=== PATIENT | female | born 1935 | race Caucasian/White ===

== ENCOUNTER → 2018-03-30 | Outpatient (CLI) | payer OTHER ==
[~2018-03-30] MED LIST: ATV5 PO; BENZ100C7 PO; DLCSR120 PO; DVN/160 PO; FLUT0.15 NAE; GFNSR600 PO; HYCUDL5 PO; IPRA-64 INH; ISR20 PO; LSX20 PO; MOUT1LIQ45; MOUTLIQ79; MOUTLIQ83; NICO21DI4 TD; POTA1CAP2 PO; PROAIR HFA INH; SENN8.6T7 PO; SYMIN8045 INH
[2018-03-30 08:07] LABS: HEMATOCRIT 32.2 % (37-47); MEAN CELL VOLUME 91.5 fL (80-100); MEAN CORPUSCULAR HEMOGLOBIN 31.3 pg (25-34); MEAN CORPUSCULAR HGB CONC 34.2 g/dl (32-36); MEAN PLATELET VOLUME 10.1 fL (7.4-10.4); PLATELET COUNT 175 K/uL (130-400); RED CELL DISTRIBUTION WIDTH CV 15.6 % (11.5-14.5)
[2018-03-30 08:19] LABS: ALBUMIN 1.9 gm/dl (3.4-5.0); ALT/SGPT 30 U/L (12-78); AST/SGOT 16 U/L (15-37); BLOOD UREA NITROGEN 21 mg/dl (7-18); CALCIUM 7.7 mg/dl (8.5-10.1); CARBON DIOXIDE 35 mmol/L (21-32); CREATININE 0.59 mg/dl (0.60-1.20); GLUCOSE 93 mg/dl (70-99); POTASSIUM 3.9 mmol/L (3.5-5.1); SODIUM 126 mmol/L (136-145)
[2018-03-30 08:28] LABS: ALKALINE PHOSPHATASE 50 U/L (45-117); TOTAL PROTEIN 4.8 gm/dl (6.4-8.2)
== END | disposition home or self-care (01) ==
LOC: C.LABUPNIT 07:51
PROVIDERS: ATTEND Nurse Practitioner Family
DX: R94.6 Abnormal results of thyroid function studies (principal); I10 Essential (primary) hypertension; J15.211 Pneumonia due to Methicillin susceptible Staphylococcus aureus

== ENCOUNTER → 2018-04-02 | Outpatient (CLI) | payer OTHER ==
[2018-04-02 09:14] LABS: BLOOD UREA NITROGEN 30 mg/dl (7-18); CALCIUM 8.3 mg/dl (8.5-10.1); CARBON DIOXIDE 38 mmol/L (21-32); CREATININE 0.68 mg/dl (0.60-1.20); GLUCOSE 99 mg/dl (70-99); POTASSIUM 3.9 mmol/L (3.5-5.1); SODIUM 130 mmol/L (136-145)
== END | disposition home or self-care (01) ==
LOC: C.LABUPNIT 08:47
PROVIDERS: ATTEND Nurse Practitioner Family
DX: I10 Essential (primary) hypertension (principal)

== ENCOUNTER → 2018-04-05 | Outpatient (CLI) | payer OTHER ==
[2018-04-05 10:22] LABS: HEMATOCRIT 38.5 % (37-47); HEMOGLOBIN 12.7 g/dL (12.0-16.0); MEAN CELL VOLUME 94.4 fL (80-100); MEAN CORPUSCULAR HEMOGLOBIN 31.1 pg (25-34); MEAN PLATELET VOLUME 9.5 fL (7.4-10.4); PLATELET COUNT 223 K/uL (130-400); RED CELL DISTRIBUTION WIDTH CV 15.8 % (11.5-14.5); RED CELL DISTRIBUTION WIDTH SD 54.5 fL (36.4-46.3); WHITE BLOOD COUNT 10.08 K/uL (4.8-10.8)
[2018-04-05 10:28] LABS: BLOOD UREA NITROGEN 11 mg/dl (7-18); CALCIUM 8.3 mg/dl (8.5-10.1); CARBON DIOXIDE 39 mmol/L (21-32); CREATININE 0.42 mg/dl (0.60-1.20); GLUCOSE 116 mg/dl (70-99); SODIUM 132 mmol/L (136-145)
== END ==
LOC: C.LABUPNIT 09:46
PROVIDERS: ATTEND Nurse Practitioner Family
DX: J44.1 Chronic obstructive pulmonary disease with (acute) exacerbation (principal); J15.211 Pneumonia due to Methicillin susceptible Staphylococcus aureus

== ENCOUNTER → 2018-04-07 | Outpatient (CLI) | payer OTHER ==
[~2018-04-07] MED LIST changes: +ANSHCS PR; +ELQ25 PO; +OXGN; +PRED10TA PO; +ZNT150 PO
[2018-04-07 08:22] LABS: HEMATOCRIT 36.1 % (37-47); HEMOGLOBIN 12.4 g/dL (12.0-16.0); IG# 0.02 K/uL (0.00-0.02); LYMPH % 5.7 %; LYMPH ABS # 0.49 K/uL (1.2-3.4); MEAN CELL VOLUME 90.9 fL (80-100); MEAN CORPUSCULAR HEMOGLOBIN 31.2 pg (25-34); MEAN CORPUSCULAR HGB CONC 34.3 g/dl (32-36); MEAN PLATELET VOLUME 8.8 fL (7.4-10.4); MONO % 8.1 %; NEUT ABS # 7.43 K/uL (1.4-6.5); PLATELET COUNT 191 K/uL (130-400); RED CELL DISTRIBUTION WIDTH CV 15.4 % (11.5-14.5); RED CELL DISTRIBUTION WIDTH SD 51.7 fL (36.4-46.3); WHITE BLOOD COUNT 8.64 K/uL (4.8-10.8)
== END ==
LOC: C.LABUPNIT 10:51
PROVIDERS: ATTEND Nurse Practitioner Family
DX: J15.211 Pneumonia due to Methicillin susceptible Staphylococcus aureus (principal)

== ENCOUNTER → 2018-04-09 | Outpatient (CLI) | payer OTHER ==
[2018-04-09 10:15] LABS: BLOOD UREA NITROGEN 24 mg/dl (7-18); CALCIUM 8.4 mg/dl (8.5-10.1); CARBON DIOXIDE 39 mmol/L (21-32); CREATININE 0.56 mg/dl (0.60-1.20); GLUCOSE 119 mg/dl (70-99); SODIUM 133 mmol/L (136-145)
== END ==
LOC: C.LABUPNIT 07:53
PROVIDERS: ATTEND Nurse Practitioner Family
DX: J44.1 Chronic obstructive pulmonary disease with (acute) exacerbation (principal); I10 Essential (primary) hypertension

== ENCOUNTER 2018-04-12 11:35 | Inpatient (IN) | payer OTHER ==
[~2018-04-12] VITALS: Ht 167.6 cm; Wt 48.3 kg
[~2018-04-12 11:35] MED LIST changes: -ANSHCS PR; -ELQ25 PO; -MOUT1LIQ45; -MOUTLIQ79; -MOUTLIQ83; -OXGN; -POTA1CAP2 PO; -PRED10TA PO; -ZNT150 PO
[2018-04-12] MEDS ORDERED: ALBUT/IPRATROP 3MG/0.5MG NEB 3 ML VIAL INH STA ×2 (12:18→23:33)
--- NOTE | 2018-04-12 12:43 | DIAGNOSTIC IMAGING REPORT ---
CHEST ONE VIEW PORTABLE HISTORY: Short of breath. COMPARISON: Chest 03/26/2018. FINDINGS: Significant increase in size in a moderate right pleural effusion. Small left pleural effusion persists. Right basilar density is noted. Mild interstitial thickening persists. The heart is stable in size. Emphysema. IMPRESSION: 1. Significant increase in size in a moderate right pleural effusion. Right basilar densities favor atelectasis from the pleural effusion. However, follow up is recommended to ensure resolution. 2. Mild interstitial thickening which is likely chronic. This remains unchanged. Mild congestive change could also have a similar appearance. 3. Small left pleural effusion, unchanged. Electronically signed by: Justin Jackson M.D. 04/12/2018 12:42 PM Dictated Date/Time: 04/12/2018 12:40 PM
[2018-04-12] MEDS ORDERED: ACETAMINOPHEN 325 MG TAB PO STA (13:01)
--- NOTE | 2018-04-12 13:10 | EMERGENCY ROOM VISIT NOTE ---
History Report prepared by Luc: Lance Salgado Under the Supervision of: Dr. Oswald Rodrigues M.D. First contact with patient: 12:24 Chief Complaint: RESPIRATORY PROBLEMS Stated Complaint: PLEURAL EFFUSION Nursing Triage Summary: Pt to ED via ALS from [facility] with xrays showing large pleural effusion. Pt c/o worsening sob this AM and left rib pain. Discharged from [facility] 3 weeks ago dx pneumonia. 18G IV left hand prehospital. Chronic nasal o2 3lpm. Hx pleural effusion, pneumonia, copd and per patient afib History of Present Illness The patient is a 82 year old female who presents to the Emergency Room via ALS with complaints of worsening SOB that began this morning. Patient was sent to the ER from [facility] after having an X-ray which showed a pleural effusion. Patient adds she has left-sided rib pain. Patient states she was diagnosed with pneumonia in the ER 3 weeks ago. She states she has been using oxygen since being discharged. She adds she stopped her antibiotics recently. Patient states she has been coughing less than usual and denies any fevers. Patient states she uses breathing treatments regularly. Source of History: patient Onset: This morning Position: chest Timing: worsening Modifying Factors (Relieving): other (Breathing treatments) Associated Symptoms: + cough, + chest pain (Left-sided rib pain), No fevers Review of Systems See HPI for pertinent positives & negatives. A total of 10 systems reviewed and were otherwise negative. Past Medical & Surgical Medical Problems: (1) Atrial fibrillation (2) COPD (chronic obstructive pulmonary disease) (3) ABHISHEK (generalized anxiety disorder) (4) Hypertension (5) Hypoalbuminemia (6) Tobacco abuse Surgical Problems: (1) History of carpal tunnel release (2) History of carpal tunnel release Family History Patient reports no known family medical history. Omitted secondary to age. Social History Smoking Status: Current Some Day Smoker Housing Status: senior care Occupation Status: retired Current/Historical Medications Scheduled Budesonide/Formoterol Fumarate (Symbicort 80-4.5 Mcg/Act), 2 PUFFS INH BID Diltiazem HCl (Diltiazem HCl ER), 240 MG PO QAM Fluticasone Propionate (Nasal) (Flonase Allergy Relief), 2 SPRAYS MARINA DAILY Furosemide (Furosemide), 20 MG PO MWF Isosorbide Dinitrate (Isordil), 20 MG PO BID Nicotine (Nicoderm Cq), 21 MG TD QAM Potassium Chloride (Potassium Chloride Er), 1 CAP PO DAILY Valsartan (Diovan), 160 MG PO DAILY Scheduled PRN Benzonatate (Benzonatate), 100 MG PO TID PRN for Cough Hydrocodone/Homatropine (Hydromet 5-1.5 mg/5Ml), 5 ML PO HS PRN for Pain Ipratropium-Albuterol (Duoneb), 1 TREATMENT INH Q4H PRN for SOB/Wheezing Lorazepam (Lorazepam), 0.5 MG PO Q4 PRN for Anxiety Sennosides-Docusate Sodium (Senokot S), 1 TAB PO DAILY PRN for CONSTIPATION [Proair Hfa], 2 PUFF INH Q4 PRN for SOB/Wheezing Miscellaneous Medications Mouthwashes (Biotene Dry Mouth Gentle) Allergies Coded Allergies: Iodine (Unverified Adverse Reaction, Unknown, ., 04/12/18) Physical Exam Vital Signs Date Time Temp Pulse Resp B/P (MAP) Pulse Ox O2 Delivery O2 Flow Rate FiO2 04/12/18 17:46 82 24 126/74 99 04/12/18 16:57 78 26 137/74 99 04/12/18 16:20 86 04/12/18 14:36 98 Nasal Cannula 3.0 04/12/18 14:07 94 20 135/62 98 Nasal Cannula 3.0 04/12/18 13:06 101 24 150/94 100 Room Air 3.0 04/12/18 12:21 100 04/12/18 11:40 100 Nasal Cannula 3.0 04/12/18 11:40 100 Nasal Cannula 3.0 04/12/18 11:40 100 Nasal Cannula 3.0 04/12/18 11:40 36.7 101 32 136/91 100 Room Air 3.0 Physical Exam GENERAL: Patient is in no acute distress. HEENT: No acute trauma, normocephalic atraumatic, mucous membranes moist, no nasal congestion, no scleral icterus. NECK: No stridor, no adenopathy, no meningismus, trachea is midline. LUNGS: Diminished breath sounds bilaterally, significantly diminished on the right, increased respiratory rate, no wheezing. HEART: Tachycardic rate with an irregular rhythm, no murmurs. ABDOMEN: Soft, nontender, bowel sounds positive, no hernias, no peritonitis. EXTREMITIES: No cyanosis or edema, full range of motion of all the joints without pain or difficulty, no signs for acute trauma. NEUROLOGIC: Oriented x 3, no acute motor or sensory deficits, no focal weakness. SKIN: No rash, no jaundice, no diaphoresis. Medical Decision & Procedures ER Provider Diagnostic Interpretation: Radiology results as stated below per my review and radiologist interpretation: CHEST ONE VIEW PORTABLE HISTORY: Short of breath. COMPARISON: Chest 03/26/2018. FINDINGS: Significant increase in size in a moderate right pleural effusion. Small left pleural effusion persists. Right basilar density is noted. Mild interstitial thickening persists. The heart is stable in size. Emphysema. IMPRESSION: 1. Significant increase in size in a moderate right pleural effusion. Right basilar densities favor atelectasis from the pleural effusion. However, follow up is recommended to ensure resolution. 2. Mild interstitial thickening which is likely chronic. This remains unchanged. Mild congestive change could also have a similar appearance. 3. Small left pleural effusion, unchanged. Electronically signed by: Justin Jackson M.D. 04/12/2018 12:42 PM Laboratory Results 04/12/18 12:55 Red Blood Count 4.55, Mean Corpuscular Volume 91.6, Mean Corpuscular Hemoglobin 31.6, Mean Corpuscular Hemoglobin Concent 34.5, Mean Platelet Volume 8.7, Neutrophils (%) (Auto) 80.6, Lymphocytes (%) (Auto) 7.2, Monocytes (%) (Auto) 11.6, Eosinophils (%) (Auto) 0.2, Basophils (%) (Auto) 0.1, Neutrophils # (Auto ) 6.91, Lymphocytes # (Auto) 0.62, Monocytes # (Auto) 1.00, Eosinophils # (Auto ) 0.02, Basophils # (Auto) 0.01 04/12/18 12:55 Test 04/12/18 12:55 04/12/18 12:59 White Blood Count 8.59 K/uL (4.8-10.8) Red Blood Count 4.55 M/uL (4.2-5.4) Hemoglobin 14.4 g/dL (12.0-16.0) Hematocrit 41.7 % (37-47) Mean Corpuscular Volume 91.6 fL (80-100) Mean Corpuscular Hemoglobin 31.6 pg (25-34) Mean Corpuscular Hemoglobin Concent 34.5 g/dl (32-36) Platelet Count 261 K/uL (130-400) Mean Platelet Volume 8.7 fL (7.4-10.4) Neutrophils (%) (Auto) 80.6 % Lymphocytes (%) (Auto) 7.2 % Monocytes (%) (Auto) 11.6 % Eosinophils (%) (Auto) 0.2 % Basophils (%) (Auto) 0.1 % Neutrophils # (Auto) 6.91 K/uL (1.4-6.5) Lymphocytes # (Auto) 0.62 K/uL (1.2-3.4) Monocytes # (Auto) 1.00 K/uL (0.11-0.59) Eosinophils # (Auto) 0.02 K/uL (0-0.5) Basophils # (Auto) 0.01 K/uL (0-0.2) RDW Standard Deviation 52.5 fL (36.4-46.3) RDW Coefficient of Variation 15.7 % (11.5-14.5) Immature Granulocyte % (Auto) 0.3 % Immature Granulocyte # (Auto) 0.03 K/uL (0.00-0.02) Prothrombin Time 10.5 SECONDS (9.0-12.0) Prothromb Time International Ratio 1.0 (0.9-1.1) Activated Partial Thromboplast Time 25.4 SECONDS (21.0-31.0) Partial Thromboplastin Ratio 1.0 D-Dimer 1570 ug/L FEU (0-500) Anion Gap 3.0 mmol/L (3-11) Est Creatinine Clear Calc Drug Dose 88.6 ml/min Estimated GFR () 110.6 Estimated GFR (Non- 95.4 BUN/Creatinine Ratio 40.3 (10-20) Calcium Level 8.2 mg/dl (8.5-10.1) Total Bilirubin 0.8 mg/dl (0.2-1) Aspartate Amino Transf (AST/SGOT) 19 U/L (15-37) Alanine Aminotransferase (ALT/SGPT) 39 U/L (12-78) Alkaline Phosphatase 68 U/L (45-117) Troponin I < 0.015 ng/ml (0-0.045) Total Protein 5.3 gm/dl (6.4-8.2) Albumin 2.6 gm/dl (3.4-5.0) Globulin 2.7 gm/dl (2.5-4.0) Albumin/Globulin Ratio 1.0 (0.9-2) Procalcitonin < 0.05 ng/ml (0-0.5) Laboratory results reviewed by me. Medications Administered Medications (Trade) Dose Ordered Sig/Nell Route Start Time Stop Time Status Last Admin Dose Admin Albuterol/ Ipratropium (Duoneb) 3 ml NOW STAT INH 04/12/18 12:18 04/12/18 16:09 DC 04/12/18 12:36 3 ML Acetaminophen (Tylenol Tab) 650 mg NOW STAT PO 04/12/18 13:01 04/12/18 13:02 DC 04/12/18 13:05 650 MG Vancomycin HCl 1250 mg/Sodium Chloride 275 ml @ 125 mls/hr NOW ONCE IV 04/12/18 16:30 04/12/18 18:41 04/12/18 16:39 125 MLS/HR Piperacillin Sod/ Tazobactam Sod 3.375 gm/Dextrose 115 ml @ 230 mls/hr NOW ONCE IV 04/12/18 16:30 04/12/18 16:59 DC 04/12/18 16:39 230 MLS/HR ECG Per My Interpretation Indication: SOB/dyspnea Rate (beats per minute): 104 Rhythm: atrial fibrillation Findings: PVC, other (Old inferior infarct, no ST elevation) Comparison ECG Date: 03/15/2018 Change: no significant change ED Course 1211: The patient was evaluated in room A12B. A complete history and physical exam was performed. 1218: Duoneb 3ml INH 1301: Tylenol Tab 650mg PO 1352: I reevaluated the patient and updated her on her findings. 1501: Upon reexamination the patient will be further evaluated. I discussed results and treatment plan with the patient. She verbalizes agreement and understanding. I [facility] We discussed the patient's results and findings. The patient will be evaluated by Franny Donnelly PA-C for further management. Medical Decision Differential Diagnosis: Exacerbation of COPD, cardiac ischemia, pneumonia, bronchitis, electrolyte imbalance, pneumothorax, and pleural effusion. There is no leukocytosis or worrisome anemia. Renal panel testing shows a slightly low sodium, no kidney failure. No hepatitis. There is no coagulopathy. EKG shows A. fib, no acute ischemic change. Cardiac enzyme testing 1 is not consistent with acute cardiac injury. Chest x-ray shows a fairly large right-sided pleural effusion, no pneumothorax, no CHF. The patient presents with some increasing dyspnea. Today, on x-ray, she has a large right pleural effusion which is new, this is likely responsible for her increasing dyspnea. The patient was given a DuoNeb. She received oral Tylenol for her chest pain. I do think a hospital stay is warranted. The effusion likely needs drained. I did speak with the system sales consultant on for cardiothoracic surgery. I spoke with case management. The on-call hospitalist was consulted. Medication Reconcilliation Current Medication List: was personally reviewed by me Blood Pressure Screening Patient's blood pressure: Elevated blood pressure Referred to hospitalist. Consults Time Called: [phone] Consulting Physician: Franny Leyva Hospitalist Returned Call: [phone] Discussed the patient's case. The patient will be evaluated for further management. Impression Primary Impression: SOB (shortness of breath) Additional Impressions: Pleural effusion on right COPD (chronic obstructive pulmonary disease) Scribe Attestation The scribe's documentation has been prepared under my direction and personally reviewed by me in its entirety. I confirm that the note above accurately reflects all work, treatment, procedures, and medical decision making performed by me. Departure Information Dispostion Being Evaluated By Hospitalist Referrals Melanie Jeffers (PCP) Forms HOME CARE DOCUMENTATION FORM, IMPORTANT VISIT INFORMATION, WORK / SCHOOL INSTRUCTIONS Patient Instructions My [facility] Problem Qualifiers
[2018-04-12 13:11] LABS: BASO % 0.1 %; BASO ABS # 0.01 K/uL (0-0.2); EOS % 0.2 %; EOS ABS # 0.02 K/uL (0-0.5); HEMATOCRIT 41.7 % (37-47); HEMOGLOBIN 14.4 g/dL (12.0-16.0); IG# 0.03 K/uL (0.00-0.02); LYMPH % 7.2 %; LYMPH ABS # 0.62 K/uL (1.2-3.4); MEAN CELL VOLUME 91.6 fL (80-100); MEAN CORPUSCULAR HEMOGLOBIN 31.6 pg (25-34); MEAN CORPUSCULAR HGB CONC 34.5 g/dl (32-36); MEAN PLATELET VOLUME 8.7 fL (7.4-10.4); MONO % 11.6 %; NEUT % 80.6 %; NEUT ABS # 6.91 K/uL (1.4-6.5); PLATELET COUNT 261 K/uL (130-400); RED CELL DISTRIBUTION WIDTH CV 15.7 % (11.5-14.5); RED CELL DISTRIBUTION WIDTH SD 52.5 fL (36.4-46.3); WHITE BLOOD COUNT 8.59 K/uL (4.8-10.8)
[2018-04-12 13:24] LABS: PTT PATIENT 25.4 SECONDS (21.0-31.0)
[2018-04-12 13:32] LABS: ALBUMIN 2.6 gm/dl (3.4-5.0); CALCIUM 8.2 mg/dl (8.5-10.1); CREATININE 0.43 mg/dl (0.60-1.20); POTASSIUM 4.7 mmol/L (3.5-5.1); TOTAL PROTEIN 5.3 gm/dl (6.4-8.2)
[2018-04-12 14:36] VITALS: O2SAT 98; BMI 19.5
[2018-04-12] MEDS ORDERED: ACETAMINOPHEN 325 MG TAB PO PRN (15:45)
[2018-04-12] MEDS ORDERED: PIPERACILL/TAZOBAC CONSULT ACTIVE PRN (16:00)
[2018-04-12] MEDS ORDERED: DOCUSATE SODIUM/SENNA 50/8.6MG TAB PO PRN (16:15)
[2018-04-12] MEDS ORDERED: BENZONATATE 100MG CAP PO PRN (16:15)
[2018-04-12] MEDS ORDERED: VANCOMYCIN CONSULT ACTIVE PRN (16:27)
[2018-04-12] MEDS ORDERED: PIPERACILL/TAZOBAC IV 3.375 GM in D5W 100 ML IV ONE (16:30)
[2018-04-12] MEDS ORDERED: VANCOMYCIN IV 1,250 MG in SODIUM CHLORIDE 0.9% 250ML 250 ML IV ONE (16:30)
[2018-04-12] MEDS ORDERED: MOUTLIQ79 (16:40)
[2018-04-12] MEDS ORDERED: MOUTLIQ83 (16:48)
--- NOTE | 2018-04-12 17:04 | History and Physical ---
History & Physical Date & Time of Service: Apr 12, 2018 at 16:15 Chief Complaint: Pleural Effusion Primary Care Physician: Melanie Jeffers History of Present Illness Source: patient, family This is an 82-year-old female who has a significant past medical history of severe COPD O2 dependent, PAF not on OAC, HTN, tobacco abuse history, ABHISHEK, moderate-severe aortic stenosis who presented to [facility] from [facility] secondary to shortness of breath, large pleural effusion on chest x-ray. Daughter is at bedside. Patient was recently hospitalized [facility] 03/15 to 03/28/2018 secondary to severe COPD exacerbation, new onset A. fib with RVR in which cardiology, pulmonology were involved. At that time she was given IV Lasix, transition to p.o. Lasix 20mg MWF, was treated with Levaquin, IV steroids therapy. Patient is relatively new to the area which moved to [facility] in the day 2017 from [place] and therefore her pulmonary baseline is quite unknown. Posthospitalization she was sent to [facility]. Upon admission there he was noted to the wheezing therefore staff obtained chest x-ray, which noted pneumonia. Patient was initiated on IV Rocephin, Levaquin, p.o. prednisone 20 mg 5 days with minimal improvement. Is also participating in therapy at bedside. She now presents back to [facility] with increased shortness of breath at rest, orthopnea, chest tightness, wheezing, cough which is improving with clear productive sputum, GERD, dry mouth, bloating. She denies fever, chills sweats, lightheadedness, dizziness, chest pain, PND, nausea , vomiting, diarrhea. Last BM was yesterday, small, not moving regularly. Urinating frequently secondary to Lasix, but denies dysuria, increased urgency. Poor appetite over the past week. Per daughter while at [facility] she did have one fall when transferring to bedside commode. In ED according to Dr. Rodrigues patient was tachypneic which improved with DuoNeb. Chest x-ray obtained showed moderate right pleural effusion, right basilar density, atelectasis. Lab work revealed sodium 130, potassium 5.7, BUN 17, creatinine 0.43, glucose 102, H&H 14.4/41.7, WBC 8.9, platelet 260, troponin less than 0.015. She is being admitted for further evaluation and management of R. pleural effusion. Past Medical/Surgical History Medical Problems: (1) Atrial fibrillation Status: Chronic (2) COPD (chronic obstructive pulmonary disease) Status: Chronic (3) ABHISHEK (generalized anxiety disorder) Status: Chronic (4) Hypertension Status: Chronic (5) Tobacco abuse Status: Chronic Surgical History: (1) Carpal Tunnel Release Family History Diabetes mellitus MOTHER Hypertension FATHER Social History Smoking Status: Current Every Day Smoker (Spoke 1ppd since she was 18 years old ) Smokeless Tobacco Use: No Alcohol Use: none Drug Use: none Housing status: lives alone Occupational Status: retired Immunizations History of Influenza Vaccine: Unknown History of Tetanus Vaccine?: Unknown History of Pneumococcal: Unknown History of Hepatitis B Vaccine: Unknown Allergies Coded Allergies: Iodine (Unverified Adverse Reaction, Unknown, ., 04/12/18) Home Medications Scheduled Budesonide/Formoterol Fumarate (Symbicort 80-4.5 Mcg/Act), 2 PUFFS INH BID Diltiazem HCl (Diltiazem HCl ER), 240 MG PO QAM Fluticasone Propionate (Nasal) (Flonase Allergy Relief), 2 SPRAYS MARINA DAILY Furosemide (Furosemide), 20 MG PO MWF Isosorbide Dinitrate (Isordil), 20 MG PO BID Nicotine (Nicoderm Cq), 21 MG TD QAM Potassium Chloride (Potassium Chloride Er), 1 CAP PO DAILY Valsartan (Diovan), 160 MG PO DAILY Scheduled PRN Benzonatate (Benzonatate), 100 MG PO TID PRN for Cough Hydrocodone/Homatropine (Hydromet 5-1.5 mg/5Ml), 5 ML PO HS PRN for Pain Ipratropium-Albuterol (Duoneb), 1 TREATMENT INH Q4H PRN for SOB/Wheezing Lorazepam (Lorazepam), 0.5 MG PO Q4 PRN for Anxiety Sennosides-Docusate Sodium (Senokot S), 1 TAB PO DAILY PRN for CONSTIPATION [Proair Hfa], 2 PUFF INH Q4 PRN for SOB/Wheezing Miscellaneous Medications Mouthwashes (Biotene Dry Mouth Gentle) Review of Systems As noted per HPI, 10 systems reviewed and negative unless noted above. Physical Exam Vital Signs Date Time Temp Pulse Resp B/P (MAP) Pulse Ox O2 Delivery O2 Flow Rate FiO2 04/12/18 14:36 98 Nasal Cannula 3.0 04/12/18 14:07 94 20 135/62 98 Nasal Cannula 3.0 04/12/18 13:06 101 24 150/94 100 Room Air 3.0 04/12/18 12:21 100 04/12/18 11:40 100 Nasal Cannula 3.0 04/12/18 11:40 100 Nasal Cannula 3.0 04/12/18 11:40 100 Nasal Cannula 3.0 04/12/18 11:40 36.7 101 32 136/91 100 Room Air 3.0 General Appearance: + mild distress, + cachetic (Elderly, F), + thin Head: normocephalic, atraumatic Eyes: normal inspection, PERRL, sclerae normal ENT: normal ENT inspection, + pertinent finding (Mucous membranes dry) Neck: supple, no adenopathy, thyroid normal, no JVD Respiratory/Chest: chest non-tender, + respiratory distress (Tachypnea), + decreased breath sounds, + wheezing, + pertinent finding (absent breath sounds right lower lobe) Cardiovascular: no edema, + systolic murmur, + irregularly irregular Abdomen/GI: normal bowel sounds, non tender, soft, no organomegaly Back: normal inspection, + pertinent finding (+Left low back, large soft, mobile mass consistent with possible lipoma) Neurologic/Psych: alert, normal mood/affect, oriented x 3 Skin: normal color, warm/dry, + pertinent finding (+ecchymosis to b/l knees L>R ) Diagnostics Laboratory Results Results Past 24 Hours Test 04/12/18 12:55 04/12/18 15:57 Range/Units White Blood Count 8.59 4.8-10.8 K/uL Red Blood Count 4.55 4.2-5.4 M/uL Hemoglobin 14.4 12.0-16.0 g/dL Hematocrit 41.7 37-47 % Mean Corpuscular Volume 91.6 80-100 fL Mean Corpuscular Hemoglobin 31.6 25-34 pg Mean Corpuscular Hemoglobin Concent 34.5 32-36 g/dl Platelet Count 261 130-400 K/uL Mean Platelet Volume 8.7 7.4-10.4 fL Neutrophils (%) (Auto) 80.6 % Lymphocytes (%) (Auto) 7.2 % Monocytes (%) (Auto) 11.6 % Eosinophils (%) (Auto) 0.2 % Basophils (%) (Auto) 0.1 % Neutrophils # (Auto) 6.91 1.4-6.5 K/uL Lymphocytes # (Auto) 0.62 1.2-3.4 K/uL Monocytes # (Auto) 1.00 0.11-0.59 K/uL Eosinophils # (Auto) 0.02 0-0.5 K/uL Basophils # (Auto) 0.01 0-0.2 K/uL RDW Standard Deviation 52.5 36.4-46.3 fL RDW Coefficient of Variation 15.7 11.5-14.5 % Immature Granulocyte % (Auto) 0.3 % Immature Granulocyte # (Auto) 0.03 0.00-0.02 K/uL Prothrombin Time 10.5 9.0-12.0 SECONDS Prothromb Time International Ratio 1.0 0.9-1.1 Activated Partial Thromboplast Time 25.4 21.0-31.0 SECONDS Partial Thromboplastin Ratio 1.0 Sodium Level 130 136-145 mmol/L Potassium Level 4.7 3.5-5.1 mmol/L Chloride Level 87 98-107 mmol/L Carbon Dioxide Level 39 21-32 mmol/L Anion Gap 3.0 3-11 mmol/L Blood Urea Nitrogen 17 7-18 mg/dl Creatinine 0.43 0.60-1.20 mg/dl Est Creatinine Clear Calc Drug Dose 88.6 ml/min Estimated GFR () 110.6 Estimated GFR (Non- 95.4 BUN/Creatinine Ratio 40.3 10-20 Random Glucose 101 70-99 mg/dl Calcium Level 8.2 8.5-10.1 mg/dl Total Bilirubin 0.8 0.2-1 mg/dl Aspartate Amino Transf (AST/SGOT) 19 15-37 U/L Alanine Aminotransferase (ALT/SGPT) 39 12-78 U/L Alkaline Phosphatase 68 45-117 U/L Troponin I < 0.015 0-0.045 ng/ml Total Protein 5.3 6.4-8.2 gm/dl Albumin 2.6 3.4-5.0 gm/dl Globulin 2.7 2.5-4.0 gm/dl Albumin/Globulin Ratio 1.0 0.9-2 Diagnostic Radiology CXR: 1. Significant increase in size in a moderate right pleural effusion. Right basilar densities favor atelectasis from the pleural effusion. However, follow up is recommended to ensure resolution. 2. Mild interstitial thickening which is likely chronic. This remains unchanged. Mild congestive change could also have a similar appearance. 3. Small left pleural effusion, unchanged. EKG ECG: Afib RVR HR 104 Impression Assessment and Plan (1) Pleural effusion on right Assessment & Plan: This is an 82-year-old female who has a significant past medical history of severe COPD O2 dependent, PAF not on OAC, HTN, tobacco abuse history, ABHISHEK, moderate-severe aortic stenosis who presented to [facility] from [facility] secondary to shortness of breath , large pleural effusion on chest x-ray. In ED according to Dr. Rodrigues patient was tachypneic which improved with DuoNeb. Chest x-ray obtained showed moderate right pleural effusion, right basilar density, atelectasis. Lab work revealed sodium 130, potassium 5.7, BUN 17, creatinine 0.43, glucose 102, H&H 14.4/41.7, WBC 8.9, platelet 260, troponin less than 0.015. She is being admitted for further evaluation and management of R. pleural effusion. Ddx: CHF, Hospital acquired Pneumonia, COPD exacerbation. WBC within range, afebrile, recent treatment with levaquin/rocephin and recent hospitalization from -03/28/18 for COPD Exac/new onset afib. -Admit to med/surg telemetry -Start IV Lasix 40 daily -Empiric Antibiotics Vanco/Zosyn per pharmacy consult secondary to recent treatment with levaquin and rocephin until infectious source ruled out. -check d-dime to r/o PE, if + check CTA. -Prednisone 40mg po daily -Levalbuterol/ipatropium nebs q6 routine -MRSA Swab, if negative, MRSA PNA less likely -Pulmonary consult for evaluation/possible thoracentesis -repeat CXR, CBC, CMP and check pro-calcitonin in a.m. (2) SOB (shortness of breath) Assessment & Plan: Continue O2. Pulmonary treatment as above (3) COPD (chronic obstructive pulmonary disease) Assessment & Plan: Continue Symbicort Routine levalbuterol/ipratropium nebulizer treatments Continue O2 (4) Atrial fibrillation Assessment & Plan: Currently on diltiazem for rate and rhythm control., New- onset Orlando adams was diagnosed at most recent hospitalization from 03/15-03/28. Cardiology followed patient during that visit, unfortunately she refused oral anticoagulation. (5) Hyponatremia Assessment & Plan: Repeat BMP in a.m. Possible secondary to diuretic use, volume overload, SIADH Monitor while on IV diuretic (6) Hypertension Assessment & Plan: Blood pressure acceptable at this time Continue diltiazem, imdur, diovan, lasix. Goal < 140/90 (7) ABHISHEK (generalized anxiety disorder) Assessment & Plan: Continue lorazepam as needed (8) GERD (gastroesophageal reflux disease) Assessment & Plan: Start ranitidine 150mg po bid. Monitor for symptoms (9) Tobacco abuse Assessment & Plan: Continue NicoDerm patch 21 mg TD (10) Hypoalbuminemia Assessment & Plan: consult mold shaker due to hypoalbuminemia. This is a 82 year old female with a past medical history of O2 dependent COPD, tobacco use disorder, paroxysmal atrial fibrillation not on anticoagulation, HTN , moderate-severe aortic stenosis - presents from [facility] due to worsening shortness of breath/pleural effusion. R Pleural Effusion - likely due to valvular heart disease - patient does not want to take 40mg of Lasix at this time - will do 20mg via IV for now - pulmonology consulted for possible thoracentesis Recent Pneumonia - possibly related to parapneumonic effusion - will treat with Vanc + Zosyn; check MRSA swab - will monitor radiographs after effusion improves Elevated D-Dimer - will check V/Q scan Severe COPD Chronic Respiratory Failure - on oxygen at baseline, around 2L - add prednisone 40mg x5 days - nebs as needed - continue Symbicort DVT ppx - subq heparin DNR Advanced Directives Existing Living Will: Yes Existing Power of Licensed Plumber: No Resuscitation Status DNR VTE Prophylaxis Will order VTE Prophylaxis: Yes (heparin sq)
[2018-04-12] MEDS ORDERED: MOUT1LIQ45 (17:05)
[2018-04-12] MEDS ORDERED: POTA1CAP2 PO (17:05)
[2018-04-12] MEDS ORDERED: LEVALBUTEROL/IPRATROPIUM NEB INH PRN (18:30)
[2018-04-12 18:45] VITALS: BP 173/79; PULSE 89; TEMP 36.6; O2SAT 94
[2018-04-12] MEDS ORDERED: LEVALBUTEROL 0.63MG/3 ML NEB INH PRN (18:45)
[2018-04-12] MEDS ORDERED: IV FLUIDS COMPLETED PRN (18:45)
[2018-04-12] MEDS ORDERED: IPRATROPIUM BROMIDE NEB SOLN 0.02% 2.5 ML VIAL INH PRN (18:45)
[2018-04-12] MEDS: LEVALBUTEROL 0.63MG/3 ML NEB INH SCH (19:34)
[2018-04-12 19:37] VITALS: PULSE 86; O2SAT 95
[2018-04-12] MEDS: BUDESONIDE/FORMOTEROL FUMARATE 80/4.5 60 PUFFS/INHALER INH SCH (21:40)
[2018-04-12] MEDS: RANITIDINE HCL 150 MG TAB PO SCH (21:40)
[2018-04-12] MEDS: PIPERACILL/TAZOBAC IV 3.375 GM in DEXTROSE 5% 100ML 100 ML IV SCH (21:41)
[2018-04-12] MEDS: HEPARIN SOD 5000 UNIT/0.5 ML CARP SQ SCH (21:50)
--- NOTE | 2018-04-12 22:10 | Pharmacy Progress Note ---
Pharmacy Abx Initial Consult Date of Service Apr 12, 2018. Pharmacy Dosing Scope Date of Consult: 04/12/18 Consultation requested by: Franny Donnelly Pharmacy is consulted to initiate vancomycin/Zosyn IV dosing therapy, order appropriate labs and adjust drug dose/frequency. Subjective The patient is a 82 year old female admitted on Apr 12, 2018 at 16:13. Objective Height (Feet): 5 Height (Inches): 6.00 Weight (Kilograms): 54.700 Vital Signs (Past 12Hrs) Vital Signs Past 12 Hours Date Time Temp Pulse Resp B/P (MAP) Pulse Ox O2 Delivery O2 Flow Rate FiO2 04/12/18 19:37 86 16 95 Nasal Cannula 2.0 04/12/18 18:45 36.6 89 18 173/79 (110) 94 Nasal Cannula 2.5 04/12/18 18:00 Nasal Cannula 2.0 04/12/18 17:46 82 24 126/74 99 04/12/18 16:57 78 26 137/74 99 04/12/18 16:20 86 04/12/18 14:36 98 Nasal Cannula 3.0 04/12/18 14:07 94 20 135/62 98 Nasal Cannula 3.0 04/12/18 13:06 101 24 150/94 100 Room Air 3.0 04/12/18 12:21 100 04/12/18 11:40 100 Nasal Cannula 3.0 04/12/18 11:40 100 Nasal Cannula 3.0 04/12/18 11:40 100 Nasal Cannula 3.0 04/12/18 11:40 36.7 101 32 136/91 100 Room Air 3.0 Lab Results (24Hrs) Laboratory Tests (24 Hours) Test 04/12/18 12:55 04/12/18 12:59 White Blood Count 8.59 K/uL (4.8-10.8) Red Blood Count 4.55 M/uL (4.2-5.4) Hemoglobin 14.4 g/dL (12.0-16.0) Hematocrit 41.7 % (37-47) Mean Corpuscular Volume 91.6 fL (80-100) Mean Corpuscular Hemoglobin 31.6 pg (25-34) Mean Corpuscular Hemoglobin Concent 34.5 g/dl (32-36) Platelet Count 261 K/uL (130-400) Mean Platelet Volume 8.7 fL (7.4-10.4) Neutrophils (%) (Auto) 80.6 % Lymphocytes (%) (Auto) 7.2 % Monocytes (%) (Auto) 11.6 % Eosinophils (%) (Auto) 0.2 % Basophils (%) (Auto) 0.1 % Neutrophils # (Auto) 6.91 K/uL (1.4-6.5) H Lymphocytes # (Auto) 0.62 K/uL (1.2-3.4) L Monocytes # (Auto) 1.00 K/uL (0.11-0.59) H Eosinophils # (Auto) 0.02 K/uL (0-0.5) Basophils # (Auto) 0.01 K/uL (0-0.2) Procalcitonin < 0.05 ng/ml (0-0.5) Micro Results Date/Time Source Procedure Growth Status 04/12/18 18:40 Nasal MRSA DNA Surveillance Screen - Final Specimen Negative for MRSA by DNA Probe Complete Risk Factors for Resistance * Resident in a shelter or extended-care facility * Hospitalization for 48 hours or more within the past 90 days * Antimicrobial use within the last 90 days Levaquin and Azithromycin Assessment & Plan Assessment 82 year old female with a PMH of COPD on home oxygen presents with a pleural effusion on x-ray. Plan vancomycin/Zosyn for treatment of pleural effusion Vancomycin IV * Loading dose: 1250 mg (25 mg/kg) * Maintenance dose: 1000 mg IV (18.5 mg/kg) every 14 hours (population pharmacokinetics suggest half-life of 9 hr with elimination constant of 0.077 hr -1 HOWEVER baseline data with creatinine of 0.6-0.7 mg/dL suggests half-life of 16.5 hr with elimination constant of0.042 hr-1) * Goal trough level for pulmonary indication : 15 to 20 mcg/mL * Trough ordered for 04/14/18 prior to 1000 dose Piperacillin/tazobactam * 3.375 g bolus administered over 30 minutes, then 3.375 g IV extended infusion every 8 hours for CrCl greater than 20 mL/min Pharmacy will continue to follow and will adjust dose/frequency as necessary. Thank you.
[2018-04-12 23:13] VITALS: BP 146/81; PULSE 82; TEMP 36.5; O2SAT 95
[2018-04-12 23:34] VITALS: PULSE 83; O2SAT 96
[2018-04-13] VITALS (15 sets, daily range): BP systolic 112–159; BP diastolic 72–96; PULSE 74–105; TEMP 36.3–36.8; O2SAT 91–99; Ht 167.6 cm; Wt 48.3 kg
[2018-04-13] MEDS ORDERED: ALUMINUM/MAGNESIUM SUSP 30 ML UDC PO STA (00:02)
[2018-04-13] MEDS ORDERED: LORAZEPAM INJ 1 MG in SYRINGE 0.5 ML IV PRN (00:15)
[2018-04-13] MEDS ORDERED: ACETAMINOPHEN 325 MG TAB PO PRN (00:15)
[2018-04-13] MEDS ORDERED: PROCHLORPERAZINE INJ 5 MG in SYRINGE 4 ML IV PRN (00:15)
[2018-04-13] MEDS ORDERED: MoRPHine SULFATE 2 MG/ML CARP IV PRN (00:15)
[2018-04-13] MEDS: LEVALBUTEROL 0.63MG/3 ML NEB INH SCH ×4 (02:05→18:53)
[2018-04-13] MEDS: PIPERACILL/TAZOBAC IV 3.375 GM in DEXTROSE 5% 100ML 100 ML IV SCH (05:29)
[2018-04-13] MEDS: ALBUT/IPRATROP 3MG/0.5MG NEB 3 ML VIAL INH PRN (05:42)
[2018-04-13] MEDS ORDERED: DILTIAZEM HCL 120 MG ER CAP PO ONE (05:43)
[2018-04-13] MEDS ORDERED: VANCOMYCIN IV 1,000 MG in SODIUM CHLORIDE 0.9% 250ML 250 ML IV SCH (06:00)
[2018-04-13 06:07] LABS: HEMATOCRIT 41.8 % (37-47); HEMOGLOBIN 14.2 g/dL (12.0-16.0); MEAN CELL VOLUME 90.9 fL (80-100); MEAN CORPUSCULAR HEMOGLOBIN 30.9 pg (25-34); MEAN PLATELET VOLUME 8.6 fL (7.4-10.4); PLATELET COUNT 240 K/uL (130-400); RED CELL DISTRIBUTION WIDTH CV 15.6 % (11.5-14.5); RED CELL DISTRIBUTION WIDTH SD 51.6 fL (36.4-46.3); WHITE BLOOD COUNT 8.11 K/uL (4.8-10.8)
[2018-04-13 06:44] LABS: ALBUMIN 2.4 gm/dl (3.4-5.0); CALCIUM 7.7 mg/dl (8.5-10.1); CREATININE 0.37 mg/dl (0.60-1.20); POTASSIUM 3.8 mmol/L (3.5-5.1); TOTAL PROTEIN 5.2 gm/dl (6.4-8.2)
[2018-04-13] MEDS: FLUTICASONE PROPIONATE NA SPR 16 GM BTL NAE SCH (08:23)
[2018-04-13] MEDS: LORAZEPAM 0.5 MG TAB PO PRN (08:24)
[2018-04-13] MEDS: NICOTINE 21 MG/24 HR TDSY TD SCH (08:24)
--- NOTE | 2018-04-13 08:24 | Pulmonary Consultation ---
History General Date of Service: Apr 13, 2018. Stated Complaint: SOB HPI The patient is a 82 year old female who presents to [facility] with complaints of SOB. The patient's primary care provider is Melanie Jeffers. 82-year-old female admitted for acute on chronic respiratory insufficiency. Patient has a past medical history significant for atrial flutter/fibrillation and has refused anticoagulation, COPD of unknown severity but notably oxygen dependent. She was admitted to the [facility] between 2017 through 03/28/2018 for notable shortness of breath with COPD exacerbation and A. fib/flutter/diastolic dysfunction. Patient was then discharged to assisted facility for rehabilitation. At the rehab center the patient was noted to have progressive shortness of breath with chest x-ray obtained showing new right-sided pleural effusion moderate to large via CXR in left costophrenic blunting consistent with small pleural effusion. At the time of my interview the patient was notably tachypneic and using accessory muscles and could state that she was extremely short of breath and anxious but denied: Fever , chills, productive cough, hemoptysis, B type symptoms, unintentional weight loss or classic cardiac chest pain. In the emergency room the patient was started on antibiotics and steroids as well as continued on supplemental oxygen. EKG also showed atrial flutter with PVCs and weight of 104. Recent antibiotics have been Augmentin as well as Levaquin Significant PmHx: Oxygen-dependent COPD, paroxysmal atrial fibrillation/not on anticoagulants, hypertension, tobacco dependence, general anxiety disorder, moderate to severe aortic stenosis. Current inpatient work-up CXR: Moderate right-sided pleural effusion, right basilar density, small lt costophrenic blunting EKG: Atrial flutter, rate 104, PVC, WBC: 9K PLT: 261K Na: 130 D-dimer: >1570 BUN/Cr: 17/0.43 Albumin: 2.6 Troponin: < 0.015 MRSA nasal screen: Negative Procalcitonin: <0.05 Previous workup Pro-BNP: 4781 CXR (03/16/18): Emphysematous changes with no acute processes noted Cardiac Echo 03/16/2018 (final interpretation pending) o LV: EF= 65-70%, moderate LVH o RV: WNL o LA: mildly dilated o AV: moderate to severe aortic stenosis o RA: mild to moderately dilated o TV: moderate to sever regurgitation o RSVP: 40-50mmHg o IVC: WNL with normal respiratory variation CT without contrast 03/13/2018 o Panlobular emphysema o Biapical scarring Nocturnal oximetry study 03/17/2018 o Max Single Event <88%: 54sec CXR 04/12/2018 o significant opacification the right lower hemithorax o small left pleural effusion PmHx: 1. COPD 2. Hypertension 3. Generalized anxiety disorder 4. Atrial flutter (EK01/25/2018) 5. Atrial fibrillation 6. Oxygen-dependent 2 liters PsHx: 1. Carpal tunnel release Social history: Relationship: Recently her son and moved into a new apartment which did not allow oxygen Tobacco: Current smoker, 1 pack per day since age 18 Marital status: Alcohol: No use Illicit drugs: No use Second hand exposure: positive with family/ Family history: Mother--hypertension Outpatient medications: 1. Budesonide/Formoterol Fumarate (Symbicort 80-4.5 Mcg/Act), 2 PUFFS INH BID 2. Diltiazem HCl (Diltiazem HCl ER), 240 MG PO QAM 3. Fluticasone Propionate (Nasal) (Flonase Allergy Relief), 2 SPRAYS MARINA DAILY 4. Furosemide (Furosemide), 20 MG PO MWF 5. Isosorbide Dinitrate (Isordil), 20 MG PO BID 6. Nicotine (Nicoderm Cq), 21 MG TD QAM 7. Potassium Chloride (Potassium Chloride Er), 1 CAP PO DAILY 8. Valsartan (Diovan), 160 MG PO DAILY 9. Benzonatate (Benzonatate), 100 MG PO TID PRN for Cough 10. Hydrocodone/Homatropine (Hydromet 5-1.5 mg/5Ml), 5 ML PO HS PRN for Pain 11. Ipratropium-Albuterol (Duoneb), 1 TREATMENT INH Q4H PRN for SOB/Wheezing 12. Lorazepam (Lorazepam), 0.5 MG PO Q4 PRN for Anxiety 13. Sennosides-Docusate Sodium (Senokot S), 1 TAB PO DAILY PRN for CONSTIPATION 14. Proair Hfa 2 PUFF INH Q4 PRN for SOB/Wheezing Allergies: Iodine Historian: patient, EMS Review of Systems Constitutional: reports: weakness Eyes: reports: no symptoms ENT: reports: no symptoms Cardiovascular: reports: as stated in HPI Respiratory: reports: as stated in HPI Gastrointestinal: reports: no symptoms Genitourinary - Female: reports: no symptoms Musculoskeletal: reports: no symptoms Integumentary: reports: no symptoms Neurologic: reports: no symptoms Psychiatric: reports: no symptoms Endocrine: no symptoms Hematologic / Lymphatic: no symptoms Allergic / Immunologic: no symptoms Past Medical History Past Medical History: Please refer to HPI Past Surgical History: Please refer to HPI Family History Diabetes mellitus MOTHER Hypertension FATHER Please refer to HPI Social History Please refer to HPI Hx Tobacco Use In Past Year?: Yes Smoking Status: Current Every Day Smoker (Spoke 1ppd since she was 18 years old ) Housing status: lives alone Occupational Status: retired Immunizations History of Influenza Vaccine: Unknown History of Tetanus Vaccine?: Unknown History of Pneumococcal: Unknown History of Hepatitis B Vaccine: Unknown Allergies Coded Allergies: Iodine (Unverified Adverse Reaction, Unknown, ., 04/12/18) Current Medications Reported Home Medications Medications Dose Route/Sig Max Daily Dose Days Date Category Biotene Dry Mouth Gentle (Mouthwashes) 1 Liq Liq 04/12/18 Reported Potassium Chloride Er (Potassium Chloride) 10 Meq Cap 1 Cap PO DAILY 90 04/12/18 Reported Senokot S (Sennosides-Docusate Sodium) 1 Tab Tab 1 Tab PO DAILY PRN 30 03/28/18 Rx Symbicort 80-4.5 Mcg/Act (Budesonide/Formoterol Fumarate) 60 Puffs/Inhaler Aero 2 Puffs INH BID 30 03/28/18 Rx Furosemide 20 Mg Tab 20 Mg PO MWF 30 03/28/18 Rx Benzonatate 100 Mg Cap 100 Mg PO TID PRN 5 03/28/18 Rx Hydromet 5-1.5 mg/5Ml (Hydrocodone Bit/Homatropine Methylb) 5 Ml/Cup Syrp 5 Ml PO HS PRN 5 03/28/18 Rx Lorazepam 0.5 Mg Tab 0.5 Mg PO Q4 PRN 5 03/28/18 Rx Isordil (Isosorbide Dinitrate) 20 Mg Tab 20 Mg PO BID 30 03/28/18 Rx Diltiazem HCl ER (Diltiazem HCl) 120 Mg Caper 240 Mg PO QAM 30 03/28/18 Rx Nicoderm Cq (Nicotine) 21 Mg/24 Hr Dis 21 Mg TD QAM 30 03/28/18 Rx Flonase Allergy Relief (Fluticasone Propionate (Nasal)) 50 Mcg/Act Spr 2 Sprays MARINA DAILY 03/15/18 Reported [Proair Hfa] 2 Puff INH Q4 PRN 03/15/18 Reported Duoneb (Ipratropium-Albuterol) 3 Ml Nebu 1 Treatment INH Q4H PRN 03/13/18 Reported Diovan (Valsartan) 160 Mg Tab 160 Mg PO DAILY 03/13/18 Reported Physical Physical Exam Vital Signs: Date Time Temp Pulse Resp B/P (MAP) Pulse Ox O2 Delivery O2 Flow Rate FiO2 04/13/18 07:39 36.4 84 20 159/96 (117) 91 Nasal Cannula 2.0 04/13/18 06:58 105 18 96 Nasal Cannula 2.0 04/13/18 05:42 80 18 93 Nasal Cannula 2.0 04/13/18 04:01 36.3 74 19 142/86 (104) 97 Nasal Cannula 2.0 04/13/18 02:05 86 18 96 Nasal Cannula 2.0 04/13/18 00:00 94 Nasal Cannula 2.0 04/12/18 23:34 83 16 96 Nasal Cannula 2.0 04/12/18 23:13 36.5 82 20 146/81 (102) 95 Nasal Cannula 2.0 04/12/18 19:37 86 16 95 Nasal Cannula 2.0 04/12/18 18:45 36.6 89 18 173/79 (110) 94 Nasal Cannula 2.5 04/12/18 18:00 Nasal Cannula 2.0 04/12/18 17:46 82 24 126/74 99 04/12/18 16:57 78 26 137/74 99 04/12/18 16:20 86 04/12/18 14:36 98 Nasal Cannula 3.0 04/12/18 14:07 94 20 135/62 98 Nasal Cannula 3.0 04/12/18 13:06 101 24 150/94 100 Room Air 3.0 04/12/18 12:21 100 04/12/18 11:40 100 Nasal Cannula 3.0 8/2/18 11:40 100 Nasal Cannula 3.0 04/12/18 11:40 100 Nasal Cannula 3.0 04/12/18 11:40 36.7 101 32 136/91 100 Room Air 3.0 General Appearance: severe distress, cachetic Head: NORMOCEPHALIC, ATRAUMATIC Eyes: PERRLA, NO DISCHARGE, EOMI, SCLERAE NORMAL ENT: NORMAL EAR EXAM, NORMAL NASAL EXAM, NORMAL MOUTH EXAM, NORMAL THROAT EXAM , other (2+ JVD) Neck: NORMAL RANGE OF MOTION, NO TENDERNESS, TRACHEA MIDLINE, other Respiratory: other (Bilateral inspiratory expiratory wheezing with notable decreased breath sounds right lower lobe and dullness percussion/ultrasound evaluation shows right lower lobe moderate sized pleural effusion and small left ) Cardiovasular: other (Distant heart sounds but irregular rhythm unable to auscultate for murmurs rubs or gallops) Abdomen: NON TENDER, NORMAL BOWEL SOUNDS, NO REBOUND, NO MASSES, NO GUARDING Genitourinary - Female: EXTERNAL GENITALIA NORMAL Back: NORMAL INSPECTION, NO MIDLINE TENDERNESS, NO CVA TENDERNESS, NO PARAVERTEBRAL TTP Upper Extremities: NO EDEMA, NO DEFORMITY, NORMAL ROM Lower Extremities: NO EDEMA, NO DEFORMITY, NORMAL ROM Pulses: carotid (R) (2+), carotid (L) (2+), dorsalis pedis (R) (2+), dorsalis pedis (L) (2+) Neuro: ALERT, ORIENTED x 3, NORMAL MOTOR EXAM, NORMAL SENSATION, NORMAL CEREBELLAR EXAM Reflexes: biceps (R) (2+), bicpes (L) (2+), patellar (R) (2+), patellar (L) (2+ ) Babinski Testing: right (downgoing), left (downgoing) Psychiatric: depressed, anxious Diagnostics Labs Results Past 24 Hours Test 04/12/18 12:55 04/12/18 12:59 04/13/18 05:45 Range/Units White Blood Count 8.59 8.11 4.8-10.8 K/uL Red Blood Count 4.55 4.60 4.2-5.4 M/uL Hemoglobin 14.4 14.2 12.0-16.0 g/dL Hematocrit 41.7 41.8 37-47 % Mean Corpuscular Volume 91.6 90.9 80-100 fL Mean Corpuscular Hemoglobin 31.6 30.9 25-34 pg Mean Corpuscular Hemoglobin Concent 34.5 34.0 32-36 g/dl Platelet Count 261 240 130-400 K/uL Mean Platelet Volume 8.7 8.6 7.4-10.4 fL Neutrophils (%) (Auto) 80.6 % Lymphocytes (%) (Auto) 7.2 % Monocytes (%) (Auto) 11.6 % Eosinophils (%) (Auto) 0.2 % Basophils (%) (Auto) 0.1 % Neutrophils # (Auto) 6.91 1.4-6.5 K/uL Lymphocytes # (Auto) 0.62 1.2-3.4 K/uL Monocytes # (Auto) 1.00 0.11-0.59 K/uL Eosinophils # (Auto) 0.02 0-0.5 K/uL Basophils # (Auto) 0.01 0-0.2 K/uL RDW Standard Deviation 52.5 51.6 36.4-46.3 fL RDW Coefficient of Variation 15.7 15.6 11.5-14.5 % Immature Granulocyte % (Auto) 0.3 % Immature Granulocyte # (Auto) 0.03 0.00-0.02 K/uL Prothrombin Time 10.5 9.0-12.0 SECONDS Prothromb Time International Ratio 1.0 0.9-1.1 Activated Partial Thromboplast Time 25.4 21.0-31.0 SECONDS Partial Thromboplastin Ratio 1.0 D-Dimer 1570 0-500 ug/L FEU Sodium Level 130 131 136-145 mmol/L Potassium Level 4.7 3.8 3.5-5.1 mmol/L Chloride Level 87 91 98-107 mmol/L Carbon Dioxide Level 39 35 21-32 mmol/L Anion Gap 3.0 5.0 3-11 mmol/L Blood Urea Nitrogen 17 14 7-18 mg/dl Creatinine 0.43 0.37 0.60-1.20 mg/dl Est Creatinine Clear Calc Drug Dose 88.6 103.0 ml/min Estimated GFR () 110.6 116.2 Estimated GFR (Non- 95.4 100.2 BUN/Creatinine Ratio 40.3 37.4 10-20 Random Glucose 101 90 70-99 mg/dl Calcium Level 8.2 7.7 8.5-10.1 mg/dl Total Bilirubin 0.8 0.9 0.2-1 mg/dl Aspartate Amino Transf (AST/SGOT) 19 14 15-37 U/L Alanine Aminotransferase (ALT/SGPT) 39 34 12-78 U/L Alkaline Phosphatase 68 66 45-117 U/L Troponin I < 0.015 0-0.045 ng/ml Total Protein 5.3 5.2 6.4-8.2 gm/dl Albumin 2.6 2.4 3.4-5.0 gm/dl Globulin 2.7 2.8 2.5-4.0 gm/dl Albumin/Globulin Ratio 1.0 0.9 0.9-2 Procalcitonin < 0.05 0-0.5 ng/ml Magnesium Level 2.3 1.8-2.4 mg/dl Microbiology Results 04/12/18 MRSA DNA Surveillance Screen - Final, Complete Specimen Negative for MRSA by DNA Probe Diagnostic Radiology Please refer to HPI EKG Please refer to HPI Impression Assessment and Plan 82-year-old female with acute on chronic respiratory insufficiency: 1. COPD: Patient does have history of COPD but we are unable to quantify the degree as we have no pulmonary function studies. She did give me the name to her previous physician in [place] and we will try to obtain previous pulmonary function studies. This time I do agree with continuing prednisone at 40 mg, nebulizers and will increase her Symbicort to 160-4.5. 2. Shortness of Breath: Shortness of breath most likely combination of COPD as well as atrial fibrillation/diastolic dysfunctioning as patient show signs of volume overload status with bilateral pleural effusions right greater than left. Patient has agreed to move forward with right-sided thoracentesis. Approximately 19% of COPD exacerbations are notably exacerbated secondary to pulmonary emboli but this patient cannot perform a proper V/Q scan as she is notably tachypneic and there is a great deal of underlying emphysematous changes via CT. I have ordered Doppler studies of the lower extremities. I do believe we should start this patient on Xarelto but she has refused anticoagulation in the past even after speaking to her about her atrial fibrillation. 3. ID: I did discontinue patient's vancomycin as her MRSA nasal swab was negative. She is currently on Zosyn but will continue to monitor and she is afebrile, no leukocytosis and a pro-calcitonin is negative. If the patient responds well to the thoracentesis suggest we discontinue antibiotics at that time. I have sent off for urinalysis. 4. Hyponatremia: We will send off for serum osmolality, urine osmolality and urine sodium.
[2018-04-13] MEDS: VALSARTAN 80 MG TAB PO SCH (08:25)
[2018-04-13] MEDS: ISOSORBIDE DINITRATE 20 MG TAB PO SCH ×2 (08:26→14:16)
[2018-04-13] MEDS: BUDESONIDE/FORMOTEROL FUMARATE 80/4.5 60 PUFFS/INHALER INH SCH ×2 (08:26→21:18)
[2018-04-13] MEDS: RANITIDINE HCL 150 MG TAB PO SCH ×2 (08:26→21:19)
[2018-04-13] MEDS: HEPARIN SOD 5000 UNIT/0.5 ML CARP SQ SCH ×2 (08:31→21:23)
[2018-04-13] MEDS ORDERED: FUROSEMIDE INJ 20 MG in SYRINGE 0 ML IV SCH (09:00)
[2018-04-13] MEDS ORDERED: FUROSEMIDE INJ 40 MG in SYRINGE 0 ML IV SCH (09:00)
[2018-04-13] MEDS ORDERED: POTASSIUM CHLORIDE 10 MEQ TABCR PO SCH (09:00)
[2018-04-13] MEDS ORDERED: DILTIAZEM HCL 120 MG ER CAP PO SCH (09:00)
--- NOTE | 2018-04-13 10:05 | DIAGNOSTIC IMAGING REPORT ---
CHEST 2 VIEWS ROUTINE CLINICAL HISTORY: Pleural effusion COMPARISON STUDY: 04/12/2018 FINDINGS: The heart is normal in size. There are persistent bilateral pleural effusions right greater than left. The right pleural effusion appears slightly smaller than on the preceding study. The patient is hyperinflated. There is persistent interstitial thickening/edema. IMPRESSION: 1. Bilateral pleural effusions right greater than left. The right pleural effusion appears slightly smaller than on the preceding study. Electronically signed by: Carson Vu M.D. 04/13/2018 10:03 AM Dictated Date/Time: 04/13/2018 10:01 AM
--- NOTE | 2018-04-13 13:08 | Procedure Note ---
Procedure Note Date of Service Apr 13, 2018. Procedure Note Procedures: Right sided Thoracentesis Consent: obtained via the patient and placed into the chart Pre-Procedural Dx: Pleural effusion Post-Procedural Dx: pleural effusion Analgesia: 6cc of 1% Liquid Lidocaine Procedure: The patient was placed in an upright position and thoracic US was used to select a spot for the procedure. A spot along the posterior axillary line was marked in the 8th intercostal space. The patient was then draped and prepped in a sterile fashion. A modified Seldinger technique was then used for catheter placement. Flowing this approximately 1000cc of clear yellow pleural fluid was removed. The patient was then cleaned and placed at a 60 degree angle in the bed were the US was used to evaluate for possible pneumothorax. The US showed good lung sliding and [place]. EBL: none Complications: none
--- NOTE | 2018-04-13 13:49 | Progress Note ---
Subjective Date of Service: Apr 13, 2018. Subjective Pt evaluation today including: conversation w/ patient, physical exam, lab review, review of studies, conversation w/ educational consultant, review of inpatient medication list Saw/examined the patient in room 282 Had thoracentesis performed prior to my arrival; about one liter removed She is doing okay and eager to get out of the hospital Denies chest pain, breathing is at baseline Problem List Medical Problems: (1) COPD (chronic obstructive pulmonary disease) Status: Chronic (2) COPD exacerbation Status: Acute (3) COPD exacerbation Status: Acute (4) Hypoxia Status: Acute (5) Pleural effusion on right Status: Acute (6) SOB (shortness of breath) Status: Acute Review of Systems Constitutional: No fever, No chills Respiratory: + cough, + sputum, + wheezing, + shortness of breath, + dyspnea on exertion, No dyspnea at rest, No hemoptysis Cardiac: No chest pain, No edema, No palpitations Medications Current Inpatient Medications Medications (Trade) Dose Ordered Sig/Nell Route Start Time Stop Time Status Last Admin Dose Admin Heparin Sodium (Porcine) (Heparin Sq 5000 Unit/0.5ml) 5,000 unit Q12 SQ 04/12/18 21:00 05/12/18 20:59 04/13/18 08:31 5,000 UNIT Acetaminophen (Tylenol Tab) 650 mg Q4H PRN PO 04/12/18 15:45 05/12/18 15:44 Levalbuterol (Xopenex 0.63 Mg/ 3 Ml Neb) 0.63 mg Q6R INH 04/12/18 21:00 05/12/18 20:59 04/13/18 06:58 0.63 MG Benzonatate (Tessalon Perles Cap) 100 mg TID PRN PO 04/12/18 16:15 05/12/18 16:14 Budesonide/ Formoterol Fumarate (Symbicort 80/ 4.5 Inh) 2 puffs BID INH 04/12/18 21:00 05/12/18 20:59 04/13/18 08:26 2 PUFFS Fluticasone Propionate (Flonase Nasal [place]) 2 sprays DAILY MARINA 04/13/18 09:00 05/13/18 08:59 04/13/18 08:23 2 SPRAYS Isosorbide Dinitrate (Isordil Tab) 20 mg BID@0700,1200 PO 04/13/18 07:00 05/13/18 06:59 04/13/18 08:26 20 MG Lorazepam (Ativan Tab) 0.5 mg Q4 PRN PO 04/12/18 16:15 05/12/18 16:14 04/13/18 08:24 0.5 MG Nicotine (Nicoderm Cq 21MG Patch) 1 patch QAM TD 04/13/18 09:00 05/13/18 08:59 04/13/18 08:24 1 PATCH Senna/Docusate Sodium (Senokot S Tab) 1 tab DAILY PRN PO 04/12/18 16:15 05/12/18 16:14 Valsartan (Diovan Tab) 160 mg DAILY PO 04/13/18 09:00 05/13/18 08:59 04/13/18 08:25 160 MG Prednisone (PredniSONE TAB) 40 mg DAILY PO 04/13/18 09:00 05/13/18 08:59 04/13/18 08:25 40 MG Miscellaneous (Remove Nicoderm Patch) 1 ea HS N/A 04/12/18 21:00 05/12/18 20:59 Ranitidine HCl (zANTac TAB) 150 mg BID PO 04/12/18 21:00 05/12/18 20:59 04/13/18 08:26 150 MG Ipratropium [place] (Atrovent 0.02% 0.5MG/2.5ML Neb) 0.5 mg Q6R PRN INH 04/12/18 18:45 05/12/18 18:44 04/13/18 11:09 0.5 MG Levalbuterol (Xopenex 0.63 Mg/ 3 Ml Neb) 0.63 mg Q6R PRN INH 04/12/18 18:45 05/12/18 18:44 04/13/18 11:09 0.63 MG Miscellaneous (Iv Fluids Completed) 1 ea PRN PRN N/A 04/12/18 18:45 04/12/19 18:44 Albuterol/ Ipratropium (Duoneb) 3 ml Q2H PRN INH 04/12/18 23:30 05/12/18 23:29 04/13/18 05:42 3 ML Diltiazem HCl (Dilacor Xr Cap) 240 mg QAM PO 04/14/18 09:00 05/13/18 08:59 Potassium Chloride (Klor-Con M10) 20 meq DAILY PO 04/13/18 09:00 05/13/18 08:59 Furosemide (Lasix Tab) 40 mg QAM PO 04/14/18 09:00 05/14/18 08:59 Pantoprazole Sodium (Protonix Tab) 40 mg QAM PO 04/14/18 09:00 04/17/18 09:01 Enteral Nutritional Formula (Boost Glucose Control) 1 can BID PO 04/13/18 21:00 05/13/18 20:59 UNV Objective Vital Signs Date Time Temp Pulse Resp B/P (MAP) Pulse Ox O2 Delivery O2 Flow Rate FiO2 04/13/18 11:25 36.5 91 20 141/95 (110) 94 04/13/18 11:09 102 20 95 Nasal Cannula 2.0 04/13/18 08:00 91 Nasal Cannula 2.0 04/13/18 07:39 36.4 84 20 159/96 (117) 91 Nasal Cannula 2.0 04/13/18 06:58 105 18 96 Nasal Cannula 2.0 04/13/18 05:42 80 18 93 Nasal Cannula 2.0 04/13/18 04:01 36.3 74 19 142/86 (104) 97 Nasal Cannula 2.0 04/13/18 02:05 86 18 96 Nasal Cannula 2.0 04/13/18 00:00 94 Nasal Cannula 2.0 04/12/18 23:34 83 16 96 Nasal Cannula 2.0 04/12/18 23:13 36.5 82 20 146/81 (102) 95 Nasal Cannula 2.0 04/12/18 19:37 86 16 95 Nasal Cannula 2.0 04/12/18 18:45 36.6 89 18 173/79 (110) 94 Nasal Cannula 2.5 04/12/18 18:00 Nasal Cannula 2.0 04/12/18 17:46 82 24 126/74 99 04/12/18 16:57 78 26 137/74 99 04/12/18 16:20 86 04/12/18 14:36 98 Nasal Cannula 3.0 04/12/18 14:07 94 20 135/62 98 Nasal Cannula 3.0 Physical Exam General Appearance: no apparent distress, + thin Respiratory/Chest: no respiratory distress, no accessory muscle use, + decreased breath sounds Cardiovascular: regular rate, rhythm, + systolic murmur Extremities: normal range of motion, non-tender, normal inspection, no pedal edema, no calf tenderness Neurologic/Psychiatric: no motor/sensory deficits, alert, normal mood/affect Laboratory Results Last 24 Hours Test 04/13/18 00:00 04/13/18 05:45 04/13/18 08:50 Pleural Fluid pH 7.42 White Blood Count 8.11 K/uL Red Blood Count 4.60 M/uL Hemoglobin 14.2 g/dL Hematocrit 41.8 % Mean Corpuscular Volume 90.9 fL Mean Corpuscular Hemoglobin 30.9 pg Mean Corpuscular Hemoglobin Concent 34.0 g/dl RDW Standard Deviation 51.6 fL RDW Coefficient of Variation 15.6 % Platelet Count 240 K/uL Mean Platelet Volume 8.6 fL Sodium Level 131 mmol/L Potassium Level 3.8 mmol/L Chloride Level 91 mmol/L Carbon Dioxide Level 35 mmol/L Anion Gap 5.0 mmol/L Blood Urea Nitrogen 14 mg/dl Creatinine 0.37 mg/dl Est Creatinine Clear Calc Drug Dose 103.0 ml/min Estimated GFR () 116.2 Estimated GFR (Non- 100.2 BUN/Creatinine Ratio 37.4 Random Glucose 90 mg/dl Calcium Level 7.7 mg/dl Magnesium Level 2.3 mg/dl Total Bilirubin 0.9 mg/dl Aspartate Amino Transf (AST/SGOT) 14 U/L Alanine Aminotransferase (ALT/SGPT) 34 U/L Alkaline Phosphatase 66 U/L Total Protein 5.2 gm/dl Albumin 2.4 gm/dl Globulin 2.8 gm/dl Albumin/Globulin Ratio 0.9 Urine Color YELLOW Urine Appearance CLEAR Urine pH >= 9.0 Urine Specific [place] 1.013 Urine Protein NEG Urine Glucose (UA) NEG Urine Ketones NEG Urine Occult Blood NEG Urine Nitrite NEG Urine Bilirubin NEG Urine Urobilinogen NEG Urine Leukocyte Esterase NEG Assessment and Plan This is a 82 year old female with a past medical history of O2 dependent COPD, tobacco use disorder, paroxysmal atrial fibrillation not on anticoagulation, HTN , moderate-severe aortic stenosis - presents from [facility] due to worsening shortness of breath/pleural effusion. R Pleural Effusion 04/13 - s/p thoracentesis and 1L removed - likely due to valvular heart disease - changing Lasix to 40mg daily 04/12 - likely due to valvular heart disease - patient does not want to take 40mg of Lasix at this time - will do 20mg via IV for now - pulmonology consulted for possible thoracentesis Recent Pneumonia - possibly related to parapneumonic effusion - will d/c abx. - procalcitonin low, not likely infectious Elevated D-Dimer - lower extremity dopplers pending - V/Q scan when she is more stable Paroxysmal Atrial Fibrillation - not on anticoagulation due to patient refusal - should be on Xarelto due to elevated D-dimer Severe COPD Chronic Respiratory Failure - on oxygen at baseline, around 2L - add prednisone 40mg x5 days - nebs as needed - continue Symbicort DVT ppx - subq heparin DNR
[2018-04-13 14:00] LABS: PLEURAL FLUID TOTAL PROTEIN 1.4 g/dl
[2018-04-13] MEDS: POTASSIUM CHLORIDE 10 MEQ TABCR PO SCH (14:17)
--- NOTE | 2018-04-13 15:01 | DIAGNOSTIC IMAGING REPORT ---
BILATERAL LOWER EXTREMITY VENOUS DOPPLER HISTORY: Leg swelling. Rule out DVT COMPARISON STUDY: None. FINDINGS: There is normal compressibility, flow, and augmentation within the bilateral lower extremity deep venous systems. IMPRESSION: No DVT within the right or left lower extremity. Electronically signed by: Justin Jackson M.D. 04/13/2018 2:59 PM Dictated Date/Time: 04/13/2018 2:59 PM
[2018-04-13] MEDS: BOOST GLUCOSE CONTROL VANILLA PO SCH (21:18)
[2018-04-14] VITALS (11 sets, daily range): BP systolic 112–130; BP diastolic 57–73; PULSE 77–95; TEMP 36.6–37; O2SAT 90–99
[2018-04-14] MEDS: LEVALBUTEROL 0.63MG/3 ML NEB INH SCH ×4 (01:52→19:26)
[2018-04-14 06:13] LABS: HEMATOCRIT 37.1 % (37-47); HEMOGLOBIN 12.9 g/dL (12.0-16.0); MEAN CELL VOLUME 90.3 fL (80-100); MEAN CORPUSCULAR HEMOGLOBIN 31.4 pg (25-34); MEAN CORPUSCULAR HGB CONC 34.8 g/dl (32-36); PLATELET COUNT 244 K/uL (130-400); RED CELL DISTRIBUTION WIDTH CV 15.4 % (11.5-14.5); RED CELL DISTRIBUTION WIDTH SD 50.6 fL (36.4-46.3); WHITE BLOOD COUNT 9.84 K/uL (4.8-10.8)
[2018-04-14] MEDS: ISOSORBIDE DINITRATE 20 MG TAB PO SCH ×2 (06:20→12:00)
[2018-04-14 06:50] LABS: CALCIUM 8.1 mg/dl (8.5-10.1); CREATININE 0.38 mg/dl (0.60-1.20)
[2018-04-14] MEDS: DILTIAZEM HCL 120 MG ER CAP PO SCH (08:36)
[2018-04-14] MEDS: POTASSIUM CHLORIDE 10 MEQ TABCR PO SCH (08:36)
[2018-04-14] MEDS: VALSARTAN 80 MG TAB PO SCH (08:37)
[2018-04-14] MEDS: RANITIDINE HCL 150 MG TAB PO SCH ×2 (08:37→20:51)
[2018-04-14] MEDS: BUDESONIDE/FORMOTEROL FUMARATE 80/4.5 60 PUFFS/INHALER INH SCH ×2 (08:38→20:47)
[2018-04-14] MEDS: FLUTICASONE PROPIONATE NA SPR 16 GM BTL NAE SCH (08:38)
[2018-04-14] MEDS: PANTOprazole SOD 40 MG TAB PO SCH (08:38)
[2018-04-14] MEDS: FUROSEMIDE 40 MG TAB PO SCH (08:38)
[2018-04-14] MEDS: NICOTINE 21 MG/24 HR TDSY TD SCH (08:39)
[2018-04-14] MEDS: HEPARIN SOD 5000 UNIT/0.5 ML CARP SQ SCH (08:40)
[2018-04-14] MEDS: BOOST GLUCOSE CONTROL VANILLA PO SCH ×2 (08:45→20:49)
[2018-04-14] MEDS ORDERED: VANCOMYCIN TROUGH ONE (09:30)
--- NOTE | 2018-04-14 11:48 | DIAGNOSTIC IMAGING REPORT ---
TWO VIEW CHEST CLINICAL HISTORY: Follow-up pleural effusion status post thoracentesis. FINDINGS: AP and lateral chest radiographs are compared to chest x-ray dated 04/14/2018 and correlated with chest CT dated 03/13/2018. The examination is degraded by portable technique and patient rotation. The heart is top normal for projection and there is atherosclerotic calcification of the thoracic aorta. Advanced emphysema and chronic interstitial thickening are similar to previous. Biapical scarring is observed. Small pleural effusions are identified with bibasilar atelectasis. Linear atelectasis versus scarring is seen in the right midlung. No pneumothorax is seen. The skeletal structures are osteopenic. The bony thorax is grossly intact. IMPRESSION: 1. Advanced emphysema. 2. There are small pleural effusions. The right pleural effusion has decreased in size from yesterday. 3. No pneumothorax is seen post procedure. Electronically signed by: Oswald Horne M.D. 04/14/2018 11:47 AM Dictated Date/Time: 04/14/2018 11:44 AM
--- NOTE | 2018-04-14 12:40 | Pulmonology Progress Note ---
Pulmonary Progress Note Date of Service Apr 14, 2018. Attending Dr. Maher Subjective Patient notes dramatic improvement since her admission on her respiratory insufficiency/shortness of breath: She still notes dyspnea at rest at times but this is dramatically improved and dyspnea with exertion which similar to her baseline. Objective I walked in the room the patient was lying in the supine position and showing no signs of respiratory insufficiency. During our conversation she did use accessory muscles at times and had some mild tachypnea while answering questions but she is notably improved from our initial evaluation where she was try putting and severely tachypneic. PmHx: Atrial flutter/fibrillation, COPD of unknown severity, oxygen-dependent, hypertension, generalized anxiety disorder Vital signs: Stable on 2 liters nasal cannula Respiratory: Mild expiratory rhonchi appreciated bilaterally Cardiac: S1-S2 irregular rhythm Abdomen: Positive bowel sounds soft non-tender Assessment & Plan 82-year-old female admitted with acute on chronic respiratory insufficiency: 1. Respiratory insufficiency: I believe this patient's respiratory insufficiency was a combination of pulmonary and cardiac dysfunctioning. She does note dramatic improvement after her thoracentesis as well as current medical intervention. 2. COPD: This patient has unquantified degree of COPD but is currently responding well to prednisone as well as inhalers and nebulizer treatments. I believe a 10 day course of prednisone is warranted in this patient along with continuing Symbicort but at a 160-4.5 dosing and nebulizer treatments. I have attempted on multiple occasions to contact previous physicians caring for this patient to acquire previous pulmonary function studies but I have been unsuccessful. At this time patient will require outpatient pulmonary function study/spirometry to help quantify her underlying COPD. 3. Anticoagulation: Patient notes a history of a arrhythmias. She has previously refused the use of anticoagulations secondary to the expense as well as multiple lab draws. We did speak about newer agents/NOAQs which do not require lab draws and she did note if she can afford these medications she would agree to using them. We also spoke at length about the risk of spontaneous and/or traumatic bleeds and she confirmed understanding about the risk of bleeding on anticoagulants. Sign off: At this time the Pulmonary service will sign off thank you very much for this consultation. Data Medications: Current Inpatient Medications Medications (Trade) Dose Ordered Sig/Nell Route Start Time Stop Time Status Last Admin Dose Admin Heparin Sodium (Porcine) (Heparin Sq 5000 Unit/0.5ml) 5,000 unit Q12 SQ 8/2/18 21:00 05/12/18 20:59 04/14/18 08:40 5,000 UNIT Acetaminophen (Tylenol Tab) 650 mg Q4H PRN PO 04/12/18 15:45 05/12/18 15:44 Levalbuterol (Xopenex 0.63 Mg/ 3 Ml Neb) 0.63 mg Q6R INH 04/12/18 21:00 05/12/18 20:59 04/14/18 07:05 0.63 MG Benzonatate (Tessalon Perles Cap) 100 mg TID PRN PO 04/12/18 16:15 05/12/18 16:14 Budesonide/ Formoterol Fumarate (Symbicort 80/ 4.5 Inh) 2 puffs BID INH 04/12/18 21:00 05/12/18 20:59 04/14/18 08:38 2 PUFFS Fluticasone Propionate (Flonase Nasal [place]) 2 sprays DAILY MARINA 04/13/18 09:00 05/13/18 08:59 04/13/18 08:23 2 SPRAYS Isosorbide Dinitrate (Isordil Tab) 20 mg BID@0700,1200 PO 04/13/18 07:00 05/13/18 06:59 04/14/18 06:20 20 MG Lorazepam (Ativan Tab) 0.5 mg Q4 PRN PO 04/12/18 16:15 05/12/18 16:14 04/13/18 08:24 0.5 MG Nicotine (Nicoderm Cq 21MG Patch) 1 patch QAM TD 04/13/18 09:00 05/13/18 08:59 04/14/18 08:39 1 PATCH Senna/Docusate Sodium (Senokot S Tab) 1 tab DAILY PRN PO 04/12/18 16:15 05/12/18 16:14 04/13/18 14:15 1 TAB Valsartan (Diovan Tab) 160 mg DAILY PO 04/13/18 09:00 05/13/18 08:59 04/14/18 08:37 160 MG Prednisone (PredniSONE TAB) 40 mg DAILY PO 04/13/18 09:00 05/13/18 08:59 04/14/18 08:37 40 MG Miscellaneous (Remove Nicoderm Patch) 1 ea HS N/A 04/12/18 21:00 05/12/18 20:59 04/13/18 21:18 1 EA Ranitidine HCl (zANTac TAB) 150 mg BID PO 04/12/18 21:00 05/12/18 20:59 04/14/18 08:37 150 MG Ipratropium [place] (Atrovent 0.02% 0.5MG/2.5ML Neb) 0.5 mg Q6R PRN INH 04/12/18 18:45 05/12/18 18:44 04/13/18 11:09 0.5 MG Levalbuterol (Xopenex 0.63 Mg/ 3 Ml Neb) 0.63 mg Q6R PRN INH 04/12/18 18:45 05/12/18 18:44 04/13/18 11:09 0.63 MG Miscellaneous (Iv Fluids Completed) 1 ea PRN PRN N/A 04/12/18 18:45 04/12/19 18:44 Albuterol/ Ipratropium (Duoneb) 3 ml Q2H PRN INH 04/12/18 23:30 05/12/18 23:29 04/13/18 05:42 3 ML Diltiazem HCl (Dilacor Xr Cap) 240 mg QAM PO 04/14/18 09:00 05/13/18 08:59 04/14/18 08:36 240 MG Potassium Chloride (Klor-Con M10) 20 meq DAILY PO 04/13/18 09:00 05/13/18 08:59 04/14/18 08:36 20 MEQ Furosemide (Lasix Tab) 40 mg QAM PO 04/14/18 09:00 05/14/18 08:59 04/14/18 08:38 40 MG Pantoprazole Sodium (Protonix Tab) 40 mg QAM PO 04/14/18 09:00 04/17/18 09:01 04/14/18 08:38 40 MG Enteral Nutritional Formula (Boost Glucose Control) 1 can BID PO 04/13/18 21:00 05/13/18 20:59 04/14/18 08:45 1 CAN Vital Signs: Date Time Temp Pulse Resp B/P (MAP) Pulse Ox O2 Delivery O2 Flow Rate FiO2 04/14/18 08:00 93 Nasal Cannula 2.0 04/14/18 07:25 36.8 84 20 112/57 (75) 93 04/14/18 07:05 88 14 96 Nasal Cannula 2.0 04/14/18 04:08 36.8 83 18 116/68 (84) 99 Nasal Cannula 2.0 04/14/18 01:53 83 14 92 Nasal Cannula 2.0 04/13/18 23:58 Nasal Cannula 3.0 04/13/18 23:37 36.8 98 18 125/80 (95) 99 Room Air 04/13/18 20:30 Nasal Cannula 3.0 04/13/18 20:00 36.6 96 154/93 (113) 94 Nasal Cannula 04/13/18 18:54 97 18 97 Nasal Cannula 2.0 04/13/18 16:00 92 Nasal Cannula 3.0 04/13/18 15:35 36.5 94 20 112/72 (85) 94 04/13/18 14:09 99 20 95 Nasal Cannula 2.0 Laboratory Results: Last 24 Hours Test 04/14/18 05:54 White Blood Count 9.84 K/uL Red Blood Count 4.11 M/uL Hemoglobin 12.9 g/dL Hematocrit 37.1 % Mean Corpuscular Volume 90.3 fL Mean Corpuscular Hemoglobin 31.4 pg Mean Corpuscular Hemoglobin Concent 34.8 g/dl RDW Standard Deviation 50.6 fL RDW Coefficient of Variation 15.4 % Platelet Count 244 K/uL Mean Platelet Volume 9.0 fL Sodium Level 133 mmol/L Potassium Level 4.0 mmol/L Chloride Level 93 mmol/L Carbon Dioxide Level 36 mmol/L Anion Gap 4.0 mmol/L Blood Urea Nitrogen 17 mg/dl Creatinine 0.38 mg/dl Est Creatinine Clear Calc Drug Dose 89.8 ml/min Estimated GFR () 115.1 Estimated GFR (Non- 99.3 BUN/Creatinine Ratio 46.0 Random Glucose 98 mg/dl Calcium Level 8.1 mg/dl
--- NOTE | 2018-04-14 13:41 | Progress Note ---
Subjective Date of Service: Apr 14, 2018. Subjective Pt evaluation today including: conversation w/ patient, physical exam, lab review, review of studies, conversation w/ home sales consultant, review of inpatient medication list Saw/examined the patient in room 282 Doing well, no issues to note today; breathing status much improved She is eager to get out of the hospital Problem List Medical Problems: (1) COPD (chronic obstructive pulmonary disease) Status: Chronic (2) COPD exacerbation Status: Acute (3) COPD exacerbation Status: Acute (4) Hypoxia Status: Acute (5) Pleural effusion on right Status: Acute (6) SOB (shortness of breath) Status: Acute Review of Systems Constitutional: No fever, No chills Respiratory: No cough, No sputum, No shortness of breath Cardiac: No chest pain, No edema, No palpitations Psychiatric: + anxiety, No depression symptoms, No insomnia Medications Current Inpatient Medications Medications (Trade) Dose Ordered Sig/Nell Route Start Time Stop Time Status Last Admin Dose Admin Heparin Sodium (Porcine) (Heparin Sq 5000 Unit/0.5ml) 5,000 unit Q12 SQ 04/12/18 21:00 05/12/18 20:59 04/14/18 08:40 5,000 UNIT Acetaminophen (Tylenol Tab) 650 mg Q4H PRN PO 04/12/18 15:45 05/12/18 15:44 Levalbuterol (Xopenex 0.63 Mg/ 3 Ml Neb) 0.63 mg Q6R INH 04/12/18 21:00 05/12/18 20:59 04/14/18 07:05 0.63 MG Benzonatate (Tessalon Perles Cap) 100 mg TID PRN PO 04/12/18 16:15 05/12/18 16:14 Budesonide/ Formoterol Fumarate (Symbicort 80/ 4.5 Inh) 2 puffs BID INH 04/12/18 21:00 05/12/18 20:59 04/14/18 08:38 2 PUFFS Fluticasone Propionate (Flonase Nasal [place]) 2 sprays DAILY MARINA 04/13/18 09:00 05/13/18 08:59 04/13/18 08:23 2 SPRAYS Isosorbide Dinitrate (Isordil Tab) 20 mg BID@0700,1200 PO 04/13/18 07:00 05/13/18 06:59 04/14/18 06:20 20 MG Lorazepam (Ativan Tab) 0.5 mg Q4 PRN PO 04/12/18 16:15 05/12/18 16:14 04/13/18 08:24 0.5 MG Nicotine (Nicoderm Cq 21MG Patch) 1 patch QAM TD 04/13/18 09:00 05/13/18 08:59 04/14/18 08:39 1 PATCH Senna/Docusate Sodium (Senokot S Tab) 1 tab DAILY PRN PO 04/12/18 16:15 05/12/18 16:14 04/13/18 14:15 1 TAB Valsartan (Diovan Tab) 160 mg DAILY PO 04/13/18 09:00 05/13/18 08:59 04/14/18 08:37 160 MG Prednisone (PredniSONE TAB) 40 mg DAILY PO 04/13/18 09:00 05/13/18 08:59 04/14/18 08:37 40 MG Miscellaneous (Remove Nicoderm Patch) 1 ea HS N/A 04/12/18 21:00 05/12/18 20:59 04/13/18 21:18 1 EA Ranitidine HCl (zANTac TAB) 150 mg BID PO 04/12/18 21:00 05/12/18 20:59 04/14/18 08:37 150 MG Ipratropium [place] (Atrovent 0.02% 0.5MG/2.5ML Neb) 0.5 mg Q6R PRN INH 04/12/18 18:45 05/12/18 18:44 04/13/18 11:09 0.5 MG Levalbuterol (Xopenex 0.63 Mg/ 3 Ml Neb) 0.63 mg Q6R PRN INH 04/12/18 18:45 05/12/18 18:44 04/13/18 11:09 0.63 MG Miscellaneous (Iv Fluids Completed) 1 ea PRN PRN N/A 04/12/18 18:45 04/12/19 18:44 Albuterol/ Ipratropium (Duoneb) 3 ml Q2H PRN INH 04/12/18 23:30 05/12/18 23:29 04/13/18 05:42 3 ML Diltiazem HCl (Dilacor Xr Cap) 240 mg QAM PO 04/14/18 09:00 05/13/18 08:59 04/14/18 08:36 240 MG Potassium Chloride (Klor-Con M10) 20 meq DAILY PO 04/13/18 09:00 05/13/18 08:59 04/14/18 08:36 20 MEQ Furosemide (Lasix Tab) 40 mg QAM PO 04/14/18 09:00 05/14/18 08:59 04/14/18 08:38 40 MG Pantoprazole Sodium (Protonix Tab) 40 mg QAM PO 04/14/18 09:00 04/17/18 09:01 04/14/18 08:38 40 MG Enteral Nutritional Formula (Boost Glucose Control) 1 can BID PO 04/13/18 21:00 05/13/18 20:59 04/14/18 08:45 1 CAN Objective Vital Signs Date Time Temp Pulse Resp B/P (MAP) Pulse Ox O2 Delivery O2 Flow Rate FiO2 04/14/18 08:00 93 Nasal Cannula 2.0 04/14/18 07:25 36.8 84 20 112/57 (75) 93 04/14/18 07:05 88 14 96 Nasal Cannula 2.0 04/14/18 04:08 36.8 83 18 116/68 (84) 99 Nasal Cannula 2.0 04/14/18 01:53 83 14 92 Nasal Cannula 2.0 04/13/18 23:58 Nasal Cannula 3.0 04/13/18 23:37 36.8 98 18 125/80 (95) 99 Room Air 04/13/18 20:30 Nasal Cannula 3.0 04/13/18 20:00 36.6 96 154/93 (113) 94 Nasal Cannula 04/13/18 18:54 97 18 97 Nasal Cannula 2.0 04/13/18 16:00 92 Nasal Cannula 3.0 04/13/18 15:35 36.5 94 20 112/72 (85) 94 04/13/18 14:09 99 20 95 Nasal Cannula 2.0 Physical Exam General Appearance: no apparent distress, + thin Respiratory/Chest: no respiratory distress, no accessory muscle use, + decreased breath sounds Cardiovascular: no edema, no murmur, + irregularly irregular Extremities: normal inspection, no pedal edema Neurologic/Psychiatric: no motor/sensory deficits, alert, normal mood/affect Laboratory Results Last 24 Hours Test 04/14/18 05:54 White Blood Count 9.84 K/uL Red Blood Count 4.11 M/uL Hemoglobin 12.9 g/dL Hematocrit 37.1 % Mean Corpuscular Volume 90.3 fL Mean Corpuscular Hemoglobin 31.4 pg Mean Corpuscular Hemoglobin Concent 34.8 g/dl RDW Standard Deviation 50.6 fL RDW Coefficient of Variation 15.4 % Platelet Count 244 K/uL Mean Platelet Volume 9.0 fL Sodium Level 133 mmol/L Potassium Level 4.0 mmol/L Chloride Level 93 mmol/L Carbon Dioxide Level 36 mmol/L Anion Gap 4.0 mmol/L Blood Urea Nitrogen 17 mg/dl Creatinine 0.38 mg/dl Est Creatinine Clear Calc Drug Dose 89.8 ml/min Estimated GFR () 115.1 Estimated GFR (Non- 99.3 BUN/Creatinine Ratio 46.0 Random Glucose 98 mg/dl Calcium Level 8.1 mg/dl Assessment and Plan This is a 82 year old female with a past medical history of O2 dependent COPD, tobacco use disorder, paroxysmal atrial fibrillation not on anticoagulation, HTN , moderate-severe aortic stenosis - presents from [facility] due to worsening shortness of breath/pleural effusion. R Pleural Effusion 04/14 - doing better after her thoracentesis - will continue Lasix 40mg daily 04/13 - s/p thoracentesis and 1L removed - likely due to valvular heart disease - changing Lasix to 40mg daily 04/12 - likely due to valvular heart disease - patient does not want to take 40mg of Lasix at this time - will do 20mg via IV for now - pulmonology consulted for possible thoracentesis Recent Pneumonia - will d/c abx. - procalcitonin low, not likely infectious Elevated D-Dimer - lower extremity dopplers negative - starting on Eliquis for A. Fib - no need for further testing for PE Paroxysmal Atrial Fibrillation - agreeable to start NOAC - will start Eliquis 2.5mg BID Severe COPD Chronic Respiratory Failure - on oxygen at baseline, around 2L - add prednisone 40mg x5 days - nebs as needed - Symbicort dose increased DVT ppx - Eliquis DNR stable for discharge back to [facility]; will need re-authorization as per CM PT/OT ordered; insurance auth pending
[2018-04-14] MEDS ORDERED: NURSING VERBAL MED ORDER ONE (18:30)
[2018-04-14] MEDS ORDERED: ALUMINUM/MAGNESIUM SUSP 30 ML UDC PO PRN (18:45)
[2018-04-14] MEDS ORDERED: POLYETHYLENE (MIRALAX) 17 GM PACK PO PRN (18:45)
[2018-04-14] MEDS: APIXABAN 2.5 MG TAB PO SCH (20:50)
[2018-04-15] VITALS (11 sets, daily range): BP systolic 100–164; BP diastolic 58–91; PULSE 68–83; TEMP 36.4–36.9; O2SAT 92–99
[2018-04-15] MEDS: LEVALBUTEROL 0.63MG/3 ML NEB INH SCH ×4 (01:49→19:36)
[2018-04-15 05:47] LABS: HEMATOCRIT 38.7 % (37-47); HEMOGLOBIN 13.1 g/dL (12.0-16.0); MEAN CELL VOLUME 91.5 fL (80-100); MEAN CORPUSCULAR HGB CONC 33.9 g/dl (32-36); MEAN PLATELET VOLUME 9.1 fL (7.4-10.4); PLATELET COUNT 253 K/uL (130-400); RED CELL DISTRIBUTION WIDTH CV 15.8 % (11.5-14.5); RED CELL DISTRIBUTION WIDTH SD 52.7 fL (36.4-46.3)
[2018-04-15] MEDS: ISOSORBIDE DINITRATE 20 MG TAB PO SCH ×2 (06:20→12:59)
[2018-04-15 06:23] LABS: CALCIUM 7.8 mg/dl (8.5-10.1); CREATININE 0.44 mg/dl (0.60-1.20); POTASSIUM 4.3 mmol/L (3.5-5.1)
[2018-04-15] MEDS: BUDESONIDE/FORMOTEROL FUMARATE 80/4.5 60 PUFFS/INHALER INH SCH ×2 (08:16→20:55)
[2018-04-15] MEDS: RANITIDINE HCL 150 MG TAB PO SCH ×2 (08:16→20:56)
[2018-04-15] MEDS: BOOST GLUCOSE CONTROL VANILLA PO SCH ×2 (08:16→18:28)
[2018-04-15] MEDS: VALSARTAN 80 MG TAB PO SCH (08:17)
[2018-04-15] MEDS: PANTOprazole SOD 40 MG TAB PO SCH (08:18)
[2018-04-15] MEDS: POTASSIUM CHLORIDE 10 MEQ TABCR PO SCH (08:19)
[2018-04-15] MEDS: FUROSEMIDE 40 MG TAB PO SCH (08:19)
[2018-04-15] MEDS: DILTIAZEM HCL 120 MG ER CAP PO SCH (08:20)
[2018-04-15] MEDS: APIXABAN 2.5 MG TAB PO SCH ×2 (08:21→20:56)
[2018-04-15] MEDS: FLUTICASONE PROPIONATE NA SPR 16 GM BTL NAE SCH (08:21)
[2018-04-15] MEDS: NICOTINE 21 MG/24 HR TDSY TD SCH (08:22)
[2018-04-15] MEDS: LORAZEPAM 0.5 MG TAB PO PRN (12:59)
--- NOTE | 2018-04-15 17:04 | Progress Note ---
Internal Med Progress Note Date of Service: Apr 15, 2018. Provider Documentation: SUBJECTIVE: The patient was seen and examined in medical floor She has a history of COPD and was admitted with an exacerbation with pleural effusion Status post aspiration Remains generally weak and lethargic otherwise asymptomatic OBJECTIVE: Vital Signs-as noted below Exam: General-no apparent distress at rest Eyes-normal ENT-normal Neck-supple Lungs-decreased breath sounds both sites with occasional wheezing Heart-regular Abdomen-benign, soft, nontender Extremities-no edema Neuro-alert, awake and oriented Generally weak and lethargic but no focal neuro deficit Lab data as noted below. ASSESSMENT & PLAN: This is a 82 year old female with a past medical history of O2 dependent COPD, tobacco use disorder, paroxysmal atrial fibrillation not on anticoagulation, HTN , moderate-severe aortic stenosis - presents from [facility] due to worsening shortness of breath/pleural effusion. R Pleural Effusion - likely due to valvular heart disease - received 40 mg iv in ER - pulmonology consulted for possible thoracentesis - s/p thoracentesis and 1L fluid removed - changing Lasix to 40mg daily -clinically better but remains weak Elevated D-Dimer - lower extremity dopplers negative - starting on Eliquis for A. Fib - no need for further testing for PE Paroxysmal Atrial Fibrillation - agreeable to start NOAC - will start Eliquis 2.5mg BID -rate is controlled Severe COPD With Chronic Respiratory Failure Recent Pneumonia - will d/c abx. - procalcitonin low, not likely infectious - on oxygen at baseline, around 2L - add prednisone 40mg x5 days - nebs as needed - Symbicort dose increased DVT ppx - Eliquis DNR Stable for discharge back to [facility]; will need re-authorization as per CM PT/OT ordered; insurance auth pending DISPOSITION Likely be discharged to [facility] tomorrow Vital Signs: Date Time Temp Pulse Resp B/P (MAP) Pulse Ox O2 Delivery O2 Flow Rate FiO2 04/15/18 14:57 36.6 75 20 100/58 (72) 98 04/15/18 13:33 71 20 97 Nasal Cannula 2.0 04/15/18 11:16 36.7 73 22 114/63 (80) 96 Nasal Cannula 2.0 04/15/18 08:00 99 Nasal Cannula 2.0 04/15/18 07:23 81 14 99 Nasal Cannula 2.0 04/15/18 06:17 36.9 82 18 164/91 (115) 95 Nasal Cannula 2.0 04/15/18 04:00 36.4 68 18 110/62 (78) 92 Room Air 04/15/18 01:50 81 14 99 Nasal Cannula 2.0 04/15/18 00:00 Nasal Cannula 3.0 04/14/18 23:25 37.0 81 18 130/69 (89) 97 2.0 04/14/18 20:09 36.6 79 18 128/71 (90) 98 2.0 04/14/18 19:27 77 16 98 Nasal Cannula 2.0 Lab Results: Results Past 24 Hours Test 04/15/18 05:22 Range/Units White Blood Count 9.10 4.8-10.8 K/uL Red Blood Count 4.23 4.2-5.4 M/uL Hemoglobin 13.1 12.0-16.0 g/dL Hematocrit 38.7 37-47 % Mean Corpuscular Volume 91.5 80-100 fL Mean Corpuscular Hemoglobin 31.0 25-34 pg Mean Corpuscular Hemoglobin Concent 33.9 32-36 g/dl RDW Standard Deviation 52.7 36.4-46.3 fL RDW Coefficient of Variation 15.8 11.5-14.5 % Platelet Count 253 130-400 K/uL Mean Platelet Volume 9.1 7.4-10.4 fL Sodium Level 132 136-145 mmol/L Potassium Level 4.3 3.5-5.1 mmol/L Chloride Level 93 98-107 mmol/L Carbon Dioxide Level 37 21-32 mmol/L Anion Gap 2.0 3-11 mmol/L Blood Urea Nitrogen 21 7-18 mg/dl Creatinine 0.44 0.60-1.20 mg/dl Est Creatinine Clear Calc Drug Dose 75.8 ml/min Estimated GFR () 109.7 Estimated GFR (Non- 94.7 BUN/Creatinine Ratio 47.7 10-20 Random Glucose 97 70-99 mg/dl Calcium Level 7.8 8.5-10.1 mg/dl
[2018-04-16] VITALS (10 sets, daily range): BP systolic 137–150; BP diastolic 69–84; PULSE 84–93; TEMP 36.3–36.8; O2SAT 93–100
[2018-04-16] MEDS: LEVALBUTEROL 0.63MG/3 ML NEB INH SCH ×4 (02:02→19:05)
[2018-04-16] MEDS: ISOSORBIDE DINITRATE 20 MG TAB PO SCH ×2 (06:37→11:34)
[2018-04-16] MEDS: FLUTICASONE PROPIONATE NA SPR 16 GM BTL NAE SCH (07:41)
[2018-04-16] MEDS: BUDESONIDE/FORMOTEROL FUMARATE 80/4.5 60 PUFFS/INHALER INH SCH ×2 (07:44→20:30)
[2018-04-16] MEDS: APIXABAN 2.5 MG TAB PO SCH ×2 (07:44→20:31)
[2018-04-16] MEDS: BOOST GLUCOSE CONTROL VANILLA PO SCH ×2 (07:44→20:30)
[2018-04-16] MEDS: DILTIAZEM HCL 120 MG ER CAP PO SCH (07:44)
[2018-04-16] MEDS: VALSARTAN 80 MG TAB PO SCH (07:45)
[2018-04-16] MEDS: FUROSEMIDE 40 MG TAB PO SCH (07:45)
[2018-04-16] MEDS: NICOTINE 21 MG/24 HR TDSY TD SCH (07:45)
[2018-04-16] MEDS: POTASSIUM CHLORIDE 10 MEQ TABCR PO SCH (07:45)
[2018-04-16] MEDS: PANTOprazole SOD 40 MG TAB PO SCH (07:45)
[2018-04-16] MEDS: RANITIDINE HCL 150 MG TAB PO SCH ×2 (07:45→20:31)
--- NOTE | 2018-04-16 12:19 | Clinical Documentation Query ---
QUERY 1 OF [address] 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 Clinical Indicators: 82 yo female presenting with increasing dyspnea. CXR showed increasing R pleural effusion and mild congestive change. ECHO from 03/2018 showed EF 65-70%. Pulmonary consult notes that pt showed signs of volume overload status with bilateral pleural effusions R>L. Treatment: tele, IV lasix, nebs, O2 support, repeated CXR's, thoracentesis Risk Factors: valvular heart disease, COPD, A fib QUERY 2 OF 2 In your clinical opinion is this patient being managed for: (+ ) Acute on chronic respiratory, failure treated and resolved ( ) Not Agree ( ) Other explanation of clinical findings (No explanation is considered a No Response) ( ) Unable to determine ( ) Need to Discuss (Phone CDS or qliq) (No discussion is considered a No Response) The medical record reflects the following clinical findings, treatment, and risk factors. Clinical Indicators: Pt described as tachypneic. Respiratory rate of 32 upon arrival in ER. Pulmonary consult indicates pt as notably tachypneic and using accessory muscles. Treatment: IV lasix, thoracentesis, steroids, pulmonary consult, nebs, O2 support Risk Factors: increasing pleural effusion, COPD with chronic respiratory failure, tobacco abuse Please clarify and document your clinical opinion in the progress notes and discharge summary. Terms such as "probable", "suspected", "likely", "questionable", "possible", or "still to be ruled out" are acceptable. IF IN AGREEMENT, YOU MUST DOCUMENT ABOVE DIAGNOSTIC STATEMENT IN DAILY PROGRESS NOTES AND DISCHARGE SUMMARY. This document is not part of the patient's record. Thank You, Laura Hodges, RN [phone]
--- NOTE | 2018-04-16 12:56 | Progress Note ---
Internal Med Progress Note Date of Service: Apr 16, 2018. Provider Documentation: SUBJECTIVE: The patient was seen and examined in medical floor She has a history of COPD and was admitted with an exacerbation with pleural effusion Status post aspiration Remains generally weak and lethargic otherwise asymptomatic 04/16: Has had physical therapy this morning and feels tired with moderate shortness of breath Conversing normally with me Denies any chest pain, any abdominal pain, nausea and/or vomiting Generally weak but ready to go to [facility] OBJECTIVE: Vital Signs-as noted below Exam: General-moderate distress at rest Minimal audible wheezing Eyes-normal ENT-normal Neck-supple Lungs-decreased breath sounds both sites with occasional wheezing Heart-regular Abdomen-benign, soft, nontender Extremities-no edema Neuro-alert, awake and oriented Generally weak and lethargic but no focal neuro deficit Lab data as noted below. ASSESSMENT & PLAN: This is a 82 year old female with a past medical history of O2 dependent COPD, tobacco use disorder, paroxysmal atrial fibrillation not on anticoagulation, HTN , moderate-severe aortic stenosis - presents from [facility] due to worsening shortness of breath/pleural effusion. 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 Fib - no need for further testing for PE Paroxysmal Atrial Fibrillation - agreeable to start NOAC - will start Eliquis 2.5mg BID -rate is controlled and denies any palpitation and no chest pain Severe COPD Acute on Chronic Respiratory Failure -treated and stabilized With Chronic Respiratory Failure Recent Pneumonia - will d/c abx. - procalcitonin low, not likely infectious - on oxygen at baseline, around 2L - add prednisone 40mg x5 days-finish the course of prednisone - nebs as needed - Symbicort dose increased -Updated about COPD and went to seek additional medical help -Advised to avoid any factors that increases her shortness of breath -Appreciate pulmonary input and recommendation DVT ppx - Eliquis DNR Stable for discharge back to [facility]; will need re-authorization as per CM PT/OT ordered; insurance auth pending DISPOSITION Likely be discharged to [facility] today Vital Signs: Date Time Temp Pulse Resp B/P (MAP) Pulse Ox O2 Delivery O2 Flow Rate FiO2 04/16/18 15:20 36.7 90 18 137/69 (91) 98 Nasal Cannula 3.0 Humidified Oxygen 04/16/18 13:42 86 16 98 Nasal Cannula 2.0 04/16/18 08:00 Nasal Cannula 2.0 04/16/18 07:25 36.3 91 16 140/75 (96) 96 Nasal Cannula 2.0 04/16/18 07:08 87 16 93 Nasal Cannula 2.0 04/16/18 04:00 36.5 85 18 150/75 (100) 100 Room Air 04/16/18 02:02 84 16 99 Nasal Cannula 2.0 04/16/18 00:10 98 Nasal Cannula 2.0 04/16/18 00:06 36.8 87 16 142/84 (103) 100 Nasal Cannula 2.0 04/15/18 20:26 36.6 78 16 100/62 (75) 98 Nasal Cannula 2.5 04/15/18 19:38 83 16 98 Nasal Cannula 2.0 04/15/18 16:00 98 Nasal Cannula 2.0
[2018-04-17] VITALS (8 sets, daily range): BP systolic 120–150; BP diastolic 69–91; PULSE 71–98; TEMP 36.3–37.2; O2SAT 95–99
[2018-04-17] MEDS: LEVALBUTEROL 0.63MG/3 ML NEB INH SCH ×3 (01:52→13:51)
[2018-04-17] MEDS: ISOSORBIDE DINITRATE 20 MG TAB PO SCH ×2 (06:21→10:53)
[2018-04-17 07:30] LABS: CREATININE 0.45 mg/dl (0.60-1.20)
[2018-04-17] MEDS: FLUTICASONE PROPIONATE NA SPR 16 GM BTL NAE SCH (08:30)
[2018-04-17] MEDS: DILTIAZEM HCL 120 MG ER CAP PO SCH (08:32)
[2018-04-17] MEDS: BOOST GLUCOSE CONTROL VANILLA PO SCH ×2 (08:32→18:59)
[2018-04-17] MEDS: BUDESONIDE/FORMOTEROL FUMARATE 80/4.5 60 PUFFS/INHALER INH SCH ×2 (08:32→18:55)
[2018-04-17] MEDS: NICOTINE 21 MG/24 HR TDSY TD SCH (08:33)
[2018-04-17] MEDS: FUROSEMIDE 40 MG TAB PO SCH (08:33)
[2018-04-17] MEDS: RANITIDINE HCL 150 MG TAB PO SCH ×2 (08:33→18:56)
[2018-04-17] MEDS: PANTOprazole SOD 40 MG TAB PO SCH (08:33)
[2018-04-17] MEDS: VALSARTAN 80 MG TAB PO SCH (08:33)
[2018-04-17] MEDS: APIXABAN 2.5 MG TAB PO SCH ×2 (08:33→18:56)
[2018-04-17] MEDS: POTASSIUM CHLORIDE 10 MEQ TABCR PO SCH (08:33)
[2018-04-17] MEDS: ALBUT/IPRATROP 3MG/0.5MG NEB 3 ML VIAL INH PRN (11:13)
[2018-04-17] MEDS ORDERED: HYDROCORTISONE ACETATE 25 MG SUPP PR PRN (13:45)
[2018-04-17] MEDS ORDERED: HYDROCORTISONE ACETATE 25 MG SUPP PR ONE (13:55)
--- NOTE | 2018-04-17 14:44 | Progress Note ---
Internal Med Progress Note Date of Service: Apr 17, 2018. Provider Documentation: SUBJECTIVE: The patient was seen and examined in medical floor She has a history of COPD and was admitted with an exacerbation with pleural effusion Status post aspiration Remains generally weak and lethargic otherwise asymptomatic 04/16: Has had physical therapy this morning and feels tired with moderate shortness of breath Conversing normally with me Denies any chest pain, any abdominal pain, nausea and/or vomiting Generally weak but ready to go to [facility] 04/17: Remains stable in bed Anxious with moderate shortness of breath No new symptoms Awaiting transfer to [facility] OBJECTIVE: Vital Signs-as noted below Exam: General-moderate distress at rest Minimal audible wheezing Very anxious Eyes-normal ENT-normal Neck-supple Lungs-decreased breath sounds both sites with occasional wheezing Heart-regular Abdomen-benign, soft, nontender Extremities-no edema Neuro-alert, awake and oriented Generally weak and lethargic but no focal neuro deficit Lab data as noted below. ASSESSMENT & PLAN: This is a 82 year old female with a past medical history of O2 dependent COPD, tobacco use disorder, paroxysmal atrial fibrillation not on anticoagulation, HTN , moderate-severe aortic stenosis - presents from [facility] due to worsening shortness of breath/pleural effusion. 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 Fib - no need for further testing for PE Paroxysmal Atrial Fibrillation - agreeable to start NOAC - will start Eliquis 2.5mg BID -rate is controlled and denies any palpitation and no chest pain Severe COPD Acute on Chronic Respiratory Failure -treated and stabilized With Chronic Respiratory Failure Recent Pneumonia - will d/c abx. - procalcitonin low, not likely infectious - on oxygen at baseline, around 2L - add prednisone 40mg x5 days-finish the course of prednisone - nebs as needed - Symbicort dose increased -Updated about COPD and went to seek additional medical help -Advised to avoid any factors that increases her shortness of breath -Appreciate pulmonary input and recommendation -Remains short of breath but manageable as per the patient DVT ppx - Eliquis DNR Stable for discharge back to [facility]; will need re-authorization as per CM PT/OT ordered; insurance auth pending DISPOSITION Discharged today to [facility] if accepted Vital Signs: Date Time Temp Pulse Resp B/P (MAP) Pulse Ox O2 Delivery O2 Flow Rate FiO2 04/17/18 13:52 71 16 97 Nasal Cannula 2.0 04/17/18 11:14 85 16 96 Nasal Cannula 2.0 04/17/18 08:00 36.3 92 18 136/91 (106) 98 2.0 04/17/18 08:00 Nasal Cannula 2.0 04/17/18 07:12 98 16 95 Nasal Cannula 2.0 04/17/18 01:52 93 16 98 Nasal Cannula 2.0 04/17/18 00:14 36.9 73 20 150/78 (102) 99 Nasal Cannula 2.5 04/17/18 00:00 Room Air 04/16/18 19:05 93 16 95 Nasal Cannula 2.0 04/16/18 16:00 97 Nasal Cannula 2.5 04/16/18 16:00 97 Nasal Cannula 2.5 04/16/18 15:20 36.7 90 18 137/69 (91) 98 Nasal Cannula 3.0 Humidified Oxygen Lab Results: Results Past 24 Hours Test 04/17/18 06:45 Range/Units Creatinine 0.45 0.60-1.20 mg/dl Est Creatinine Clear Calc Drug Dose 74.8 ml/min Estimated GFR () 108.9 Estimated GFR (Non- 94.0
[2018-04-17] MEDS ORDERED: PRED10TA PO (15:52)
[2018-04-17] MEDS ORDERED: ANSHCS PR (15:52)
[2018-04-17] MEDS ORDERED: ZNT150 PO (15:52)
[2018-04-17] MEDS ORDERED: ELQ25 PO (15:52)
[2018-04-17] MEDS ORDERED: OXGN (15:53)
--- NOTE | 2018-04-17 15:56 | Discharge Instructions ---
Discharge Instructions Date of Service Apr 17, 2018. Admission Reason for Admission: SOB Discharge Discharge Diagnosis / Problem: Lt Pleural effusion,s/p 1 lit thoracentresuis, Severe COPD Discharge Goals Goal(s): Prevent Disease Progression Activity Recommendations Activity Level: Assistance Required Therapies: Physical Therapy, Occupational Therapy . Additional Information Patient informed of condition: Yes Advance Directives: No DNR: Yes Level of Care: Skilled Communicable Disease: No Prognosis: Stable Oxygen at (LPM): 2 liters/min via NC Krishnan Catheter: No Instructions / Follow-Up Instructions / Follow-Up Please make an appointment with your PCP within 1 week of discharge from the facility Current Hospital Diet Patient's current hospital diet: Low Sodium Diet (2gm Na) Discharge Diet Recommended Diet: Regular Diet, Low Sodium Diet (2gm Na) Pending Studies Studies pending at discharge: no Physician Orders On Transfer POLST Discussion: Not Applicable Medical Emergencies . Who to Call and When: Medical Emergencies: If at any time you feel your situation is an emergency, please call 911 immediately. . Non-Emergent Contact Non-Emergency issues call your: Primary Care Provider . Past History Medical & Surgical History: (1) COPD (chronic obstructive pulmonary disease) (2) Atrial fibrillation (3) Pleural effusion on right (4) Hyponatremia (5) History of carpal tunnel release (6) Hypertension . "Provider Documentation" section prepared by Roverto Gonzalez. . Core Measure Problem Core Measures: None
--- NOTE | 2018-04-18 08:10 | Discharge Summary ---
Discharge Summary Date of Service Apr 18, 2018. Discharge Summary Admission Date: Apr 13, 2018 at 13:16 Discharge Date: Apr 17, 2018 Discharge Disposition: intermediate facility Principal Diagnosis: Lt Pleural effusion,s/p 1 lit thoracentesis,Severe COPD Secondary Diagnoses/Problems: Please see H&P and Hospital progress note Procedures: Left thoracentesis Consultations: Pulmonary Medication Reconciliation New Medications: Home O2 Therapy (Oxygen) Gas 2 LITERS NA CONTINOUS, #1 Prednisone Tab (Prednisone) 10 Mg Tab 10 MG PO UD for 15 Days, #30 TAB 3 po daily for 5 days,2 podaily for 5 days and then 1 po daily for 5 roman Apixaban (Eliquis) 2.5 Mg Tab 2.5 MG PO BID for 30 Days, #60 TAB Hydrocortisone Acetate (Anucort-Hc) 25 Mg Supp 25 MG DE DAILY PRN for Hemorrhoids for 7 Days, #7 SUPP Ranitidine HCl (Ranitidine HCl) 150 Mg Tab 150 MG PO DAILY for 30 Days, #30 TAB Continued Medications: Benzonatate (Benzonatate) 100 Mg Cap 100 MG PO TID PRN for Cough for 5 Days, #15 CAP Budesonide/Formoterol Fumarate (Symbicort 80-4.5 Mcg/Act) 60 Puffs/Inhaler Aero 2 PUFFS INH BID for 30 Days, #3 INHALER Diltiazem HCl (Diltiazem HCl ER) 120 Mg Caper 240 MG PO QAM for 30 Days, #60 TABS Fluticasone Propionate (Nasal) (Flonase Allergy Relief) 50 Mcg/Act Spr 2 SPRAYS MARINA DAILY Furosemide (Furosemide) 20 Mg Tab 20 MG PO MWF for 30 Days, #10 TAB Hydrocodone/Homatropine (Hydromet 5-1.5 mg/5Ml) 5 Ml/Cup Syrp 5 ML PO HS PRN for Pain for 5 Days, #25 ML Ipratropium-Albuterol (Duoneb) 3 Ml Nebu 1 TREATMENT INH Q4H PRN for SOB/Wheezing, INHA Isosorbide Dinitrate (Isordil) 20 Mg Tab 20 MG PO BID for 30 Days, #60 TAB Lorazepam (Lorazepam) 0.5 Mg Tab 0.5 MG PO Q4 PRN for Anxiety for 5 Days, #30 TAB Mouthwashes (Biotene Dry Mouth Gentle) 1 Liq Liq Nicotine (Nicoderm Cq) 21 Mg/24 Hr Dis 21 MG TD QAM for 30 Days, #1 BOX Potassium Chloride (Potassium Chloride Er) 10 Meq Cap 1 CAP PO DAILY for 90 Days, #90 CAP 1 Refill Sennosides-Docusate Sodium (Senokot S) 1 Tab Tab 1 TAB PO DAILY PRN for CONSTIPATION for 30 Days, #30 TAB Valsartan (Diovan) 160 Mg Tab 160 MG PO DAILY, TAB [Proair Hfa] () 2 PUFF INH Q4 PRN for SOB/Wheezing Admission Information HPI (per Admitting provider): This is an 82-year-old female who has a significant past medical history of severe COPD O2 dependent, PAF not on OAC, HTN, tobacco abuse history, ABHISHEK, moderate-severe aortic stenosis who presented to [facility] from [facility] nursing facility secondary to shortness of breath, large pleural effusion on chest x-ray. Daughter is at bedside. Patient was recently hospitalized [facility] 03/15 to 03/28/2018 secondary to severe COPD exacerbation, new onset A. fib with RVR in which cardiology, pulmonology were involved. At that time she was given IV Lasix, transition to p.o. Lasix 20mg MWF, was treated with Levaquin, IV steroids therapy. Patient is relatively new to the [place] the [place] 2017 from [place] and therefore her pulmonary baseline is quite unknown. Posthospitalization she was sent to [facility]. Upon admission there he was noted to the [facility] therefore staff obtained chest x-ray, which noted pneumonia. Patient was initiated on IV Rocephin, Levaquin, p.o. prednisone 20 mg 5 days with minimal improvement. Is also participating in therapy at bedside. She now presents back to [facility] with increased shortness of breath at rest, orthopnea, chest tightness, wheezing, cough which is improving with clear productive sputum, GERD, dry mouth, bloating. She denies fever, chills sweats, lightheadedness, dizziness, chest pain, PND, nausea , vomiting, diarrhea. Last BM was yesterday, small, not moving regularly. Urinating frequently secondary to Lasix, but denies dysuria, increased urgency. Poor appetite over the past week. Per daughter while at [facility] she did have one fall when transferring to bedside commode. In ED according to Dr. Rodrigues patient was tachypneic which improved with DuoNeb. Chest x-ray obtained showed moderate right pleural effusion, right basilar density, atelectasis. Lab work revealed sodium 130, potassium 5.7, BUN 17, creatinine 0.43, glucose 102, H&H 14.4/41.7, WBC 8.9, platelet 260, troponin less than 0.015. She is being admitted for further evaluation and management of R. pleural effusion. Physical Exam (per Admitting): General Appearance: + mild distress, + cachetic (Elderly, F), + thin Head: normocephalic, atraumatic Eyes: normal inspection, PERRL, sclerae normal ENT: normal ENT inspection, + pertinent finding (Mucous membranes dry) Neck: supple, no adenopathy, thyroid normal, no JVD Respiratory/Chest: chest non-tender, + respiratory distress (Tachypnea), + decreased breath sounds, + wheezing, + pertinent finding (absent breath sounds right lower lobe) Cardiovascular: no edema, + systolic murmur, + irregularly irregular Abdomen/GI: normal bowel sounds, non tender, soft, no organomegaly Back: normal inspection, + pertinent finding (+Left low back, large soft, mobile mass consistent with possible lipoma) Neurologic/Psych: alert, normal mood/affect, oriented x 3 Skin: normal color, warm/dry, + pertinent finding (+ecchymosis to b/l knees L>R) Hospital Course (1) Pleural effusion on right (2) SOB (shortness of breath) (3) COPD (chronic obstructive pulmonary disease) (4) Atrial fibrillation (5) Hyponatremia (6) Hypertension (7) ABHISHEK (generalized anxiety disorder) (8) GERD (gastroesophageal reflux disease) (9) Tobacco abuse (10) Hypoalbuminemia This is a 82 year old female with a past medical history of O2 dependent COPD, tobacco use disorder, paroxysmal atrial fibrillation not on anticoagulation, HTN , moderate-severe aortic stenosis - presents from [facility] due to worsening shortness of breath/pleural effusion. 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 Fib - no need for further testing for PE Paroxysmal Atrial Fibrillation - agreeable to start NOAC - will start Eliquis 2.5mg BID -rate is controlled and denies any palpitation and no chest pain Severe COPD Acute on Chronic Respiratory Failure -treated and stabilized With Chronic Respiratory Failure Recent Pneumonia - will d/c abx. - procalcitonin low, not likely infectious - on oxygen at baseline, around 2L - add prednisone 40mg x5 days-finish the course of prednisone - nebs as needed - Symbicort dose increased -Updated about COPD and went to seek additional medical help -Advised to avoid any factors that increases her shortness of breath -Appreciate pulmonary input and recommendation -Remains short of breath but manageable as per the patient DVT ppx - Eliquis DNR Stable for discharge back to [facility]; will need re-authorization as per CM PT/OT ordered; insurance auth pending DISPOSITION Discharged today to [facility] if accepted Total time spent on discharge =40 minutes This includes examination of the patient, discharge planning, medication reconciliation, and communication with other providers. Discharge Instructions Date of Service Apr 17, 2018. Admission Reason for Admission: SOB Discharge Discharge Diagnosis / Problem: Lt Pleural effusion,s/p 1 lit thoracentresuis, Severe COPD Discharge Goals Goal(s): Prevent Disease Progression Activity Recommendations Activity Level: Assistance Required Therapies: Physical Therapy, Occupational Therapy . Additional Information Patient informed of condition: Yes Advance Directives: No DNR: Yes Level of Care: Skilled Communicable Disease: No Prognosis: Stable Oxygen at (LPM): 2 liters/min via NC Krishnan Catheter: No Instructions / Follow-Up Instructions / Follow-Up Please make an appointment with your PCP within 1 week of discharge from the facility Current Hospital Diet Patient's current hospital diet: Low Sodium Diet (2gm Na) Discharge Diet Recommended Diet: Regular Diet, Low Sodium Diet (2gm Na) Pending Studies Studies pending at discharge: no Physician Orders On Transfer POLST Discussion: Not Applicable Medical Emergencies . Who to Call and When: Medical Emergencies: If at any time you feel your situation is an emergency, please call 911 immediately. . Non-Emergent Contact Non-Emergency issues call your: Primary Care Provider . Past History Medical & Surgical History: (1) COPD (chronic obstructive pulmonary disease) (2) Atrial fibrillation (3) Pleural effusion on right (4) Hyponatremia (5) History of carpal tunnel release (6) Hypertension . "Provider Documentation" section prepared by Roverto Gonzalez. . Core Measure Problem Core Measures: None <Electronically signed by Roverto Gonzalez M.D.> Signed: 04/17/18 0844 Additional Copies To Masoud Gomez D.O.
== END 2018-04-17 19:20 | DRG 291 ==
LOC: EDBD 11:35 → C.EDA 11:37 → C.MED 16:13 → ENRESERV 16:48 → OBSVTOIN 04-13 13:16
PROVIDERS: ADMIT Family Medicine; ATTEND Internal Medicine
PROC: 0W993ZZ Drainage of Right Pleural Cavity, Percutaneous Approach (ICD-10-PCS; principal; 2018-04-13)
DX: I11.0 Hypertensive heart disease with heart failure (principal); J96.20 Acute and chronic respiratory failure, unspecified whether with hypoxia or hypercapnia; R64 Cachexia; I48.92 Unspecified atrial flutter; I50.33 Acute on chronic diastolic (congestive) heart failure; J91.8 Pleural effusion in other conditions classified elsewhere; I48.0 Paroxysmal atrial fibrillation; J44.9 Chronic obstructive pulmonary disease, unspecified; F41.1 Generalized anxiety disorder; R79.1 Abnormal coagulation profile; F17.200 Nicotine dependence, unspecified, uncomplicated; Z66 Do not resuscitate; Z79.899 Other long term (current) drug therapy; Z99.81 Dependence on supplemental oxygen; Z87.01 Personal history of pneumonia (recurrent)

== ENCOUNTER 2019-04-10 08:53 | Inpatient (IN) ==
[2019-04-10] MEDS ORDERED: ALBUT/IPRATROP 3MG/0.5MG NEB 3 ML VIAL NEB STA ×2 (09:01→13:45)
[2019-04-10] MEDS ORDERED: FAMOTIDINE 20MG IV PUSH 20 MG/5 ML SYR IV STA (09:01)
[2019-04-10] MEDS ORDERED: ONDANSETRON INJ 2 MG/ML 2 ML VIAL IV STA (09:01)
[2019-04-10] MEDS ORDERED: SODIUM CHLORIDE 0.9% 250 ML IV ONE (09:01)
[2019-04-10 09:40] LABS: Basophils # (auto) 0.02 K/uL (0-0.2); Basophils % (auto) 0.2 %; Eosinophils # (auto) 0.23 K/uL (0-0.5); Eosinophils % (auto) 2.1 %; Hematocrit (blood only) 37.3 % (37-47); Hemoglobin 12.8 g/dL (12.0-16.0); Immature Granulocytes # (auto) 0.07 K/uL (0.00-0.02); Immature Granulocytes % (auto) 0.6 %; Lymphocytes # (auto) 0.93 K/uL (1.2-3.4); Lymphocytes % (auto) 8.5 %; Mean Corpuscular Hgb Conc 34.3 g/dL (32-36); Mean Corpuscular Volume 91.6 fL (80-100); Mean Platelet Volume 8.7 fL (7.4-10.4); Monocytes # (auto) 1.45 K/uL (0.11-0.59); Monocytes % (auto) 13.3 %; Neutrophils # (auto) 8.23 K/uL (1.4-6.5); Neutrophils % (auto) 75.3 %; Platelet Count 305 K/uL (130-400); RDW Coefficient of Variation 15.6 % (11.5-14.5); RDW Standard Deviation 52.1 fL (36.4-46.3); Red Blood Count 4.07 M/uL (4.2-5.4); White Blood Count 10.93 K/uL (4.8-10.8)
[2019-04-10 09:43] LABS: Base Excess VBG 2.9 mEq/L; Oxygen Saturation VBG 64.8 %; pH VBG 7.39 (7.36-7.41)
[2019-04-10 09:56] LABS: INR 1.1 (0.9-1.1)
[2019-04-10 10:01] LABS: Alanine Aminotransferase 24 U/L (12-78); Albumin Level 2.7 gm/dl (3.4-5.0); Aspartate Aminotransferase 15 U/L (15-37); BUN Creatinine Ratio 10.9 (10-20); Bilirubin Direct 0.2 mg/dl (0-0.2); Blood Urea Nitrogen 9 mg/dl (7-18); Calcium 8.4 mg/dl (8.5-10.1); Carbon Dioxide 28 mmol/L (21-32); Chloride 96 mmol/L (98-107); Creatinine Clr Calc Pharmacy 40.8 ml/min; Est GFR (Non-African American) 64.7; Glucose 125 mg/dl (70-99); Magnesium 2.1 mg/dl (1.8-2.4); Sodium 132 mmol/L (136-145)
[2019-04-10 10:05] LABS: Albumin Globulin Ratio 0.8 (0.9-2); Alkaline Phosphatase 88 U/L (45-117); Bilirubin,Total 0.4 mg/dl (0.2-1); Globulin 3.6 gm/dl (2.5-4.0); NT Pro B Type Natriuretic Pept 1186 pg/ml (0-1800); Phosphorus 3.4 mg/dl (2.5-4.9); Total Protein 6.3 gm/dl (6.4-8.2); Troponin I < 0.015 ng/ml (0-0.045)
--- NOTE | 2019-04-10 10:11 | XRay Report ---
XR chest 1V portable CLINICAL HISTORY: Atypical chest pain COMPARISON STUDY: 04/12/2018 FINDINGS: There is a right basilar opacity, likely representing a right pleural effusion association with right lower lobe atelectasis/consolidation. Since the prior study, the patient has developed air space opacities within the right midlung zone consistent with a pneumonia. Chronic upper lobe opaciti es remain stable.[ IMPRESSION: 1. Interval development of right mid lung zone airspace opacities consistent with pneumonia 2. Persistent right lower lung zone opacity, likely representing a combination of pleural fluid and r ight lower lobe atelectasis/consolidation. Radiographic follow-up is recommended as a central obstruc ting lesion cannot be excluded. Electronically signed by: Carson Vu M.D. 04/10/2019 10:09 AM
--- NOTE | 2019-04-10 11:04 | CT Scan Report ---
ABDOMEN AND PELVIS CT WITHOUT CONTRAST CT DOSE: 398.27 mGycm HISTORY: upper abd pain , nausea TECHNIQUE: Multiaxial CT images of the abdomen and pelvis were performed without contrast. A dose lo wering technique was utilized adhering to the principles of ALARA. COMPARISON STUDY: Chest CT 03/13/2018. FINDINGS: Moderate emphysema. Complete collapse of the right middle lobe and near complete collapse o f the right lower lobe which demonstrates partial consolidation. There are also groundglass airspace opacities within the base of the right upper lobe laterally. Small to moderate right pleural effusion . Right mediastinal shift due to the volume loss. No pneumoperitoneum. No pneumatosis. No suspicious lytic or blastic osseous lesions. Cholecystectomy. The unenhanced liver, spleen, pancreas, left kidne y are unremarkable. The right kidney is atrophic. No hydronephrosis. No renal calculi. Bilateral adre nal gland thickening which may be age-related. A 3.1 cm infrarenal abdominal aortic aneurysm. No retr operitoneal lymphadenopathy. The unenhanced pancreas appears unremarkable. Normal bladder. The uterus is surgically absent. Suboptimal evaluation for bowel pathology due to the lack of intravenous and o ral contrast. There is also mild motion artifact within the abdomen resulting in difficult evaluation . Colonic diverticulosis. No evidence for diverticulitis. The cecum is seen within the mid pelvis. No definite bowel wall thickening or obstruction. The appendix is not identified with certainty. IMPRESSION: 1. Complete collapse the right middle lobe and near complete collapse the right lower lobe which demo nstrates partial consolidation. There is a small to moderate right pleural effusion and groundglass a irspace opacities within the base of the right upper lobe. There is associated right mediastinal shif t. This could be due to mucous plugging, pneumonia, or possibly a central obstructing mass given the volume loss. Dedicated contrast enhanced chest CT is recommended for further evaluation. 2. No definite bowel wall thickening or obstruction. 3. Colonic diverticulosis. 4. A 3.1 cm infrarenal abdominal aortic aneurysm. 5. Moderate emphysema. 6. Cholecystectomy. Electronically signed by: Justin Jackson M.D. 04/10/2019 11:03 AM
[2019-04-10 11:19] LABS: Appearance Urine Clear (Clear); Bilirubin Urine Negative (Negative); Blood Urine Negative (Negative); Color Urine Yellow; Glucose Urine UA Negative (Negative); Ketones Urine Negative (Negative); Leukocyte Esterase Urine Negative (Negative); Nitrite Urine Negative (Negative); Protein Urine Negative (Negative); Specific Gravity Urine 1.012 (1.000-1.030); Urobilinogen Urine Negative (Negative); pH Urine 7.5 (4.5-7.5)
[2019-04-10] MEDS ORDERED: PIPERACILLIN/TAZOBACTAM 4.5 GM/120 ML BAG IV ONE (13:00)
[2019-04-10] MEDS ORDERED: VANCOMYCIN CONSULT ACTIVE PRN ×2 (13:00→18:20)
[2019-04-10] MEDS ORDERED: SODIUM CHLORIDE 0.9% 500 ML IV ONE (13:00)
[2019-04-10] MEDS ORDERED: VANCOMYCIN HCL 1,000 MG in SODIUM CHLORIDE 0.9% 500 ML IV ONE (13:00)
[2019-04-10] MEDS ORDERED: PIPERACILL/TAZOBAC CONSULT ACTIVE PRN ×2 (13:00→18:20)
[2019-04-10] MEDS ORDERED: VANCOMYCIN HCL 1,000 MG/270 ML BAG IV SCH (13:00)
--- NOTE | 2019-04-10 13:49 | CT Scan Report ---
CT chest wo con CLINICAL HISTORY: Right-sided pneumonia versus mass. COMPARISON STUDY: March 13, 2018, abdominal CT scan dated 04/10/2019 CT DOSE: 284.98 mGycm TECHNIQUE: CT of the thorax was performed from the thoracic inlet to the lung bases. Images are revi ewed in the axial, sagittal, and coronal planes. IV contrast was not administered for this examinatio n. A dose lowering technique was utilized adhering to the principles of ALARA. FINDINGS: Thyroid: Imaged portions of the thyroid gland are normal in appearance. Thoracic aorta: The thoracic aorta is normal in course and caliber, noting standard 3 vessel arch goldie sam. Heart: The heart is normal in size and configuration, without pericardial effusion. Lungs and pleural spaces: There is moderate respiratory motion artifact. There is pulmonary emphysema . There is a right lower lobe consolidation suspicious for pneumonia. There is a hdtss-xj-qoasbyif ri ght pleural effusion. There is narrowing of the proximal intermedius. If the patient does not improve with antibiotic therapy, then bronchoscopy should be considered in follow-up. Mediastinum: There is no mediastinal lymphadenopathy. Sabi: There is no evidence of hilar adenopathy given the limitations of a noncontrast study Axilla: There is no evidence of pathologic axillary lymphadenopathy Upper abdomen: Partially visualized upper abdominal viscera is within normal limits. Skeletal structures: There are no lytic or blastic osseous lesions. IMPRESSION: 1. Study compromised by moderate respiratory motion artifact 2. Pulmonary emphysema 3. Right lower lobe consolidation suspicious for pneumonia. [id number] right pleural effusion 4. Narrowing of the bronchus intermedius 5. If the patient does not improve antibiotic therapy, then bronchoscopy should be considered in foll ow-up Electronically signed by: Carson Vu M.D. 04/10/2019 1:48 PM
[2019-04-10] MEDS ORDERED: methylPREDNISolone 125 MG/2 ML VIAL IV STA (14:10)
[2019-04-10] MEDS ORDERED: dilTIAZem HCl 5 MG/ML 5 ML VIAL IV STA (14:11)
--- NOTE | 2019-04-10 15:26 | History & Physical Report ---
Date of Service April 10, 2019 Assessment & Plan (1) Pneumonia: Patient is a 83-year-old female with history of severe COPD on chronic oxygen, atrial fibrillation, hypertension, valvular heart disease, chronic CHF, comes to ED with complaint of upper abdominal pain/shortness of breath as per staff. Found to have right lower lobe pneumonia on CT scan/chest x-ray. Healthcare acquired pneumonia Patient is a resident of [facility]. Presented with upper abdominal pain, cough- productive, sob per CT. SaO2- same as baseline, Afebrile, WBC 10k -S/P IV Vancomycin, Zosyn in ED. Continue with IV Vancomycin, Zosyn - Day 1 -Hold Lasix . Will start gentle IV Fluids at 75 cc/hour -Work up- CXR -interval development of right mid lung zone airspace opacity consistent with pneumonia, persistent right lower lung zone opacity likely combination of pleural fluid and atelectasis/consolidation. CT chestright lower lobe consolidation suspicious for pneumonia, pulmonary emphysema, small to moderate right pleural effusion. If patient does not improve with antibiotic t reatment, recommends bronchoscopy follow-up. Narrowing of bronchus intermedius noted as well. Sputum culture, blood culture x 2, MRSA ordered Atrial fibrillation with rapid ventricular rate Heart rate 120 to 140s noted while in ED. Continue with diltiazem 40 mg daily AnticoagulationEliquis 2.5 mg twice daily IV Lopressor 5 mg every 6 hours as needed for heart rate more than 120s added Mild hyponatremia Likely secondary to volume depletion Hold Lasix. IV fluids as above Monitor trend Prolonged QTC [id number] Avoid QTC prolonging agents -EKG in AM Severe COPD without exacerbation/chronic hypoxic respiratory failure on home oxygen Baseline2 L Currently her oxygen requirements are at baseline Nebs 4 times daily ordered Continue with chronic steroidsprednisone at 5 mg daily. Chronic congestive heart failure, diastolic/valvular heart disease Not in exacerbation Slightly on dry side. Hold Lasix 20 mg 3 times a week. Gentle IV hydration Monitor Hypertension Borderline low. Hold Lasix, Valsartan. IV Cardizem to 40 mg, isosorbide dinitrate 20 mg twice daily, fluidsgentle hydration -Monitor trend DVT PROPHYLAXIS Eliquis BID DNR /DNI per patient Disposition Admit to med surg telemetry Back to [facility] once stable PT/OT ordered Called son to update- left a voice message. History of Present Illness Primary Care Provider: [facility] Patient is arousable and go from [facility] nursing home facility. Patient is a poor historian and does not recall the name of the facility she is from. Medical history obtained from medical records, ED physician, patient. Patient is a 83-year-old female with history of severe COPD on 2 L of oxygen, chronic steroids, chronic congestive heart failure, diastolic, valvular heart disease, atrial fibrillation on anticoagulation, anxiety, prior tobacco abuse, hypertension,comes to ED from [facility] via ALS for upper abdominal pain, sob x few days. Patient was sent here for complains of upper abdominal pain, nausea, productive cough and per nursing staff at heart side she was also noted to be more short of breath than her baseline. Patient admits to some generalized abdominal pain, cough with mild whitish sputum, shortness of breath more than baseline. Denies any chest pain, chills, fever, diarrhea, diaphoresis, sweating, palpitations. In the ED, atrial fibrillation with heart rate 110s to 140, afebrile, saturating 93% on 2 L of oxygen. LabsWBC 10,000, sodium 132, EKGQTC prolonged 563.CT scan abdomen/pelvis shows complete collapse of right middle lobe and near complete collapse of right lower lobe which demonstrate partial consolidation. Small to moderate right pleural effusion with groundglass opacities within lung of right upper lobe. Could be ongoing mucous plugging, pneumonia or possibly a central obstructing mass. CT chest was recommended- -Right lower lobe consolidation suspicious for pneumonia, narrowing of bronchus intermedius, small to moderate right pleural effusion, pulmonary emphysema, if no improvement recommend bronchoscopy follow-up. Received IV Zosyn, Vancomycin in ED. We have asked to admit this patient for pneumonia, HCAP for further management Allergies Allergy/AdvReac Type Severity Reaction Status Date / Time iodine AdvReac Unknown . Unverified 04/12/18 12:26 Home Medications Home Medications Medication Instructions Recorded Confirmed Type acetaminophen 325 mg PO Q6H PRN 04/10/19 04/10/19 History acetaminophen 325 mg PO Q6H PRN 04/10/19 04/10/19 History albuterol sulfate [Ventolin HFA] 2 puff INHALATION QID PRN 04/10/19 04/10/19 History amoxicillin-pot clavulanate 1 tab PO BID 04/10/19 04/10/19 History [Augmentin] apixaban 2.5 mg PO BID 04/10/19 04/10/19 History bisacodyl [Dulcolax (bisacodyl)] 10 mg DC DAILY PRN 04/10/19 04/10/19 History calcium carbonate-mag hydroxid 2 tab PO Q8H PRN 04/10/19 04/10/19 History [Rolaids] dextromethorphan-guaifenesin 1 tab PO Q12H PRN 04/10/19 04/10/19 History [Mucinex DM] diltiazem HCl 240 mg PO DAILY 04/10/19 04/10/19 History fluticasone propionate [Flonase 2 spray INTRANASAL DAILY PRN 04/10/19 04/10/19 History Allergy Relief] furosemide 20 mg PO 3XWK 04/10/19 04/10/19 History ipratropium-albuterol 3 ml INHALATION Q4H 04/10/19 04/10/19 History isosorbide dinitrate [Isordil 20 mg PO BID 04/10/19 04/10/19 History Titradose] lanolin fgsjntk-le-c.pet-ceres 1 applic TOPICAL BID 04/10/19 04/10/19 History [Eucerin] loratadine [Claritin] 10 mg PO DAILY PRN 04/10/19 04/10/19 History lorazepam 0.5 mg PO HS PRN 04/10/19 04/10/19 History magnesium hydroxide [Milk of 30 ml PO QAM PRN 04/10/19 04/10/19 History Magnesia] menthol [Biofreeze (menthol)] 1 applic TOPICAL Q8H PRN 04/10/19 04/10/19 History multivitamin 1 tab PO DAILY 04/10/19 04/10/19 History naphazoline-glycerin [Clear Eyes 1 drp OPHTHALMIC (EYE) Q12 PRN 04/10/19 04/10/19 History Cooling Comfort] ondansetron 4 mg PO Q8H PRN 04/10/19 04/10/19 History potassium chloride 10 meq PO DAILY 04/10/19 04/10/19 History prednisone 5 mg PO DAILY 04/10/19 04/10/19 History sennosides-docusate sodium 1 tab PO DAILY PRN 04/10/19 04/10/19 History [Senokot-S] triamcinolone acetonide 1 applic TOPICAL DAILY PRN 04/10/19 04/10/19 History valsartan 80 mg PO DAILY 04/10/19 04/10/19 History Past Med/Surg History Medical History COPD (chronic obstructive pulmonary disease) (Chronic) Hypertension (Chronic) Atrial fibrillation (Chronic) ABHISHEK (generalized anxiety disorder) (Chronic) GERD (gastroesophageal reflux disease) (Acute) Tobacco abuse (Chronic) Hyponatremia (Acute) Hypoalbuminemia Surgical History History of carpal tunnel release Family History Other Family history non-contributory Social History Preferred Language: German marital status: / Current Living Situation: Personal Care Facility Current Living Situation Comment: [facility] current occupational status: retired Feels Safe at Home: Yes Smoking Status: Former smoker Physical Exam Physical Exam: GENERAL- AAOX2, No acute distress, FRAIL, MALNOURISHED HEAD- Atraumatic, Normocephalic EYES- No pallor, icterus, redness, discharge. Pupils are equal, round, reactive to light and accomodation. EARS- Normal pinna, no discharge, tenderness noted NOSE- No nasal discharge noted NECK- Supple, no JVD LUNGS- Air entry bilaterally decreased, right < left, rhonchi with no wheezing HEART- Irregularly irregular heart rhythm ABDOMEN- Soft, non tender, non distended, Bowel sounds heard. EXTREMITIES- No edema NEUROMUSCULAR- AAOX3, Grossly no focal deficits Results & Data Vital Signs (Past 12 Hours) Vital Signs Temp Pulse Pulse Resp BP BP Pulse Ox 04/10/19 14:11 112 H 26 H 96 04/10/19 14:10 124 H 29 H 100 04/10/19 14:00 136 H 25 H 132/81 94 04/10/19 13:50 137 H 31 H 97 04/10/19 13:47 139 H 19 126/101 H 95 04/10/19 13:46 122 H 36 H 04/10/19 13:20 144 H 37 H 94 04/10/19 13:10 141 H 21 91 04/10/19 13:01 111 H 23 121/69 100 04/10/19 13:00 119 H 17 100 04/10/19 12:50 119 H 22 100 04/10/19 12:40 122 H 22 100 04/10/19 12:30 127 H 26 H 148/93 H 100 04/10/19 12:26 137 H 23 134/93 100 04/10/19 12:20 110 H 23 100 04/10/19 12:10 111 H 21 100 04/10/19 12:00 118 H 21 100 04/10/19 11:50 118 H 23 100 04/10/19 11:40 115 H 22 04/10/19 11:30 118 H 23 117/85 100 04/10/19 11:20 134 H 25 H 91 04/10/19 11:10 114 H 26 H 100 04/10/19 11:09 125 H 24 133/81 99 04/10/19 11:01 137 H 31 H 133/81 94 04/10/19 11:00 122 H 28 H 100 04/10/19 10:50 100 04/10/19 10:45 100 04/10/19 10:10 116 H 23 100 04/10/19 10:01 102 H 23 128/75 04/10/19 10:00 120 H 20 04/10/19 09:50 112 H 22 100 04/10/19 09:40 108 H 25 H 100 04/10/19 09:30 118 H 25 H 99/73 L 97 04/10/19 09:20 121 H 23 98 04/10/19 09:19 120 H 24 95 04/10/19 09:10 122 H 31 H 97 04/10/19 09:03 121 H 27 H 123/72 100 04/10/19 09:01 36.9 C 125 H 29 H 46/33 L 99 04/10/19 08:56 130 H 31 H 131/68 88 L (1) Pneumonia Laterality: right Lung location: lower lobe of lung Pneumonia type: due to unspecified organism Qualified Code(s): J18.1 - Lobar pneumonia, unspecified organism
--- NOTE | 2019-04-10 15:44 | Emergency Department Note ---
Entered by Lena Barclay acting as a scribe for History of Present Illness General Chief complaint: Abdominal Pain Time Seen by Provider: 04/10/19 08:54 Source: patient and old records reviewed History of Present Illness Onset (ago): day(s) 3 Location: abdomen Pain Consistency: + other (persistent) Quality: + other Associated symptoms: + denies other symptoms (unusual shortness of breath) and + other (gas/belching, nausea) The patient is a 83 year old female that is presenting to the Emergency Room with complaints of persistent upper abdominal pain that started 2-3 days ago. The patient is a poor historian and is unable to state where she lives. She arrived via EMS from [facility]. She reports that she has some associated nausea. She notes that she has some gas and has been belching a lot. She states that she is unsure if she takes any blood thinners, but her records show that she takes Elliquis for a history of atrial fibrillation. She states that she is not more short of breath than her baseline. She notes that she is on O2 at home. The HPI and ROS are limited secondary to the patients mental status. Home Medications Home Medications Medication Instructions Recorded Confirmed Type acetaminophen 325 mg PO Q6H PRN 04/10/19 04/10/19 History acetaminophen 325 mg PO Q6H PRN 04/10/19 04/10/19 History albuterol sulfate [Ventolin HFA] 2 puff INHALATION QID PRN 04/10/19 04/10/19 History amoxicillin-pot clavulanate 1 tab PO BID 04/10/19 04/10/19 History [Augmentin] apixaban 2.5 mg PO BID 04/10/19 04/10/19 History bisacodyl [Dulcolax (bisacodyl)] 10 mg [place] DAILY PRN 04/10/19 04/10/19 History calcium carbonate-mag hydroxid 2 tab PO Q8H PRN 04/10/19 04/10/19 History [Rolaids] dextromethorphan-guaifenesin 1 tab PO Q12H PRN 04/10/19 04/10/19 History [Mucinex DM] diltiazem HCl 240 mg PO DAILY 04/10/19 04/10/19 History fluticasone propionate [Flonase 2 spray INTRANASAL DAILY PRN 04/10/19 04/10/19 History Allergy Relief] furosemide 20 mg PO 3XWK 04/10/19 04/10/19 History ipratropium-albuterol 3 ml INHALATION Q4H 04/10/19 04/10/19 History isosorbide dinitrate [Isordil 20 mg PO BID 04/10/19 04/10/19 History Titradose] lanolin ysjkscp-zw-q.pet-ceres 1 applic TOPICAL BID 04/10/19 04/10/19 History [Eucerin] loratadine [Claritin] 10 mg PO DAILY PRN 04/10/19 04/10/19 History lorazepam 0.5 mg PO HS PRN 04/10/19 04/10/19 History magnesium hydroxide [Milk of 30 ml PO QAM PRN 04/10/19 04/10/19 History Magnesia] menthol [Biofreeze (menthol)] 1 applic TOPICAL Q8H PRN 04/10/19 04/10/19 History multivitamin 1 tab PO DAILY 04/10/19 04/10/19 History naphazoline-glycerin [Clear Eyes 1 drp OPHTHALMIC (EYE) Q12 PRN 04/10/19 04/10/19 History Cooling Comfort] ondansetron 4 mg PO Q8H PRN 04/10/19 04/10/19 History potassium chloride 10 meq PO DAILY 04/10/19 04/10/19 History prednisone 5 mg PO DAILY 04/10/19 04/10/19 History sennosides-docusate sodium 1 tab PO DAILY PRN 04/10/19 04/10/19 History [Senokot-S] triamcinolone acetonide 1 applic TOPICAL DAILY PRN 04/10/19 04/10/19 History valsartan 80 mg PO DAILY 04/10/19 04/10/19 History Allergies Allergy/AdvReac Type Severity Reaction Status Date / Time iodine AdvReac Unknown . Unverified 04/12/18 12:26 Past Med/Surg History Medical History COPD (chronic obstructive pulmonary disease) (Chronic) Hypertension (Chronic) Atrial fibrillation (Chronic) ABHISHEK (generalized anxiety disorder) (Chronic) GERD (gastroesophageal reflux disease) (Acute) Tobacco abuse (Chronic) Hyponatremia (Acute) Hypoalbuminemia Surgical History History of carpal tunnel release Family History Other Family history non-contributory Social History Preferred Language: Macedonian Communication Ability: Effective Template Inspector Required: No Beliefs That Will Affect Care: None marital status: / Current Living Situation: Skilled Nursing Current Living Situation Comment: Pt lives at [facility] current occupational status: retired Other Information That Helps Us Care for You: No Feels Safe at Home: Yes Safety Concerns: Feels Safe At This Time Smoking Status: Never smoker Hx Alcohol Use: No Hx Substance Use: No Review of Systems The HPI and ROS are limited secondary to the patient's mental status. Physical Exam Vital Signs Vital Signs - 24 hr 04/10/19 08:56 04/10/19 09:01 04/10/19 09:03 Temperature 36.9 C Temperature Source Oral Sepsis Recent Fever Within 48 Hours No Sepsis New/Unexplained Change in Mental Status No Sepsis Action Taken by Nursing No Action Required Pulse Rate 130 H 125 H 121 H Pulse Rate [Apical] Pulse Rate from SpO2 Sensor 117 H 99 H 120 H Pulse Rhythm Irregular Pulse Rhythm [Apical] Pulse Strength Normal Respiratory Rate 31 H 29 H 27 H Respiratory Effort / Characteristics Spontaneous Respiratory Depth Normal Respiratory Pattern Tachypnea Blood Pressure 131/68 46/33 L 123/72 Blood Pressure [Right Arm] Blood Pressure Mean 89 37 89 Blood Pressure Mean [Right Arm] Blood Pressure Position Sitting Blood Pressure Position [Right Arm] Pulse Oximetry 88 L 99 100 Oxygen Delivery Method Nasal Cannula Oxygen Flow Rate 3 04/10/19 09:10 04/10/19 09:19 04/10/19 09:20 Temperature Temperature Source Sepsis Recent Fever Within 48 Hours Sepsis New/Unexplained Change in Mental Status Sepsis Action Taken by Nursing Pulse Rate 122 H 121 H Pulse Rate [Apical] 120 H Pulse Rate from SpO2 Sensor 121 H 129 H Pulse Rhythm Pulse Rhythm [Apical] Pulse Strength Respiratory Rate 31 H 24 23 Respiratory Effort / Characteristics Spontaneous Respiratory Depth Respiratory Pattern Blood Pressure Blood Pressure [Right Arm] Blood Pressure Mean Blood Pressure Mean [Right Arm] Blood Pressure Position Blood Pressure Position [Right Arm] Pulse Oximetry 97 95 98 Oxygen Delivery Method Nasal Cannula Oxygen Flow Rate 3 04/10/19 09:30 04/10/19 09:40 04/10/19 09:50 Temperature Temperature Source Sepsis Recent Fever Within 48 Hours Sepsis New/Unexplained Change in Mental Status Sepsis Action Taken by Nursing Pulse Rate 118 H 108 H 112 H Pulse Rate [Apical] Pulse Rate from SpO2 Sensor 130 H 104 H 110 H Pulse Rhythm Pulse Rhythm [Apical] Pulse Strength Respiratory Rate 25 H 25 H 22 Respiratory Effort / Characteristics Respiratory Depth Respiratory Pattern Blood Pressure 99/73 L Blood Pressure [Right Arm] Blood Pressure Mean 81 Blood Pressure Mean [Right Arm] Blood Pressure Position Blood Pressure Position [Right Arm] Pulse Oximetry 97 100 100 Oxygen Delivery Method Oxygen Flow Rate 04/10/19 10:00 04/10/19 10:01 04/10/19 10:10 Temperature Temperature Source Sepsis Recent Fever Within 48 Hours Sepsis New/Unexplained Change in Mental Status Sepsis Action Taken by Nursing Pulse Rate 120 H 102 H 116 H Pulse Rate [Apical] Pulse Rate from SpO2 Sensor 122 H Pulse Rhythm Pulse Rhythm [Apical] Pulse Strength Respiratory Rate 20 23 23 Respiratory Effort / Characteristics Respiratory Depth Respiratory Pattern Blood Pressure 128/75 Blood Pressure [Right Arm] Blood Pressure Mean 70 92 Blood Pressure Mean [Right Arm] Blood Pressure Position Blood Pressure Position [Right Arm] Pulse Oximetry 100 Oxygen Delivery Method Oxygen Flow Rate 04/10/19 10:45 04/10/19 10:50 04/10/19 11:00 Temperature Temperature Source Sepsis Recent Fever Within 48 Hours Sepsis New/Unexplained Change in Mental Status Sepsis Action Taken by Nursing Pulse Rate 122 H Pulse Rate [Apical] Pulse Rate from SpO2 Sensor 122 H 130 H 141 H Pulse Rhythm Pulse Rhythm [Apical] Pulse Strength Respiratory Rate 28 H Respiratory Effort / Characteristics Respiratory Depth Respiratory Pattern Blood Pressure Blood Pressure [Right Arm] Blood Pressure Mean Blood Pressure Mean [Right Arm] Blood Pressure Position Blood Pressure Position [Right Arm] Pulse Oximetry 100 100 100 Oxygen Delivery Method Oxygen Flow Rate 04/10/19 11:01 04/10/19 11:09 04/10/19 11:10 Temperature Temperature Source Sepsis Recent Fever Within 48 Hours Sepsis New/Unexplained Change in Mental Status Sepsis Action Taken by Nursing Pulse Rate 137 H 114 H Pulse Rate [Apical] 125 H Pulse Rate from SpO2 Sensor 144 H 127 H Pulse Rhythm Pulse Rhythm [Apical] Irregular Pulse Strength Respiratory Rate 31 H 24 26 H Respiratory Effort / Characteristics Non-Labored Respiratory Depth Normal Respiratory Pattern Regular Blood Pressure 133/81 Blood Pressure [Right Arm] 133/81 Blood Pressure Mean 98 Blood Pressure Mean [Right Arm] 98 Blood Pressure Position Blood Pressure Position [Right Arm] Lying Pulse Oximetry 94 99 100 Oxygen Delivery Method Room Air Oxygen Flow Rate 04/10/19 11:20 04/10/19 11:30 04/10/19 11:40 Temperature Temperature Source Sepsis Recent Fever Within 48 Hours Sepsis New/Unexplained Change in Mental Status Sepsis Action Taken by Nursing Pulse Rate 134 H 118 H 115 H Pulse Rate [Apical] Pulse Rate from SpO2 Sensor 139 H 137 H Pulse Rhythm Pulse Rhythm [Apical] Pulse Strength Respiratory Rate 25 H 23 22 Respiratory Effort / Characteristics Respiratory Depth Respiratory Pattern Blood Pressure 117/85 Blood Pressure [Right Arm] Blood Pressure Mean 95 Blood Pressure Mean [Right Arm] Blood Pressure Position Blood Pressure Position [Right Arm] Pulse Oximetry 91 100 Oxygen Delivery Method Oxygen Flow Rate 04/10/19 11:50 04/10/19 12:00 04/10/19 12:10 Temperature Temperature Source Sepsis Recent Fever Within 48 Hours Sepsis New/Unexplained Change in Mental Status Sepsis Action Taken by Nursing Pulse Rate 118 H 118 H 111 H Pulse Rate [Apical] Pulse Rate from SpO2 Sensor 116 H 126 H 119 H Pulse Rhythm Pulse Rhythm [Apical] Pulse Strength Respiratory Rate 23 21 21 Respiratory Effort / Characteristics Respiratory Depth Respiratory Pattern Blood Pressure Blood Pressure [Right Arm] Blood Pressure Mean Blood Pressure Mean [Right Arm] Blood Pressure Position Blood Pressure Position [Right Arm] Pulse Oximetry 100 100 100 Oxygen Delivery Method Oxygen Flow Rate 04/10/19 12:20 04/10/19 12:26 04/10/19 12:30 Temperature Temperature Source Sepsis Recent Fever Within 48 Hours Sepsis New/Unexplained Change in Mental Status Sepsis Action Taken by Nursing Pulse Rate 110 H 137 H 127 H Pulse Rate [Apical] Pulse Rate from SpO2 Sensor 109 H 142 H 126 H Pulse Rhythm Pulse Rhythm [Apical] Pulse Strength Respiratory Rate 23 23 26 H Respiratory Effort / Characteristics Respiratory Depth Respiratory Pattern Blood Pressure 134/93 148/93 H Blood Pressure [Right Arm] Blood Pressure Mean 106 111 Blood Pressure Mean [Right Arm] Blood Pressure Position Blood Pressure Position [Right Arm] Pulse Oximetry 100 100 100 Oxygen Delivery Method Oxygen Flow Rate 04/10/19 12:40 04/10/19 12:50 04/10/19 13:00 Temperature Temperature Source Sepsis Recent Fever Within 48 Hours Sepsis New/Unexplained Change in Mental Status Sepsis Action Taken by Nursing Pulse Rate 122 H 119 H 119 H Pulse Rate [Apical] Pulse Rate from SpO2 Sensor 120 H 131 H 119 H Pulse Rhythm Pulse Rhythm [Apical] Pulse Strength Respiratory Rate 22 22 17 Respiratory Effort / Characteristics Respiratory Depth Respiratory Pattern Blood Pressure Blood Pressure [Right Arm] Blood Pressure Mean Blood Pressure Mean [Right Arm] Blood Pressure Position Blood Pressure Position [Right Arm] Pulse Oximetry 100 100 100 Oxygen Delivery Method Oxygen Flow Rate 04/10/19 13:01 04/10/19 13:10 04/10/19 13:20 Temperature Temperature Source Sepsis Recent Fever Within 48 Hours Sepsis New/Unexplained Change in Mental Status Sepsis Action Taken by Nursing Pulse Rate 111 H 141 H 144 H Pulse Rate [Apical] Pulse Rate from SpO2 Sensor 128 H 150 H 153 H Pulse Rhythm Pulse Rhythm [Apical] Pulse Strength Respiratory Rate 23 21 37 H Respiratory Effort / Characteristics Respiratory Depth Respiratory Pattern Blood Pressure 121/69 Blood Pressure [Right Arm] Blood Pressure Mean 86 Blood Pressure Mean [Right Arm] Blood Pressure Position Blood Pressure Position [Right Arm] Pulse Oximetry 100 91 94 Oxygen Delivery Method Oxygen Flow Rate 04/10/19 13:46 04/10/19 13:47 04/10/19 13:50 Temperature Temperature Source Sepsis Recent Fever Within 48 Hours Sepsis New/Unexplained Change in Mental Status Sepsis Action Taken by Nursing Pulse Rate 122 H 139 H 137 H Pulse Rate [Apical] Pulse Rate from SpO2 Sensor 133 H 138 H Pulse Rhythm Pulse Rhythm [Apical] Pulse Strength Respiratory Rate 36 H 19 31 H Respiratory Effort / Characteristics Respiratory Depth Respiratory Pattern Blood Pressure 126/101 H Blood Pressure [Right Arm] Blood Pressure Mean 109 Blood Pressure Mean [Right Arm] Blood Pressure Position Blood Pressure Position [Right Arm] Pulse Oximetry 95 97 Oxygen Delivery Method Oxygen Flow Rate 04/10/19 14:00 04/10/19 14:10 04/10/19 14:11 Temperature Temperature Source Sepsis Recent Fever Within 48 Hours Sepsis New/Unexplained Change in Mental Status Sepsis Action Taken by Nursing Pulse Rate 136 H 124 H Pulse Rate [Apical] 112 H Pulse Rate from SpO2 Sensor 145 H 123 H Pulse Rhythm Pulse Rhythm [Apical] Pulse Strength Respiratory Rate 25 H 29 H 26 H Respiratory Effort / Characteristics Spontaneous Respiratory Depth Respiratory Pattern Blood Pressure 132/81 Blood Pressure [Right Arm] Blood Pressure Mean 98 Blood Pressure Mean [Right Arm] Blood Pressure Position Blood Pressure Position [Right Arm] Pulse Oximetry 94 100 96 Oxygen Delivery Method Nasal Cannula Oxygen Flow Rate 2 04/10/19 15:00 04/10/19 15:30 04/10/19 16:00 Temperature Temperature Source Sepsis Recent Fever Within 48 Hours Sepsis New/Unexplained Change in Mental Status Sepsis Action Taken by Nursing Pulse Rate 116 H 114 H 126 H Pulse Rate [Apical] Pulse Rate from SpO2 Sensor 112 H 114 H 127 H Pulse Rhythm Pulse Rhythm [Apical] Pulse Strength Respiratory Rate 34 H 27 H 21 Respiratory Effort / Characteristics Respiratory Depth Respiratory Pattern Blood Pressure 94/64 L 89/52 L 126/88 Blood Pressure [Right Arm] Blood Pressure Mean 74 64 100 Blood Pressure Mean [Right Arm] Blood Pressure Position Blood Pressure Position [Right Arm] Pulse Oximetry 97 100 100 Oxygen Delivery Method Nasal Cannula Nasal Cannula Oxygen Flow Rate 1.5 1.5 GENERAL: Awake, pleasantly confused, chronically ill-appearing, in no distress HENT: Normocephalic, atraumatic. Oropharynx with dry mucous membranes and otherwise unremarkable. EYES: Normal conjunctiva. Sclera non-icteric. NECK: Supple. No nuchal rigidity. FROM. No JVD. RESPIRATORY: Scant intermittent wheezes otherwise clear. CARDIAC: Regular rate, normal rhythm. Extremities warm and well perfused. Pulses equal. ABDOMEN: Soft, non-distended. No rebound or guarding. No masses. Generalized abdominal discomfort without discrete tenderness. RECTAL: Deferred. MUSCULOSKELETAL: Chest examination reveals no tenderness. The back is symmetrical on inspection without obvious abnormality. There is no CVA tenderness to palpation. No joint edema. LOWER EXTREMITIES: Calves are equal size bilaterally and non-tender. No edema. No discoloration. NEURO: Normal sensorium. No sensory or motor deficits noted. SKIN: No rash or jaundice noted. Course 0857:The patient was evaluated in room B12B. A complete history and physical examination was performed. 1332: I reevaluated the patient at this time. She is waiting on her CT results. 1413: I discussed the patients case with Gordon Ritchie, who will evaluate the patient for further management and care. 1416: Upon reevaluation, the patient is resting comfortably. I discussed laboratory and radiographic results with the patient. She verbalized agreement of the treatment plan. The patient will be evaluated for further management and care. 1420: I spoke with the patients daughter at this time. She is amenable with the treatment plan. Consultations Consultation #1: I discussed the patients case with Gordon Ritchie, who will evaluate the patient for further management and care. Time: 14:13 Administered Medications Apixaban (Eliquis) 2.5 mg PO BID CALVIN Stop: 05/10/19 20:59 Last Admin: 04/10/19 20:08 Dose: 2.5 mg Documented by: [id number] Diltiazem HCl (Cardizem Cd) 240 mg PO DAILY CALVIN Stop: 05/10/19 18:59 Last Admin: 04/10/19 19:40 Dose: 240 mg Documented by: [id number] Piperacillin Sod/Tazobactam (Sod 3.375 gm/ Dextrose) 115 mls @ 28.75 mls/hr IV Q8H CALVIN; Protocol Stop: 04/17/19 19:59 Last Admin: 04/10/19 19:39 Dose: 28.8 mls/hr Documented by: [id number] Sodium Chloride (Nss 1000ml) 1,000 mls @ 80 mls/hr IV .[id number] CALVIN Stop: 05/10/19 19:14 Last Admin: 04/10/19 19:39 Dose: 80 mls/hr Documented by: [id number] Ipratropium Barney (Atrovent 0.02% 0.5mg/2.5ml) 0.5 mg INH Q4R CALVIN Stop: 05/10/19 18:59 Last Admin: 04/10/19 19:32 Dose: 0.5 mg Documented by: [id number] Levalbuterol HCl (Xopenex 1.25mg/0.5ml Neb) 1.25 mg INH Q4R CALVIN Stop: 05/10/19 18:59 Last Admin: 04/10/19 19:32 Dose: 1.25 mg Documented by: [id number] Multi-Ingredient Cream (Hydrocerin) 1 appln EXT BID CALVIN Stop: 05/10/19 20:59 Last Admin: 04/10/19 19:40 Dose: 1 appln Documented by: [id number] Discontinued Medications Albuterol (Duoneb) 3 ml NEB NOW STA Stop: 04/10/19 09:02 Last Admin: 04/10/19 09:18 Dose: 3 ml Documented by: [id number] Albuterol (Duoneb) 3 ml NEB NOW STA Stop: 04/10/19 13:46 Last Admin: 04/10/19 14:12 Dose: 3 ml Documented by: [id number] Diltiazem HCl (Cardizem) 10 mg IV NOW STA Stop: 04/10/19 14:12 Last Admin: 04/10/19 14:34 Dose: Not Given Documented by: [id number] Famotidine (Pepcid 20mg Iv Push) 20 mg in 5 mls @ 2.5 mls/min IV NOW STA Stop: 04/10/19 09:02 Last Admin: 04/10/19 09:32 Dose: 2.5 mls/min Documented by: [id number] Sodium Chloride (Nss) 250 mls @ 999 mls/hr IV .Q16M ONE Stop: 04/10/19 09:16 Last Infusion: 04/10/19 10:02 Dose: 0 mls/hr Documented by: [id number] Admin: 04/10/19 09:32 Dose: 999 mls/hr Documented by: [id number] Piperacillin Sod/Tazobactam Sod (Zosyn) 4.5 gm in 120 mls @ 240 mls/hr IV NOW ONE Stop: 04/10/19 13:29 Last Infusion: 04/10/19 14:34 Dose: 0 mls/hr Documented by: [id number] Admin: 04/10/19 13:54 Dose: 240 mls/hr Documented by: [id number] Sodium Chloride (Nss) 500 mls @ 999 mls/hr IV .Q31M ONE Stop: 04/10/19 13:30 Last Infusion: 04/10/19 14:34 Dose: 0 mls/hr Documented by: [id number] Admin: 04/10/19 13:53 Dose: 999 mls/hr Documented by: [id number] Vancomycin HCl (Vancomycin Hcl) 1,000 mg in 270 mls @ 125 mls/hr IV TODAY@1300 CALVIN Stop: 04/10/19 15:00 Last Infusion: 04/10/19 16:25 Dose: 0 mls/hr Documented by: [id number] Admin: 04/10/19 14:15 Dose: 125 mls/hr Documented by: [id number] Methylprednisolone (Solumedrol) 125 mg IV NOW STA Stop: 04/10/19 14:11 Last Admin: 04/10/19 14:17 Dose: 125 mg Documented by: [id number] Ondansetron HCl (Zofran) 4 mg IV NOW STA Stop: 04/10/19 09:02 Last Admin: 04/10/19 09:32 Dose: 4 mg Documented by: [id number] Medical Decision Making Differential Diagnosis Differential diagnosis: Etiologies such as biliary colic, cholecystitis, hepatitis, perihepatitis, pancreatitis, cardiac disease, pancreatitis, gastritis, peptic ulcer disease, appendicitis, ovarian cyst, ovarian torsion, ectopic , pelvic inflammatory disease, cystitis, diverticulitis, mesenteric ischemia, inflammatory bowel disease, ileus, bowel obstruction, aortic pathology, shingles, as well as others were considered. Medical Records Attestation: I reviewed the patient's medical records. Home Medications Current Medication List: was personally reviewed by me Laboratory Data Attestation: I reviewed the patient's lab results. Result diagrams: 04/10/19 09:12 04/10/19 09:12 Lab Results 04/10/19 04/10/19 04/10/19 Range/Units 09:12 09:12 09:12 WBC 10.93 H (4.8-10.8) K/uL RBC 4.07 L (4.2-5.4) M/uL Hgb 12.8 (12.0-16.0) g/dL Hct 37.3 (37-47) % MCV 91.6 (80-100) fL MCH 31.4 (25-34) pg MCHC 34.3 (32-36) g/dL RDW Std Deviation 52.1 H (36.4-46.3) fL RDW Coeff of Patricio 15.6 H (11.5-14.5) % Plt Count 305 (130-400) K/uL MPV 8.7 (7.4-10.4) fL Immature Gran % (Auto) 0.6 % Neut % (Auto) 75.3 % Lymph % (Auto) 8.5 % [place] % (Auto) 13.3 % Eos % (Auto) 2.1 % Baso % (Auto) 0.2 % Immature Gran # (Auto) 0.07 H (0.00-0.02) K/uL Neut # (Auto) 8.23 H (1.4-6.5) K/uL Lymph # (Auto) 0.93 L (1.2-3.4) K/uL [place] # (Auto) 1.45 H (0.11-0.59) K/uL Eos # (Auto) 0.23 (0-0.5) K/uL Baso # (Auto) 0.02 (0-0.2) K/uL PT 11.0 (9.0-12.0) Seconds INR 1.1 (0.9-1.1) VBG pH (7.36-7.41) VBG pCO2 (38-50) mmHg VBG pO2 mmHg VBG HCO3 mmol/L VBG O2 Saturation % VBG Base Excess mEq/L Barometric Pressure mm/Hg Sodium 132 L (136-145) mmol/L Potassium 4.0 (3.5-5.1) mmol/L Chloride 96 L (98-107) mmol/L Carbon Dioxide 28 (21-32) mmol/L Anion Gap 7.0 (3-11) BUN 9 (7-18) mg/dl Creatinine 0.84 (0.6-1.2) mg/dl Est Cr Clr Drug Dosing 40.8 ml/min Est GFR ( Amer) 75.0 Est GFR (Non-Af Amer) 64.7 BUN/Creatinine Ratio 10.9 (10-20) Glucose 125 H (70-99) mg/dl Lactate (0.4-2.0) mmol/L Calcium 8.4 L (8.5-10.1) mg/dl Phosphorus 3.4 (2.5-4.9) mg/dl Magnesium 2.1 (1.8-2.4) mg/dl Total Bilirubin 0.4 (0.2-1) mg/dl Direct Bilirubin 0.2 (0-0.2) mg/dl AST 15 (15-37) U/L ALT 24 (12-78) U/L Alkaline Phosphatase 88 (45-117) U/L Troponin I < 0.015 (0-0.045) ng/ml NT-Pro-B Natriuret Pep 1186 (0-1800) pg/ml Total Protein 6.3 L (6.4-8.2) gm/dl Albumin 2.7 L (3.4-5.0) gm/dl Globulin 3.6 (2.5-4.0) gm/dl Albumin/Globulin Ratio 0.8 L (0.9-2) Lipase 55 L (73-393) U/L Procalcitonin (0-0.5) ng/ml Urine Color Urine Appearance (Clear) Urine pH (4.5-7.5) Ur Specific [place] (1.000-1.030) Urine Protein (Negative) Urine Glucose (UA) (Negative) Urine Ketones (Negative) Urine Blood (Negative) Urine Nitrite (Negative) Urine Bilirubin (Negative) Urine Urobilinogen (Negative) Ur Leukocyte Esterase (Negative) 04/10/19 04/10/19 04/10/19 Range/Units 09:12 09:25 11:00 WBC (4.8-10.8) K/uL RBC (4.2-5.4) M/uL Hgb (12.0-16.0) g/dL Hct (37-47) % MCV (80-100) fL MCH (25-34) pg MCHC (32-36) g/dL RDW Std Deviation (36.4-46.3) fL RDW Coeff of Patricio (11.5-14.5) % Plt Count (130-400) K/uL MPV (7.4-10.4) fL Immature Gran % (Auto) % Neut % (Auto) % Lymph % (Auto) % [place] % (Auto) % Eos % (Auto) % Baso % (Auto) % Immature Gran # (Auto) (0.00-0.02) K/uL Neut # (Auto) (1.4-6.5) K/uL Lymph # (Auto) (1.2-3.4) K/uL [place] # (Auto) (0.11-0.59) K/uL Eos # (Auto) (0-0.5) K/uL Baso # (Auto) (0-0.2) K/uL PT (9.0-12.0) Seconds INR (0.9-1.1) VBG pH 7.39 (7.36-7.41) VBG pCO2 48 (38-50) mmHg VBG pO2 35 mmHg VBG HCO3 29 mmol/L VBG O2 Saturation 64.8 % VBG Base Excess 2.9 mEq/L Barometric Pressure 734.0 mm/Hg Sodium (136-145) mmol/L Potassium (3.5-5.1) mmol/L Chloride (98-107) mmol/L Carbon Dioxide (21-32) mmol/L Anion Gap (3-11) BUN (7-18) mg/dl Creatinine (0.6-1.2) mg/dl Est Cr Clr Drug Dosing ml/min Est GFR ( Amer) Est GFR (Non-Af Amer) BUN/Creatinine Ratio (10-20) Glucose (70-99) mg/dl Lactate (0.4-2.0) mmol/L Calcium (8.5-10.1) mg/dl Phosphorus (2.5-4.9) mg/dl Magnesium (1.8-2.4) mg/dl Total Bilirubin (0.2-1) mg/dl Direct Bilirubin (0-0.2) mg/dl AST (15-37) U/L ALT (12-78) U/L Alkaline Phosphatase (45-117) U/L Troponin I (0-0.045) ng/ml NT-Pro-B Natriuret Pep (0-1800) pg/ml Total Protein (6.4-8.2) gm/dl Albumin (3.4-5.0) gm/dl Globulin (2.5-4.0) gm/dl Albumin/Globulin Ratio (0.9-2) Lipase (73-393) U/L Procalcitonin < 0.05 (0-0.5) ng/ml Urine Color Yellow Urine Appearance Clear (Clear) Urine pH 7.5 (4.5-7.5) Ur Specific [place] 1.012 (1.000-1.030) Urine Protein Negative (Negative) Urine Glucose (UA) Negative (Negative) Urine Ketones Negative (Negative) Urine Blood Negative (Negative) Urine Nitrite Negative (Negative) Urine Bilirubin Negative (Negative) Urine Urobilinogen Negative (Negative) Ur Leukocyte Esterase Negative (Negative) 04/10/19 Range/Units 13:25 WBC (4.8-10.8) K/uL RBC (4.2-5.4) M/uL Hgb (12.0-16.0) g/dL Hct (37-47) % MCV (80-100) fL MCH (25-34) pg MCHC (32-36) g/dL RDW Std Deviation (36.4-46.3) fL RDW Coeff of Patricio (11.5-14.5) % Plt Count (130-400) K/uL MPV (7.4-10.4) fL Immature Gran % (Auto) % Neut % (Auto) % Lymph % (Auto) % [place] % (Auto) % Eos % (Auto) % Baso % (Auto) % Immature Gran # (Auto) (0.00-0.02) K/uL Neut # (Auto) (1.4-6.5) K/uL Lymph # (Auto) (1.2-3.4) K/uL [place] # (Auto) (0.11-0.59) K/uL Eos # (Auto) (0-0.5) K/uL Baso # (Auto) (0-0.2) K/uL PT (9.0-12.0) Seconds INR (0.9-1.1) VBG pH (7.36-7.41) VBG pCO2 (38-50) mmHg VBG pO2 mmHg VBG HCO3 mmol/L VBG O2 Saturation % VBG Base Excess mEq/L Barometric Pressure mm/Hg Sodium (136-145) mmol/L Potassium (3.5-5.1) mmol/L Chloride (98-107) mmol/L Carbon Dioxide (21-32) mmol/L Anion Gap (3-11) BUN (7-18) mg/dl Creatinine (0.6-1.2) mg/dl Est Cr Clr Drug Dosing ml/min Est GFR ( Amer) Est GFR (Non-Af Amer) BUN/Creatinine Ratio (10-20) Glucose (70-99) mg/dl Lactate 1.5 (0.4-2.0) mmol/L Calcium (8.5-10.1) mg/dl Phosphorus (2.5-4.9) mg/dl Magnesium (1.8-2.4) mg/dl Total Bilirubin (0.2-1) mg/dl Direct Bilirubin (0-0.2) mg/dl AST (15-37) U/L ALT (12-78) U/L Alkaline Phosphatase (45-117) U/L Troponin I (0-0.045) ng/ml NT-Pro-B Natriuret Pep (0-1800) pg/ml Total Protein (6.4-8.2) gm/dl Albumin (3.4-5.0) gm/dl Globulin (2.5-4.0) gm/dl Albumin/Globulin Ratio (0.9-2) Lipase (73-393) U/L Procalcitonin (0-0.5) ng/ml Urine Color Urine Appearance (Clear) Urine pH (4.5-7.5) Ur Specific [place] (1.000-1.030) Urine Protein (Negative) Urine Glucose (UA) (Negative) Urine Ketones (Negative) Urine Blood (Negative) Urine Nitrite (Negative) Urine Bilirubin (Negative) Urine Urobilinogen (Negative) Ur Leukocyte Esterase (Negative) Imaging Data Radiologist's Impression: Radiology results as stated below per my review and the radiologist's interpretation: XR chest 1V portable CLINICAL HISTORY: Atypical chest pain COMPARISON STUDY: 04/12/2018 FINDINGS: There is a right basilar opacity, likely representing a right pleural effusion association with right lower lobe atelectasis/consolidation. Since the prior study, the patient has developed airspace opacities within the right midlung zone consistent with a pneumonia. Chronic upper lobe opacities remain stable.[ IMPRESSION: 1. Interval development of right mid lung zone airspace opacities consistent with pneumonia 2. Persistent right lower lung zone opacity, likely representing a combination of pleural fluid and right lower lobe atelectasis/consolidation. Radiographic follow-up is recommended as a central obstructing lesion cannot be excluded. Electronically signed by: Carson Vu M.D. 04/10/2019 10:09 AM ABDOMEN AND PELVIS CT WITHOUT CONTRAST CT DOSE: 398.27 mGycm HISTORY: upper abd pain , nausea TECHNIQUE: Multiaxial CT images of the abdomen and pelvis were performed without contrast. A dose lowering technique was utilized adhering to the principles of ALARA. COMPARISON STUDY: Chest CT 03/13/2018. FINDINGS: Moderate emphysema. Complete collapse of the right middle lobe and near complete collapse of the right lower lobe which demonstrates partial consolidation. There are also groundglass airspace opacities within the base of the right upper lobe laterally. Small to moderate right pleural effusion. Right mediastinal shift due to the volume loss. No pneumoperitoneum. No pneumatosis. No suspicious lytic or blastic osseous lesions. Cholecystectomy. The unenhanced liver, spleen, pancreas, left kidney are unremarkable. The right kidney is atrophic. No hydronephrosis. No renal calculi. Bilateral adrenal gland thickening which may be age-related. A 3.1 cm infrarenal abdominal aortic aneurysm. No retroperitoneal lymphadenopathy. The unenhanced pancreas appears unremarkable. Normal bladder. The uterus is surgically absent. Suboptimal evaluation for bowel pathology due to the lack of intravenous and oral contrast. There is also mild motion artifact within the abdomen resulting in difficult evaluation. Colonic diverticulosis. No evidence for diverticulitis. The cecum is seen within the mid pelvis. No definite bowel wall thickening or obstruction. The appendix is not identified with certainty. IMPRESSION: 1. Complete collapse the right middle lobe and near complete collapse the right lower lobe which demonstrates partial consolidation. There is a small to moderate right pleural effusion and groundglass airspace opacities within the base of the right upper lobe. There is associated right mediastinal shift. This could be due to mucous plugging, pneumonia, or possibly a central obstructing mass given the volume loss. Dedicated contrast enhanced chest CT is recommended for further evaluation. 2. No definite bowel wall thickening or obstruction. 3. Colonic diverticulosis. 4. A 3.1 cm infrarenal abdominal aortic aneurysm. 5. Moderate emphysema. 6. Cholecystectomy. Electronically signed by: Justin Jackson M.D. 04/10/2019 11:[address] chest wo con CLINICAL HISTORY: Right-sided pneumonia versus mass. COMPARISON STUDY: March 13, 2018, abdominal CT scan dated 04/10/2019 CT DOSE: 284.98 mGycm TECHNIQUE: CT of the thorax was performed from the thoracic inlet to the lung bases. Images are reviewed in the axial, sagittal, and coronal planes. IV contrast was not administered for this examination. A dose lowering technique was utilized adhering to the principles of ALARA. FINDINGS: Thyroid: Imaged portions of the thyroid gland are normal in appearance. Thoracic aorta: The thoracic aorta is normal in course and caliber, noting standard 3 vessel arch anatomy. Heart: The heart is normal in size and configuration, without pericardial effusion. Lungs and pleural spaces: There is moderate respiratory motion artifact. There is pulmonary emphysema. There is a right lower lobe consolidation suspicious for pneumonia. There is a ymcbr-qy-qynwysip right pleural effusion. There is narrowing of the proximal intermedius. If the patient does not improve with antibiotic therapy, then bronchoscopy should be considered in follow-up. Mediastinum: There is no mediastinal lymphadenopathy. Sabi: There is no evidence of hilar adenopathy given the limitations of a noncontrast study Axilla: There is no evidence of pathologic axillary lymphadenopathy Upper abdomen: Partially visualized upper abdominal viscera is within normal limits. Skeletal structures: There are no lytic or blastic osseous lesions. IMPRESSION: 1. Study compromised by moderate respiratory motion artifact 2. Pulmonary emphysema 3. Right lower lobe consolidation suspicious for pneumonia. Baegq-md-uxhgpcnr right pleural effusion 4. Narrowing of the bronchus intermedius 5. If the patient does not improve antibiotic therapy, then bronchoscopy should be considered in follow-up Electronically signed by: Carson Vu M.D. 04/10/2019 1:48 PM ECG Data Attestation: I personally reviewed and interpreted this ECG as follows: Indication: abdominal pain Rate (beats per minute): 132 Rhythm: atrial fibrillation (with RVR) Findings: + PVC; no ST depression, no ST elevation and no acute ischemic change Comparison ECG Date: from (04/14/2018) Change: no significant change Blood Pressure Blood Pressure Findings: Normal blood pressure MDM Narrative The patient is a pleasant 83-year-old woman with a past medical history of COPD on 2 L home O2, A. fib on Eliquis, hypertension, hyperlipidemia who presents emergency department from her assisted facility for worsening shortness of breath and complaints of abdominal pain per hpi. On arrival the patient is chronically ill-appearing but no acute distress, afebrile with heart rate in the 130s and vital signs otherwise stable. Patient is pleasant confused saying she is from [place] when asked where she lives. She denies any change in her chronic shortness of breath although unclear if this is related to her dementia or acute process. Patient appears clinically dry. Patient has scattered wheezes and rhonchi. She has generalized abdominal discomfort without discrete tenderness. EKG without overt acute ischemia. Chest x-ray demonstrates right middle lobe opacity/infiltrate suspicious for pneumonia. WBC 10.9. H/H and platelets within normal limits. VBG unremarkable. Chemistry without acidosis. Lactate within normal limits. Troponin negative. BNP within normal limits. CT abdomen pelvis negative for intra-abdominal process however does demonstrate right middle lobe opacity that is suspicious for pneumonia no mass is included in the differential. This was further clarified on the CT of the chest which again is more consistent with pneumonia. Recommendations are for bronchoscopy if not resolved after treatment. Given the extent of the patient's infiltrate in the setting of living in a assisted facility she was ordered for Zosyn and vancomycin. Blood cultures drawn prior. Patient does have a POLST form which states DNR/DNI with limited intervention where she would be willing to be treated with antibiotics and in the hospital if it would be helpful. Patient herself is agreeable for being admitted. Case was reviewed with the patient's wejvfotr-yh-tch over the phone and agrees with plan for admission. Case was discussed with Dr. Briceno, [facility] hospitalist, who evaluate the patient for admission. Impression & Plan Pneumonia, Abdominal pain, Leukocytosis, Nausea, Atrial fibrillation with RVR Critical Care Time Critical Care Time: Yes Total Critical Care Time: 35 I have personally spent greater than 35 minutes of critical care time in the direct management of this patient. This includes bedside care, interpretation of diagnostic studies, and testing, discussion with consultants, patient, and family members, and other required patient management activities. This 35 minutes is in excess of all separately billable procedures. Discharge Plan Visit Data *Final* Discharge Date/Time: 04/10/19 18:02 Chief Complaint: Abdominal Pain ED Provider: Geovany Holden Discharge Problem: Pneumonia, Abdominal pain, Leukocytosis, Nausea, Atrial fibrillation with RVR Patient Disposition: Admitted As Inpatient Discharge Instructions Interventions: ED Discharge Assessment Last Done: 04/10/19 18:02 Discharge Problem: Pneumonia Qualifiers: Pneumonia type: due to unspecified organism Laterality: right Lung location: lower lobe of lung Qualified Code(s): J18.1 - Lobar pneumonia, unspecified organism Abdominal pain Qualifiers: Abdominal location: unspecified location Qualified Code(s): R10.9 - Unspecified abdominal pain Leukocytosis Qualifiers: Leukocytosis type: unspecified Qualified Code(s): D72.829 - Elevated white blood cell count, unspecified The scribe's documentation has been prepared under my direction and personally reviewed by me in its entirety. I confirm that the note above accurately reflects all work, treatment, procedures, and medical decision making performed by me.
[2019-04-10] MEDS ORDERED: NITROGLYCERIN SL 0.4 MG/TAB TAB SL PRN (18:20)
[2019-04-10] MEDS ORDERED: ACETAMINOPHEN 325 MG TAB PO PRN (18:20)
[2019-04-10] MEDS ORDERED: METOPROLOL TARTRATE 1 MG/ML VIAL IV PRN (18:20)
[2019-04-10] MEDS ORDERED: BISACODYL 10 MG SUPP PR PRN (18:20)
[2019-04-10] MEDS ORDERED: FLUTICASONE PROPIONATE NA SPR 16 GM BTL PRN (18:20)
[2019-04-10] MEDS ORDERED: LORazepam 0.5 MG TAB PO PRN (18:20)
[2019-04-10] MEDS ORDERED: LORATADINE 10 MG TAB PO PRN (18:20)
[2019-04-10] MEDS ORDERED: MAGNESIUM HYDROXIDE SUSP 30 ML UDC PO PRN (18:20)
[2019-04-10] MEDS ORDERED: TRIAMCINOLONE ACET 0.1% CR 15 GM TUBE TOP PRN (18:20)
[2019-04-10] MEDS ORDERED: DOCUSATE SODIUM/SENNA 50/8.6MG TAB PO PRN (18:20)
[2019-04-10] MEDS ORDERED: guaiFENesin 600 MG TABCR PO PRN (19:02)
[2019-04-10] MEDS: IPRATROPIUM BROMIDE NEB SOLN 0.02% 2.5 ML VIAL INH SCH ×2 (19:32→23:06)
[2019-04-10] MEDS: LEVALBUTEROL 1.25MG/0.5ML NEB INH SCH ×2 (19:32→23:06)
[2019-04-10] MEDS: SODIUM CHLORIDE 0.9% 1000ML 1,000 ML IV SCH (19:39)
[2019-04-10] MEDS: PIPERACILLIN/TAZOBACTAM 3.375 GM in DEXTROSE 5% 100 ML IV SCH (19:39)
[2019-04-10] MEDS: dilTIAZem HCL 240 MG CAPCR PO SCH (19:40)
[2019-04-10] MEDS: EUCERIN CR 120 GM JAR EXT SCH (19:40)
[2019-04-10] MEDS: APIXABAN 2.5 MG TAB PO SCH (20:08)
[2019-04-11] MEDS: LEVALBUTEROL 1.25MG/0.5ML NEB INH SCH ×6 (03:58→23:22)
[2019-04-11] MEDS: IPRATROPIUM BROMIDE NEB SOLN 0.02% 2.5 ML VIAL INH SCH ×6 (03:58→23:22)
[2019-04-11] MEDS: PIPERACILLIN/TAZOBACTAM 3.375 GM in DEXTROSE 5% 100 ML IV SCH ×3 (04:24→19:55)
[2019-04-11] MEDS ORDERED: VANCOMYCIN HCL 750 MG in SODIUM CHLORIDE 0.9% 250 ML IV SCH ×2 (06:00→22:00)
[2019-04-11] MEDS: ISOSORBIDE DINITRATE 20 MG TAB PO SCH ×2 (06:34→11:48)
[2019-04-11 06:36] LABS: Basophils # (auto) 0.01 K/uL (0-0.2); Basophils % (auto) 0.1 %; Eosinophils # (auto) 0.01 K/uL (0-0.5); Eosinophils % (auto) 0.1 %; Hematocrit (blood only) 35.8 % (37-47); Hemoglobin 12.3 g/dL (12.0-16.0); Immature Granulocytes # (auto) 0.04 K/uL (0.00-0.02); Immature Granulocytes % (auto) 0.5 %; Lymphocytes % (auto) 6.7 %; Mean Corpuscular Hgb Conc 34.4 g/dL (32-36); Mean Corpuscular Volume 92.3 fL (80-100); Mean Platelet Volume 8.5 fL (7.4-10.4); Monocytes # (auto) 0.53 K/uL (0.11-0.59); Monocytes % (auto) 7.1 %; Neutrophils # (auto) 6.37 K/uL (1.4-6.5); Neutrophils % (auto) 85.5 %; Platelet Count 281 K/uL (130-400); RDW Coefficient of Variation 15.5 % (11.5-14.5); RDW Standard Deviation 52.5 fL (36.4-46.3); Red Blood Count 3.88 M/uL (4.2-5.4); White Blood Count 7.46 K/uL (4.8-10.8)
[2019-04-11 07:07] LABS: BUN Creatinine Ratio 18.8 (10-20); Calcium 8.1 mg/dl (8.5-10.1); Creatinine Clr Calc Pharmacy 46.5 ml/min; Est GFR (African American) 94.9; Est GFR (Non-African American) 81.9; Potassium 4.5 mmol/L (3.5-5.1)
[2019-04-11] MEDS: CALCIUM CARBONATE 500 MG CHEWABLE TAB PO PRN (08:22)
[2019-04-11] MEDS: APIXABAN 2.5 MG TAB PO SCH (08:23)
[2019-04-11] MEDS: dilTIAZem HCL 240 MG CAPCR PO SCH (08:23)
[2019-04-11] MEDS: POTASSIUM CHLORIDE 10 MEQ TABCR PO SCH (08:24)
[2019-04-11] MEDS: EUCERIN CR 120 GM JAR EXT SCH ×2 (08:24→19:56)
[2019-04-11] MEDS: MULTIVITAMIN TAB PO SCH (08:24)
[2019-04-11] MEDS: predniSONE 5 MG TAB PO SCH (08:25)
[2019-04-11] MEDS ORDERED: ALUMINUM/MAGNESIUM/SIMETH (MAALOX MAX) 30 ML UDC PO PRN (10:46)
[2019-04-11] MEDS: SODIUM CHLORIDE 0.9% 1000ML 1,000 ML IV SCH (13:15)
--- NOTE | 2019-04-11 13:55 | Progress Note ---
DATE: 04/11/2019 PULMONARY MEDICINE PROGRESS NOTE I did speak with the patient's son, Milton who is the patient's power of state attorney. He states as of late, her short term memory has become very poor and that was exhibited during my conversation with him. I did comment that she had significant pneumonia with fluid around her lungs. She did undergo thoracentesis almost a year ago to the day successfully for what appeared to be a transudative effusion. She was started during that hospitalization for her atrial fibrillation on Eliquis. We have asked that the Eliquis be held and that we would reconsider thoracentesis following ultrasonographic guidance and consider bronchoscopic evaluation because of the nature of the infiltrate, the dense consolidation and potential atelectasis of the remainder of the right lower lobe with narrowing of the bronchus intermedius and the hemoptysis. The patient is at risk for any interventional procedure, but would only resort to additional workup in this patient with severe end-stage COPD, who is O2 dependent if her symptoms or x-ray did not significantly improve.
[2019-04-11] MEDS: PANTOprazole 40 MG TAB PO SCH (13:56)
[2019-04-11] MEDS ORDERED: ARTIFICIAL TEARS OP PRN (14:43)
[2019-04-11] MEDS: DOCUSATE SODIUM/SENNA 50/8.6MG TAB PO PRN (15:19)
--- NOTE | 2019-04-11 18:26 | Hospitalist Progress Note ---
Date of Service April 11, 2019 Assessment & Plan (1) Pneumonia: Patient is an 83 yr female with history of severe COPD on chronic oxygen, atrial fibrillation, hypertension, valvular heart disease, chronic CHF, comes to ED with complaint of upper abdominal pain/shortness of breath as per staff. Found to have right lower lobe pneumonia on CT scan/chest x-ray. Healthcare acquired pneumonia Right pleural effusion --CT Chest:1. Study compromised by moderate respiratory motion artifact. Pu lmonary emphysema. Right lower lobe consolidation suspicious for pneumonia. Adgkh-wr-dxbqxwrp right pleural effusion. Narrowing of the bronchus intermedius. If the patient does not improve antibiotic therapy, then bronchoscopy should be considered in follow-up --IV vancomycin, Zosyn Day#2>> transition to Zosyn MRSA screen: Negative Blood Cx: No growth to date Eliquis held for possible thoracentesis Appreciate pulmonary input Lasix held for now Received gentle IV fluids Atrial fibrillation with rapid ventricular rate Continue diltiazem 40 mg daily AnticoagulationEliquis 2.5 mg twice daily Currently rate controlled Eliquis held for possible thoracentesis IV Lopressor PRN Mild hyponatremia Chronic In setting of chronic diuretics Received gentle IV fluids Monitor sodium levels Prolonged QTC [id number] Avoid QTC prolonging agents Severe COPD without exacerbation/chronic hypoxic respiratory failure on home oxygen On supplemental oxygen at baseline2 L Continue nebs Continue with chronic steroidsprednisone at 5 mg daily. Chronic congestive heart failure, diastolic/valvular heart disease Not in exacerbation Hold Lasix 20 mg 3 times a week. Monitor volume status Resume diuretics as able Hypertension Borderline low. Hold Lasix, Valsartan. Continue Cardizem, Imdur Monitor DVT Px: Was on Eliquis SCDs for now for possible thoracentesis Code Status DNR /DNI Disposition Plan to discharge back to [facility] once stable PT/OT prior to discharge Subjective Patient is seen and examined at bedside History not very reliable given history of short-term memory loss at baseline Complains of dry cough, shortness of breath Denies any chest pain, nausea vomiting, abdominal pain, dizziness Eliquis held for possible thoracentesis No family at bedside Review of Systems Review of Systems: All systems reviewed & are unremarkable except as noted in HPI & below Physical Exam Physical Exam: Physical Exam: Vitals signs as noted above General Appearance:Moderately built, frail Head: normocephalic, Atraumatic Eyes: normal inspection, EOMI Neck: supple Respiratory/Chest: Decreased breath sounds, + wheezes Cardiovascular: Irregularly irregular rhythm, tachycardia, No murmur Abdomen/GI:Soft, Non tender, Bowel sounds present Extremities/Musculoskelatal:normal inspection, no edema Neurologic/Psych:AAOX3, grossly no focal neurological deficits Skin: normal color, warm Results & Data Vital Signs (Past 12 Hours) Vital Signs Temp Pulse Pulse Resp BP BP Pulse Ox 04/11/19 15:23 36.6 C 82 22 113/68 92 04/11/19 15:04 83 16 95 04/11/19 13:05 04/11/19 11:23 36.4 C L 102 H 18 130/82 97 04/11/19 11:04 97 H 18 93 04/11/19 07:25 36.3 C L 97 H 16 121/64 96 04/11/19 07:15 96 H 18 95 04/11/19 06:30 110 H Pulse Ox 04/11/19 15:23 04/11/19 15:04 04/11/19 13:05 92 04/11/19 11:23 04/11/19 11:04 04/11/19 07:25 04/11/19 07:15 04/11/19 06:30 Laboratory Results Short CBC 04/11/19 Range/Units 06:19 WBC 7.46 (4.8-10.8) K/uL Hgb 12.3 (12.0-16.0) g/dL Hct 35.8 L (37-47) % Plt Count 281 (130-400) K/uL BMP 04/11/19 06:19 Sodium 134 L Potassium 4.5 Chloride 101 Carbon Dioxide 27 BUN 13 Creatinine 0.67 Glucose 163 H Calcium 8.1 L (1) Pneumonia Laterality: right Lung location: lower lobe of lung Pneumonia type: due to unspecified organism Qualified Code(s): J18.1 - Lobar pneumonia, unspecified organism
--- NOTE | 2019-04-11 23:24 | Consultation Report ---
DATE OF CONSULTATION: 04/11/2019 PULMONARY MEDICINE CONSULTATION REASON FOR CONSULTATION: Healthcare-acquired pneumonia. HISTORY OF PRESENT ILLNESS: An 83-year-old white female, resident of [facility], who was admitted last evening by Dr. Tracie Kuhn from her residence at the [facility]. The patient has a longstanding smoking history. She states she began at age 18 and quit a year ago. She has severe COPD and is on chronic O2 supplementation. She complained over the past several days of upper abdominal pain radiating to the back associated with a cough without true pleuritic discomfort. She also claimed some degree of hemoptysis but has difficulty quantitating. She has been short of breath with exertion. Her history is somewhat suspect and she herself recognizes that she has been confused and her memory is not "great." She wished for me to discuss her history with her son, Milton, whom I called and could not reach him today. The patient has been on chronic steroid therapy, has a history of chronic diastolic heart failure, valvular heart disease, atrial fibrillation on anticoagulant therapy, and hypertension. The patient was in atrial fibrillation when she presented to the Emergency Room with a rate between 110 and 140 with O2 sat of 93% on 2 liters. White count was 10,000 with mild hyponatremia. CAT scan of the abdomen and pelvis done initially showed complete collapse of the right middle lobe and near complete collapse of the right lower lobe with partial consolidations involving the right lower lobe. A fmagn-og-ypvsakxt right pleural effusion and ground-glass airspace opacities within the right upper lobe were noted. There was associated right mediastinal shift, essentially obstructive lesion cannot be ruled out. A 3.1 cm infrarenal abdominal aortic aneurysm with moderate emphysema was noted. A dedicated CT scan of the chest was done without contrast which in addition to the emphysema showed right lower lobe consolidation suspicious for pneumonia with moderate pleural effusion, narrowing of the bronchus intermedius. No other additional history has been obtained. A review of the chart showed patient in April 2018 required a left-sided thoracentesis of a liter of fluid. She has crmsirbu-gy-pptanm aortic stenosis. She was felt to be in CHF, administered IV Lasix. The fluid reportedly was transudative and during that admission, the patient was started on Eliquis therapy, prednisone taper was utilized, and the patient was seen by Dr. Maher at that time. In reviewing the procedure note on 04/13/2018, a right-sided thoracentesis was performed with removal of 1000 mL of fluid. For details of past medical history, medications, family and social history, I refer you to current and past record. PHYSICAL EXAMINATION: GENERAL: Reveals a well-developed, elderly white female, mildly tachypneic, but in no significant respiratory distress. VITAL SIGNS: Blood pressure 130/82, pulse 102 and irregularly irregular, respiratory rate 18, temperature 36.4, O2 sat 97% on 2 liters. SKIN: Without lesion. HEENT: Atraumatic, normocephalic, PERRLA, EOMI. Conjunctivae pale. Sclerae nonicteric. Fundi poorly visualized. NECK: Neck veins are not distended at 45 degrees. No evidence of adenopathy in the supra or infraclavicular areas. LUNGS: Coarse rhonchi and wheezes diffusely with marked decreased breath sounds at the right base and right mid axillary region. CARDIAC: Irregularly irregular rhythm, grade 3/6, crescendo-decrescendo murmur heard at the lower left sternal border and aortic region. No S3. ABDOMEN: Soft, scaphoid. No evidence of hepatosplenomegaly. EXTREMITIES: No pedal edema, clubbing, or cyanosis. NEUROLOGIC: Intact. No lateralizing signs. She is oriented x2. DIAGNOSTIC DATA: CT scan of the chest once again reviewed and the right lower lobe appears to be consolidated with partial collapse with severe emphysema with opacities seen as well. The right upper lobe and middle lobe showed some degree of atelectasis with narrowing of the bronchus intermedius. H and H 12 and 35, white count 10,900 on admission with leftward shift. Blood cultures pending. PT/INR 1.1. D-dimer 1570. ABGs last year, pH 7.33, pCO2 of 66, pO2 of 81 on 2 liters. OVERALL ASSESSMENT: An 83-year-old with severe chronic obstructive pulmonary disease, O2 dependent, admitted with hemoptysis, hospital-acquired pneumonitis with probable parapneumonic effusion with right lower lobe consolidation and narrowing right bronchus intermedius. The patient has kikavesp-aj-ufiouy aortic stenosis as well as a history of kzomz-yr-swrzoht diastolic heart failure. Her atrial fibrillation with a ventricular response in the low 100s is mildly controlled. I agree with current choice of antibiotics and use of aerosolized bronchodilator. The antibiotics include IV Zosyn and vancomycin pending culture results. I would ultrasound the patient's right chest to see if there is a window for possible repeat thoracentesis (last performed a year ago). Despite patient's being on Eliquis therapy, I would hold the latter and would consider bronchoscopic intervention as I certainly think a neoplastic process or endobronchial obstruction could exist although I cannot make out a discernible mass. In any event, we will discuss further with primary hospitalist service the need to discuss her care and clinical course with her son, Milton, who can help fill in some of the information that I am lacking at time of this dictation.
[2019-04-12] MEDS: IPRATROPIUM BROMIDE NEB SOLN 0.02% 2.5 ML VIAL INH SCH ×6 (04:01→22:55)
[2019-04-12] MEDS: LEVALBUTEROL 1.25MG/0.5ML NEB INH SCH ×6 (04:01→22:55)
[2019-04-12] MEDS: PIPERACILLIN/TAZOBACTAM 3.375 GM in DEXTROSE 5% 100 ML IV SCH ×3 (04:11→20:50)
[2019-04-12 06:43] LABS: Hemoglobin 11.4 g/dL (12.0-16.0); Mean Corpuscular Hgb Conc 33.5 g/dL (32-36); Mean Corpuscular Volume 92.4 fL (80-100); Mean Platelet Volume 8.5 fL (7.4-10.4); Platelet Count 286 K/uL (130-400); RDW Coefficient of Variation 15.8 % (11.5-14.5); RDW Standard Deviation 53.5 fL (36.4-46.3); Red Blood Count 3.68 M/uL (4.2-5.4); White Blood Count 11.95 K/uL (4.8-10.8)
[2019-04-12 07:17] LABS: Est GFR (African American) 84.7; Est GFR (Non-African American) 73.1
[2019-04-12] MEDS: ISOSORBIDE DINITRATE 20 MG TAB PO SCH ×2 (07:54→11:58)
[2019-04-12] MEDS: dilTIAZem HCL 240 MG CAPCR PO SCH (07:55)
[2019-04-12] MEDS: POTASSIUM CHLORIDE 10 MEQ TABCR PO SCH (07:55)
[2019-04-12] MEDS: MULTIVITAMIN TAB PO SCH (07:55)
[2019-04-12] MEDS: predniSONE 5 MG TAB PO SCH (07:55)
[2019-04-12] MEDS: EUCERIN CR 120 GM JAR EXT SCH ×2 (07:56→20:51)
[2019-04-12] MEDS: PANTOprazole 40 MG TAB PO SCH (07:56)
--- NOTE | 2019-04-12 13:24 | Progress Note ---
DATE: 04/12/2019 PULMONARY MEDICINE PROGRESS NOTE Chart reviewed, the patient examined. SUBJECTIVE: The patient appears mildly tachypneic at rest and complains of dyspnea at rest. No further hemoptysis. Seems to have forgotten our discussion yesterday and I did speak with her son, Milton who reiterated to me that her memory especially over the past several months has gotten much worse. She resides at [facility]. She is O2 dependent and has a long previous smoking history. She has been on Eliquis. OBJECTIVE: CURRENT VITAL SIGNS: Blood pressure 114/67, pulse 92 and irregular, respiratory rate 17, temperature 36.5, O2 sat 98% on 2 liters. SKIN: Without lesion. HEENT: Atraumatic, normocephalic. PERRLA. LUNGS: Decreased breath sounds with dullness at the right base and a suggestion of egophony. CARDIAC: Irregularly irregular rhythm. A grade 3/6 crescendo decrescendo aortic murmur noted. No S3. ABDOMEN: Soft, scaphoid. No evidence of hepatosplenomegaly. EXTREMITIES: No pedal edema, clubbing or cyanosis. NEUROLOGICAL: Intact. No lateralizing signs. LABORATORY DATA: EKG shows atrial fibrillation with incomplete right bundle-branch block, a controlled ventricular response at 88. Current white count 11,000, H and H 11.4 and 34. ABGs on admission, pH 7.33, pCO2 of 66, pO2 of 81 on 2 liters. Blood cultures negative. OVERALL ASSESSMENT: An 83-year-old with severe O2 dependent COPD, admitted with a right lower lobe consolidation, possible obstruction with pleural effusion, hemoptysis. The ultrasound suggested atelectatic lung quite adjacent to the effusion without a good window. Difficult to assess how much fluid is there. We will repeat the patient's chest x-ray. I do think the patient should undergo bronchoscopic evaluation, but her pulmonary status remains quite fragile and may need to be done utilizing general anesthesia with intubation, although would like to be able to perform the procedure on Monday with utilizing moderate conscious sedation for repair. We will repeat her chest x-ray tomorrow and see if the effusion has gotten worse.
[2019-04-12] MEDS ORDERED: VANCOMYCIN TROUGH ONE ×2 (13:30→21:30)
--- NOTE | 2019-04-12 14:27 | Hospitalist Progress Note ---
Date of Service April 12, 2019 Assessment & Plan (1) Pneumonia: Patient is an 83 yr female with history of severe COPD on chronic oxygen, atrial fibrillation, hypertension, valvular heart disease, chronic CHF, comes to ED with complaint of upper abdominal pain/shortness of breath as per staff. Found to have right lower lobe pneumonia on CT scan/chest x-ray. Healthcare acquired pneumonia Right pleural effusion --CT Chest:1. Study compromised by moderate respiratory motion artifact. Pu lmonary emphysema. Right lower lobe consolidation suspicious for pneumonia. [id number] right pleural effusion. Narrowing of the bronchus intermedius. If the patient does not improve antibiotic therapy, then bronchoscopy should be considered in follow-up --IV vancomycin, Zosyn Day#2>> transition to Zosyn Day #3 MRSA screen: Negative Mild leukocytosis likely secondary to chronic prednisone use Blood Cx: No growth to date Eliquis held for possible thoracentesis Appreciate pulmonary input Lasix held for now Received gentle IV fluids Ultrasound suggestive of atelectatic lung as per pulmonary Plan to repeat chest x-ray to assess progression of pleural effusion Atrial fibrillation with rapid ventricular rate Continue diltiazem 40 mg daily AnticoagulationEliquis 2.5 mg twice daily Currently rate controlled Eliquis held for possible thoracentesis IV Lopressor PRN Mild hyponatremia Chronic In setting of chronic diuretics Received gentle IV fluids Monitor sodium levels Prolonged QTC [id number] Avoid QTC prolonging agents Severe COPD without exacerbation/chronic hypoxic respiratory failure on home oxygen On supplemental oxygen at baseline2 L Continue nebs Continue with chronic steroidsprednisone at 5 mg daily. Constipation: Continue bowel regimen Chronic congestive heart failure, diastolic/valvular heart disease Not in exacerbation Was on Lasix 20 mg 3 times a week. Monitor volume status Resume diuretics as able Hypertension Borderline low. Hold Lasix, Valsartan. Continue Cardizem, Imdur Monitor DVT Px: Was on Eliquis SCDs for now for possible thoracentesis Code Status DNR /DNI Disposition Plan to discharge back to [facility] side once stable PT/OT prior to discharge Subjective Patient is seen and examined at bedside Has constipation--small BM this morning States SOB, dry cough about the same as yesterday History not very reliable given history of short-term memory loss at baseline Denies any chest pain, nausea vomiting, abdominal pain, dizziness No family at bedside Review of Systems Review of Systems: All systems reviewed & are unremarkable except as noted in HPI & below Physical Exam Physical Exam: Physical Exam: Vitals signs as noted above General Appearance:Moderately built, frail Head: normocephalic, Atraumatic Eyes: normal inspection, EOMI Neck: supple Respiratory/Chest: Decreased breath sounds, Minimal wheezes Cardiovascular: Irregularly irregular rhythm, tachycardia, No murmur Abdomen/GI:Soft, Non tender, Bowel sounds present Extremities/Musculoskelatal:normal inspection, no edema Neurologic/Psych:AAOX3, grossly no focal neurological deficits Skin: normal color, warm Results & Data Vital Signs (Past 12 Hours) Vital Signs Temp Pulse Pulse Resp BP Pulse Ox 04/12/19 11:21 36.5 C 92 H 17 114/67 98 04/12/19 10:52 88 20 94 04/12/19 07:30 91 H 04/12/19 07:16 91 H 20 91 04/12/19 07:08 36.5 C 90 26 H 124/74 95 04/12/19 04:27 36.8 C 83 19 89/58 L 97 04/12/19 04:02 87 18 94 Laboratory Results Short CBC 04/12/19 Range/Units 06:20 WBC 11.95 H (4.8-10.8) K/uL Hgb 11.4 L (12.0-16.0) g/dL Hct 34.0 L (37-47) % Plt Count 286 (130-400) K/uL BMP 04/12/19 06:20 Creatinine 0.76 (1) Pneumonia Laterality: right Lung location: lower lobe of lung Pneumonia type: due to unspecified organism Qualified Code(s): J18.1 - Lobar pneumonia, unspecified organism
[2019-04-12] MEDS ORDERED: MoRPHine SULFATE 2 MG/ML CARP IV STA (16:53)
[2019-04-12] MEDS: FUROSEMIDE 20 MG TAB PO SCH (17:49)
[2019-04-13] MEDS: IPRATROPIUM BROMIDE NEB SOLN 0.02% 2.5 ML VIAL INH SCH ×6 (03:12→23:07)
[2019-04-13] MEDS: LEVALBUTEROL 1.25MG/0.5ML NEB INH SCH ×6 (03:12→23:07)
[2019-04-13] MEDS: PIPERACILLIN/TAZOBACTAM 3.375 GM in DEXTROSE 5% 100 ML IV SCH ×3 (03:59→19:29)
[2019-04-13 06:27] LABS: Basophils # (auto) 0.03 K/uL (0-0.2); Basophils % (auto) 0.3 %; Eosinophils # (auto) 0.39 K/uL (0-0.5); Eosinophils % (auto) 3.3 %; Hematocrit (blood only) 33.2 % (37-47); Hemoglobin 11.1 g/dL (12.0-16.0); Immature Granulocytes # (auto) 0.05 K/uL (0.00-0.02); Immature Granulocytes % (auto) 0.4 %; Lymphocytes # (auto) 1.68 K/uL (1.2-3.4); Lymphocytes % (auto) 14.4 %; Mean Corpuscular Hgb Conc 33.4 g/dL (32-36); Mean Corpuscular Volume 93.8 fL (80-100); Mean Platelet Volume 8.5 fL (7.4-10.4); Monocytes # (auto) 1.84 K/uL (0.11-0.59); Monocytes % (auto) 15.8 %; Neutrophils # (auto) 7.66 K/uL (1.4-6.5); Neutrophils % (auto) 65.8 %; Platelet Count 293 K/uL (130-400); RDW Coefficient of Variation 15.6 % (11.5-14.5); RDW Standard Deviation 53.5 fL (36.4-46.3); Red Blood Count 3.54 M/uL (4.2-5.4); White Blood Count 11.65 K/uL (4.8-10.8)
[2019-04-13 07:06] LABS: BUN Creatinine Ratio 13.3 (10-20); Calcium 7.9 mg/dl (8.5-10.1); Est GFR (African American) 84.7; Est GFR (Non-African American) 73.1; Potassium 3.8 mmol/L (3.5-5.1)
[2019-04-13] MEDS: ISOSORBIDE DINITRATE 20 MG TAB PO SCH ×2 (07:54→12:34)
[2019-04-13] MEDS: PANTOprazole 40 MG TAB PO SCH (08:16)
[2019-04-13] MEDS: MULTIVITAMIN TAB PO SCH (08:16)
[2019-04-13] MEDS: EUCERIN CR 120 GM JAR EXT SCH ×2 (08:17→21:20)
[2019-04-13] MEDS: dilTIAZem HCL 240 MG CAPCR PO SCH (08:17)
[2019-04-13] MEDS: predniSONE 5 MG TAB PO SCH (08:18)
[2019-04-13] MEDS: POTASSIUM CHLORIDE 10 MEQ TABCR PO SCH (09:15)
--- NOTE | 2019-04-13 09:45 | XRay Report ---
XR chest decubs CLINICAL HISTORY: pneumonia/R pleural effusion COMPARISON STUDY: Chest CT 04/10/2019. FINDINGS: Layering small right pleural effusion is again noted. No significant left pleural effusion. The heart is normal in size. Right lung consolidation has improved. IMPRESSION: Interval improvement in the right lung consolidation and small layering right pleural ef fusion. Electronically signed by: Justin Jackson M.D. 04/13/2019 9:43 AM
[2019-04-13] MEDS ORDERED: ALBUT/IPRATROP 3MG/0.5MG NEB 3 ML VIAL NEB STA (09:46)
[2019-04-13] MEDS ORDERED: methylPREDNISolone 80 MG in SYRINGE 0 ML IV STA (09:54)
--- NOTE | 2019-04-13 10:10 | Progress Note ---
DATE: 04/13/2019 Assessment, plan, chart reviewed, patient examined. SUBJECTIVE: The patient returns from a chest x-ray today, markedly dyspneic, tachypneic and bronchospastic. She is in mild to moderate distress simply from the maneuvering for the film. No further hemoptysis. OBJECTIVE: CURRENT VITAL SIGNS: Blood pressure 124/78, pulse 87 and irregular, respiratory rate 20-30 using accessory muscle respiration, temperature 36.7, O2 sat 97% on 2 liters. SKIN: Without lesion. HEENT: Atraumatic, normocephalic. PERRLA. LUNGS: Coarse wheezes diffusely. CARDIAC: Irregularly irregular rhythm with a rapid ventricular response. Systolic murmur unchanged. ABDOMEN: Soft, scaphoid. EXTREMITIES: Trace pedal edema. No clubbing. Peripheral cyanosis. NEUROLOGIC: Intact. No lateralizing signs. DIAGNOSTIC DATA: Chest x-ray pending. There does appear to be some fluid that is layering out, diffuse infiltrates throughout the right lung and may be an element to CHF. I can discern the right cardiac border better. Still suspect a right lower lobe infiltrate and consolidation. LABORATORY DATA: White count 11,000, H and H 11.1 and 33.2. OVERALL ASSESSMENT: An 83-year-old with severe end-stage chronic obstructive pulmonary disease, O2 dependent with persistent symptoms of bronchospasm, dyspnea, tachypnea using accessory muscles of respiration. We will give the patient a stat neb treatment and IV Solu-Medrol, but it is very clear to me now that the patient would not tolerate much of a workup including bronchoscopic intervention at this point in time. I do not think there is a significant amount of fluid that could be drained ____ additional improvement. I will defer any interventional workup, i.e., bronchoscopy at this point in time as I do not believe the patient would tolerate much of a procedure unless she had her airway secured and was receiving mechanical ventilator assistance.
[2019-04-13] MEDS: CALCIUM CARBONATE 500 MG CHEWABLE TAB PO PRN (10:16)
[2019-04-13] MEDS ORDERED: LEVALBUTEROL HCL 0.63 MG/3 ML NEB NEB PRN (15:13)
--- NOTE | 2019-04-13 15:16 | Hospitalist Progress Note ---
Date of Service April 13, 2019 Assessment & Plan (1) Pneumonia: Patient is an 83 yr female with history of severe COPD on chronic oxygen, atrial fibrillation, hypertension, valvular heart disease, chronic CHF, comes to ED with complaint of upper abdominal pain/shortness of breath as per staff. Found to have right lower lobe pneumonia on CT scan/chest x-ray. Healthcare acquired pneumonia Right pleural effusion --CT Chest:1. Study compromised by moderate respiratory motion artifact. Pu lmonary emphysema. Right lower lobe consolidation suspicious for pneumonia. [id number] right pleural effusion. Narrowing of the bronchus intermedius. If the patient does not improve antibiotic therapy, then bronchoscopy should be considered in follow-up --IV vancomycin, Zosyn Day#2>> transition to Zosyn Day #4 MRSA screen: Negative Mild leukocytosis likely secondary to chronic prednisone use Blood Cx: No growth to date Initially Eliquis held for possible thoracentesis Appreciate pulmonary input Received gentle IV fluids Ultrasound suggestive of atelectatic lung as per pulmonary Repeat chest x-ray: Interval improvement in the right lung consolidation and small layering right pleural effusion. IV Solu-Medrol, neb treatment given as per pulmonology today No plan for any interventional work-up, bronchoscopy at this time as per pulmonology. Resume Eliquis today Atrial fibrillation with rapid ventricular rate Continue diltiazem 40 mg daily AnticoagulationEliquis 2.5 mg twice daily Currently rate controlled IV Lopressor PRN Mild hyponatremia Chronic In setting of chronic diuretics Received gentle IV fluids Monitor sodium levels Prolonged QTC [id number] Avoid QTC prolonging agents Severe COPD without exacerbation/chronic hypoxic respiratory failure on home oxygen On supplemental oxygen at baseline2 L Continue nebs Continue with chronic steroidsprednisone at 5 mg daily. Constipation: Continue bowel regimen Chronic congestive heart failure, diastolic/valvular heart disease Not in exacerbation On Lasix 20 mg 3 times a week. Monitor volume status Hypertension Borderline low. Resume Valsartan when BP more stable Continue Cardizem, Imdur Monitor DVT Px: On Eliquis Code Status DNR /DNI Disposition Plan to discharge back to [facility] side once stable PT/OT prior to discharge Subjective Patient is seen and examined at bedside Continues to complain of SOB, pleuritic pain Less cough Saturating well on 2-3 liters of Supplemental Oxygen Denies any nausea vomiting, abdominal pain, dizziness No family at bedside CXR today: Interval improvement Review of Systems Review of Systems: All systems reviewed & are unremarkable except as noted in HPI & below Physical Exam Physical Exam: Physical Exam: Vitals signs as noted above General Appearance:Moderately built, frail Head: normocephalic, Atraumatic Eyes: normal inspection, EOMI Neck: supple Respiratory/Chest: Decreased breath sounds on right side, CTA Cardiovascular: Irregularly irregular rhythm, No murmur Abdomen/GI:Soft, Non tender, Bowel sounds present Extremities/Musculoskelatal:normal inspection, no edema Neurologic/Psych:AAOX3, grossly no focal neurological deficits Skin: normal color, warm Results & Data Vital Signs (Past 12 Hours) Vital Signs Temp Pulse Pulse Resp BP BP Pulse Ox 04/13/19 14:53 82 20 98 04/13/19 11:36 36.6 C 103 H 22 115/65 99 04/13/19 10:04 81 20 98 04/13/19 07:23 36.7 C 87 20 124/78 97 04/13/19 07:10 77 18 98 04/13/19 07:00 91 H 04/13/19 03:53 36.6 C 96 H 18 100/58 L 93 Laboratory Results Short CBC 04/13/19 Range/Units 05:54 WBC 11.65 H (4.8-10.8) K/uL Hgb 11.1 L (12.0-16.0) g/dL Hct 33.2 L (37-47) % Plt Count 293 (130-400) K/uL BMP 04/13/19 05:54 Sodium 133 L Potassium 3.8 D Chloride 96 L Carbon Dioxide 31 BUN 10 Creatinine 0.76 Glucose 93 Calcium 7.9 L (1) Pneumonia Laterality: right Lung location: lower lobe of lung Pneumonia type: due to unspecified organism Qualified Code(s): J18.1 - Lobar pneumonia, unspecified organism
[2019-04-13] MEDS: APIXABAN 2.5 MG TAB PO SCH (21:20)
[2019-04-13] MEDS ORDERED: HEPARIN SOD 5,000 UNIT/0.5 ML VIAL SQ SCH (22:00)
[2019-04-14] MEDS: IPRATROPIUM BROMIDE NEB SOLN 0.02% 2.5 ML VIAL INH SCH ×6 (03:29→23:09)
[2019-04-14] MEDS: LEVALBUTEROL 1.25MG/0.5ML NEB INH SCH ×6 (03:29→23:09)
[2019-04-14] MEDS: PIPERACILLIN/TAZOBACTAM 3.375 GM in DEXTROSE 5% 100 ML IV SCH ×3 (04:49→19:56)
[2019-04-14 06:03] LABS: Hematocrit (blood only) 34.3 % (37-47); Hemoglobin 11.7 g/dL (12.0-16.0); Immature Granulocytes # (auto) 0.03 K/uL (0.00-0.02); Immature Granulocytes % (auto) 0.4 %; Lymphocytes # (auto) 0.49 K/uL (1.2-3.4); Lymphocytes % (auto) 5.9 %; Mean Corpuscular Hgb Conc 34.1 g/dL (32-36); Mean Corpuscular Volume 92.2 fL (80-100); Mean Platelet Volume 8.4 fL (7.4-10.4); Monocytes # (auto) 0.88 K/uL (0.11-0.59); Monocytes % (auto) 10.6 %; Neutrophils # (auto) 6.88 K/uL (1.4-6.5); Neutrophils % (auto) 83.1 %; Platelet Count 297 K/uL (130-400); RDW Coefficient of Variation 15.4 % (11.5-14.5); RDW Standard Deviation 52.1 fL (36.4-46.3); Red Blood Count 3.72 M/uL (4.2-5.4); White Blood Count 8.28 K/uL (4.8-10.8)
[2019-04-14 06:28] LABS: BUN Creatinine Ratio 16.6 (10-20); Calcium 8.5 mg/dl (8.5-10.1); Creatinine Clr Calc Pharmacy 51.1 ml/min; Est GFR (African American) 97.8; Est GFR (Non-African American) 84.4
[2019-04-14] MEDS: ISOSORBIDE DINITRATE 20 MG TAB PO SCH ×2 (07:33→12:20)
[2019-04-14] MEDS: PANTOprazole 40 MG TAB PO SCH (08:51)
[2019-04-14] MEDS: MULTIVITAMIN TAB PO SCH (08:51)
[2019-04-14] MEDS: POTASSIUM CHLORIDE 10 MEQ TABCR PO SCH (08:51)
[2019-04-14] MEDS: predniSONE 5 MG TAB PO SCH (08:51)
[2019-04-14] MEDS: dilTIAZem HCL 240 MG CAPCR PO SCH (08:51)
[2019-04-14] MEDS: APIXABAN 2.5 MG TAB PO SCH ×2 (08:52→20:03)
[2019-04-14] MEDS: EUCERIN CR 120 GM JAR EXT SCH ×2 (08:52→20:03)
--- NOTE | 2019-04-14 11:48 | Progress Note ---
DATE: 04/14/2019 Chart reviewed, patient examined, assessment and plan. SUBJECTIVE: The patient feels somewhat improved today, but has been sneezing continually. She was concerned that her O2 had become disconnected previously. Using a fan that helps her with breathing. When she returned yesterday from her right lateral decubitus chest film, she was markedly dyspneic, bronchospastic and administered aerosolized bronchodilator stat and IV Solu-Medrol which seemed to help. Currently in bed. She is resting comfortably. OBJECTIVE: VITAL SIGNS: Blood pressure 149/74, pulse 100 and irregular, respiratory rate 20, temperature 36.7, O2 sat 97% on 2 liters. SKIN: Without lesion. HEENT: Atraumatic, normocephalic. PERRLA. LUNGS: Decreased breath sounds right base. Scattered wheeze right posterior as well as left lung. CARDIAC: Irregularly irregular rhythm. I cannot appreciate a gallop . Systolic murmur is unchanged. ABDOMEN: Soft, scaphoid. No evidence of hepatosplenomegaly. EXTREMITIES: No pedal edema, clubbing or cyanosis. NEUROLOGIC: Intact. No lateralizing signs. LABORATORY DATA: EKG shows an irregularly irregular rhythm, atrial fibrillation with controlled ventricular response. White count has normalized. H and H 11.7 and 34.3. Chemistry profile pending. BUN 10, creatinine 0.6. Chest x-ray shows improvement in the right lung consolidation, small layering right pleural effusion. ASSESSMENT AND PLAN: An 83-year-old white female with moderately severe aortic stenosis, presented with atrial fibrillation with a rapid ventricular response, a degree of CHF as well as bronchopneumonia with probable parapneumonic effusion. At this point in time, I do not believe the patient is a candidate for bronchoscopic intervention given the improvement in her right lower lobe consolidation despite the presence of narrowing of bronchus intermedius. I do not believe she would tolerate much of the procedure and does not need a diagnostic or a therapeutic thoracentesis at this point. We will restart her Eliquis, go with continued IV Solu-Medrol and pulmonary toilet and try to mobilize the patient. We will cancel any consideration for bronchoscopic intervention tomorrow.
[2019-04-14] MEDS: methylPREDNISolone 40 MG in SYRINGE 0 ML IV SCH ×2 (12:20→19:56)
--- NOTE | 2019-04-14 13:23 | Hospitalist Progress Note ---
Date of Service April 14, 2019 Assessment & Plan (1) Pneumonia: Patient is an 83 yr female with history of severe COPD on chronic oxygen, atrial fibrillation, hypertension, valvular heart disease, chronic CHF, comes to ED with complaint of upper abdominal pain/shortness of breath as per staff. Found to have right lower lobe pneumonia on CT scan/chest x-ray. Healthcare acquired pneumonia Right pleural effusion --CT Chest:1. Study compromised by moderate respiratory motion artifact. Pu lmonary emphysema. Right lower lobe consolidation suspicious for pneumonia. [id number] right pleural effusion. Narrowing of the bronchus intermedius. If the patient does not improve antibiotic therapy, then bronchoscopy should be considered in follow-up --IV vancomycin, Zosyn Day#2>> transition to Zosyn only Day #5 MRSA screen: Negative Mild leukocytosis likely secondary to chronic prednisone use Blood Cx: No growth to date Initially Eliquis held for possible thoracentesis Received gentle IV fluids Ultrasound suggestive of atelectatic lung as per pulmonary Repeat chest x-ray: Interval improvement in the right lung consolidation and small layering right pleural effusion. No plan for any interventional work-up, bronchoscopy at this time as per pulmonology. Resumed Eliquis Iv Solu-Medrol started today Appreciate Pulmonology Input Atrial fibrillation with rapid ventricular rate Continue diltiazem 40 mg daily AnticoagulationEliquis 2.5 mg twice daily Currently rate controlled IV Lopressor PRN Mild hyponatremia Chronic In setting of chronic diuretics Received gentle IV fluids Monitor sodium levels Prolonged QTC [id number] Avoid QTC prolonging agents Severe COPD without exacerbation/chronic hypoxic respiratory failure on home oxygen On supplemental oxygen at baseline2 L Continue nebs Continue with chronic steroidsprednisone at 5 mg daily. Hold PO steroids for now Strarted on IV solu-medrol Constipation: Continue bowel regimen Chronic congestive heart failure, diastolic/valvular heart disease Not in exacerbation On Lasix 20 mg 3 times a week. Monitor volume status Hypertension Borderline low. Resume Valsartan tomorrow as BP better Continue Cardizem, Imdur Monitor DVT Px: On Eliquis Code Status DNR /DNI Disposition Plan to discharge back to [facility] side once stable PT/OT prior to discharge Subjective Patient is seen and examined at bedside Feels slightly better today Still has significant wheezing on exam this morning Reports SOB; Cough resolved Saturating well on 2 liters of Supplemental Oxygen Denies any nausea vomiting, abdominal pain, dizziness Review of Systems Review of Systems: All systems reviewed & are unremarkable except as noted in HPI & below Physical Exam Physical Exam: Physical Exam: Vitals signs as noted above General Appearance:Moderately built, frail Head: normocephalic, Atraumatic Eyes: normal inspection, EOMI Neck: supple Respiratory/Chest: Decreased breath sounds on right side, B/L wheezing Cardiovascular: Irregularly irregular rhythm, No murmur Abdomen/GI:Soft, Non tender, Bowel sounds present Extremities/Musculoskelatal:normal inspection, no edema Neurologic/Psych:AAOX3, grossly no focal neurological deficits Skin: normal color, warm Results & Data Vital Signs (Past 12 Hours) Vital Signs Temp Pulse Resp BP Pulse Ox 04/14/19 11:31 36.7 C 92 H 24 130/70 96 04/14/19 11:16 98 H 20 98 04/14/19 11:15 93 04/14/19 07:33 36.7 C 100 H 20 149/74 H 97 04/14/19 06:58 72 18 98 04/14/19 03:48 36.5 C 94 H 19 126/69 98 04/14/19 03:30 94 H 14 97 Laboratory Results Short CBC 04/14/19 Range/Units 05:39 WBC 8.28 (4.8-10.8) K/uL Hgb 11.7 L (12.0-16.0) g/dL Hct 34.3 L (37-47) % Plt Count 297 (130-400) K/uL BMP 04/14/19 05:39 Sodium 135 L Potassium 4.0 Chloride 99 Carbon Dioxide 32 BUN 10 Creatinine 0.61 Glucose 161 H Calcium 8.5 (1) Pneumonia Laterality: right Lung location: lower lobe of lung Pneumonia type: due to unspecified organism Qualified Code(s): J18.1 - Lobar pneumonia, unspecified organism
[2019-04-15] MEDS: IPRATROPIUM BROMIDE NEB SOLN 0.02% 2.5 ML VIAL INH SCH ×6 (03:47→23:12)
[2019-04-15] MEDS: LEVALBUTEROL 1.25MG/0.5ML NEB INH SCH ×6 (03:47→23:12)
[2019-04-15] MEDS: methylPREDNISolone 40 MG in SYRINGE 0 ML IV SCH ×3 (04:13→19:40)
[2019-04-15] MEDS: PIPERACILLIN/TAZOBACTAM 3.375 GM in DEXTROSE 5% 100 ML IV SCH ×3 (04:14→19:41)
[2019-04-15 05:52] LABS: Hemoglobin 11.6 g/dL (12.0-16.0); Mean Corpuscular Hgb Conc 33.1 g/dL (32-36); Mean Corpuscular Volume 92.1 fL (80-100); Mean Platelet Volume 8.6 fL (7.4-10.4); Platelet Count 328 K/uL (130-400); RDW Coefficient of Variation 15.2 % (11.5-14.5); RDW Standard Deviation 51.3 fL (36.4-46.3); White Blood Count 9.05 K/uL (4.8-10.8)
[2019-04-15 06:22] LABS: BUN Creatinine Ratio 18.6 (10-20); Calcium 8.7 mg/dl (8.5-10.1); Creatinine Clr Calc Pharmacy 45.2 ml/min; Est GFR (Non-African American) 81.1; Potassium 3.8 mmol/L (3.5-5.1)
[2019-04-15] MEDS: ISOSORBIDE DINITRATE 20 MG TAB PO SCH ×2 (07:35→13:14)
[2019-04-15] MEDS: PANTOprazole 40 MG TAB PO SCH (08:08)
[2019-04-15] MEDS: EUCERIN CR 120 GM JAR EXT SCH ×2 (08:08→19:51)
[2019-04-15] MEDS: APIXABAN 2.5 MG TAB PO SCH ×2 (08:09→19:51)
[2019-04-15] MEDS: FUROSEMIDE 20 MG TAB PO SCH (08:09)
[2019-04-15] MEDS: VALSARTAN 80 MG TAB PO SCH (08:09)
[2019-04-15] MEDS: POTASSIUM CHLORIDE 10 MEQ TABCR PO SCH (08:09)
[2019-04-15] MEDS: MULTIVITAMIN TAB PO SCH (08:10)
[2019-04-15] MEDS: dilTIAZem HCL 240 MG CAPCR PO SCH (08:10)
--- NOTE | 2019-04-15 13:26 | Pulmonology Progress Note ---
Date of Service April 15, 2019 Assessment & Plan (1) Pneumonia: Impression: 83-year-old female with advanced obstructive lung disease and chronic hypoxemic respiratory failure Recommendations: Continue antibiotics. Patient transition to Augmentin. Anticipate a total of 10-day course. Would recommend follow-up imaging in 2 to 4 weeks under the direction of primary care provider. No indication for bronchoscopy currently. No significant pleural fluid identified on imaging. (2) COPD (chronic obstructive pulmonary disease): PFTs not currently available. It appears fairly advanced based on radiographic findings. Continue steroids at current dose. Add inhaled corticosteroid and long-acting beta agonist. Nebulized form may be more benefi cial given the patient's shortness of breath. Would consider azithromycin given her advanced obstructive lung disease as chronic anti-inflammatory agent. (3) Hypoxemic respiratory failure, chronic: Stable: Continue to wean oxygen as tolerated. Subjective Patient states she continues to experience wheezing. She is not getting much benefit from inhalers. She feels short of breath with minimal exertion and does experience some conversational dyspnea. No chest pain or palpitations. She has a poor appetite. No nausea vomiting or diarrhea. Medical history and review of systems is otherwise unchanged. Review of Systems Review of Systems: Other (Unchanged from prior) Physical Exam Constitutional: WD/WN, vitals as above + thin Neck: trachea midline Respiratory: Auscultation: + wheezes Cardiovascular: RRR, no murmur, no edema Extremities: no pedal edema Gastrointestinal (Abdomen): normal bowel sounds, soft, nontender, no hepatosplenomegaly Neurologic: Nonfocal exam Results & Data Vital Signs (Past 12 Hours) Vital Signs Temp Pulse Pulse Resp BP BP Pulse Ox 04/15/19 11:21 81 22 96 04/15/19 11:00 36.4 C L 91 H 18 122/72 94 04/15/19 08:00 96 H 04/15/19 07:18 72 16 98 04/15/19 06:57 36.6 C 97 H 18 123/64 97 04/15/19 04:19 36.4 C L 94 H 20 126/75 97 04/15/19 03:48 88 18 97 Laboratory Results 04/15/19 05:32 04/15/19 05:32 04/10/19 13:26 Aerobic Blood Culture - Preliminary Blood No growth in Aerobic bottle after 48 hours. Anaerobic Blood Culture - Final 04/10/19 13:25 Aerobic Blood Culture - Preliminary Blood No growth in Aerobic bottle after 48 hours. Anaerobic Blood Culture - Preliminary No growth in Anaerobic bottle after 48 hours. Diagnostic Findings XR chest decubs CLINICAL HISTORY: pneumonia/R pleural effusion COMPARISON STUDY: Chest CT 04/10/2019. FINDINGS: Layering small right pleural effusion is again noted. No significant left pleural effusion. The heart is normal in size. Right lung consolidation has improved. IMPRESSION: Interval improvement in the right lung consolidation and small layering right pleural effusion. Electronically signed by: Justin Jackson M.D. 04/13/2019 9:43 AM PG Care Time/CCT Total # of Minutes Spent Total Time Spent: 25 Total Time Spent with Patient: Total time spent is greater than 50% in coordination of care (as documented) at patient's floor/unit and/or counseling patient: 25 min. Critical Care Time: No
--- NOTE | 2019-04-15 14:44 | Hospitalist Progress Note ---
Date of Service April 15, 2019 Assessment & Plan (1) Pneumonia: Continue Zosyn, day 6. Denies fevers or chills. Appears to be doing well from a pneumonia standpoint. Continue treatment for COPD exacerbation. Repeat chest x-ray in 2 to 4 weeks as outpatient. (2) COPD exacerbation: Continue IV Solu-Medrol just started yesterday. Uncertain if patient is much improved based on the fact that she is a poor historian and I am seeing her for the first time today. Continue Zosyn to treat pneumonia. Continue scheduled DuoNeb therapy. (3) Hypoxemic respiratory failure, chronic: Secondary to COPD. Continue oxygen supplementation. Humidified oxygen. (4) Atrial fibrillation: On 240 mg p.o. daily of diltiazem. Rate is controlled in the 80s on this dose. Continue treatment of underlying lung issues. Continue Eliquis 2.5 p.o. twice daily. (5) Prolonged QT interval: resolved on repeat EKGs x 2 days. (6) Chronic diastolic heart failure: Euvolemic, continue home Lasix TIW (7) Hypertension: At goal, cont home dose of valsartan. (8) DVT prophylaxis: Eliquis DNR/DNI Dispo-to heartide once medically stable, possible 3-4 more days. Erika Briceno DO [facility] Hospitalist Subjective 83-year-old admitted for pneumonia. She remains on oxygen, however, trials on room air have been successful. She prefers to use the oxygen as a safety night. She appeared to have some respiratory distress and I discussed this with the nurse who states that anytime a provider comes into the room she starts having tachypnea when they leave she is fine. During this whole time she is oxygenating well per pulse ox. Whether it is from the steroids or baseline dementia as she is having some memory loss when I speak to her. She tends to repeat the question that she might have pneumonia and continues to tell me that she has a dry nose from the oxygen. She otherwise denies any chest pain, fevers, chills, other pain. She is tolerating p.o. from what I can get from her. She appears elderly and frail and deconditioned to a certain extent. Review of Systems Review of Systems: All systems reviewed & are unremarkable except as noted in HPI & below Physical Exam Physical Exam: CONSTITUTIONAL: Elderly, frail, deconditioned, vitals as above EYES: normal conjunctivae, no scleral icterus ENT: MMM RESPIRATORY: Appears tachypneic, wheezing throughout all lung retana. CARDIOVASCULAR: regular rate and rhythm, S1 and 2 heard without murmurs, gallops or rubs, no JVD, no peripheral edema GASTROINTESTINAL: soft, nontender, nondistended MUSCULOSKELETAL: strength 5/5 throughout, head is normocephalic and atraumatic SKIN: warm and dry NEUROLOGIC: CN 2-12 grossly intact, appears to have some memory loss or baseline dementia, normal speech PSYCHIATRIC: alert cooperative and oriented to person, place and time (but patient was also reading the white board behind me) Results & Data Vital Signs (Past 12 Hours) Vital Signs Temp Pulse Pulse Resp BP BP Pulse Ox 04/15/19 11:21 81 22 96 04/15/19 11:00 36.4 C L 91 H 18 122/72 94 04/15/19 08:00 96 H 04/15/19 07:18 72 16 98 04/15/19 06:57 36.6 C 97 H 18 123/64 97 04/15/19 04:19 36.4 C L 94 H 20 126/75 97 04/15/19 03:48 88 18 97 Laboratory Results Short CBC 04/15/19 Range/Units 05:32 WBC 9.05 (4.8-10.8) K/uL Hgb 11.6 L (12.0-16.0) g/dL Hct 35.0 L (37-47) % Plt Count 328 (130-400) K/uL BMP 04/15/19 05:32 Sodium 133 L Potassium 3.8 Chloride 97 L Carbon Dioxide 29 BUN 13 Creatinine 0.69 Glucose 175 H Calcium 8.7 Medications Administered Current Inpatient Medications Acetaminophen (Tylenol) 650 mg PO Q4H PRN PRN Reason: Pain or Fever Stop: 05/10/19 18:19 Al Hydrox/Mg Hydrox/Simethicone (Maalox Max) 15 ml PO Q6H PRN PRN Reason: Dyspepsia Stop: 05/11/19 10:45 Last Admin: 04/11/19 11:59 Dose: 15 ml Documented by: Apixaban (Eliquis) 2.5 mg PO BID [facility] Stop: 05/13/19 20:59 Last Admin: 04/15/19 08:09 Dose: 2.5 mg Documented by: Artificial Tears (Artificial Tears) 1 drops OP PRN PRN PRN Reason: DRY EYES Stop: 05/11/19 14:42 Last Admin: 04/14/19 00:48 Dose: 1 drops Documented by: Bisacodyl (Dulcolax) 10 mg [place] DAILY PRN PRN Reason: Constipation Stop: 05/10/19 18:19 Last Admin: 04/12/19 08:02 Dose: 10 mg Documented by: Calcium Carbonate (Tums) 1,000 mg PO Q8H PRN PRN Reason: Indigestion Last Admin: 04/13/19 10:16 Dose: 1,000 mg Documented by: Diltiazem HCl (Cardizem Cd) 240 mg PO DAILY [facility] Stop: 05/10/19 18:59 Last Admin: 04/15/19 08:10 Dose: 240 mg Documented by: Fluticasone Propionate (Flonase) 2 sprays NA DAILY PRN PRN Reason: Congestion Stop: 05/10/19 18:19 Furosemide (Lasix) 20 mg PO MoWeFr@0900 [facility] Stop: 05/12/19 16:59 Last Admin: 04/15/19 08:09 Dose: 20 mg Documented by: Guaifenesin (Mucinex) 600 mg PO Q12H PRN PRN Reason: Cough Stop: 05/10/19 19:01 Piperacillin Sod/Tazobactam (Sod 3.375 gm/ Dextrose) 115 mls @ 28.75 mls/hr IV Q8H [facility]; Protocol Stop: 04/17/19 19:59 Last Admin: 04/15/19 13:13 Dose: 28.8 mls/hr Documented by: Methylprednisolone 40 mg/ (Syringe) 0.64 mls @ 1.5 mls/min IV Q8H [facility] Stop: 05/14/19 11:59 Last Admin: 04/15/19 13:13 Dose: 1.5 mls/min Documented by: Ipratropium [place] (Atrovent 0.02% 0.5mg/2.5ml) 0.5 mg INH Q4R [facility] Stop: 05/10/19 18:59 Last Admin: 04/15/19 11:21 Dose: 0.5 mg Documented by: Isosorbide Dinitrate (Isordil) 20 mg PO BID@0700,1200 [facility] Stop: 05/11/19 06:59 Last Admin: 04/15/19 13:14 Dose: 20 mg Documented by: Levalbuterol HCl (Xopenex 1.25mg/0.5ml Neb) 1.25 mg INH Q4R [facility] Stop: 05/10/19 18:59 Last Admin: 04/15/19 11:21 Dose: 1.25 mg Documented by: Levalbuterol HCl (Xopenex 0.63 Mg/3 Ml Neb) 0.63 mg NEB Q6R PRN PRN Reason: Shortness Of Breath Or Wheezin Stop: 05/13/19 19:59 Loratadine (Claritin) 10 mg PO DAILY PRN PRN Reason: Allergic Symptoms Stop: 05/10/19 18:19 Lorazepam (Ativan) 0.5 mg PO HS PRN PRN Reason: Anxiety Stop: 05/10/19 18:19 Last Admin: 04/12/19 20:55 Dose: 0.5 mg Documented by: Magnesium Hydroxide (Milk Of Magnesia) 30 ml PO QAM PRN PRN Reason: Constipation Stop: 05/10/19 18:19 Last Admin: 04/11/19 08:22 Dose: 30 ml Documented by: Metoprolol Tartrate (Lopressor) 5 mg IV Q6 PRN PRN Reason: FOR HR > 120 Stop: 05/10/19 18:19 Miscellaneous Information (Consult) 1 ea N/A UD PRN PRN Reason: Consult Stop: 05/10/19 18:19 Multi-Ingredient Cream (Hydrocerin) 1 appln EXT BID [facility] Stop: 05/10/19 20:59 Last Admin: 04/15/19 08:08 Dose: 1 appln Documented by: Multivitamins (Multivitamin Tab) 1 tab PO DAILY [facility] Stop: 05/11/19 08:59 Last Admin: 04/15/19 08:10 Dose: 1 tab Documented by: Nitroglycerin (Nitrostat) 0.4 mg SL UD PRN PRN Reason: Chest Pain Stop: 05/10/19 18:19 Pantoprazole Sodium (Protonix) 40 mg PO QAM [facility] Stop: 05/11/19 13:44 Last Admin: 04/15/19 08:08 Dose: 40 mg Documented by: Potassium Chloride (Klor-Con M10) 10 meq PO DAILY [facility] Stop: 05/11/19 08:59 Last Admin: 04/15/19 08:09 Dose: 10 meq Documented by: Prednisone (Prednisone) 5 mg PO DAILY [facility] Stop: 05/11/19 08:59 Last Admin: 04/14/19 08:51 Dose: 5 mg Documented by: Senna/Docusate Sodium (Senokot S) 1 tab PO BID PRN PRN Reason: Constipation Stop: 05/11/19 10:44 Last Admin: 04/11/19 15:19 Dose: 1 tab Documented by: Triamcinolone Acetonide (Kenalog 0.1%) 1 appln TOP DAILY PRN PRN Reason: Rash Stop: 05/10/19 18:19 Valsartan (Diovan) 80 mg PO DAILY [facility] Stop: 05/15/19 08:59 Last Admin: 04/15/19 08:09 Dose: 80 mg Documented by:
[2019-04-15] MEDS ORDERED: ACETAMINOPHEN 500 MG TAB PO STA (14:50)
[2019-04-15] MEDS: TIOTROPIUM BROMIDE 5 PUFF/90 MCG INH INH SCH (17:41)
[2019-04-15] MEDS: FLUTICASONE/SALMETEROL 250/50 (ADVAIR) 14 PUFF/1 INHALER INH SCH (19:52)
[2019-04-16] MEDS: PIPERACILLIN/TAZOBACTAM 3.375 GM in DEXTROSE 5% 100 ML IV SCH ×2 (04:05→11:19)
[2019-04-16] MEDS: methylPREDNISolone 40 MG in SYRINGE 0 ML IV SCH ×2 (04:05→11:19)
[2019-04-16] MEDS: LEVALBUTEROL 1.25MG/0.5ML NEB INH SCH ×4 (04:07→15:16)
[2019-04-16] MEDS: IPRATROPIUM BROMIDE NEB SOLN 0.02% 2.5 ML VIAL INH SCH ×4 (04:07→15:16)
[2019-04-16] MEDS: ISOSORBIDE DINITRATE 20 MG TAB PO SCH ×2 (07:26→11:20)
[2019-04-16 07:30] LABS: Hematocrit (blood only) 35.4 % (37-47); Hemoglobin 11.9 g/dL (12.0-16.0); Mean Corpuscular Hgb Conc 33.6 g/dL (32-36); Mean Corpuscular Volume 92.4 fL (80-100); Mean Platelet Volume 8.5 fL (7.4-10.4); Platelet Count 326 K/uL (130-400); RDW Coefficient of Variation 15.4 % (11.5-14.5); Red Blood Count 3.83 M/uL (4.2-5.4); White Blood Count 9.73 K/uL (4.8-10.8)
[2019-04-16] MEDS: VALSARTAN 80 MG TAB PO SCH (07:55)
[2019-04-16] MEDS: POTASSIUM CHLORIDE 10 MEQ TABCR PO SCH (07:56)
[2019-04-16] MEDS: dilTIAZem HCL 240 MG CAPCR PO SCH (07:56)
[2019-04-16] MEDS: APIXABAN 2.5 MG TAB PO SCH ×2 (07:56→21:32)
[2019-04-16] MEDS: EUCERIN CR 120 GM JAR EXT SCH ×2 (07:57→21:35)
[2019-04-16] MEDS: MULTIVITAMIN TAB PO SCH (07:57)
[2019-04-16] MEDS: FLUTICASONE/SALMETEROL 250/50 (ADVAIR) 14 PUFF/1 INHALER INH SCH ×2 (07:57→21:32)
[2019-04-16] MEDS: PANTOprazole 40 MG TAB PO SCH (07:57)
[2019-04-16] MEDS: TIOTROPIUM BROMIDE 5 PUFF/90 MCG INH INH SCH (07:58)
[2019-04-16 08:01] LABS: BUN Creatinine Ratio 20.3 (10-20); Calcium 8.8 mg/dl (8.5-10.1); Creatinine Clr Calc Pharmacy 42.7 ml/min; Est GFR (African American) 88.9; Est GFR (Non-African American) 76.7; Potassium 3.7 mmol/L (3.5-5.1)
[2019-04-16] MEDS: ALBUT/IPRATROP 3MG/0.5MG NEB 3 ML VIAL NEB SCH ×2 (15:46→19:48)
[2019-04-16] MEDS: ACETAMINOPHEN 325 MG TAB PO SCH ×2 (15:55→21:56)
--- NOTE | 2019-04-16 15:59 | Pulmonology Progress Note ---
Date of Service April 16, 2019 Assessment & Plan (1) Pneumonia: Impression: 83-year-old female with advanced obstructive lung disease and chronic hypoxemic respiratory failure Recommendations: Continue Augmentin to complete 7 days. Will need follow-up chest x-ray in 2 to 4 weeks. Outpatient pulmonary follow-up recommended. (2) COPD (chronic obstructive pulmonary disease): PFTs not currently available. Continue Advair and Spiriva as well as as needed duo nebs. Will add 3 times a week azithromycin for anti-inflammatory properties. Increase prednisone given persistent wheezing. (3) Hypoxemic respiratory failure, chronic: Stable: Continue to wean oxygen as tolerated. Unclear if the patient's un derlying valvular heart disease may be contributing to her wheezing shortness of breath and hypoxemic respiratory failure. Defer to cardiology. She is not a candidate for surgical intervention however TAVR may be appropriate in the future. Subjective Patient slightly improved from a respiratory standpoint. She continues to experience significant wheezing. She is not coughing or expectorating phlegm. She feels short of breath with exertion. No chest pain or palpitations. No syncope or presyncope. No significant lower extremity edema. She is tolerating a diet. Review of Systems Review of Systems: All systems reviewed & are unremarkable except as noted in HPI & below Physical Exam Constitutional: WD/WN, vitals as above + thin Neck: trachea midline Respiratory: normal respiratory effort Auscultation: + wheezes Cardiovascular: RRR, no murmur, no edema Extremities: no pedal edema Gastrointestinal (Abdomen): normal bowel sounds, soft, nontender, no hepatosplenomegaly Results & Data Vital Signs (Past 12 Hours) Vital Signs Temp Pulse Resp BP BP Pulse Ox 04/16/19 15:34 36.6 C 97 H 19 109/64 98 04/16/19 15:18 71 18 98 04/16/19 11:21 86 18 98 04/16/19 11:06 36.5 C 101 H 18 117/65 99 04/16/19 07:27 36.7 C 94 H 19 129/74 97 04/16/19 07:04 95 H 18 98 04/16/19 04:07 110 H 18 98 04/16/19 04:00 36.6 C 106 H 18 127/69 98 Laboratory Results 04/16/19 07:07 04/16/19 07:07 PG Care Time/CCT Total # of Minutes Spent Total Time Spent with Patient: Total time spent is greater than 50% in coordination of care (as documented) at patient's floor/unit and/or counseling patient:
--- NOTE | 2019-04-16 16:05 | Hospitalist Progress Note ---
Date of Service April 16, 2019 Assessment & Plan (1) Pneumonia: Zosyn, day 7. Pulm recommends switching to Augmentin at this point. Continue treatment for COPD exacerbation. Repeat chest x-ray in 2 to 4 weeks as outpatient. (2) COPD exacerbation: Continue IV Solu-Medrol. De-escalate duoneb therapy. (3) Hypoxemic respiratory failure, chronic: Secondary to COPD. Continue oxygen supplementation. Humidified oxygen. (4) Atrial fibrillation: On 240 mg p.o. daily of diltiazem. Rate is controlled in the 80s on this dose. Continue treatment of underlying lung issues. Continue Eliquis 2.5 p.o. twice daily. (5) Prolonged QT interval: resolved on repeat EKGs x 2 days. (6) Chronic diastolic heart failure: Euvolemic, continue home Lasix TIW. Eulogio harrison and James thomas requested as she is having significant SOB with exertion to the bathroom per her report. (7) Hypertension: At goal, cont home dose of valsartan. (8) DVT prophylaxis: Valerie DNR/DNI Dispo-to heartide once medically stable, possible 3-4 more days. Erika Briceno DO [facility] Hospitalist Subjective states she doesn't feel any better today but reports back pain as her issue, bot her breathing nursing staff notes tachypnea when they or other providers are in the room, but this is not present when providers leave She has already passed a trial of room air, but she feels she cannot do without the oxygen and continues to wear it she denies coughing , fevers, chills. She isn't sure if her back pain was better with the one dose of tylenol from yesterday. Review of Systems Review of Systems: All systems reviewed & are unremarkable except as noted in HPI & below Physical Exam Physical Exam: CONSTITUTIONAL: Elderly, frail, deconditioned, vitals as above EYES: normal conjunctivae, no scleral icterus ENT: MMM RESPIRATORY: wheezing throughout all lung retana. No acute respiratory distress. No conversational dyspnea. CARDIOVASCULAR: regular rate and rhythm, S1 and 2 heard without murmurs, gallops or rubs, no JVD, no peripheral edema GASTROINTESTINAL: soft, nontender, nondistended MUSCULOSKELETAL: strength 5/5 throughout, head is normocephalic and atraumatic SKIN: warm and dry NEUROLOGIC: CN 2-12 grossly intact, appears to have some memory loss or baseline dementia, normal speech Results & Data Vital Signs (Past 12 Hours) Vital Signs Temp Pulse Resp BP BP Pulse Ox 04/16/19 15:34 36.6 C 97 H 19 109/64 98 04/16/19 15:18 71 18 98 04/16/19 11:21 86 18 98 04/16/19 11:06 36.5 C 101 H 18 117/65 99 04/16/19 07:27 36.7 C 94 H 19 129/74 97 04/16/19 07:04 95 H 18 98 04/16/19 04:07 110 H 18 98 Laboratory Results Short CBC 04/16/19 Range/Units 07:07 WBC 9.73 (4.8-10.8) K/uL Hgb 11.9 L (12.0-16.0) g/dL Hct 35.4 L (37-47) % Plt Count 326 (130-400) K/uL BMP 04/16/19 07:07 Sodium 135 L Potassium 3.7 Chloride 95 L Carbon Dioxide 34 H BUN 15 Creatinine 0.73 Glucose 168 H Calcium 8.8 Medications Administered Current Inpatient Medications Acetaminophen (Tylenol) 650 mg PO Q8 [facility] Stop: 05/16/19 15:59 Last Admin: 04/16/19 15:55 Dose: 650 mg Documented by: Al Hydrox/Mg Hydrox/Simethicone (Maalox Max) 15 ml PO Q6H PRN PRN Reason: Dyspepsia Stop: 05/11/19 10:45 Last Admin: 04/11/19 11:59 Dose: 15 ml Documented by: Albuterol (Duoneb) 3 ml NEB QIDR [facility] Stop: 05/16/19 15:59 Last Admin: 04/16/19 15:46 Dose: Not Given Documented by: Amoxicillin/Clavulanate Potassium (Augmentin 875mg) 1 tab PO BIDM [facility] Stop: 04/23/19 19:59 Apixaban (Eliquis) 2.5 mg PO BID [facility] Stop: 05/13/19 20:59 Last Admin: 04/16/19 07:56 Dose: 2.5 mg Documented by: Artificial Tears (Artificial Tears) 1 drops OP PRN PRN PRN Reason: DRY EYES Stop: 05/11/19 14:42 Last Admin: 04/14/19 00:48 Dose: 1 drops Documented by: Azithromycin (Zithromax) 250 mg PO UD [facility] Stop: 04/23/19 15:59 Bisacodyl (Dulcolax) 10 mg [place] DAILY PRN PRN Reason: Constipation Stop: 05/10/19 18:19 Last Admin: 04/12/19 08:02 Dose: 10 mg Documented by: Calcium Carbonate (Tums) 1,000 mg PO Q8H PRN PRN Reason: Indigestion Last Admin: 04/13/19 10:16 Dose: 1,000 mg Documented by: Diltiazem HCl (Cardizem Cd) 240 mg PO DAILY [facility] Stop: 05/10/19 18:59 Last Admin: 04/16/19 07:56 Dose: 240 mg Documented by: Fluticasone Propionate (Flonase) 2 sprays NA DAILY PRN PRN Reason: Congestion Stop: 05/10/19 18:19 Furosemide (Lasix) 20 mg PO MoWeFr@0900 [facility] Stop: 05/12/19 16:59 Last Admin: 04/15/19 08:09 Dose: 20 mg Documented by: Guaifenesin (Mucinex) 600 mg PO Q12H PRN PRN Reason: Cough Stop: 05/10/19 19:01 Guaifenesin (Mucinex) 1,200 mg PO Q12 [facility] Stop: 05/16/19 20:59 Methylprednisolone 40 mg/ (Syringe) 0.64 mls @ 1.5 mls/min IV Q8H [facility] Stop: 05/14/19 11:59 Last Admin: 04/16/19 11:19 Dose: 1.5 mls/min Documented by: Isosorbide Dinitrate (Isordil) 20 mg PO BID@0700,1200 [facility] Stop: 05/11/19 06:59 Last Admin: 04/16/19 11:20 Dose: 20 mg Documented by: Loratadine (Claritin) 10 mg PO DAILY PRN PRN Reason: Allergic Symptoms Stop: 05/10/19 18:19 Lorazepam (Ativan) 0.5 mg PO HS PRN PRN Reason: Anxiety Stop: 05/10/19 18:19 Last Admin: 04/12/19 20:55 Dose: 0.5 mg Documented by: Magnesium Hydroxide (Milk Of Magnesia) 30 ml PO QAM PRN PRN Reason: Constipation Stop: 05/10/19 18:19 Last Admin: 04/11/19 08:22 Dose: 30 ml Documented by: Metoprolol Tartrate (Lopressor) 5 mg IV Q6 PRN PRN Reason: FOR HR > 120 Stop: 05/10/19 18:19 Multi-Ingredient Cream (Hydrocerin) 1 appln EXT BID [facility] Stop: 05/10/19 20:59 Last Admin: 04/16/19 07:57 Dose: 1 appln Documented by: Multivitamins (Multivitamin Tab) 1 tab PO DAILY [facility] Stop: 05/11/19 08:59 Last Admin: 04/16/19 07:57 Dose: 1 tab Documented by: Nitroglycerin (Nitrostat) 0.4 mg SL UD PRN PRN Reason: Chest Pain Stop: 05/10/19 18:19 Pantoprazole Sodium (Protonix) 40 mg PO QAM [facility] Stop: 05/11/19 13:44 Last Admin: 04/16/19 07:57 Dose: 40 mg Documented by: Potassium Chloride (Klor-Con M10) 10 meq PO DAILY [facility] Stop: 05/11/19 08:59 Last Admin: 04/16/19 07:56 Dose: 10 meq Documented by: Prednisone (Prednisone) 40 mg PO DAILY [facility] Stop: 05/17/19 08:59 Fluticasone/Salmeterol (Advair Diskus 250/50) 1 puffs INH BID [facility] Stop: 05/15/19 20:59 Last Admin: 04/16/19 07:57 Dose: 1 puffs Documented by: Senna/Docusate Sodium (Senokot S) 1 tab PO BID PRN PRN Reason: Constipation Stop: 05/11/19 10:44 Last Admin: 04/11/19 15:19 Dose: 1 tab Documented by: Tiotropium [place] (Spiriva) 1 puffs INH QAM [facility] Stop: 05/15/19 16:29 Last Admin: 04/16/19 07:58 Dose: 1 puffs Documented by: Triamcinolone Acetonide (Kenalog 0.1%) 1 appln TOP DAILY PRN PRN Reason: Rash Stop: 05/10/19 18:19 Valsartan (Diovan) 80 mg PO DAILY [facility] Stop: 05/15/19 08:59 Last Admin: 04/16/19 07:55 Dose: 80 mg Documented by:
[2019-04-16] MEDS: AZITHROMYCIN 250 MG TAB PO SCH (17:01)
[2019-04-16] MEDS: AMOXICILLIN/CLAVULANATE 875 MG TAB PO SCH (21:32)
[2019-04-16] MEDS: guaiFENesin 600 MG TABCR PO SCH (22:20)
[2019-04-17] MEDS: ISOSORBIDE DINITRATE 20 MG TAB PO SCH ×2 (06:01→13:48)
[2019-04-17] MEDS: ACETAMINOPHEN 325 MG TAB PO SCH ×3 (06:01→22:21)
[2019-04-17] MEDS: ALBUT/IPRATROP 3MG/0.5MG NEB 3 ML VIAL NEB SCH ×4 (07:35→21:15)
[2019-04-17] MEDS: PANTOprazole 40 MG TAB PO SCH (07:57)
[2019-04-17] MEDS: VALSARTAN 80 MG TAB PO SCH (07:57)
[2019-04-17] MEDS: APIXABAN 2.5 MG TAB PO SCH ×2 (07:58→20:41)
[2019-04-17] MEDS: MULTIVITAMIN TAB PO SCH (07:58)
[2019-04-17] MEDS: AMOXICILLIN/CLAVULANATE 875 MG TAB PO SCH ×2 (07:58→17:00)
[2019-04-17] MEDS: dilTIAZem HCL 240 MG CAPCR PO SCH (07:59)
[2019-04-17] MEDS: predniSONE 20 MG TAB PO SCH (07:59)
[2019-04-17] MEDS: POTASSIUM CHLORIDE 10 MEQ TABCR PO SCH (07:59)
[2019-04-17] MEDS: TIOTROPIUM BROMIDE 5 PUFF/90 MCG INH INH SCH (08:00)
[2019-04-17] MEDS: FLUTICASONE/SALMETEROL 250/50 (ADVAIR) 14 PUFF/1 INHALER INH SCH ×2 (08:00→20:39)
[2019-04-17] MEDS: FUROSEMIDE 20 MG TAB PO SCH (08:00)
[2019-04-17] MEDS: guaiFENesin 600 MG TABCR PO SCH ×2 (08:01→20:41)
[2019-04-17] MEDS: EUCERIN CR 120 GM JAR EXT SCH ×2 (08:02→20:39)
[2019-04-17 08:03] LABS: Hematocrit (blood only) 34.8 % (37-47); Hemoglobin 11.7 g/dL (12.0-16.0); Mean Corpuscular Hgb Conc 33.6 g/dL (32-36); Mean Corpuscular Volume 92.1 fL (80-100); Mean Platelet Volume 8.6 fL (7.4-10.4); Platelet Count 299 K/uL (130-400); RDW Coefficient of Variation 15.5 % (11.5-14.5); RDW Standard Deviation 52.7 fL (36.4-46.3); Red Blood Count 3.78 M/uL (4.2-5.4); White Blood Count 11.11 K/uL (4.8-10.8)
[2019-04-17 08:29] LABS: BUN Creatinine Ratio 21.8 (10-20); Calcium 8.7 mg/dl (8.5-10.1); Creatinine Clr Calc Pharmacy 39.9 ml/min; Est GFR (African American) 82.1; Est GFR (Non-African American) 70.8; Potassium 3.6 mmol/L (3.5-5.1)
[2019-04-17] MEDS ORDERED: predniSONE 20 MG TAB PO SCH (09:00)
--- NOTE | 2019-04-17 11:33 | Pulmonology Progress Note ---
Date of Service April 17, 2019 Assessment & Plan (1) Pneumonia: Impression: 83-year-old female with advanced obstructive lung disease and chronic hypoxemic respiratory failure Recommendations: Augmentin for an additional 1 day then can discontinue antibiotics. Will need follow-up chest x-ray in 2 to 4 weeks. Outpatient pulmonary follow-up recommended. (2) COPD (chronic obstructive pulmonary disease): PFTs not currently available. Continue Advair and Spiriva as well as as needed duo nebs. Will add 3 times a week azithromycin for anti-inflammatory properties. Continue prednisone given persistent wheezing. Anticipate taper over the next 5 to 7 days. The patient may be a candidate for outpatient pulmonary rehab. (3) Hypoxemic respiratory failure, chronic: Stable: Continue to wean oxygen as tolerated. Unclear if the patient's underlying valvular heart disease may be contributing to her wheezing shortness of breath and hypoxemic respiratory failure. Defer to cardiology. She is not a candidate for surgical intervention however TAVR may be appropriate in the future. Subjective Feels her breathing may be slightly improved today. She continues to experience intermittent wheezing. She is not coughing or expectorating phlegm. She remains fairly bedbound and debilitated. Review of Systems Review of Systems: Unchanged from prior Physical Exam Constitutional: WD/WN, vitals as above + thin Neck: trachea midline Respiratory: normal respiratory effort Auscultation: + wheezes Cardiovascular: RRR, no murmur, no edema Extremities: no pedal edema Gastrointestinal (Abdomen): normal bowel sounds, soft, nontender, no hepatosplenomegaly Results & Data Vital Signs (Past 12 Hours) Vital Signs Temp Pulse Resp BP Pulse Ox 04/17/19 11:16 90 20 97 04/17/19 07:37 87 18 96 04/17/19 07:11 36.6 C 87 19 121/70 97 PG Care Time/CCT Total # of Minutes Spent Total Time Spent with Patient: Total time spent is greater than 50% in coordination of care (as documented) at patient's floor/unit and/or counseling patient:
[2019-04-17] MEDS ORDERED: TRAMADOL HCL 50 MG TABLET PO PRN (14:51)
--- NOTE | 2019-04-17 16:56 | Hospitalist Progress Note ---
Date of Service April 17, 2019 Assessment & Plan (1) Pneumonia: Zosyn x 7 days, switched to Augmentin. Cont azithro MWF indefinitely per Pulm recs. Continue treatment for COPD exacerbation. Repeat chest x-ray in 2 to 4 weeks as outpatient. (2) COPD exacerbation: Cont Duonebs and prednisone with taper. Noted to be on chronic prednisone at 5mg daily. (3) Hypoxemic respiratory failure, chronic: Secondary to COPD. Continue oxygen supplementation. Humidified oxygen. (4) Atrial fibrillation: On 240 mg p.o. daily of diltiazem. Rate is controlled in the 80s on this dose. Continue treatment of underlying lung issues. Continue Eliquis 2.5 p.o. twice daily. (5) Prolonged QT interval: resolved on repeat EKGs x 2 days. (6) Chronic diastolic heart failure: Euvolemic, continue home Lasix TIW. Repeat CXR in am. (7) Hypertension: At goal, cont home dose of valsartan. (8) DVT prophylaxis: Angelaqumeka DNR/DNI Dispo-to [facility] once medically stable Erika Briceno DO [facility] Hospitalist Subjective doing well reports no improvement since admission reports mid-back pain feels this is assoc with her pneumonia. Asked if APAP helped yesterday and she states she cannot tell me. Lives at [facility] now permanently. Review of Systems Review of Systems: All systems reviewed & are unremarkable except as noted in HPI & below Physical Exam Physical Exam: CONSTITUTIONAL: Elderly, frail, deconditioned, vitals as above EYES: normal conjunctivae, no scleral icterus ENT: MMM RESPIRATORY: wheezing throughout all lung retana. No acute respiratory distress. No conversational dyspnea. CARDIOVASCULAR: regular rate and rhythm, S1 and 2 heard without murmurs, gallops or rubs, no JVD, no peripheral edema GASTROINTESTINAL: soft, nontender, nondistended MUSCULOSKELETAL: strength 5/5 throughout, head is normocephalic and atraumatic SKIN: warm and dry NEUROLOGIC: CN 2-12 grossly intact, appears to have some memory loss or baseline dementia, normal speech Results & Data Vital Signs (Past 12 Hours) Vital Signs Temp Pulse Pulse Resp BP Pulse Ox 04/17/19 15:21 84 16 96 04/17/19 15:18 36.4 C L 99 H 20 114/58 L 96 04/17/19 11:16 90 20 97 04/17/19 07:37 87 18 96 04/17/19 07:11 36.6 C 87 19 121/70 97 Laboratory Results Short CBC 04/17/19 Range/Units 07:43 WBC 11.11 H (4.8-10.8) K/uL Hgb 11.7 L (12.0-16.0) g/dL Hct 34.8 L (37-47) % Plt Count 299 (130-400) K/uL BMP 04/17/19 07:43 Sodium 135 L Potassium 3.6 Chloride 96 L Carbon Dioxide 34 H BUN 17 Creatinine 0.78 Glucose 120 H Calcium 8.7 Medications Administered Current Inpatient Medications Acetaminophen (Tylenol) 650 mg PO Q8 [facility] Stop: 05/16/19 15:59 Last Admin: 04/17/19 13:48 Dose: 650 mg Documented by: Al Hydrox/Mg Hydrox/Simethicone (Maalox Max) 15 ml PO Q6H PRN PRN Reason: Dyspepsia Stop: 05/11/19 10:45 Last Admin: 04/11/19 11:59 Dose: 15 ml Documented by: Albuterol (Duoneb) 3 ml NEB QIDR [facility] Stop: 05/16/19 15:59 Last Admin: 04/17/19 15:19 Dose: 3 ml Documented by: Amoxicillin/Clavulanate Potassium (Augmentin 875mg) 1 tab PO BIDM [facility] Stop: 04/23/19 19:59 Last Admin: 04/17/19 07:58 Dose: 1 tab Documented by: Apixaban (Eliquis) 2.5 mg PO BID [facility] Stop: 05/13/19 20:59 Last Admin: 04/17/19 07:58 Dose: 2.5 mg Documented by: Artificial Tears (Artificial Tears) 1 drops OP PRN PRN PRN Reason: DRY EYES Stop: 05/11/19 14:42 Last Admin: 04/14/19 00:48 Dose: 1 drops Documented by: Azithromycin (Zithromax) 250 mg PO MoWeFr@0900 [facility]; Protocol Stop: 04/23/19 15:59 Last Admin: 04/16/19 17:01 Dose: 250 mg Documented by: Bisacodyl (Dulcolax) 10 mg [place] DAILY PRN PRN Reason: Constipation Stop: 05/10/19 18:19 Last Admin: 04/12/19 08:02 Dose: 10 mg Documented by: Calcium Carbonate (Tums) 1,000 mg PO Q8H PRN PRN Reason: Indigestion Last Admin: 04/13/19 10:16 Dose: 1,000 mg Documented by: Diltiazem HCl (Cardizem Cd) 240 mg PO DAILY [facility] Stop: 05/10/19 18:59 Last Admin: 04/17/19 07:59 Dose: 240 mg Documented by: Fluticasone Propionate (Flonase) 2 sprays NA DAILY PRN PRN Reason: Congestion Stop: 05/10/19 18:19 Furosemide (Lasix) 20 mg PO MoWeFr@0900 [facility] Stop: 05/12/19 16:59 Last Admin: 04/17/19 08:00 Dose: 20 mg Documented by: Guaifenesin (Mucinex) 1,200 mg PO Q12 [facility] Stop: 05/16/19 20:59 Last Admin: 04/17/19 08:01 Dose: 1,200 mg Documented by: Isosorbide Dinitrate (Isordil) 20 mg PO BID@0700,1200 [facility] Stop: 05/11/19 06:59 Last Admin: 04/17/19 13:48 Dose: 20 mg Documented by: Loratadine (Claritin) 10 mg PO DAILY PRN PRN Reason: Allergic Symptoms Stop: 05/10/19 18:19 Lorazepam (Ativan) 0.5 mg PO HS PRN PRN Reason: Anxiety Stop: 05/10/19 18:19 Last Admin: 04/12/19 20:55 Dose: 0.5 mg Documented by: Magnesium Hydroxide (Milk Of Magnesia) 30 ml PO QAM PRN PRN Reason: Constipation Stop: 05/10/19 18:19 Last Admin: 04/11/19 08:22 Dose: 30 ml Documented by: Metoprolol Tartrate (Lopressor) 5 mg IV Q6 PRN PRN Reason: FOR HR > 120 Stop: 05/10/19 18:19 Multi-Ingredient Cream (Hydrocerin) 1 appln EXT BID [facility] Stop: 05/10/19 20:59 Last Admin: 04/17/19 08:02 Dose: Not Given Documented by: Multivitamins (Multivitamin Tab) 1 tab PO DAILY [facility] Stop: 05/11/19 08:59 Last Admin: 04/17/19 07:58 Dose: 1 tab Documented by: Nitroglycerin (Nitrostat) 0.4 mg SL UD PRN PRN Reason: Chest Pain Stop: 05/10/19 18:19 Pantoprazole Sodium (Protonix) 40 mg PO QAM [facility] Stop: 05/11/19 13:44 Last Admin: 04/17/19 07:57 Dose: 40 mg Documented by: Potassium Chloride (Klor-Con M10) 10 meq PO DAILY [facility] Stop: 05/11/19 08:59 Last Admin: 04/17/19 07:59 Dose: 10 meq Documented by: Prednisone (Prednisone) 40 mg PO DAILY [facility] Stop: 05/17/19 08:59 Last Admin: 04/17/19 07:59 Dose: 40 mg Documented by: Fluticasone/Salmeterol (Advair Diskus 250/50) 1 puffs INH BID [facility] Stop: 05/15/19 20:59 Last Admin: 04/17/19 08:00 Dose: 1 puffs Documented by: Senna/Docusate Sodium (Senokot S) 1 tab PO BID PRN PRN Reason: Constipation Stop: 05/11/19 10:44 Last Admin: 04/11/19 15:19 Dose: 1 tab Documented by: Tiotropium [place] (Spiriva) 1 puffs INH QAM [facility] Stop: 05/15/19 16:29 Last Admin: 04/17/19 08:00 Dose: 1 puffs Documented by: Tramadol HCl (Ultram) 50 mg PO Q4H PRN PRN Reason: Pain Stop: 05/17/19 14:50 Triamcinolone Acetonide (Kenalog 0.1%) 1 appln TOP DAILY PRN PRN Reason: Rash Stop: 05/10/19 18:19 Valsartan (Diovan) 80 mg PO DAILY [facility] Stop: 05/15/19 08:59 Last Admin: 04/17/19 07:57 Dose: 80 mg Documented by:
[2019-04-18] MEDS: ACETAMINOPHEN 325 MG TAB PO SCH ×3 (05:36→21:30)
[2019-04-18] MEDS: ALBUT/IPRATROP 3MG/0.5MG NEB 3 ML VIAL NEB SCH ×3 (07:10→15:38)
--- NOTE | 2019-04-18 08:16 | XRay Report ---
XR chest 2V routine CLINICAL HISTORY: hypoxia, concern for heart failure COMPARISON STUDY: Chest CT April 10, 2019. Chest radiograph April 13, 2019. FINDINGS: There is no pneumothorax. Right upper lobe consolidation persists. Small right and trace le ft pleural effusions are noted. There is moderate emphysema. Cardiac mediastinal silhouette is stable . There is subtle interstitial thickening. IMPRESSION: 1. Persistent right upper lobe consolidation suggestive of pneumonia. Radiographic follow-up to ensur e resolution is recommended. 2. Small right and trace left pleural effusions. 3. Subtle interstitial thickening. This may reflect mild interstitial edema. Electronically signed by: Coleman White M.D. 04/18/2019 8:15 AM
[2019-04-18] MEDS: ISOSORBIDE DINITRATE 20 MG TAB PO SCH ×2 (08:34→12:04)
[2019-04-18] MEDS: AMOXICILLIN/CLAVULANATE 875 MG TAB PO SCH ×2 (08:35→17:31)
[2019-04-18] MEDS: FLUTICASONE/SALMETEROL 250/50 (ADVAIR) 14 PUFF/1 INHALER INH SCH ×2 (08:36→21:30)
[2019-04-18] MEDS: APIXABAN 2.5 MG TAB PO SCH ×2 (08:37→21:29)
[2019-04-18] MEDS: VALSARTAN 80 MG TAB PO SCH (08:37)
[2019-04-18] MEDS: dilTIAZem HCL 240 MG CAPCR PO SCH (08:37)
[2019-04-18] MEDS: POTASSIUM CHLORIDE 10 MEQ TABCR PO SCH (08:38)
[2019-04-18] MEDS: guaiFENesin 600 MG TABCR PO SCH ×2 (08:38→21:30)
[2019-04-18] MEDS: MULTIVITAMIN TAB PO SCH (08:38)
[2019-04-18] MEDS: PANTOprazole 40 MG TAB PO SCH (08:39)
[2019-04-18] MEDS: predniSONE 20 MG TAB PO SCH (08:39)
[2019-04-18] MEDS: TIOTROPIUM BROMIDE 5 PUFF/90 MCG INH INH SCH (08:44)
[2019-04-18] MEDS: EUCERIN CR 120 GM JAR EXT SCH ×2 (08:47→21:32)
[2019-04-18] MEDS ORDERED: FUROSEMIDE 20 MG TAB PO ONE (10:45)
--- NOTE | 2019-04-18 13:48 | Pulmonology Progress Note ---
Date of Service April 18, 2019 Assessment & Plan (1) Pneumonia: Impression: 83-year-old female with advanced obstructive lung disease and chronic hypoxemic respiratory failure Recommendations: Okay to discontinue antibiotics. Will need follow-up chest x-ray in 2 to 4 weeks. Outpatient pulmonary follow-up recommended. (2) COPD (chronic obstructive pulmonary disease): PFTs not currently available. Continue Advair and Spiriva as well as as needed duo nebs. Will continue 3 times a week azithromycin for anti- inflammatory properties. Continue prednisone given persistent wheezing. Anticipate taper over the next 5 to 7 days. The patient may be a candidate for outpatient pulmonary rehab. Given her persistent wheezing, I am concerned about the possibility of tracheobronchomalacia. This would require bronchoscopy for confirmation and it is unclear that the patient would be a candidate for any therapy such as stenting given her advanced age. A trial of CPAP at night may be appropriate. (3) Hypoxemic respiratory failure, chronic: Stable: Continue to wean oxygen as tolerated. Unclear if the patient's underlying valvular heart disease may be contributing to her wheezing shortness of breath and hypoxemic respiratory failure. Defer to cardiology. She is not a candidate for surgical intervention however TAVR may be appropriate in the future. Subjective Patient believes she may be exhibiting some mild improvement. She continues to experience some wheezing. She is occasionally coughing. She remains fairly sedentary. Review of Systems Review of Systems: Unchanged from prior Physical Exam 2 Constitutional: WD/WN, vitals as above + thin Neck: trachea midline Respiratory: normal respiratory effort Auscultation: + wheezes Cardiovascular: RRR, no murmur, no edema Extremities: no pedal edema Gastrointestinal (Abdomen): normal bowel sounds, soft, nontender, no hepatosplenomegaly Results & Data Vital Signs (Past 12 Hours) Vital Signs Temp Pulse Pulse Resp BP BP Pulse Ox 04/18/19 12:01 102 H 153/68 H 04/18/19 11:36 103 H 22 97 04/18/19 07:43 36.3 C L 98 H 20 133/76 98 04/18/19 07:10 97 H 16 98 PG Care Time/CCT Total # of Minutes Spent Total Time Spent with Patient: Total time spent is greater than 50% in coordination of care (as documented) at patient's floor/unit and/or counseling patient:
--- NOTE | 2019-04-18 16:38 | Hospitalist Progress Note ---
Date of Service April 18, 2019 Assessment & Plan (1) Pneumonia: Zosyn x 7 days, switched to Augmentin. Cont azithro MWF indefinitely per Pulm recs. Continue treatment for COPD exacerbation including prednisone. Cont Advair, Spiriva, Mucinex. Repeat chest x-ray in 2 to 4 weeks as outpatient. (2) COPD exacerbation: Cont Duonebs and prednisone with taper. Noted to be on chronic prednisone at 5mg daily. (3) Hypoxemic respiratory failure, chronic: Secondary to COPD. Continue oxygen supplementation. Humidified oxygen. (4) Atrial fibrillation: On 240 mg p.o. daily of diltiazem. Rate is controlled. Continue Eliquis 2.5 p.o. twice daily. (5) Chronic diastolic heart failure: Euvolemic, continue home Lasix TIW. Repeat CXR in am. (6) Prolonged QT interval: resolved on repeat EKGs x 2 days. (7) Back pain: Appears to be improved with treatment of the pneumonia, but poor history. Have her on Tylenol scheduled. Will try lidocaine patch. Pt not sure if tramadol worked for her. (8) Hypertension: At goal, cont home dose of valsartan. (9) DVT prophylaxis: Valerie DNR/DNI Dispo-to [facility] once medically stable Erika Briceno DO [facility] Hospitalist Subjective continues to report back pain but when I ask how the scheduled tylenol or tramadol is working, she doesn't know she keeps reporting back pain but when I ask her if she feels that she needs pain medications for it, she said"well I should probably have something" but can't actually identify if the pain is severe. At one point, she did say that it was better She has poor insight into her breathing and cannot tell me if she is improving. I showed her the chest xrays from 5 days ago to now, and despite seeing the visual difference, she still says "well I have pneumonia, isn't anyone going to do anything about that?" despite me informing her that we already completed the treatment course. She is troubled because she cannot expectorate her mucous She reports dyspnea on exertion to the bedside commode and refuses to do anything else physical with the nurses. Review of Systems Review of Systems: All systems reviewed & are unremarkable except as noted in HPI & below Physical Exam Physical Exam: CONSTITUTIONAL: Elderly, frail, deconditioned, vitals as above EYES: normal conjunctivae, no scleral icterus ENT: MMM RESPIRATORY: wheezing throughout all lung retana. No acute respiratory distress. No conversational dyspnea. CARDIOVASCULAR: regular rate and rhythm, S1 and 2 heard without murmurs, gallops or rubs, no JVD, no peripheral edema GASTROINTESTINAL: soft, nontender, nondistended MUSCULOSKELETAL: strength 5/5 throughout, head is normocephalic and atraumatic SKIN: warm and dry NEUROLOGIC: CN 2-12 grossly intact, appears to have some memory loss or baseline dementia, normal speech Results & Data Vital Signs (Past 12 Hours) Vital Signs Temp Pulse Pulse Resp BP BP Pulse Ox 04/18/19 15:38 77 18 94 04/18/19 15:22 36.9 C 82 18 102/60 99 04/18/19 12:01 102 H 153/68 H 04/18/19 11:36 103 H 22 97 04/18/19 07:43 36.3 C L 98 H 20 133/76 98 04/18/19 07:10 97 H 16 98 Medications Administered Current Inpatient Medications Acetaminophen (Tylenol) 650 mg PO Q8 [facility] Stop: 05/16/19 15:59 Last Admin: 04/18/19 14:10 Dose: 650 mg Documented by: Al Hydrox/Mg Hydrox/Simethicone (Maalox Max) 15 ml PO Q6H PRN PRN Reason: Dyspepsia Stop: 05/11/19 10:45 Last Admin: 04/11/19 11:59 Dose: 15 ml Documented by: Albuterol (Duoneb) 3 ml NEB QIDR [facility] Stop: 05/16/19 15:59 Last Admin: 04/18/19 15:38 Dose: 3 ml Documented by: Amoxicillin/Clavulanate Potassium (Augmentin 875mg) 1 tab PO BIDM [facility] Stop: 04/23/19 19:59 Last Admin: 04/18/19 08:35 Dose: 1 tab Documented by: Apixaban (Eliquis) 2.5 mg PO BID [facility] Stop: 05/13/19 20:59 Last Admin: 04/18/19 08:37 Dose: 2.5 mg Documented by: Artificial Tears (Artificial Tears) 1 drops OP PRN PRN PRN Reason: DRY EYES Stop: 05/11/19 14:42 Last Admin: 04/14/19 00:48 Dose: 1 drops Documented by: Azithromycin (Zithromax) 250 mg PO MoWeFr@0900 [facility]; Protocol Stop: 04/23/19 15:59 Last Admin: 04/16/19 17:01 Dose: 250 mg Documented by: Bisacodyl (Dulcolax) 10 mg NE DAILY PRN PRN Reason: Constipation Stop: 05/10/19 18:19 Last Admin: 04/12/19 08:02 Dose: 10 mg Documented by: Calcium Carbonate (Tums) 1,000 mg PO Q8H PRN PRN Reason: Indigestion Last Admin: 04/13/19 10:16 Dose: 1,000 mg Documented by: Diltiazem HCl (Cardizem Cd) 240 mg PO DAILY [facility] Stop: 05/10/19 18:59 Last Admin: 04/18/19 08:37 Dose: 240 mg Documented by: Fluticasone Propionate (Flonase) 2 sprays NA DAILY PRN PRN Reason: Congestion Stop: 05/10/19 18:19 Furosemide (Lasix) 20 mg PO MoWeFr@0900 [facility] Stop: 05/12/19 16:59 Last Admin: 04/17/19 08:00 Dose: 20 mg Documented by: Guaifenesin (Mucinex) 1,200 mg PO Q12 [facility] Stop: 05/16/19 20:59 Last Admin: 04/18/19 08:38 Dose: 1,200 mg Documented by: Isosorbide Dinitrate (Isordil) 20 mg PO BID@0700,1200 [facility] Stop: 05/11/19 06:59 Last Admin: 04/18/19 12:04 Dose: 20 mg Documented by: Loratadine (Claritin) 10 mg PO DAILY PRN PRN Reason: Allergic Symptoms Stop: 05/10/19 18:19 Lorazepam (Ativan) 0.5 mg PO HS PRN PRN Reason: Anxiety Stop: 05/10/19 18:19 Last Admin: 04/12/19 20:55 Dose: 0.5 mg Documented by: Magnesium Hydroxide (Milk Of Magnesia) 30 ml PO QAM PRN PRN Reason: Constipation Stop: 05/10/19 18:19 Last Admin: 04/11/19 08:22 Dose: 30 ml Documented by: Metoprolol Tartrate (Lopressor) 5 mg IV Q6 PRN PRN Reason: FOR HR > 120 Stop: 05/10/19 18:19 Multi-Ingredient Cream (Hydrocerin) 1 appln EXT BID [facility] Stop: 05/10/19 20:59 Last Admin: 04/18/19 08:47 Dose: 1 appln Documented by: Multivitamins (Multivitamin Tab) 1 tab PO DAILY [facility] Stop: 05/11/19 08:59 Last Admin: 04/18/19 08:38 Dose: 1 tab Documented by: Nitroglycerin (Nitrostat) 0.4 mg SL UD PRN PRN Reason: Chest Pain Stop: 05/10/19 18:19 Pantoprazole Sodium (Protonix) 40 mg PO QAM [facility] Stop: 05/11/19 13:44 Last Admin: 04/18/19 08:39 Dose: 40 mg Documented by: Potassium Chloride (Klor-Con M10) 10 meq PO DAILY [facility] Stop: 05/11/19 08:59 Last Admin: 04/18/19 08:38 Dose: 10 meq Documented by: Prednisone (Prednisone) 40 mg PO DAILY [facility] Stop: 05/17/19 08:59 Last Admin: 04/18/19 08:39 Dose: 40 mg Documented by: Fluticasone/Salmeterol (Advair Diskus 250/50) 1 puffs INH BID [facility] Stop: 05/15/19 20:59 Last Admin: 04/18/19 08:36 Dose: 1 puffs Documented by: Senna/Docusate Sodium (Senokot S) 1 tab PO BID PRN PRN Reason: Constipation Stop: 05/11/19 10:44 Last Admin: 04/11/19 15:19 Dose: 1 tab Documented by: Tiotropium [place] (Spiriva) 1 puffs INH QAM [facility] Stop: 05/15/19 16:29 Last Admin: 04/18/19 08:44 Dose: 1 puffs Documented by: Tramadol HCl (Ultram) 50 mg PO Q4H PRN PRN Reason: Pain Stop: 05/17/19 14:50 Triamcinolone Acetonide (Kenalog 0.1%) 1 appln TOP DAILY PRN PRN Reason: Rash Stop: 05/10/19 18:19 Valsartan (Diovan) 80 mg PO DAILY [facility] Stop: 05/15/19 08:59 Last Admin: 04/18/19 08:37 Dose: 80 mg Documented by:
[2019-04-18] MEDS: ALBUT/IPRATROP 3MG/0.5MG NEB 3 ML VIAL NEB PRN (20:20)
[2019-04-19] MEDS: ACETAMINOPHEN 325 MG TAB PO SCH ×3 (05:56→21:46)
[2019-04-19 06:17] LABS: Hematocrit (blood only) 37.1 % (37-47); Hemoglobin 12.5 g/dL (12.0-16.0); Mean Corpuscular Hgb Conc 33.7 g/dL (32-36); Mean Corpuscular Volume 93.7 fL (80-100); Mean Platelet Volume 8.8 fL (7.4-10.4); Platelet Count 306 K/uL (130-400); RDW Coefficient of Variation 15.2 % (11.5-14.5); RDW Standard Deviation 51.3 fL (36.4-46.3); Red Blood Count 3.96 M/uL (4.2-5.4); White Blood Count 12.16 K/uL (4.8-10.8)
[2019-04-19] MEDS: ISOSORBIDE DINITRATE 20 MG TAB PO SCH ×2 (06:33→11:50)
[2019-04-19 06:41] LABS: BUN Creatinine Ratio 24.1 (10-20); Calcium 8.6 mg/dl (8.5-10.1); Creatinine Clr Calc Pharmacy 51.1 ml/min; Est GFR (African American) 97.8; Est GFR (Non-African American) 84.4; Potassium 3.6 mmol/L (3.5-5.1)
[2019-04-19] MEDS: ALBUT/IPRATROP 3MG/0.5MG NEB 3 ML VIAL NEB PRN ×2 (07:30→13:53)
[2019-04-19] MEDS: AMOXICILLIN/CLAVULANATE 875 MG TAB PO SCH (08:58)
[2019-04-19] MEDS: FLUTICASONE/SALMETEROL 250/50 (ADVAIR) 14 PUFF/1 INHALER INH SCH ×2 (08:59→21:41)
[2019-04-19] MEDS: VALSARTAN 80 MG TAB PO SCH (09:00)
[2019-04-19] MEDS: dilTIAZem HCL 240 MG CAPCR PO SCH (09:00)
[2019-04-19] MEDS: APIXABAN 2.5 MG TAB PO SCH ×2 (09:01→21:42)
[2019-04-19] MEDS: POTASSIUM CHLORIDE 10 MEQ TABCR PO SCH (09:01)
[2019-04-19] MEDS: FUROSEMIDE 20 MG TAB PO SCH (09:02)
[2019-04-19] MEDS: guaiFENesin 600 MG TABCR PO SCH ×2 (09:02→21:43)
[2019-04-19] MEDS: MULTIVITAMIN TAB PO SCH (09:03)
[2019-04-19] MEDS: predniSONE 20 MG TAB PO SCH (09:03)
[2019-04-19] MEDS: PANTOprazole 40 MG TAB PO SCH (09:03)
[2019-04-19] MEDS: TIOTROPIUM BROMIDE 5 PUFF/90 MCG INH INH SCH (09:04)
[2019-04-19] MEDS: AZITHROMYCIN 250 MG TAB PO SCH (09:04)
[2019-04-19] MEDS: EUCERIN CR 120 GM JAR EXT SCH ×2 (09:11→21:44)
[2019-04-19] MEDS: CALCIUM CARBONATE 500 MG CHEWABLE TAB PO PRN (09:22)
--- NOTE | 2019-04-19 13:18 | Hospitalist Progress Note ---
Date of Service April 19, 2019 Assessment & Plan (1) Pneumonia: Completed course of abx with Zosyn then Augmentin, Cont azithro MWF indefinitely per Pulm recs. Continue treatment for COPD exacerbation including prednisone with taper-was on chronic prednisone prior to hospitalization. Cont Advair, Spiriva, Mucinex. Repeat chest x-ray in 2 to 4 weeks as outpatient. (2) COPD exacerbation: Cont Duonebs and prednisone with taper. Noted to be on chronic prednisone at 5mg daily. (3) Hypoxemic respiratory failure, chronic: Secondary to COPD. Continue oxygen supplementation. Humidified oxygen. (4) Atrial fibrillation: On 240 mg p.o. daily of diltiazem. Rate is controlled. Continue Eliquis 2.5 p.o. twice daily. (5) Chronic diastolic heart failure: Euvolemic, continue home Lasix TIW. Repeat CXR in am. (6) Prolonged QT interval: resolved on repeat EKGs x 2 days. (7) Back pain: Appears to be improved with treatment of the pneumonia, but poor history. Have her on Tylenol scheduled. Will try lidocaine patch. Pt not sure if tramadol worked for her. (8) Hypertension: At goal, cont home dose of valsartan. (9) DVT prophylaxis: Valerie DNR/DNI Dispo-to [facility] once medically stable Erika Briceno DO [facility] Hospitalist Subjective Feeling well today Asked how her breathing is today and she said it is the same reports back pain is still present but doesn't report that it is severe-cannot tell me if it is worse or better today. Tolerating food Declining ambulation, but may be up for ambulating with her son when he visits later per her report. Review of Systems Review of Systems: All systems reviewed & are unremarkable except as noted in HPI & below Physical Exam Physical Exam: CONSTITUTIONAL: Elderly, frail, deconditioned, vitals as above EYES: normal conjunctivae, no scleral icterus ENT: MMM RESPIRATORY: Improved wheezing which is mild in bases. Improved air movement today. No acute respiratory distress. No conversational dyspnea. CARDIOVASCULAR: regular rate and rhythm, S1 and 2 heard without murmurs, gallops or rubs, no JVD, no peripheral edema GASTROINTESTINAL: soft, nontender, nondistended MUSCULOSKELETAL: strength 5/5 throughout, head is normocephalic and atraumatic SKIN: warm and dry NEUROLOGIC: CN 2-12 grossly intact, appears to have some memory loss or baseline dementia, normal speech Results & Data Vital Signs (Past 12 Hours) Vital Signs Temp Pulse Pulse Resp BP BP Pulse Ox 04/19/19 11:50 98 H 121/78 04/19/19 07:37 36.3 C L 103 H 16 122/70 95 04/19/19 07:31 98 H 20 96 Laboratory Results Short CBC 04/19/19 Range/Units 05:31 WBC 12.16 H (4.8-10.8) K/uL Hgb 12.5 (12.0-16.0) g/dL Hct 37.1 (37-47) % Plt Count 306 (130-400) K/uL BMP 04/19/19 05:31 Sodium 136 Potassium 3.6 Chloride 94 L Carbon Dioxide 36 H BUN 15 Creatinine 0.61 Glucose 79 Calcium 8.6 Medications Administered Current Inpatient Medications Acetaminophen (Tylenol) 650 mg PO Q8 [facility] Stop: 05/16/19 15:59 Last Admin: 04/19/19 05:56 Dose: Not Given Documented by: Al Hydrox/Mg Hydrox/Simethicone (Maalox Max) 15 ml PO Q6H PRN PRN Reason: Dyspepsia Stop: 05/11/19 10:45 Last Admin: 04/11/19 11:59 Dose: 15 ml Documented by: Albuterol (Duoneb) 3 ml NEB QIDR PRN PRN Reason: SOB/wheezing Stop: 05/16/19 15:59 Last Admin: 04/19/19 07:30 Dose: 3 ml Documented by: Amoxicillin/Clavulanate Potassium (Augmentin 875mg) 1 tab PO BIDM [facility] Stop: 04/23/19 19:59 Last Admin: 04/19/19 08:58 Dose: 1 tab Documented by: Apixaban (Eliquis) 2.5 mg PO BID [facility] Stop: 05/13/19 20:59 Last Admin: 04/19/19 09:01 Dose: 2.5 mg Documented by: Artificial Tears (Artificial Tears) 1 drops OP PRN PRN PRN Reason: DRY EYES Stop: 05/11/19 14:42 Last Admin: 04/14/19 00:48 Dose: 1 drops Documented by: Azithromycin (Zithromax) 250 mg PO MoWeFr@0900 [facility]; Protocol Stop: 04/23/19 15:59 Last Admin: 04/19/19 09:04 Dose: 250 mg Documented by: Bisacodyl (Dulcolax) 10 mg [place] DAILY PRN PRN Reason: Constipation Stop: 05/10/19 18:19 Last Admin: 04/12/19 08:02 Dose: 10 mg Documented by: Calcium Carbonate (Tums) 1,000 mg PO Q8H PRN PRN Reason: Indigestion Last Admin: 04/19/19 09:22 Dose: 1,000 mg Documented by: Diltiazem HCl (Cardizem Cd) 240 mg PO DAILY [facility] Stop: 05/10/19 18:59 Last Admin: 04/19/19 09:00 Dose: 240 mg Documented by: Fluticasone Propionate (Flonase) 2 sprays NA DAILY PRN PRN Reason: Congestion Stop: 05/10/19 18:19 Furosemide (Lasix) 20 mg PO MoWeFr@0900 [facility] Stop: 05/12/19 16:59 Last Admin: 04/19/19 09:02 Dose: 20 mg Documented by: Guaifenesin (Mucinex) 1,200 mg PO Q12 [facility] Stop: 05/16/19 20:59 Last Admin: 04/19/19 09:02 Dose: 1,200 mg Documented by: Isosorbide Dinitrate (Isordil) 20 mg PO BID@0700,1200 [facility] Stop: 05/11/19 06:59 Last Admin: 04/19/19 11:50 Dose: 20 mg Documented by: Loratadine (Claritin) 10 mg PO DAILY PRN PRN Reason: Allergic Symptoms Stop: 05/10/19 18:19 Lorazepam (Ativan) 0.5 mg PO HS PRN PRN Reason: Anxiety Stop: 05/10/19 18:19 Last Admin: 04/12/19 20:55 Dose: 0.5 mg Documented by: Magnesium Hydroxide (Milk Of Magnesia) 30 ml PO QAM PRN PRN Reason: Constipation Stop: 05/10/19 18:19 Last Admin: 04/11/19 08:22 Dose: 30 ml Documented by: Metoprolol Tartrate (Lopressor) 5 mg IV Q6 PRN PRN Reason: FOR HR > 120 Stop: 05/10/19 18:19 Multi-Ingredient Cream (Hydrocerin) 1 appln EXT BID [facility] Stop: 05/10/19 20:59 Last Admin: 04/19/19 09:11 Dose: 1 appln Documented by: Multivitamins (Multivitamin Tab) 1 tab PO DAILY [facility] Stop: 05/11/19 08:59 Last Admin: 04/19/19 09:03 Dose: 1 tab Documented by: Nitroglycerin (Nitrostat) 0.4 mg SL UD PRN PRN Reason: Chest Pain Stop: 05/10/19 18:19 Pantoprazole Sodium (Protonix) 40 mg PO QAM [facility] Stop: 05/11/19 13:44 Last Admin: 04/19/19 09:03 Dose: 40 mg Documented by: Potassium Chloride (Klor-Con M10) 10 meq PO DAILY [facility] Stop: 05/11/19 08:59 Last Admin: 04/19/19 09:01 Dose: 10 meq Documented by: Prednisone (Prednisone) 40 mg PO DAILY [facility] Stop: 05/17/19 08:59 Last Admin: 04/19/19 09:03 Dose: 40 mg Documented by: Fluticasone/Salmeterol (Advair Diskus 250/50) 1 puffs INH BID [facility] Stop: 05/15/19 20:59 Last Admin: 04/19/19 08:59 Dose: 1 puffs Documented by: Senna/Docusate Sodium (Senokot S) 1 tab PO BID PRN PRN Reason: Constipation Stop: 05/11/19 10:44 Last Admin: 04/11/19 15:19 Dose: 1 tab Documented by: Tiotropium [place] (Spiriva) 1 puffs INH QAM [facility] Stop: 05/15/19 16:29 Last Admin: 04/19/19 09:04 Dose: 1 puffs Documented by: Tramadol HCl (Ultram) 50 mg PO Q4H PRN PRN Reason: Pain Stop: 05/17/19 14:50 Triamcinolone Acetonide (Kenalog 0.1%) 1 appln TOP DAILY PRN PRN Reason: Rash Stop: 05/10/19 18:19 Valsartan (Diovan) 80 mg PO DAILY [facility] Stop: 05/15/19 08:59 Last Admin: 04/19/19 09:00 Dose: 80 mg Documented by:
--- NOTE | 2019-04-19 13:48 | Pulmonology Progress Note ---
Date of Service April 19, 2019 Assessment & Plan (1) Pneumonia: Impression: 83-year-old female with advanced obstructive lung disease and chronic hypoxemic respiratory failure Recommendations: Following off antibiotics. Will need follow-up chest x-ray in 2 to 4 weeks. Outpatient pulmonary follow-up recommended. (2) COPD (chronic obstructive pulmonary disease): PFTs not currently available. Continue Advair and Spiriva as well as as needed duo nebs. Will continue 3 times a week azithromycin for anti- inflammatory properties. Continue prednisone for an additional 4 days then discontinue. The patient may be a candidate for outpatient pulmonary rehab. Given her persistent wheezing, I am concerned about the possibility of tracheobronchomalacia. This would require bronchoscopy for confirmation and it is unclear that the patient would be a candidate for any therapy such as stenting given her advanced age. We discussed a trial of nocturnal empiric CPAP however the patient states that she is unable to tolerate anything more than her nasal cannula over her nose therefore I do not think positive airway pressure is an option. (3) Hypoxemic respiratory failure, chronic: Stable: Continue to wean oxygen as tolerated. Unclear if the patient's underlying valvular heart disease may be contributing to her wheezing shortness of breath and hypoxemic respiratory failure. Defer to cardiology. She is not a candidate for surgical intervention however TAVR may be appropriate in the future should her valvular heart disease progress. She appears to be at her baseline at this point in time. Okay to discharge from a pulmonary standpoint Subjective States that she feels about the same. Her wheezing is markedly better. She is not coughing or expectorating phlegm. She remains quite sedentary and sits in bed without significant activity or ambulation. Review of Systems Review of Systems: Unchanged from prior Physical Exam Constitutional: WD/WN, vitals as above + thin Neck: trachea midline Respiratory: normal respiratory effort Auscultation: no wheezes Cardiovascular: RRR, no murmur, no edema Extremities: no pedal edema Gastrointestinal (Abdomen): normal bowel sounds, soft, nontender, no hepatosplenomegaly Results & Data Vital Signs (Past 12 Hours) Vital Signs Temp Pulse Pulse Resp BP BP Pulse Ox 04/19/19 11:50 98 H 121/78 04/19/19 07:37 36.3 C L 103 H 16 122/70 95 04/19/19 07:31 98 H 20 96 PG Care Time/CCT Total # of Minutes Spent Total Time Spent with Patient: Total time spent is greater than 50% in coordination of care (as documented) at patient's floor/unit and/or counseling patient:
[2019-04-19] MEDS: DOCUSATE SODIUM/SENNA 50/8.6MG TAB PO PRN (15:10)
[2019-04-19] MEDS: LIDOCAINE 5% 1 PATCH TD SCH (16:50)
[2019-04-20] MEDS: ISOSORBIDE DINITRATE 20 MG TAB PO SCH ×2 (06:06→13:03)
[2019-04-20] MEDS: ACETAMINOPHEN 325 MG TAB PO SCH ×3 (06:07→21:17)
[2019-04-20] MEDS: ALBUT/IPRATROP 3MG/0.5MG NEB 3 ML VIAL NEB PRN ×3 (07:21→18:58)
[2019-04-20] MEDS: VALSARTAN 80 MG TAB PO SCH (08:46)
[2019-04-20] MEDS: PANTOprazole 40 MG TAB PO SCH (08:47)
[2019-04-20] MEDS: guaiFENesin 600 MG TABCR PO SCH ×2 (08:47→21:15)
[2019-04-20] MEDS: APIXABAN 2.5 MG TAB PO SCH ×2 (08:47→21:14)
[2019-04-20] MEDS: MULTIVITAMIN TAB PO SCH (08:47)
[2019-04-20] MEDS: predniSONE 20 MG TAB PO SCH (08:47)
[2019-04-20] MEDS: CALCIUM CARBONATE 500 MG CHEWABLE TAB PO PRN (08:47)
[2019-04-20] MEDS: dilTIAZem HCL 240 MG CAPCR PO SCH (08:49)
[2019-04-20] MEDS: POTASSIUM CHLORIDE 10 MEQ TABCR PO SCH (08:49)
[2019-04-20] MEDS: FLUTICASONE/SALMETEROL 250/50 (ADVAIR) 14 PUFF/1 INHALER INH SCH ×2 (08:50→21:13)
[2019-04-20] MEDS: LIDOCAINE 5% 1 PATCH TD SCH (08:51)
[2019-04-20] MEDS: EUCERIN CR 120 GM JAR EXT SCH ×2 (08:51→21:16)
[2019-04-20] MEDS: TIOTROPIUM BROMIDE 5 PUFF/90 MCG INH INH SCH (09:21)
--- NOTE | 2019-04-20 11:27 | Pulmonology Progress Note ---
Date of Service April 20, 2019 Assessment & Plan (1) Pneumonia: Impression: 83-year-old female with advanced obstructive lung disease and acute on chronic hypoxemic respiratory failure with superimposed community- acquired pneumonia Recommendations: Following off antibiotics. Will need follow-up chest x-ray in 2 to 4 weeks. Outpatient pulmonary follow-up recommended. (2) COPD (chronic obstructive pulmonary disease): PFTs not currently available. Continue Advair and Spiriva as well as as needed duo nebs. Will continue 3 times a week azithromycin for anti- inflammatory properties. Continue prednisone for an additional 4 days then discontinue. The patient may be a candidate for outpatient pulmonary rehab. Given her persistent wheezing, I am concerned about the possibility of tracheobronchomalacia. This would require bronchoscopy for confirmation and it is unclear that the patient would be a candidate for any therapy such as sten ting given her advanced age. We discussed a trial of nocturnal empiric CPAP however the patient states that she is unable to tolerate anything more than her nasal cannula over her nose therefore I do not think positive airway pressure is an option. We will continue to follow clinically and should her respiratory issues remain problematic, consideration for diagnostic bronchoscopy as an outpatient may be appropriate (3) Hypoxemic respiratory failure, chronic: Stable: Continue to wean oxygen as tolerated. Unclear if the patient's underlying valvular heart disease may be contributing to her wheezing shortness of breath and hypoxemic respiratory failure. Defer to cardiology. She is not a candidate for surgical intervention however TAVR may be appropriate in the future should her valvular heart disease progress. She appears to be at her baseline at this point in time. Okay to discharge from a pulmonary standpoint Subjective Patient feels that her breathing is slightly improved today. She continues to cough and wheeze and remains extremely sedentary. She denied any chest pain or palpitations. She does not appear particularly motivated to improve her activity level. Review of Systems Review of Systems: Unchanged from prior Physical Exam Constitutional: WD/WN, vitals as above + thin Neck: trachea midline Respiratory: normal respiratory effort Auscultation: no wheezes Cardiovascular: RRR, no murmur, no edema Extremities: no pedal edema Gastrointestinal (Abdomen): normal bowel sounds, soft, nontender, no hepatosplenomegaly Results & Data Vital Signs (Past 12 Hours) Vital Signs Temp Pulse Pulse Resp BP Pulse Ox 04/20/19 07:22 66 18 97 04/20/19 07:04 36.3 C L 100 H 16 123/62 94 Laboratory Results 04/19/19 05:31 04/19/19 05:31 PG Care Time/CCT Total # of Minutes Spent Total Time Spent with Patient: Total time spent is greater than 50% in coordination of care (as documented) at patient's floor/unit and/or counseling patient:
[2019-04-20] MEDS: DOCUSATE SODIUM/SENNA 50/8.6MG TAB PO PRN (15:54)
--- NOTE | 2019-04-20 18:07 | Hospitalist Progress Note ---
Date of Service April 20, 2019 Assessment & Plan (1) Pneumonia: Completed course of abx with Zosyn then Augmentin, Cont azithro MWF indefinitely per Pulm recs. Continue treatment for COPD exacerbation including prednisone with taper-was on chronic prednisone prior to hospitalization. Cont Advair, Spiriva, Mucinex. Repeat chest x-ray in 2 to 4 weeks as outpatient. (2) COPD exacerbation: Cont Duonebs and prednisone per Pulm. Noted to be on chronic prednisone at 5mg daily. (3) Hypoxemic respiratory failure, chronic: Secondary to COPD. Continue oxygen supplementation. Humidified oxygen. (4) Atrial fibrillation: On 240 mg p.o. daily of diltiazem. Rate is controlled. Continue Eliquis 2.5 p.o. twice daily. (5) Chronic diastolic heart failure: Euvolemic, continue home Lasix TIW. (6) Prolonged QT interval: resolved on repeat EKGs x 2 days. (7) Back pain: Improved with lidocaine patch. (8) Hypertension: At goal, cont home dose of valsartan. (9) DVT prophylaxis: Valerie DNR/DNI Dispo-to [facility] once medically stable I discussed everything with her son by phone, who is aggreable with transfer back to [facility] tomorrow. Erika Briceno DO [facility] Hospitalist Subjective feels the same but denies any back pain after addition of the lidocaine patch tolerating PO dyspnea with ambulation wears O2 consistently I discussed the plan with her son, who reports she has been wearing the oxygen 24/7 at baseline. We discussed that she will be returning to [facility] at discharge which is likely tomorrow. He is fine with that and will plan for dc in am. Review of Systems Review of Systems: All systems reviewed & are unremarkable except as noted in HPI & below Physical Exam Physical Exam: CONSTITUTIONAL: Elderly, frail, deconditioned, vitals as above EYES: normal conjunctivae, no scleral icterus ENT: MMM RESPIRATORY: Improved wheezing which is mild in bases. Good air movement today. No acute respiratory distress. No conversational dyspnea. CARDIOVASCULAR: regular rate and rhythm, S1 and 2 heard without murmurs, gallops or rubs, no JVD, no peripheral edema GASTROINTESTINAL: soft, nontender, nondistended MUSCULOSKELETAL: strength 5/5 throughout, head is normocephalic and atraumatic SKIN: warm and dry NEUROLOGIC: CN 2-12 grossly intact, appears to have some memory loss or baseline dementia, normal speech Results & Data Vital Signs (Past 12 Hours) Vital Signs Temp Pulse Pulse Resp BP Pulse Ox 04/20/19 15:37 36.7 C 88 20 100/60 97 04/20/19 14:55 79 20 99 04/20/19 07:22 66 18 97 04/20/19 07:04 36.3 C L 100 H 16 123/62 94 Medications Administered Current Inpatient Medications Acetaminophen (Tylenol) 650 mg PO Q8 [facility] Stop: 05/16/19 15:59 Last Admin: 04/20/19 13:04 Dose: Not Given Documented by: Al Hydrox/Mg Hydrox/Simethicone (Maalox Max) 15 ml PO Q6H PRN PRN Reason: Dyspepsia Stop: 05/11/19 10:45 Last Admin: 04/11/19 11:59 Dose: 15 ml Documented by: Albuterol (Duoneb) 3 ml NEB QIDR PRN PRN Reason: SOB/wheezing Stop: 05/16/19 15:59 Last Admin: 04/20/19 14:55 Dose: 3 ml Documented by: Apixaban (Eliquis) 2.5 mg PO BID [facility] Stop: 05/13/19 20:59 Last Admin: 04/20/19 08:47 Dose: 2.5 mg Documented by: Artificial Tears (Artificial Tears) 1 drops OP PRN PRN PRN Reason: DRY EYES Stop: 05/11/19 14:42 Last Admin: 04/14/19 00:48 Dose: 1 drops Documented by: Azithromycin (Zithromax) 250 mg PO MoWeFr@0900 [facility]; Protocol Stop: 04/23/19 15:59 Last Admin: 04/19/19 09:04 Dose: 250 mg Documented by: Bisacodyl (Dulcolax) 10 mg [place] DAILY PRN PRN Reason: Constipation Stop: 05/10/19 18:19 Last Admin: 04/12/19 08:02 Dose: 10 mg Documented by: Calcium Carbonate (Tums) 1,000 mg PO Q8H PRN PRN Reason: Indigestion Last Admin: 04/20/19 08:47 Dose: 1,000 mg Documented by: Diltiazem HCl (Cardizem Cd) 240 mg PO DAILY [facility] Stop: 05/10/19 18:59 Last Admin: 04/20/19 08:49 Dose: 240 mg Documented by: Fluticasone Propionate (Flonase) 2 sprays NA DAILY PRN PRN Reason: Congestion Stop: 05/10/19 18:19 Furosemide (Lasix) 20 mg PO MoWeFr@0900 [facility] Stop: 05/12/19 16:59 Last Admin: 04/19/19 09:02 Dose: 20 mg Documented by: Guaifenesin (Mucinex) 1,200 mg PO Q12 [facility] Stop: 05/16/19 20:59 Last Admin: 04/20/19 08:47 Dose: 1,200 mg Documented by: Isosorbide Dinitrate (Isordil) 20 mg PO BID@0700,1200 [facility] Stop: 05/11/19 06:59 Last Admin: 04/20/19 13:03 Dose: 20 mg Documented by: Lidocaine (Lidoderm 5%) 1 patch TD QAM [facility] Stop: 05/19/19 15:44 Last Admin: 04/20/19 08:51 Dose: 1 patch Documented by: Loratadine (Claritin) 10 mg PO DAILY PRN PRN Reason: Allergic Symptoms Stop: 05/10/19 18:19 Lorazepam (Ativan) 0.5 mg PO HS PRN PRN Reason: Anxiety Stop: 05/10/19 18:19 Last Admin: 04/12/19 20:55 Dose: 0.5 mg Documented by: Magnesium Hydroxide (Milk Of Magnesia) 30 ml PO QAM PRN PRN Reason: Constipation Stop: 05/10/19 18:19 Last Admin: 04/11/19 08:22 Dose: 30 ml Documented by: Miscellaneous (Remove Lidoderm Patch) 1 ea N/A DAILY@2100 [facility] Stop: 05/19/19 20:59 Last Admin: 04/19/19 21:42 Dose: 1 ea Documented by: Multi-Ingredient Cream (Hydrocerin) 1 appln EXT BID [facility] Stop: 05/10/19 20:59 Last Admin: 04/20/19 08:51 Dose: 1 appln Documented by: Multivitamins (Multivitamin Tab) 1 tab PO DAILY [facility] Stop: 05/11/19 08:59 Last Admin: 04/20/19 08:47 Dose: 1 tab Documented by: Nitroglycerin (Nitrostat) 0.4 mg SL UD PRN PRN Reason: Chest Pain Stop: 05/10/19 18:19 Pantoprazole Sodium (Protonix) 40 mg PO QAM [facility] Stop: 05/11/19 13:44 Last Admin: 04/20/19 08:47 Dose: 40 mg Documented by: Potassium Chloride (Klor-Con M10) 10 meq PO DAILY [facility] Stop: 05/11/19 08:59 Last Admin: 04/20/19 08:49 Dose: 10 meq Documented by: Prednisone (Prednisone) 40 mg PO DAILY [facility] Stop: 05/17/19 08:59 Last Admin: 04/20/19 08:47 Dose: 40 mg Documented by: Fluticasone/Salmeterol (Advair Diskus 250/50) 1 puffs INH BID [facility] Stop: 05/15/19 20:59 Last Admin: 04/20/19 08:50 Dose: 1 puffs Documented by: Senna/Docusate Sodium (Senokot S) 1 tab PO BID PRN PRN Reason: Constipation Stop: 05/11/19 10:44 Last Admin: 04/20/19 15:54 Dose: 1 tab Documented by: Tiotropium [place] (Spiriva) 1 puffs INH QAM [facility] Stop: 05/15/19 16:29 Last Admin: 04/20/19 09:21 Dose: 1 puffs Documented by: Tramadol HCl (Ultram) 50 mg PO Q4H PRN PRN Reason: Pain Stop: 05/17/19 14:50 Triamcinolone Acetonide (Kenalog 0.1%) 1 appln TOP DAILY PRN PRN Reason: Rash Stop: 05/10/19 18:19 Valsartan (Diovan) 80 mg PO DAILY [facility] Stop: 05/15/19 08:59 Last Admin: 04/20/19 08:46 Dose: 80 mg Documented by:
[2019-04-21] MEDS: ALBUT/IPRATROP 3MG/0.5MG NEB 3 ML VIAL NEB PRN (05:53)
[2019-04-21] MEDS: ISOSORBIDE DINITRATE 20 MG TAB PO SCH (06:15)
[2019-04-21] MEDS: ACETAMINOPHEN 325 MG TAB PO SCH (06:15)
--- NOTE | 2019-04-21 08:16 | Pulmonology Progress Note ---
Date of Service April 21, 2019 Assessment & Plan (1) Pneumonia: Impression: 83-year-old female with advanced obstructive lung disease and acute on chronic hypoxemic respiratory failure with superimposed community- acquired pneumonia Recommendations: Following off antibiotics. Will need follow-up chest x-ray in 2 to 4 weeks. Outpatient pulmonary follow-up recommended. (2) COPD (chronic obstructive pulmonary disease): PFTs not currently available. Continue Advair and Spiriva as well as as needed duo nebs. Will continue 3 times a week azithromycin for anti- inflammatory properties. Continue prednisone for an additional 4 days then discontinue. The patient may be a candidate for outpatient pulmonary rehab. Given her persistent wheezing, I am concerned about the possibility of tracheobronchomalacia. This would require bronchoscopy for confirmation and it is unclear that the patient would be a candidate for any therapy such as stenting given her advanced age. We discussed a trial of nocturnal empiric CPAP however the patient states that she is unable to tolerate anything more than her nasal cannula over her nose therefore I do not think positive airway pressure is an option. We will continue to follow clinically and should her respiratory issues remain problematic, consideration for diagnostic bronchoscopy as an outpatient may be appropriate (3) Hypoxemic respiratory failure, chronic: Stable: Continue to wean oxygen as tolerated. Unclear if the patient's underlying valvular heart disease may be contributing to her wheezing shortness of breath and hypoxemic respiratory failure. Defer to cardiology. She is not a candidate for surgical intervention however TAVR may be appropriate in the future should her valvular heart disease progress. She appears to be at her baseline at this point in time. Okay to discharge from a pulmonary standpoint Subjective Not the same. She has not had any issues overnight. She is breathing relatively comfortably. Minimal cough and no sputum production. No fevers chills or night sweats. She is tolerating a diet. Review of Systems Review of Systems: Unchanged from prior Physical Exam Constitutional: WD/WN, vitals as above + thin Neck: trachea midline Respiratory: normal respiratory effort Auscultation: no wheezes Cardiovascular: RRR, no murmur, no edema Extremities: no pedal edema Gastrointestinal (Abdomen): normal bowel sounds, soft, nontender, no hepatosplenomegaly Results & Data Vital Signs (Past 12 Hours) Vital Signs Temp Pulse Resp BP Pulse Ox 04/21/19 07:25 36.7 C 91 H 16 132/66 98 04/21/19 05:53 96 H 19 97 04/20/19 23:42 36.6 C 79 18 108/62 98 PG Care Time/CCT Total # of Minutes Spent Total Time Spent with Patient: Total time spent is greater than 50% in coordination of care (as documented) at patient's floor/unit and/or counseling patient:
[2019-04-21] MEDS: TIOTROPIUM BROMIDE 5 PUFF/90 MCG INH INH SCH (08:19)
[2019-04-21] MEDS: FLUTICASONE/SALMETEROL 250/50 (ADVAIR) 14 PUFF/1 INHALER INH SCH (08:19)
[2019-04-21] MEDS: MULTIVITAMIN TAB PO SCH (08:20)
[2019-04-21] MEDS: VALSARTAN 80 MG TAB PO SCH (08:21)
[2019-04-21] MEDS: guaiFENesin 600 MG TABCR PO SCH (08:21)
[2019-04-21] MEDS: predniSONE 20 MG TAB PO SCH (08:21)
[2019-04-21] MEDS: PANTOprazole 40 MG TAB PO SCH (08:21)
[2019-04-21] MEDS: dilTIAZem HCL 240 MG CAPCR PO SCH (08:22)
[2019-04-21] MEDS: POTASSIUM CHLORIDE 10 MEQ TABCR PO SCH (08:22)
[2019-04-21] MEDS: APIXABAN 2.5 MG TAB PO SCH (08:23)
[2019-04-21] MEDS: LIDOCAINE 5% 1 PATCH TD SCH (08:25)
[2019-04-21] MEDS: EUCERIN CR 120 GM JAR EXT SCH (08:26)
--- NOTE | 2019-04-21 12:08 | Discharge Summary ---
Date of Service April 21, 2019 Admission HPI Per Admitting Provider Patient is arousable and go from [facility]. Patient is a poor historian and does not recall the name of the facility she is from. Medical history obtained from medical records, ED physician, patient. Patient is a 83-year-old female with history of severe COPD on 2 L of oxygen, chronic steroids, chronic congestive heart failure, diastolic, valvular heart disease, atrial fibrillation on anticoagulation, anxiety, prior tobacco abuse, hypertension,comes to ED from [facility] via [facility] for upper abdominal pain, sob x few days. Patient was sent here for complains of upper abdominal pain, nausea, productive cough and per nursing staff at heart side she was also noted to be more short of breath than her baseline. Patient admits to some generalized abdominal pain, cough with mild whitish sputum, shortness of breath more than baseline. Denies any chest pain, chills, fever, diarrhea, diaphoresis, sweating, palpitations. In the ED, atrial fibrillation with heart rate 110s to 140, afebrile, saturating 93% on 2 L of oxygen. LabsWBC 10,000, sodium 132, EKGQTC prolonged 563.CT scan abdomen/pelvis shows complete collapse of right middle lobe and near complete collapse of right lower lobe which demonstrate partial consolidation. Small to moderate right pleural effusion with groundglass opacities within lung of right upper lobe. Could be ongoing mucous plugging, pneumonia or possibly a central obstructing mass. CT chest was recommended- -Right lower lobe consolidation suspicious for pneumonia, narrowing of bronchus intermedius, small to moderate right pleural effusion, pulmonary emphysema, if no improvement recommend bronchoscopy follow-up. Received IV Zosyn, Vancomycin in ED. We have asked to admit this patient for pneumonia, HCAP for further management Allergies Admission Exam Per Admitting Provider GENERAL- AAOX2, No acute distress, FRAIL, MALNOURISHED HEAD- Atraumatic, Normocephalic EYES- No pallor, icterus, redness, discharge. Pupils are equal, round, reactive to light and accomodation. EARS- Normal pinna, no discharge, tenderness noted NOSE- No nasal discharge noted NECK- Supple, no JVD LUNGS- Air entry bilaterally decreased, right < left, rhonchi with no wheezing HEART- Irregularly irregular heart rhythm ABDOMEN- Soft, non tender, non distended, Bowel sounds heard. EXTREMITIES- No edema NEUROMUSCULAR- AAOX3, Grossly no focal deficits Principal Diagnosis Pneumonia COPD exacerbation Chronic hypoxic respiratory failure Discharge Data Allergies Allergy/AdvReac Type Severity Reaction Status Date / Time iodine AdvReac Unknown . Unverified 04/12/18 12:26 Consultations 04/10/19 14:10 ED Decision to Admit Stat 04/10/19 18:20 Consult Case Management - Discharge Planning Routine 04/11/19 09:16 Consult Pulmonology Routine Ordered Studies 04/10/19 09:01 CT abd pelvis wo con Stat 04/10/19 13:09 CT chest wo con Stat 04/11/19 12:55 US point of care ultrasound Routine Hospital Course (1) Pneumonia: (2) Hypoxemic respiratory failure, chronic: (3) COPD exacerbation: (4) Chronic diastolic heart failure: (5) Atrial fibrillation: (6) Aortic stenosis: The patient was admitted to the hospitalist service and placed on IV vancomycin and Zosyn with ultimate transition to Zosyn and then p.o. antibiotics for healthcare acquired pneumonia. Initially Eliquis was held for possible thoracentesis and pulmonary is consulted. However an ultrasound suggested more atelectatic lung and this was not performed. Lasix was held and gentle IV fluids were given, also in the setting of mild hyponatremia. Duo nebs were given and chronic prednisone 5mg daily were continued. After a few days dyspnea, tachypnea and bronchospastic city was present and she was transitioned to Solu-Medrol. She was transitioned to Augmentin and steroids were de- escalated to prednisone after a couple of days azithromycin was started given her advanced obstructive lung disease as a chronic inflammatory agent. An inhaled corticosteroid and long-acting beta agonist were added. She was noted to have moderate to severe aortic stenosis and was given IV Lasix with some improvement in restarting on her prior oral Lasix regimen. She continued to improve and a [id number] examination at time of discharge revealed hemodynamically stable and afebrile patient who was oxygenating well on her baseline 2 L/min which she had been using consistently prior to arrival. Some wheezing at the bases was noted on exam. Physical exam was otherwise unremarkable. She had been noted to have some memory issues, which was noted by multiple providers this admission. She will forget conversations that happened the day prior. This was discussed with the son who was already aware of this issue. She will return to [facility] with close primary care follow-up rec ommended. A repeat chest x-ray in 2 4 weeks was recommended to ensure resolution of pneumonia. She was continued on prednisone 40 for 4 more days and then told to resume her chronic 5 mg prednisone daily a close pulmonary follow- up was recommended with Dr. Forman with [facility] in the next 1 to 2 weeks. It is noted that she had some back pain which was thought to be secondary to her pneumonia. This was treated with tramadol, Tylenol, lidocaine patch in the hospital. However, she could not remember or stated it did not improve her back pain. She was instructed that if her back pain did not improve this may require further investigation. Overall she was sent back to [facility] in stable condition with close primary care follow-up recommended. Total Time Total Time Spent Total Time Spent (In Minutes): 60 Total Time Includes: Examination of the Patient, Discharge Planning, Medication Reconciliation and Communication With Other Providers Discharge Plan Discharge Items Patient Disposition: Transfer Retirement Fac Reason For Visit: PNEUMONIA Discharge Diagnosis: Pneumonia COPD exacerbation Chronic hypoxic respiratory failure Condition: Good Discharge Goals: Improve disease control and Improve function Activity: Resume your previous activity Non-emergency contact: Primary Care Provider and Industrial Hire Sales Assistant Call non-emergency contact if: you have any medication questions, your symptoms worsen, your pain is not controlled, your pain is worsening, your pain is unusual for you, your pain is concerning for you and you have a fever Follow-up/Referrals: Melanie Jeffers [Primary Care Provider] - Diet: Heart Healthy Addtl Provider Instructions: Please take all medications as instructed on discharge list below. You will need to continue prednisone 40mg once daily x 4 more days and then resume your chronic 5mg prednisone daily. It is recommended that you follow-up with Dr. Forman in [facility] in the next 1-2 weeks for followup from this hospitalization. Other treatments are being considered and will be discussed during this visit, also. It would be recommended to have your son with you for every doctor visit moving forward. It is recommended that you follow-up with your primary care physician within one week of discharge from the hospital. 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 You were also started on inhalers that should be taken consistently as prescribed. The Tylenol that is ordered is to be given around the clock and scheduled to help your back pain. If you back pain doesn't improve, this may require further investigation. Additionally, you will need a repeat chest xray in 2-4 weeks to ensure complete resolution of the pneumonia. This may be ordered at this follow-up appointment. It was a pleasure taking care of you! Please call if you have any questions or problems. You can reach a [facility] hospitalist on duty at [facility] 24 hours a day by calling [phone]. Take care of yourself. Erika Briceno, DO [facility] Prescriptions: New azithromycin [Zithromax] 250 mg Tablet 250 mg PO MoWeFr@0900 Qty: 30 RF: 0 Spiriva with HandiHaler 18 mcg Capsule, W/Inhalation Device 1 cap inhalation QAM Qty: 30 RF: 0 acetaminophen [Mapap (acetaminophen)] 325 mg Tablet 650 mg PO Q8 Qty: 30 RF: 0 prednisone 20 mg Tablet 40 mg PO DAILY Qty: 30 RF: 0 fluticasone propion-salmeterol [Advair Diskus] 250-50 mcg/dose Blister With Device 1 puffs inhalation BID Qty: 60 RF: 0 Continued multivitamin Tablet 1 tab PO DAILY RF: 0 acetaminophen 325 mg Tablet 325 mg PO Q6H PRN (Reason: Fever) RF: 0 acetaminophen 325 mg Tablet 325 mg PO Q6H PRN (Reason: Pain) RF: 0 ipratropium-albuterol 0.5 mg-3 mg(2.5 mg base)/3 mL Solution For Nebulization 3 ml INHALATION Q4H RF: 0 Rolaids 550-110 mg Tablet,Chewable 2 tab PO Q8H PRN (Reason: Indigestion) RF: 0 diltiazem HCl 240 mg Capsule,Extended Release 24hr 240 mg PO DAILY RF: 0 sennosides-docusate sodium [Senokot-S] 8.6-50 mg Tablet 1 tab PO DAILY PRN (Reason: Constipation) RF: 0 valsartan 80 mg Tablet 80 mg PO DAILY RF: 0 potassium chloride 10 mEq Tablet Extended Release 10 meq PO DAILY RF: 0 triamcinolone acetonide 0.1 % Cream 1 applic TOPICAL DAILY PRN (Reason: Rash) RF: 0 lorazepam 0.5 mg Tablet 0.5 mg PO HS PRN (Reason: Anxiety) RF: 0 magnesium hydroxide [Milk of Magnesia] 400 mg/5 mL Suspension 30 ml PO QAM PRN (Reason: Constipation) RF: 0 bisacodyl [Dulcolax (bisacodyl)] 10 mg Suppository 10 mg NM DAILY PRN (Reason: Constipation) RF: 0 dextromethorphan-guaifenesin [Mucinex DM] 60-1,200 mg Tablet Extended Release 12 Hr 1 tab PO Q12H PRN (Reason: Cough) RF: 0 furosemide 20 mg Tablet 20 mg PO 3XWK RF: 0 albuterol sulfate [Ventolin HFA] 90 mcg/actuation Hfa Aerosol Inhaler 2 puff INHALATION QID PRN (Reason: Shortness Of Breath Or Wheezing) RF: 0 ondansetron 4 mg Tablet,Disintegrating 4 mg PO Q8H PRN (Reason: Nausea) RF: 0 fluticasone propionate [Flonase Allergy Relief] 50 mcg/actuation [place],Suspension 2 spray INTRANASAL DAILY PRN (Reason: Congestion) RF: 0 isosorbide dinitrate [Isordil Titradose] 5 mg Tablet 20 mg PO BID RF: 0 loratadine [Claritin] 10 mg Tablet 10 mg PO DAILY PRN (Reason: Allergic Symptoms) RF: 0 Eucerin Cream 1 applic TOPICAL BID RF: 0 Clear Eyes Cooling Comfort 0.03-0.5 % Drops 1 drp OPHTHALMIC (EYE) Q12 PRN (Reason: Dry Eyes) RF: 0 apixaban 2.5 mg Tablet 2.5 mg PO BID RF: 0 Biofreeze (menthol) 4 % Gel 1 applic TOPICAL Q8H PRN (Reason: Pain) RF: 0 Discontinued prednisone 5 mg Tablet 5 mg PO DAILY RF: 0 amoxicillin-pot clavulanate [Augmentin] 875-125 mg Tablet 1 tab PO BID RF: 0 Stand-Alone Forms: [facility] Discharge Orders: Discharge Order (Routine); Ordered 04/21/19 Ordered By: Erika Briceno Skilled Items Patient informed of condition?: Yes DNR: Yes Discharge Level of Care: Skilled Communicable Disease: No Discharge Prognosis: Stable Admission Data Admit Date/Time: 04/10/19 16:04 Attending Provider: Erika Briceno Admit Provider: Tracie Kuhn Primary Care Provider: Melanie Jeffers Other Providers: Tracie Kuhn ; Erika Briceno ; Aneesh Saha Service: Medical Other Interventions: Discharge Summary Assessment (RN) Last Done: 04/21/19 11:54 DC Date/Time DO NOT enter until pt leaves facility: 04/21/19 12:20
== END 2019-04-21 12:20 | DRG 194 ==
LOC: ED 08:53 → 2S 16:04 → SUATTDRO 16:04 → 2S 18:02 → 4W 04-16 15:26

== ENCOUNTER 2020-11-26 20:14 | Inpatient (IN) ==
[2020-11-26] MEDS ORDERED: ALBUT/IPRATROP 3MG/0.5MG NEB 3 ML VIAL NEB STA (20:39)
[2020-11-26] MEDS ORDERED: SODIUM CHLORIDE 0.9% 1000ML 1,000 ML IV SCH (20:45)
--- NOTE | 2020-11-26 20:54 | XRay Report ---
XR chest 1V portable HISTORY: weakness COMPARISON: Chest 04/18/2019. FINDINGS: The lungs are hyperexpanded with apical predominant emphysematous changes. No pneumothorax. There are small bilateral pleural effusions. Mild diffuse interstitial thickening is noted consisten t with mild pulmonary edema. There is a small patchy airspace opacity within the right lung base. The heart remains mildly enlarged. IMPRESSION: 1. Cardiomegaly, small bilateral pleural fusions, and mild pulmonary edema. 2. Small patchy airspace opacity within the right lung base. This may represent a focal pneumonitis. 3. Hazy appearance of the right upper lobe could be due to chronic interstitial change. 4. Emphysema. ACT 112: Negative or not required by law. Electronically signed by: Justin Jackson M.D. 11/26/2020 8:53 PM
[2020-11-26 21:20] LABS: Hematocrit (blood only) 30.6 % (37-47); Mean Corpuscular Hemoglobin 28.6 pg (25-34); Mean Corpuscular Hgb Conc 32.7 g/dL (32-36); Mean Corpuscular Volume 87.4 fL (80-100); Mean Platelet Volume 9.5 fL (7.4-10.4); Nucleated RBC # (auto) 0.07 K/uL (0-0); Nucleated RBC % (auto) 0.3 %; Platelet Count 310 K/uL (130-400); RDW Coefficient of Variation 16.6 % (11.5-14.5); RDW Standard Deviation 53.2 fL (36.4-46.3); White Blood Count 27.46 K/uL (4.8-10.8)
[2020-11-26] MEDS ORDERED: VANCOMYCIN HCL 1,000 MG in SODIUM CHLORIDE 0.9% 500 ML IV ONE (21:36)
[2020-11-26] MEDS ORDERED: PIPERACILL/TAZOBAC CONSULT ACTIVE PRN (21:36)
[2020-11-26] MEDS ORDERED: VANCOMYCIN CONSULT ACTIVE PRN (21:36)
[2020-11-26] MEDS ORDERED: PIPERACILLIN/TAZOBACTAM 4.5 GM/120 ML BAG IV ONE (21:36)
[2020-11-26] MEDS ORDERED: LACTATED RINGER'S 250 ML IV ONE (21:36)
--- NOTE | 2020-11-26 21:38 | Emergency Department Note ---
Impression & Plan Weakness, Atrial fibrillation, Pneumonia, Sepsis, Acute and chronic respiratory failure with hypoxia ED Provider Note Provider: Otis Campo MD DATE OF SERVICE: 11/26/2020 CHIEF COMPLAINT: Weakness, dehydration HISTORY OF PRESENT ILLNESS: Patient is a 85-year-old female presenting via [facility] from [facility] today reportedly the last 2 weeks has been declining but particular last 2 to 3 days per the son not seen like her self and is talked with her on the phone and been more quiet and sometimes confused. Patient is now on increased oxygen from a baseline around 2 L to 3 L. Nursing on the patient covered in stool when she arrived. Patient is somewhat difficult to get a history from and is very quiet and hard to understand. Moving all extremities and following commands. No trauma has been reported. Records indicate they have been treating her some azithromycin for possible infection. Patient has been on some steroids from the records as well as continuing on home Lasix there. Patient states she is had some chest tightness at times a little bit of an upset stomach but is unable to describe further. Patient states he did do blood work a few days ago at the facility. Records indicates she had basic blood work done on the . Per report no fevers have been reported. Son is present at bedside and states his mother just looks much worse than normal and his daughter self. He reports that the patient would not want CPR or intubation be okay with IV fluids and antibiotics. REVIEW OF SYSTEMS: A total of 10 review of systems was obtained and negative except as stated above in the HPI. PAST MEDICAL HISTORY: As noted above MEDICATIONS: Reviewed medication list from the facility SOCIAL HISTORY: Resides at [facility], PHYSICAL EXAM: GENERAL: alert looking around in room in no acute distress. Oriented that she is in the hospital and to general recent events. Head: normocephalic and atraumatic EYES: No injection, discharge or icterus. NECK: Trachea midline. Supple. ENT: Mucous membranes pink however dry appearing LUNGS: Airway patent. No retractions. Breath sounds with some scattered wheeze diminished in the bases HEART: Irregular tachycardic rate and rhythm. No chest wall tenderness ABDOMEN: Soft and non-tender, without guarding or rebound. SKIN: Acyanotic, warm, dry, without rashes EXTREMITIES: Without swelling, tenderness or deformity NEUROLOGICAL: No focal deficits moving all extremities. No facial droop however the patient is significantly dysarthric and is hard to interpret much of her speech. EK bpm atrial fibrillation with rapid ventricular response with PVC. Incomplete right bundle branch block. No acute ST segment elevation with some V5 V6 T wave flattening. In comparison to previous from April [id number] to more lateral T wave inversions and flattening. CONTINUOUS CARDIAC MONITORING: was ordered and showed a heart rate of 90s-110s bpm in atrial fibrillation Patient's laboratory studies and imaging reviewed. Differential includes Infection, dehydration, metabolic abnormality, hypo/hyperglycemia, electrolyte disturbance, anemia, hypoxia, cardiac sources, intracerebral event, toxicologic, neurologic, as well as other pathologies. IMPRESSION/MEDICAL DECISION MAKING: Patient presents with decline over the past 2 weeks now with worsening hypoxia. Work-up here included EKG, chest x-ray, blood work, as well as a CT of the head. Significant leukocytosis of 27.4 is noted. Question of some pneumonia on the x-ray. Patient now with some hypoxia. Anticoagulant Eliquis and lower suspicion for PE given this. Benign abdomen and doubt acute intra-abdominal pathology given this exam. Patient appears significantly dry on exam and given IV fluid hydration. Lactate not significantly elevated today. Covid test was sent as well as flu testing. Given concern for bacterial infection broad- spectrum Zosyn and vancomycin were given given her risk factors and that [facility] the head per stat rad without significant abnormality. The patient's has some weakness and some dysarthria confusion believe there is likely more metabolic and infectious related rather than acute CVA. She is obviously outside of any range for TPA given the slow onset of her symptoms. Again low suspicion for stroke. Patient's initial EKG and exam shows some A. fib RVR with question of some lateral ST flattening and slight depression. Troponin slightly elevated likely related to demand and dehydration. Patient denies pain but does report a little bit of tightness. Rate control improved with fluid hydration here. Patient already anticoagulated on Eliquis. Did order 30 mL/kg of IV fluid hydration. Patient did begin to desaturate and IV fluids were slowed midway through bolus given this which he tolerated. Placed on increased oxygen. No significant s evere anemia right now but some black stools reported by nursing prior to arrival and will Hemoccult further stools. Again received broad-spectrum antibiotics. Will admit to the hospital for further evaluation hopefully her mental status and weakness and hypoxia improved with treatment here. Hosp italist contacted. Updated son via phone. Son states patient would be okay with high flow or BiPAP but not intubation or CPR. DIAGNOSIS: Weakness, pneumonia, sepsis, dehydration DISPOSITION: Hospitalist will evaluate Critical Care I have personally spent 32 minutes of critical care time in the direct management of this patient. This includes bedside care, interpretation of diagnostic studies, and testing, discussion with consultants, patient, and family members, and other required patient management activities. These 32 minutes is in excess of all separately billable procedures. Preliminary Findings Only See Final Report For Complete Findings CT HEAD: Comparison is made to CT face on 03/18/2018. No definite other acute intracranial abnormality identified. Chronic small vessel ischemic disease and cerebral volume loss. 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 Bilateral lens implants. Atherosclerotic calcifications in the intracranial vasculature. Radiologist: Bhupinder Quezada M.D. Study ready at 21:57 and initial results transmitted at 22:13 Past Med/Surg History Medical History (Updated 11/26/20 @ 22:22 by Otis Campo M.D.) Atrial fibrillation COPD (chronic obstructive pulmonary disease) ABHISHEK (generalized anxiety disorder) GERD (gastroesophageal reflux disease) Hypertension Hypoalbuminemia Hyponatremia Tobacco abuse Surgical History History of carpal tunnel release Family History Other Family history non-contributory Social History Smoking Status: Unknown if ever smoked Hx Alcohol Use: No Hx Substance Use: No Preferred Language: Polish Communication Ability: Effective 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 Beliefs That Will Affect Care: None marital status: / Current Living Situation: Intermediate Current Living Situation Comment: Pt lives at [facility] current occupational status: retired Feels Safe at Home: Yes Assistive Devices: Denture - Upper, Denture - Lower, Glasses and Oxygen - Continuous Allergies Allergies Allergy/AdvReac Type Severity Reaction Status Date / Time doxycycline Allergy Unknown Verified 11/26/20 22:45 iodine Allergy Unknown Uncoded 11/26/20 22:44 Home Meds Home Medications Medication Instructions Recorded Confirmed acetaminophen 650 mg PO Q6 PRN 11/26/20 11/26/20 apixaban 2.5 mg PO BID 11/26/20 11/26/20 azithromycin 250 mg PO MOWEFR 11/26/20 11/26/20 buspirone 7.5 mg PO BID 11/26/20 11/26/20 cholecalciferol (vitamin D3) 50 mcg PO DAILY 11/26/20 11/26/20 [Vitamin D3] dextromethorphan-guaifenesin 5 ml PO Q6H PRN 11/26/20 11/26/20 [Robitussin DM Max] diltiazem HCl 240 mg PO DAILY 11/26/20 11/26/20 docusate sodium [Colace] 200 mg PO BID 11/26/20 11/26/20 fluticasone propion-salmeterol 1 inh INHALATION BID 11/26/20 11/26/20 furosemide [Lasix] 20 mg PO DAILY 11/26/20 11/26/20 ipratropium-albuterol 3 ml INHALATION QID 11/26/20 11/26/20 isosorbide dinitrate 20 mg PO BID 11/26/20 11/26/20 levothyroxine [Synthroid] 50 mcg PO DAILY 11/26/20 11/26/20 losartan 50 mg PO DAILY 11/26/20 11/26/20 multivitamin 1 tab PO DAILY 11/26/20 11/26/20 polyethylene glycol 3350 [Miralax] 17 g PO .ODD DAYS 11/26/20 11/26/20 potassium chloride 10 meq PO DAILY 11/26/20 11/26/20 prednisone 5 mg PO DAILY 11/26/20 11/26/20 quetiapine [Seroquel] 25 mg PO HS 11/26/20 11/26/20 sertraline [Zoloft] 125 mg PO DAILY 11/26/20 11/26/20 tiotropium bromide [Spiriva with 1 cap INHALATION DAILY 11/26/20 11/26/20 HandiHaler] Results & Data (ED) Vital Signs Vital Signs - 24 hr 11/26/20 20:31 11/26/20 20:49 11/26/20 20:57 Temperature 37.1 C Temperature Source Oral Pulse Rate 112 H 111 H Pulse Rate [Apical] 112 H Pulse Rate from SpO2 Sensor 117 H 114 H Pulse Rhythm Irregular Pulse Strength Normal Respiratory Rate 36 H 30 H 24 Respiratory Effort / Characteristics Non-Labored Spontaneous Respiratory Depth Normal Respiratory Pattern Regular Blood Pressure 128/70 Blood Pressure Mean 89 Blood Pressure Position Lying Pulse Oximetry 92 91 92 Oxygen Delivery Method Nasal Cannula Nasal Cannula Oxygen Flow Rate 3 3 Sepsis Recent Fever Within 48 Hours No Sepsis New/Unexplained Change in Mental Status N/A Sepsis Action Taken by Nursing No Action Required 11/26/20 21:00 11/26/20 21:38 11/26/20 22:00 Temperature Temperature Source Pulse Rate 116 H 109 H 107 H Pulse Rate [Apical] Pulse Rate from SpO2 Sensor 112 H 107 H 175 H Pulse Rhythm Pulse Strength Respiratory Rate 31 H 23 23 Respiratory Effort / Characteristics Respiratory Depth Respiratory Pattern Blood Pressure Blood Pressure Mean Blood Pressure Position Pulse Oximetry 93 Oxygen Delivery Method Oxygen Flow Rate Sepsis Recent Fever Within 48 Hours Sepsis New/Unexplained Change in Mental Status Sepsis Action Taken by Nursing 11/26/20 22:09 11/26/20 22:12 11/26/20 22:30 Temperature Temperature Source Pulse Rate 109 H 99 H Pulse Rate [Apical] Pulse Rate from SpO2 Sensor 105 H 103 H Pulse Rhythm Pulse Strength Respiratory Rate Respiratory Effort / Characteristics Respiratory Depth Respiratory Pattern Blood Pressure 100/62 134/70 Blood Pressure Mean 74 91 Blood Pressure Position Pulse Oximetry 98 98 Oxygen Delivery Method Oxymask Oxygen Flow Rate 6 Sepsis Recent Fever Within 48 Hours Sepsis New/Unexplained Change in Mental Status Sepsis Action Taken by Nursing 11/26/20 22:31 11/26/20 23:05 Temperature Temperature Source Pulse Rate 102 H 91 H Pulse Rate [Apical] Pulse Rate from SpO2 Sensor 99 H 97 H Pulse Rhythm Pulse Strength Respiratory Rate 35 H Respiratory Effort / Characteristics Respiratory Depth Respiratory Pattern Blood Pressure 117/69 Blood Pressure Mean 85 Blood Pressure Position Pulse Oximetry 100 94 Oxygen Delivery Method Oxymask Oxygen Flow Rate 6 Sepsis Recent Fever Within 48 Hours Sepsis New/Unexplained Change in Mental Status Sepsis Action Taken by Nursing Laboratory Data Result diagrams: 11/26/20 20:59 11/26/20 20:59 Lab Results 11/26/20 11/26/20 11/26/20 Range/Units 20:59 20:59 20:59 WBC 27.46 H (4.8-10.8) K/uL RBC 3.50 L (4.2-5.4) M/uL Hgb 10.0 L (12.0-16.0) g/dL Hct 30.6 L (37-47) % MCV 87.4 (80-100) fL MCH 28.6 (25-34) pg MCHC 32.7 (32-36) g/dL RDW Std Deviation 53.2 H (36.4-46.3) fL RDW Coeff of Particio 16.6 H (11.5-14.5) % Plt Count 310 (130-400) K/uL MPV 9.5 (7.4-10.4) fL Immature Gran % (Auto) 0.4 % Neut % (Auto) 92.6 % Lymph % (Auto) 3.4 % Island % (Auto) 3.6 % Eos % (Auto) 0.0 % Baso % (Auto) 0.0 % Neut # (Auto) 25.43 H (1.4-6.5) K/uL Lymph # (Auto) 0.92 L (1.2-3.4) K/uL Island # (Auto) 0.98 H (0.11-0.59) K/uL Eos # (Auto) 0.00 (0-0.5) K/uL Baso # (Auto) 0.01 (0-0.2) K/uL Immature Gran # (Auto) 0.12 H (0.00-0.02) K/uL Absolute Nucleated RBC 0.07 H (0-0) K/uL Nucleated RBC % (auto) 0.3 % PT 11.7 (9.0-12.0) Seconds INR 1.2 H (0.9-1.1) Sodium (136-145) mmol/L Potassium (3.5-5.1) mmol/L Chloride (98-107) mmol/L Carbon Dioxide (21-32) mmol/L Anion Gap (3-11) BUN (7-18) mg/dl Creatinine (0.6-1.2) mg/dl Est Cr Clr Drug Dosing ml/min Est GFR ( Amer) Est GFR (Non-Af Amer) BUN/Creatinine Ratio (10-20) Glucose (70-99) mg/dl Lactate (0.4-2.0) mmol/L Calcium (8.5-10.1) mg/dl Magnesium (1.8-2.4) mg/dl Total Bilirubin (0.2-1) mg/dl AST (15-37) U/L ALT (12-78) U/L Alkaline Phosphatase (45-117) U/L Total Creatine Kinase (26-192) U/L Troponin I (0-0.045) ng/ml Total Protein (6.4-8.2) gm/dl Albumin (3.4-5.0) gm/dl Globulin (2.5-4.0) gm/dl Albumin/Globulin Ratio (0.9-2) Lipase (73-393) U/L TSH (0.300-4.500) uIu/ml COVID-19 Eval Order SARS-CoV-2 (PCR) (Negative) Influenza Type A (PCR) (Neg) Influenza Type B (PCR) (Neg) RSV (RT-PCR) (Neg) Blood Type A Positive Antibody Screen NEGATIVE 11/26/20 11/26/20 11/26/20 Range/Units 20:59 20:59 21:11 WBC (4.8-10.8) K/uL RBC (4.2-5.4) M/uL Hgb (12.0-16.0) g/dL Hct (37-47) % MCV (80-100) fL MCH (25-34) pg MCHC (32-36) g/dL RDW Std Deviation (36.4-46.3) fL RDW Coeff of Patricio (11.5-14.5) % Plt Count (130-400) K/uL MPV (7.4-10.4) fL Immature Gran % (Auto) % Neut % (Auto) % Lymph % (Auto) % Island % (Auto) % Eos % (Auto) % Baso % (Auto) % Neut # (Auto) (1.4-6.5) K/uL Lymph # (Auto) (1.2-3.4) K/uL Island # (Auto) (0.11-0.59) K/uL Eos # (Auto) (0-0.5) K/uL Baso # (Auto) (0-0.2) K/uL Immature Gran # (Auto) (0.00-0.02) K/uL Absolute Nucleated RBC (0-0) K/uL Nucleated RBC % (auto) % PT (9.0-12.0) Seconds INR (0.9-1.1) Sodium 139 (136-145) mmol/L Potassium 4.1 (3.5-5.1) mmol/L Chloride 95 L (98-107) mmol/L Carbon Dioxide 40 H (21-32) mmol/L Anion Gap 4.0 (3-11) BUN 62 H (7-18) mg/dl Creatinine 1.24 H (0.6-1.2) mg/dl Est Cr Clr Drug Dosing 27.1 ml/min Est GFR ( Amer) 46.2 Est GFR (Non-Af Amer) 39.9 BUN/Creatinine Ratio 49.9 H (10-20) Glucose 105 H (70-99) mg/dl Lactate 1.3 (0.4-2.0) mmol/L Calcium 10.9 H (8.5-10.1) mg/dl Magnesium 2.3 (1.8-2.4) mg/dl Total Bilirubin 0.8 (0.2-1) mg/dl AST 20 (15-37) U/L ALT 32 (12-78) U/L Alkaline Phosphatase 77 (45-117) U/L Total Creatine Kinase 49 (26-192) U/L Troponin I 0.049 H* (0-0.045) ng/ml Total Protein 6.5 (6.4-8.2) gm/dl Albumin 2.8 L (3.4-5.0) gm/dl Globulin 3.7 (2.5-4.0) gm/dl Albumin/Globulin Ratio 0.8 L (0.9-2) Lipase 33 L (73-393) U/L TSH 4.060 (0.300-4.500) uIu/ml COVID-19 Eval Order CovFluRsv at [facility] SARS-CoV-2 (PCR) (Negative) Influenza Type A (PCR) (Neg) Influenza Type B (PCR) (Neg) RSV (RT-PCR) (Neg) Blood Type Antibody Screen 11/26/20 Range/Units 21:11 WBC (4.8-10.8) K/uL RBC (4.2-5.4) M/uL Hgb (12.0-16.0) g/dL Hct (37-47) % MCV (80-100) fL MCH (25-34) pg MCHC (32-36) g/dL RDW Std Deviation (36.4-46.3) fL RDW Coeff of Patricio (11.5-14.5) % Plt Count (130-400) K/uL MPV (7.4-10.4) fL Immature Gran % (Auto) % Neut % (Auto) % Lymph % (Auto) % Island % (Auto) % Eos % (Auto) % Baso % (Auto) % Neut # (Auto) (1.4-6.5) K/uL Lymph # (Auto) (1.2-3.4) K/uL Island # (Auto) (0.11-0.59) K/uL Eos # (Auto) (0-0.5) K/uL Baso # (Auto) (0-0.2) K/uL Immature Gran # (Auto) (0.00-0.02) K/uL Absolute Nucleated RBC (0-0) K/uL Nucleated RBC % (auto) % PT (9.0-12.0) Seconds INR (0.9-1.1) Sodium (136-145) mmol/L Potassium (3.5-5.1) mmol/L Chloride (98-107) mmol/L Carbon Dioxide (21-32) mmol/L Anion Gap (3-11) BUN (7-18) mg/dl Creatinine (0.6-1.2) mg/dl Est Cr Clr Drug Dosing ml/min Est GFR ( Amer) Est GFR (Non-Af Amer) BUN/Creatinine Ratio (10-20) Glucose (70-99) mg/dl Lactate (0.4-2.0) mmol/L Calcium (8.5-10.1) mg/dl Magnesium (1.8-2.4) mg/dl Total Bilirubin (0.2-1) mg/dl AST (15-37) U/L ALT (12-78) U/L Alkaline Phosphatase (45-117) U/L Total Creatine Kinase (26-192) U/L Troponin I (0-0.045) ng/ml Total Protein (6.4-8.2) gm/dl Albumin (3.4-5.0) gm/dl Globulin (2.5-4.0) gm/dl Albumin/Globulin Ratio (0.9-2) Lipase (73-393) U/L TSH (0.300-4.500) uIu/ml COVID-19 Eval Order SARS-CoV-2 (PCR) NEGATIVE (Negative) Influenza Type A (PCR) Negative (Neg) Influenza Type B (PCR) Negative (Neg) RSV (RT-PCR) Negative (Neg) Blood Type Antibody Screen Administered Medications Vancomycin HCl 1,000 mg/ (Sodium Chloride) 520 mls @ 200 mls/hr IV NOW ONE Stop: 11/27/20 00:11 Last Admin: 11/26/20 22:48 Dose: 200 mls/hr Documented by: [id number] Discontinued Medications Albuterol (Albut/Ipratrop 3mg/0.5mg Neb 3 Ml Vial) 3 ml NEB NOW STA Stop: 11/26/20 20:40 Last Admin: 11/26/20 20:57 Dose: 3 ml Documented by: [id number] Sodium Chloride (Nss 1000ml) 1,000 mls @ 999 mls/hr IV .Q1H1M CALVIN Stop: 11/26/20 21:45 Last Infusion: 11/26/20 22:17 Dose: 0 mls/hr Documented by: [id number] Admin: 11/26/20 21:09 Dose: 999 mls/hr Documented by: [id number] Piperacillin Sod/Tazobactam Sod (Zosyn) 4.5 gm in 120 mls @ 240 mls/hr IV NOW ONE Stop: 11/26/20 22:05 Last Infusion: 11/26/20 22:46 Dose: 0 mls/hr Documented by: [id number] Admin: 11/26/20 22:00 Dose: 240 mls/hr Documented by: [id number] Discharge Plan Visit Data Chief Complaint: Altered Mental Status Stated Complaint: lethary; hypoxia ED Provider: Otis Campo Discharge Problem: Weakness, Atrial fibrillation, Pneumonia, Sepsis, Acute and chronic respiratory failure with hypoxia Patient Disposition: Being Evaluated by Hospitalist Forms Stand Alone Forms: [facility] Prescriptions Prescriptions: No Action azithromycin 250 mg Tablet 250 mg PO MOWEFR RF: 0 diltiazem HCl 240 mg Capsule,Extended Release 24 Hr 240 mg PO DAILY RF: 0 furosemide [Lasix] 20 mg Tablet 20 mg PO DAILY RF: 0 multivitamin Tablet 1 tab PO DAILY RF: 0 losartan 50 mg Tablet 50 mg PO DAILY RF: 0 quetiapine [Seroquel] 25 mg Tablet 25 mg PO HS RF: 0 potassium chloride 10 mEq Capsule, Extended Release 10 meq PO DAILY RF: 0 acetaminophen 325 mg Tablet 650 mg PO Q6 PRN (Reason: Fever Or Pain) RF: 0 ipratropium-albuterol 0.5 mg-3 mg(2.5 mg base)/3 mL Solution For Nebulization 3 ml INHALATION QID RF: 0 polyethylene glycol 3350 [Miralax] 17 gram Powder In Packet 17 g PO .ODD DAYS RF: 0 prednisone 5 mg Tablet 5 mg PO DAILY RF: 0 Robitussin DM Max 10-200 mg/5 mL Liquid 5 ml PO Q6H PRN (Reason: Cough) RF: 0 levothyroxine [Synthroid] 50 mcg Tablet 50 mcg PO DAILY RF: 0 isosorbide dinitrate 20 mg Tablet 20 mg PO BID RF: 0 docusate sodium [Colace] 100 mg Capsule 200 mg PO BID RF: 0 Spiriva with HandiHaler 18 mcg Capsule, W/Inhalation Device 1 cap INHALATION DAILY RF: 0 cholecalciferol (vitamin D3) [Vitamin D3] 50 mcg (2,000 unit) Tablet 50 mcg PO DAILY RF: 0 fluticasone propion-salmeterol 232-14 mcg/actuation Aero Powdr Breath Act W/Sensor 1 inh INHALATION BID RF: 0 sertraline [Zoloft] 100 mg Tablet 125 mg PO DAILY RF: 0 buspirone 15 mg Tablet 7.5 mg PO BID RF: 0 apixaban 2.5 mg Tablet 2.5 mg PO BID RF: 0 Referrals Referrals: [facility] [Primary Care Provider] - Discharge Problem: Atrial fibrillation Qualifiers: Atrial fibrillation type: unspecified Qualified Code(s): I48.91 - Unspecified atrial fibrillation Pneumonia Qualifiers: Pneumonia type: due to unspecified organism Laterality: unspecified laterality Lung location: unspecified part of lung Qualified Code(s): J18.9 - Pneumonia, unspecified organism Sepsis Qualifiers: Sepsis type: sepsis due to unspecified organism Sepsis acute organ dysfunction status: with acute organ dysfunction Severe sepsis acute organ dysfunction type: encephalopathy Severe sepsis shock status: without septic shock Qualified Code(s): A41.9 - Sepsis, unspecified organism
[2020-11-26 21:39] LABS: Albumin Level 2.8 gm/dl (3.4-5.0); BUN Creatinine Ratio 49.9 (10-20); Calcium 10.9 mg/dl (8.5-10.1); Creatinine Clr Calc Pharmacy 27.1 ml/min; Est GFR (African American) 46.2; Est GFR (Non-African American) 39.9; Magnesium 2.3 mg/dl (1.8-2.4); Potassium 4.1 mmol/L (3.5-5.1)
[2020-11-26 21:50] LABS: INR 1.2 (0.9-1.1); Prothrombin Time 11.7 Seconds (9.0-12.0)
[2020-11-26 21:53] LABS: Albumin Globulin Ratio 0.8 (0.9-2); Bilirubin,Total 0.8 mg/dl (0.2-1); Globulin 3.7 gm/dl (2.5-4.0); Thyroid Stimulating Hormone 4.06 uIu/ml (0.300-4.500); Total Protein 6.5 gm/dl (6.4-8.2); Troponin I 0.049 ng/ml (0-0.045)
[2020-11-26 21:57] LABS: Influenza A virus by PCR Negative (Neg); Influenza B virus by PCR Negative (Neg); RSV by PCR Negative (Neg); SARS CoV2 RNA(COVID-19) InHosp NEGATIVE (Negative)
[2020-11-26] MEDS: LACTATED RINGER'S 500 ML IV ONE (22:17)
[2020-11-26 22:20] LABS: Basophils # (auto) 0.01 K/uL (0-0.2); Immature Granulocytes # (auto) 0.12 K/uL (0.00-0.02); Immature Granulocytes % (auto) 0.4 %; Lymphocytes # (auto) 0.92 K/uL (1.2-3.4); Lymphocytes % (auto) 3.4 %; Monocytes # (auto) 0.98 K/uL (0.11-0.59); Monocytes % (auto) 3.6 %; Neutrophils # (auto) 25.43 K/uL (1.4-6.5); Neutrophils % (auto) 92.6 %
[2020-11-27] MEDS: LACTATED RINGER'S 500 ML IV ONE (01:26)
[2020-11-27] MEDS ORDERED: NITROGLYCERIN SL 0.4 MG/TAB TAB SL PRN (03:55)
[2020-11-27] MEDS ORDERED: POLYETHYLENE (MIRALAX) 17 GM PACK PO PRN (03:55)
[2020-11-27] MEDS ORDERED: ACETAMINOPHEN 325 MG TAB PO PRN (03:55)
[2020-11-27] MEDS ORDERED: ONDANSETRON INJ 2 MG/ML 2 ML VIAL IV PRN ×2 (03:55→16:44)
[2020-11-27] MEDS ORDERED: guaiFENesin/DEXTROM SYRUP 100MG/10MG 5ML UDC PO PRN (04:24)
[2020-11-27] MEDS ORDERED: INFLUENZA VACCINE HIGH DOSE 65+ 0.7 ML SYR IM ONE (04:45)
[2020-11-27] MEDS: D5W AND NSS 1,000 ML IV SCH ×3 (04:54→23:40)
[2020-11-27] MEDS ORDERED: PIPERACILLIN/TAZOBACTAM 3.375 GM in DEXTROSE 5% 100 ML IV ONE (05:00)
[2020-11-27] MEDS ORDERED: LEVOTHYROXINE SODIUM 50 MCG TABLET PO SCH (06:30)
--- NOTE | 2020-11-27 06:50 | History and Physical Report ---
DATE OF ADMISSION: 11/27/2020 CHIEF COMPLAINT: Shortness of breath. HISTORY OF PRESENT ILLNESS: This is an 85-year-old female with past medical history significant for severe COPD, on 2 liters oxygen and steroids; chronic CHF; diastolic valvular heart disease; atrial fibrillation, on anticoagulation; anxiety; prior tobacco abuse; hypertension; currently a [facility] senior living facility patient. Presents with shortness of breath and weakness. As per fdc, the patient has been declining since the last two weeks, has been feeling weak. Appetite has come down. Generally, she is on regular food. Ambulates without any support, but lately requiring some support for ambulation because has been getting weaker and she got short of breath today and oxygen saturation was only 88% on 3lts when it was decided to send her to the hospital. She is DNR/DNI. When she came in, she was slightly in rapid AFib, that got resolved. Her white count was 27,000, hemoglobin 10, creatinine 1.24. Troponin was 0.04. Stool occult blood was positive. SARS-CoV-2, influenza A and B, and RSV were negative. CT of the head, no acute findings. Chest x-ray, small patchy airspace opacity of the right lung base. EKG is showing rapid AFib at the rate of 106. The patient is speaking in very low voice, just could tell her name, could tell that she is in the hospital. She says breathing is better than what it was before. Denies any chest pain, denies any abdominal pain, denies any nausea. As per fdc, there is no cough, no fever, no chills, no diarrhea. As per son she seems very weak because she is not eating anything for the last couple of days. Could not get any history from the patient as patient is somewhat confused, weak, and mumbling in a low voice. ALLERGIES: DOXYCYCLINE, IODINE. PAST MEDICAL HISTORY: As mentioned above. PAST SURGICAL HISTORY: Significant for carpal tunnel release. FAMILY HISTORY: No family history on file. SOCIAL HISTORY: Smoked 1 pack a day of cigarettes. No alcohol use, no drug use. , currently living at [facility]. REVIEW OF SYSTEMS: Unobtainable at this time. PHYSICAL EXAMINATION: GENERAL: The patient is old and frail, not in acute distress, somewhat confused. VITAL SIGNS: Temperature 36.9, pulse 93, respiratory rate 24, blood pressure 117/79, oxygen 98% on OxyMask 6 liters. HEENT: Pupils equal, round, and reactive to light. Oral mucosa somewhat dry. NECK: No JVD, no neck masses seen. CARDIOVASCULAR: S1, S2 heard. Regular rate and rhythm, no murmur, no gallop. RESPIRATORY SYSTEM: Normal AP diameter. No accessory muscle use. Bilateral mild rhonchi heard. No wheezing. ABDOMEN: Soft, bowel sounds present, nontender, nondistended. CENTRAL NERVOUS SYSTEM: Alert and awake, oriented to name and place. Obeys simple commands. Moves extremities. EXTREMITIES: No edema or erythema. LABORATORY DATA: WBC is 27.4, hemoglobin 10, hematocrit 30.6, platelets 310, PT 11.7, INR 1.2. Sodium 139, potassium 4.1, chloride 95, bicarbonate 40, BUN 62, creatinine 1.2, serum glucose 105, lactate 1.3, calcium 10.9, magnesium 2.3, total bilirubin 0.8, AST 20, ALT 32, alkaline phosphatase 77, total creatinine kinase 49, troponin I of 0.04. Lipase 33. TSH 4.06. Stool occult blood screen positive. SARS-CoV-2 PCR negative. Influenza A and B PCR negative. RSV PCR negative. IMAGING DATA: CT of the head, preliminary report, no acute findings. Chest x-ray, small patchy airspace opacity within the right lung base. This may represent focal pneumonitis. Mild pulmonary edema, small bilateral pleural effusions. EKG: Atrial fibrillation with rapid ventricular response with PVCs at a rate of 106, no acute ST changes seen. ASSESSMENT AND PLAN: This is an 85-year-old female who presents with confusion, weakness, shortness of breath, and found to have pneumonia. 1. Confusion, shortness of breath, hypoxia, most likely secondary to pneumonia. Has Significant leukocytosis. COVID , RSV and influenza are negative. We will treat with IV antibiotics of vancomycin and Zosyn. The patient is on azithromycin 3 times a week, which will be continued. Follow the cultures .IV fluids. Continue her home inhalers and nebs and closely monitor in the tele floor. If not improving, will consult pulmonary.Will follow Ct chest. 2. Chronic diastolic congestive heart failure, valvular heart disease: The patient is getting fluids. Monitor for any volume overload. The patient has moderate to severe valvular aortic stenosis, severe tricuspid regurgitation. Continue her home Lasix and losartan and nitrate. On potassium supplement. 3. History of atrial fibrillation: Continue her diltiazem and Eliquis. We will monitor the heart rates. 4. Questionable pleural effusions on the chest x-ray. We will get a CT of the chest. 5. Clay cr 1.2. on fluids. follow repeat labs. If worsens will hold lasix. 6. Anemia. hb 10.Baseline hb around 12. hemeoccult positive. Will follow iron studies. vitamin b12 and folate levels. Consulted GI 7. History of prolonged QTc: today EKG. QTc is 435. We will monitor. 8. History of severe chronic obstructive pulmonary disease with chronic hypoxic respiratory failure, on home oxygen 2 liters, currently [id number] respiratory failure secondary to pneumonia, mild chronic obstructive pulmonary disease exacerbation. We will continue her home nebs and inhalers. We will hold her p.o. prednisone 5 mg daily and placed on IV Solu-Medrol 40 daily and taper to her to home prednisone 5 mg and monitor. 9. Mild elevation of troponin. Mostly demand ischemia from ongoing illness. will follow serial CE. 10. Hypertension: Continue her Cardizem, Imdur, and losartan. We will monitor the blood pressure. 11. Hypothyroidism: Continue Synthroid. 12. Depression: Continue Zoloft. 13. Deep venous thrombosis prophylaxis: On Eliquis. DISPOSITION: Closely monitor in the tele floor. Code status DNR/DNI as per my discussion with Zeyad and also the son. PT and OT prior to discharge. Social service to help with discharge planning. KASEY
[2020-11-27 07:12] LABS: Hematocrit (blood only) 27.5 % (37-47); Hemoglobin 8.7 g/dL (12.0-16.0); Mean Corpuscular Hemoglobin 28.2 pg (25-34); Mean Corpuscular Hgb Conc 31.6 g/dL (32-36); Mean Platelet Volume 9.3 fL (7.4-10.4); Nucleated RBC # (auto) 0.07 K/uL (0-0); Nucleated RBC % (auto) 0.3 %; Platelet Count 264 K/uL (130-400); RDW Coefficient of Variation 16.9 % (11.5-14.5); RDW Standard Deviation 55.1 fL (36.4-46.3); Red Blood Count 3.09 M/uL (4.2-5.4); White Blood Count 25.56 K/uL (4.8-10.8)
[2020-11-27] MEDS: ALBUT/IPRATROP 3MG/0.5MG NEB 3 ML VIAL INH SCH ×4 (07:14→19:37)
--- NOTE | 2020-11-27 07:17 | CT Scan Report ---
CT SCAN OF THE BRAIN WITHOUT IV CONTRAST CLINICAL HISTORY: Generalized weakness. COMPARISON STUDY: CT of the paranasal sinuses dated 03/18/2018. TECHNIQUE: Unenhanced axial CT scan of the brain is performed from the vertex to the skull base. A do se lowering technique was utilized adhering to the principles of ALARA. The patient was scanned twice due to motion artifact. CT DOSE: 1074.96 mGy.cm FINDINGS: Brain parenchyma: There are age-related involutional changes noting mild subcortical and periventric ular microangiopathic change. There is no hemorrhage, mass effect, or evidence of acute territorial i schemia by CT criteria. A chronic lacunar infarct is noted in the left thalamus. Scruggs-white matter di fferentiation is preserved. No extra-axial fluid collection is seen. Ventricles, sulci, cisterns: Prominent secondary to involutional change. Intracranial vasculature: There is atherosclerotic calcification of the cavernous carotid and vertebr al arteries. Calvarium: Unremarkable. Sinuses and mastoids: The visualized paranasal sinuses are clear. The mastoid air cells are well pneu matized. Orbits: The bony orbits are grossly intact. There are bilateral ocular lens implants. IMPRESSION: There is no hemorrhage, mass effect, or evidence of acute territorial ischemia by CT crit ershiv. ACT 112: Negative or not required by law. Electronically signed by: Oswald Horne M.D. 11/27/2020 7:16 AM
[2020-11-27 07:32] LABS: Basophils # (auto) 0.01 K/uL (0-0.2); Immature Granulocytes # (auto) 0.12 K/uL (0.00-0.02); Immature Granulocytes % (auto) 0.5 %; Lymphocytes # (auto) 0.42 K/uL (1.2-3.4); Lymphocytes % (auto) 1.6 %; Monocytes # (auto) 0.29 K/uL (0.11-0.59); Monocytes % (auto) 1.1 %; Neutrophils # (auto) 24.72 K/uL (1.4-6.5); Neutrophils % (auto) 96.8 %; Polychromasia 1+
[2020-11-27 07:49] LABS: Ferritin 47.1 ng/ml (8-388)
--- NOTE | 2020-11-27 08:07 | Gastrointestinal Consultation ---
Date of Consultation November 27, 2020 Assessment & Plan (1) Melena: ??Melena/ Anemia in the setting of exacerbation of severe COPD, elevated Troponins. At this time due to respiratory issues and murmur that sounds like significant , on anticoagulation - if not bleeding briskly, she is high risk for complications from anesthesia and would defer until optimized from a cardiorespiratory standpoint. Will continue to review chart, following peripherally. Please recall GI if cardiopulmonary status improves and pt with significant drop in Hb/Hct. Present on Admission?: Yes Supervising Physician Co-Signing Physician Notes I performed a history and physical examination of the patient today, including specifically on physical exam - soft abdomen. I have discussed the patient's management with the advanced practitioner. Please refer to the nurse practitioner's note for the documented findings and plan of care. patient is unresponsive on BiPAP. No overt ongoing GI bleeding. Patient was made DNR/DNI and family is pursuing palliative care. Recall Gi if needed. History of Present Illness Reason for Consultation: Heme positive stool, anemia Requesting Physician: Del Attending Physician: Deshawn Mathis MD History of Present Illness Ms. Britney Barlow is an 85 yr old female pt of Dr. Medina with a hx of severe COPD, chronically on 2 liters O2 and steroids; diastolic heart failure, ; A-fib on Apixaban, anxiety; prior tobacco abuse; HTN, who was transferred to [facility] from the [facility] for SOB weakness. On arrival, Hb 10 (down from 11 in September), and Hb further decreased to 8.7 this morning (no blood products received). BUN was also elevated at 62 (63 today).This morning, at 6AM, she passed a black loose pasty BM. She has leukoc ytosis: 27 on arrival, 25 this morning. She is COVID (-). Troponin is elevated x 2. She is requiring 12L O2 by BIPAP this morning - respirations 36/minute. On exam, She is very sedate, minimally responsive with tactile stimulation. Sbd is soft, and she does not seem tender. No record of any prior EGD/colonoscopies. Allergies Allergy/AdvReac Type Severity Reaction Status Date / Time doxycycline Allergy Unknown Verified 11/26/20 22:45 iodine Allergy Unknown Uncoded 11/26/20 22:44 Home Medications Medication Instructions Recorded Confirmed Type acetaminophen 650 mg PO Q6 PRN 11/26/20 11/26/20 History apixaban 2.5 mg PO BID 11/26/20 11/26/20 History azithromycin 250 mg PO MOWEFR 11/26/20 11/26/20 History buspirone 7.5 mg PO BID 11/26/20 11/26/20 History cholecalciferol (vitamin D3) 50 mcg PO DAILY 11/26/20 11/26/20 History [Vitamin D3] dextromethorphan-guaifenesin 5 ml PO Q6H PRN 11/26/20 11/26/20 History [Robitussin DM Max] diltiazem HCl 240 mg PO DAILY 11/26/20 11/26/20 History docusate sodium [Colace] 200 mg PO BID 11/26/20 11/26/20 History fluticasone propion-salmeterol 1 inh INHALATION BID 11/26/20 11/26/20 History furosemide [Lasix] 20 mg PO DAILY 11/26/20 11/26/20 History ipratropium-albuterol 3 ml INHALATION QID 11/26/20 11/26/20 History isosorbide dinitrate 20 mg PO BID 11/26/20 11/26/20 History levothyroxine [Synthroid] 50 mcg PO DAILY 11/26/20 11/26/20 History losartan 50 mg PO DAILY 11/26/20 11/26/20 History multivitamin 1 tab PO DAILY 11/26/20 11/26/20 History polyethylene glycol 3350 [Miralax] 17 g PO .ODD DAYS 11/26/20 11/26/20 History potassium chloride 10 meq PO DAILY 11/26/20 11/26/20 History prednisone 5 mg PO DAILY 11/26/20 11/26/20 History quetiapine [Seroquel] 25 mg PO HS 11/26/20 11/26/20 History sertraline [Zoloft] 125 mg PO DAILY 11/26/20 11/26/20 History tiotropium bromide [Spiriva with 1 cap INHALATION DAILY 11/26/20 11/26/20 History HandiHaler] Patient History Medical History (Updated 11/27/20 @ 10:25 by ESTELITA Cruz) Acute on chronic respiratory failure with hypoxia and hypercapnia Altered mental status Atrial fibrillation COPD (chronic obstructive pulmonary disease) ABHISHEK (generalized anxiety disorder) GERD (gastroesophageal reflux disease) Hypertension Hypoalbuminemia Hyponatremia Tobacco abuse Surgical History History of carpal tunnel release Family History Other Family history non-contributory Social History Smoking Status: Unknown if ever smoked Hx Alcohol Use: No Hx Substance Use: No Preferred Language: Japanese Communication Ability: Impaired Communication Ability Comment: confusion Lightning Rod Erector Required: No Beliefs That Will Affect Care: None marital status: / Current Living Situation: Skilled Nursing Current Living Situation Comment: Pt lives at [facility] current occupational status: retired Feels Safe at Home: Yes Assistive Devices: Denture - Upper, Denture - Lower, Glasses and Oxygen - Continuous Review of Systems Review of Systems: Not able to obtain ROS from the patient. Physical Exam Constitutional: + ill appearing (chronically), + thin and + frail appearing; no acute distress Eyes: PERRL, conjunctivae normal, anicteric sclerae ENMT: external ear and nose normal, oropharynx normal Neck: trachea midline, no thyromegaly Respiratory: no retractions Rapid resp at 36- 40/min;BIPAP with O2 at 12L/min, Lung sounds diminished throughout, mild scattered wheezing, no audible crackles. Cardiovascular: Rate/Rhythm: regular rate Heart Sounds: + murmur (3/6 systolic murmur consistent with ) Vessels: no JVD Gastrointestinal (Abdomen): normal bowel sounds, soft, nontender, no hepatosplenomegaly Skin: + dry skin; no rashes pale Neurologic: PERRL, EOMI, accommodation nl, no face palsy, no dysarthria Psychiatric: Motor Behavior: n tremor pt is very sedate - unable to assess mood Lymphatic: no cervical or axillary lymphadenopathy Results & Data ([facility]) Vital Signs (Past 12 Hours) Vital Signs Temp Pulse Pulse Resp BP BP Pulse Ox 11/27/20 07:12 92 H 11/27/20 03:39 36.9 C 93 H 24 117/79 98 11/27/20 02:34 90 31 H 115/67 92 11/27/20 01:31 98 H 36 H 118/69 94 11/27/20 01:24 93 H 23 115/61 94 11/27/20 00:30 101 H 23 114/87 95 11/27/20 00:21 105 H 30 H 107/82 96 11/26/20 23:44 97 H 32 H 121/59 L 95 11/26/20 23:05 91 H 35 H 117/69 94 11/26/20 22:31 102 H 100 11/26/20 22:30 99 H 134/70 98 11/26/20 22:12 109 H 100/62 11/26/20 22:09 98 11/26/20 22:00 107 H 23 11/26/20 21:38 109 H 23 11/26/20 21:00 116 H 31 H 93 11/26/20 20:57 112 H 24 92 11/26/20 20:49 111 H 30 H 91 11/26/20 20:31 37.1 C 112 H 36 H 128/70 92 Laboratory Results WBC 25, Hb 8.7, Hct 27, Plts 264, Na 139, K 4.1, BUN 62, cR 1.24 Diagnostic Findings CXR 11/26/20: 1. Cardiomegaly, small bilateral pleural fusions, and mild pulmonary edema. 2. Small patchy airspace opacity within the right lung base. This may represent a focal pneumonitis. 3. Hazy appearance of the right upper lobe could be due to chronic interstitial change. 4. Emphysema. CT head 11/26/20: here is no hemorrhage, mass effect, or evidence of acute territorial ischemia by CT criteria.
[2020-11-27] MEDS: ISOSORBIDE DINITRATE 20 MG TAB PO SCH ×2 (08:10→11:00)
[2020-11-27] MEDS: busPIRone 7.5 MG TAB PO SCH ×2 (08:10→20:52)
[2020-11-27] MEDS: DOCUSATE SODIUM 100 MG CAP PO SCH ×2 (08:11→20:52)
[2020-11-27] MEDS: guaiFENesin 600 MG TABCR PO SCH ×2 (08:11→20:52)
[2020-11-27 08:13] LABS: BUN Creatinine Ratio 40.1 (10-20); Creatinine Clr Calc Pharmacy 20.8 ml/min; Est GFR (African American) 34.5; Est GFR (Non-African American) 29.7; Magnesium 2.3 mg/dl (1.8-2.4); Potassium 4.3 mmol/L (3.5-5.1); Troponin I 0.054 ng/ml (0-0.045)
[2020-11-27] MEDS ORDERED: MoRPHine SULFATE 2 MG/ML CARP IV STA (08:18)
[2020-11-27 08:31] LABS: iSTAT Allen Test Pass; iSTAT Arterial Blood Gas HCO3 38 meg/L (19-24); iSTAT Arterial Blood Gas pCO2 79 mmHg (35-46); iSTAT Arterial Blood Gas pH 7.29 (7.35-7.45); iSTAT Arterial Blood Gas pO2 107 mmHg (80-95); iSTAT Carbon Dioxide > 40 mmol/L (24-31); iSTAT Site L Radial
--- NOTE | 2020-11-27 08:51 | XRay Report ---
SINGLE VIEW CHEST CLINICAL HISTORY: Respiratory failure. FINDINGS: 2 AP, portable, upright chest radiographs are compared to study dated 11/26/2020 and correla raphael with chest CT dated 08/03/2020. The examination is degraded by portable technique and patient rot ation. The heart is enlarged noting atherosclerotic calcification of the thoracic aorta. The pulmonar y vasculature appears congested. Advanced and edematous change and chronic interstitial thickening is similar to previous. There are small pleural effusions with bibasilar consolidation. Dense airspace consolidation is seen throughout the right upper lobe. This has increased from yesterday and is typic al appearance for pneumonia. No pneumothorax is seen. The skeletal structures are osteopenic. The bon y thorax is grossly intact. IMPRESSION: 1. Cardiomegaly and advanced emphysema with evidence of congestive failure. 2. There is increasing airspace consolidation throughout the right upper lobe that is typical in appe arance for pneumonia. Clinical correlation will be required and radiographic follow-up to resolution is recommended. 3. Small pleural effusions ACT 112: Negative or not required by law. Electronically signed by: Oswald Horne M.D. 11/27/2020 8:50 AM
[2020-11-27] MEDS ORDERED: FLUTICASONE/VILANTEROL 100/25MCG 14 PUFFS/INHALER INH SCH (09:00)
[2020-11-27] MEDS ORDERED: APIXABAN 2.5 MG TAB PO SCH (09:00)
[2020-11-27] MEDS ORDERED: LOSARTAN POTASSIUM 50 MG TAB PO SCH (09:00)
[2020-11-27] MEDS ORDERED: POLYETHYLENE (MIRALAX) 17 GM PACK PO SCH (09:00)
[2020-11-27] MEDS ORDERED: SERTRALINE HCL 50 MG TABLET PO SCH (09:00)
[2020-11-27] MEDS ORDERED: MULTIVITAMIN TAB PO SCH (09:00)
[2020-11-27] MEDS ORDERED: POTASSIUM CHLORIDE 10 MEQ TABCR PO SCH (09:00)
[2020-11-27] MEDS ORDERED: CHOLECALCIFEROL 1,000 UNITS 25 MCG TAB PO SCH (09:00)
[2020-11-27] MEDS ORDERED: AZITHROMYCIN 250 MG TAB PO SCH (09:00)
[2020-11-27] MEDS ORDERED: dilTIAZem HCL 240 MG CAPCR PO SCH (09:00)
[2020-11-27] MEDS ORDERED: predniSONE 5 MG TAB PO SCH (09:00)
[2020-11-27] MEDS ORDERED: FUROSEMIDE 20 MG TAB PO SCH (09:00)
[2020-11-27] MEDS ORDERED: UMECLIDINIUM BROMIDE 62.5MCG/BLISTER 7 PUFFS/INHALER INH SCH (09:00)
[2020-11-27] MEDS ORDERED: methylPREDNISolone 40 MG in SYRINGE 0 ML IV SCH (09:00)
[2020-11-27 09:10] LABS: Folate (Folic Acid) 9.8 ng/ml (>5.38)
[2020-11-27] MEDS ORDERED: MoRPHine SULFATE 2 MG/ML CARP IV PRN (09:15)
[2020-11-27] MEDS ORDERED: Nursing to Pharmacy Communication SCH (09:30)
[2020-11-27] MEDS ORDERED: ALBUT/IPRATROP 3MG/0.5MG NEB 3 ML VIAL NEB PRN (09:41)
[2020-11-27] MEDS ORDERED: PIPERACILLIN/TAZOBACTAM 3.375 GM in DEXTROSE 5% 100 ML IV SCH ×2 (10:00→20:00)
--- NOTE | 2020-11-27 10:00 | Pulmonary Consultation ---
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 She is encephalopathic related to her hypercapnia. Continue BiPAP given hypercapnic respiratory failure. Maintain saturations of 88 to 92%. Would avoid hyperoxia. Continue Solu-Medrol at this time. Zosyn is reasonable given the appearance of the right upper lobe infiltrate. Aspiration remains a possibility. Continue with aspiration precautions. MRSA screen was negative. Duo nebs as needed. Palliative care consultation is recommended given her advanced disease. I think it is completely appropriate for her to be a DO NOT RESUSCITATE and DO NOT INTUBATE at this time. Her overall prognosis is very poor. (2) Pneumonia: Laterality: unspecified laterality Lung location: unspecified part of lung Pneumonia type: due to unspecified organism Qualified Code(s): J18.9 - Pneumonia, unspecified organism (3) COPD exacerbation: (4) Altered mental status: History of Present Illness Reason for Consultation: Acute on chronic hypoxemic and hypercapnic respiratory failure Attending Physician: Deshawn Mathis MD History of Present Illness 85-year-old female with a past medical history of advanced COPD, chronic hypoxemic respiratory failure on supplemental oxygen, aortic stenosis, atrial fibrillation, CHF who resides in a nursing facility and presented yesterday due to shortness of breath and weakness. I am unable to obtain any history from the patient today and she is lethargic and unarousable. She is currently on BiPAP. Her ABG is noted and she is clearly in acute on chronic hypercapnic And hypoxemic respiratory failure with a PCO2 of 79. She has been seen previously by my colleagues Dr. Forman and Dr. Saha both in the hospital and here in the clinic setting. She was last seen by Dr. Forman on 05/03/2019 who at that time recommended palliative care involvement if her condition were to worsen given her advanced lung disease. He wanted to see her in 4 weeks after that clinic visit, but this does not appear to have occurred. Her white count is currently 25,000. Chest x-ray demonstrates right upper lobe infiltrate and advanced emphysema. Congestive heart failure seen as well. CT chest noted from 08/03/2020 which demonstrates complete atelectasis of the right middle lobe. I discussed the case with the patient's nurse who indicated the patient has been relatively unresponsive and hypoxemic. BiPAP was recently placed on the patient. Gastroenterology MARKING STITCHER was also at bedside who indicated the patient has had drop in hemoglobin and bloody appearing bowel movements. They are deferring endoscopic evaluation at this time given her respiratory failure. Additionally, her creatinine is elevated compared to baseline and is currently 1.58. Her baseline appears to be around 0.8. Allergies Allergy/AdvReac Type Severity Reaction Status Date / Time doxycycline Allergy Unknown Verified 11/26/20 22:45 iodine Allergy Unknown Uncoded 11/26/20 22:44 Home Medications Medication Instructions Recorded Confirmed Type acetaminophen 650 mg PO Q6 PRN 11/26/20 11/26/20 History apixaban 2.5 mg PO BID 11/26/20 11/26/20 History azithromycin 250 mg PO MOWEFR 11/26/20 11/26/20 History buspirone 7.5 mg PO BID 11/26/20 11/26/20 History cholecalciferol (vitamin D3) 50 mcg PO DAILY 11/26/20 11/26/20 History [Vitamin D3] dextromethorphan-guaifenesin 5 ml PO Q6H PRN 11/26/20 11/26/20 History [Robitussin DM Max] diltiazem HCl 240 mg PO DAILY 11/26/20 11/26/20 History docusate sodium [Colace] 200 mg PO BID 11/26/20 11/26/20 History fluticasone propion-salmeterol 1 inh INHALATION BID 11/26/20 11/26/20 History furosemide [Lasix] 20 mg PO DAILY 11/26/20 11/26/20 History ipratropium-albuterol 3 ml INHALATION QID 11/26/20 11/26/20 History isosorbide dinitrate 20 mg PO BID 11/26/20 11/26/20 History levothyroxine [Synthroid] 50 mcg PO DAILY 11/26/20 11/26/20 History losartan 50 mg PO DAILY 11/26/20 11/26/20 History multivitamin 1 tab PO DAILY 11/26/20 11/26/20 History polyethylene glycol 3350 [Miralax] 17 g PO .ODD DAYS 11/26/20 11/26/20 History potassium chloride 10 meq PO DAILY 11/26/20 11/26/20 History prednisone 5 mg PO DAILY 11/26/20 11/26/20 History quetiapine [Seroquel] 25 mg PO HS 11/26/20 11/26/20 History sertraline [Zoloft] 125 mg PO DAILY 11/26/20 11/26/20 History tiotropium bromide [Spiriva with 1 cap INHALATION DAILY 11/26/20 11/26/20 History HandiHaler] Patient History Medical History Atrial fibrillation COPD (chronic obstructive pulmonary disease) ABHISHEK (generalized anxiety disorder) GERD (gastroesophageal reflux disease) Hypertension Hypoalbuminemia Hyponatremia Tobacco abuse Surgical History History of carpal tunnel release Family History Other Family history non-contributory Social History Smoking Status: Unknown if ever smoked Hx Alcohol Use: No Hx Substance Use: No Preferred Language: Albanian Communication Ability: Impaired Communication Ability Comment: confusion Head Of Housekeeping Required: No Beliefs That Will Affect Care: None marital status: / Current Living Situation: [facility] Current Living Situation Comment: Pt lives at [facility] current occupational status: retired Feels Safe at Home: Yes Assistive Devices: Denture - Upper, Denture - Lower, Glasses and Oxygen - Continuous Review of Systems Review of Systems: All systems reviewed & are unremarkable except as noted in HPI & below Physical Exam Constitutional: Exam is very limited as the patient is unresponsive. She appears very frail and cachectic. She currently has a BiPAP mask in place. Eyes: reactive pupils ENMT: BiPAP mask in place. Unable to fully assess. Respiratory: Tachypneic. Use of accessory muscles noted. Mild wheezes noted bilaterally. Cardiovascular: RRR, no murmur, no edema Gastrointestinal (Abdomen): normal bowel sounds, soft, nontender, no hepatosplenomegaly Musculoskeletal: no cyanosis or clubbing, extremities motor strength 5/5 Skin: no rashes, warm and dry Neurologic: Unable to assess given her altered mental status. Psychiatric: A+Ox3, euthymic affect Results & Data Results & Data ([facility]) Vital Signs (Past 12 Hours) Vital Signs Temp Pulse Pulse Pulse Resp BP BP 11/27/20 08:30 11/27/20 08:20 85 36 H 11/27/20 08:00 97.9 F 40 H 102/65 11/27/20 07:15 87 38 H 11/27/20 07:12 92 H 11/27/20 03:39 98.4 F 93 H 24 117/79 11/27/20 02:34 90 31 H 115/67 11/27/20 01:31 98 H 36 H 118/69 11/27/20 01:24 93 H 23 115/61 11/27/20 00:30 101 H 23 114/87 11/27/20 00:21 105 H 30 H 107/82 11/26/20 23:44 97 H 32 H 121/59 L 11/26/20 23:05 91 H 35 H 117/69 11/26/20 22:31 102 H 11/26/20 22:30 99 H 134/70 11/26/20 22:12 109 H 100/62 11/26/20 22:09 11/26/20 22:00 107 H 23 Pulse Ox 11/27/20 08:30 98 11/27/20 08:20 98 11/27/20 08:00 99 11/27/20 07:15 90 11/27/20 07:12 11/27/20 03:39 98 11/27/20 02:34 92 11/27/20 01:31 94 11/27/20 01:24 94 11/27/20 00:30 95 11/27/20 00:21 96 11/26/20 23:44 95 11/26/20 23:05 94 11/26/20 22:31 100 11/26/20 22:30 98 11/26/20 22:12 11/26/20 22:09 98 11/26/20 22:00 Personally reviewed the relevant labs, vital signs and imaging. I also reviewed the recent discharge notes and ER notes. PG Care Time/CCT Total # of Minutes Spent Total Time Spent with Patient: Total time spent is greater than 50% in coordination of care (as documented) at patient's floor/unit and/or counseling patient: Coding Level of Care Code 67550 Initial Inpt Care Lvl 3 Diagnoses Acute on chronic respiratory failure with hypoxia and hypercapnia J96.21; J96.22 Pneumonia J18.9 Laterality: unspecified laterality Lung location: unspecified part of lung Pneumonia type: due to unspecified organism COPD exacerbation J44.1 Altered mental status R41.82
--- NOTE | 2020-11-27 10:25 | Hospitalist Progress Note ---
Date of Service November 27, 2020 Assessment & Plan Admission and Anticipated Discharge Date Admission Date: November 27, 2020 Subjective Made aware by nursing staff, this morning, that patient was requiring more oxyg en. On my evaluation, patient is lethargic and not responding, however moves extremities. Stat ABG and chest x-ray was ordered. BiPAP was ordered. ABG showed pH of 7.29, and PCO2 79. 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 She has COPD and follows with pulmonary medicine, pulmonary medicine was contacted to evaluate the patient further as well. She has other commodities, such as CHF and valvular disease. Currently treated for pneumonia with broad-spectrum antibiotics. Per discussion with pulmonary medicine, it was recommended to consult palliative medicine. Palliative medicine contacted. I tried to reach patient's son, left several messages at number [phone]. Also contacted [email or web address], at [phone]. However I was only able to leave a message, there was no answer. Per discussion with admitting provider overnight, patient is DNR/DNI. I also found POLST in her chart, stating DNR/DNI. We will try to keep reaching the family to inform them about the critical state of the patient and to allow them to visit the patient in the hospital. MD Danilo Results & Data Results & Data ([facility]) Vital Signs (Past 12 Hours) Vital Signs Temp Pulse Pulse Pulse Resp BP BP 11/27/20 08:30 11/27/20 08:20 85 36 H 11/27/20 08:00 36.6 C 40 H 102/65 11/27/20 07:15 87 38 H 11/27/20 07:12 92 H 11/27/20 03:39 36.9 C 93 H 24 117/79 11/27/20 02:34 90 31 H 115/67 11/27/20 01:31 98 H 36 H 118/69 11/27/20 01:24 93 H 23 115/61 11/27/20 00:30 101 H 23 114/87 11/27/20 00:21 105 H 30 H 107/82 11/26/20 23:44 97 H 32 H 121/59 L 11/26/20 23:05 91 H 35 H 117/69 11/26/20 22:31 102 H 11/26/20 22:30 99 H 134/70 Pulse Ox 11/27/20 08:30 98 11/27/20 08:20 98 11/27/20 08:00 99 11/27/20 07:15 90 11/27/20 07:12 11/27/20 03:39 98 11/27/20 02:34 92 11/27/20 01:31 94 11/27/20 01:24 94 11/27/20 00:30 95 11/27/20 00:21 96 11/26/20 23:44 95 11/26/20 23:05 94 11/26/20 22:31 100 11/26/20 22:30 98
[2020-11-27] MEDS ORDERED: ALBUT/IPRATROP 3MG/0.5MG NEB 3 ML VIAL NEB SCH (11:00)
[2020-11-27 11:29] LABS: Appearance Urine Clear (Clear); Bacteria Urine Automated Negative (Negative); Bilirubin Urine Negative (Negative); Blood Urine Negative (Negative); Color Urine Dark Yellow; Glucose Urine UA Negative (Negative); Ketones Urine Negative (Negative); Leukocyte Esterase Urine Trace (Negative); Nitrite Urine Negative (Negative); Protein Urine Negative (Negative); RBC Urine Automated 0-4 /hpf (0-4); Specific Gravity Urine 1.019 (1.000-1.030); Urobilinogen Urine Negative (Negative)
[2020-11-27 11:58] LABS: Hematocrit (blood only) 30.2 % (37-47); Hemoglobin 9.2 g/dL (12.0-16.0)
[2020-11-27] MEDS: ALBUMIN 25% 12.5 GM/50 ML VIAL IV SCH ×6 (11:58→21:10)
[2020-11-27] MEDS ORDERED: LORazepam 0.5 MG/1 ML VIAL IV PRN (16:44)
[2020-11-27] MEDS ORDERED: ACETAMINOPHEN 650 MG SUPP PR PRN (16:44)
[2020-11-27] MEDS ORDERED: ONDANSETRON 4 MG OD TAB SL PRN (16:44)
[2020-11-27] MEDS ORDERED: LORazepam 0.5 MG TAB PO PRN (16:44)
[2020-11-27] MEDS: MoRPHine SULFATE 2 MG/ML CARP IV PRN (16:49)
--- NOTE | 2020-11-27 16:51 | Hospitalist Progress Note ---
Date of Service November 27, 2020 Assessment & Plan Admission and Anticipated Discharge Date Admission Date: November 27, 2020 Subjective Pt's son and grandson able to visit the bedside. Updated about patient's clin ical status, and in agreement that at this point we would like to keep the patient comfortable. Patient is DNR/DNI. Explained why patient is using BiPAP at this time. Also updated on all the treatment measures taken today and since admission. More family members plan to visit, then plan to de-escalate the care. Orlando Mathis MD Results & Data Results & Data ([facility]) Vital Signs (Past 12 Hours) Vital Signs Temp Pulse Pulse Resp BP BP Pulse Ox 11/27/20 16:00 36.8 C 100 H 36 H 79/51 L 96 11/27/20 15:06 100 H 33 H 94 11/27/20 15:02 91 H 33 H 93 11/27/20 14:03 72/42 L 11/27/20 13:48 96 H 33 H 75/48 L 96 11/27/20 12:46 88 36 H 82/55 L 11/27/20 11:45 87 36 H 93/57 L 91 11/27/20 11:00 86 33 H 96 11/27/20 10:56 86 33 H 96 11/27/20 08:30 98 11/27/20 08:20 85 36 H 98 11/27/20 08:00 36.6 C 40 H 102/65 99 11/27/20 07:15 87 38 H 90 11/27/20 07:12 92 H
--- NOTE | 2020-11-27 16:54 | Hospitalist Progress Note ---
Date of Service November 27, 2020 Assessment & Plan (1) Acute on chronic respiratory failure with hypoxia and hypercapnia: (2) Acute metabolic encephalopathy: Sepsis, with severe sepsis with acute respiratory failure, AUSTEN, POA This is an 85-year-old female who presents with confusion, weakness, shortness of breath, and found to have pneumonia. 1. Confusion, shortness of breath, hypoxia, most likely secondary to pneumonia. Has Significant leukocytosis. COVID , RSV and influenza are negative. Started treatment with IV antibiotics of vancomycin and Zosyn. The patient is on azithromycin 3 times a week, which was planned to be continued. MRSA nasal swab negative, will DC vancomycin in the setting of AUSTEN Currently patient is lethargic, cannot take p.o. medications For now we will continue Zosyn Continue IV fluids We will switch her home inhalers into nebulizers Follow the cultures , follow CT chest Patient lethargic in the morning of admission, not responding, stat ABG and chest x-ray ordered. Pulmonary medicine contacted, recommends palliative medicine. Palliative medicine consulted. pH 7.29, PCO2 79, patient currently on BiPAP Patient is encephalopathic due to hypercapnia, in acute on chronic hypoxic, hypercarbic respiratory failure Prognosis is very poor Able to contact the family members, patient is DNR/DNI, and plan for comfort care measures 2. Chronic diastolic congestive heart failure, valvular heart disease: The patient is getting fluids. Monitor for any volume overload. The patient has moderate to severe valvular aortic stenosis, severe tricuspid regurgitation. Continue her home Lasix and losartan and nitrate. On potassium supplement. Currently lethargic, not able to take p.o. medications. Plan for comfort care measures. 3. History of atrial fibrillation: Continue her diltiazem and Eliquis. We will monitor the heart rates. 4. Questionable pleural effusions on the chest x-ray. We will get a CT of the chest. 5. AUSTEN Cr 1.58. on fluids. follow repeat labs. If worsens will hold lasix. 6. Anemia. hb 10.Baseline hb around 12. hemeoccult positive. Will follow iron studies. vitamin b12 and folate levels. Consulted GI GI consulted, however at this point, patient is lethargic, with very poor prognosis. Plan for comfort care measures. 7. History of prolonged QTc: today EKG. QTc is 435. We will monitor. 8. History of severe COPD with chronic hypoxic respiratory failure, on home oxygen 2 liters, currently [id number] respiratory failure secondary to pneumonia, and chronic obstructive pulmonary disease exacerbation. We will continue her home nebs and inhalers. We will hold her p.o. prednisone 5 mg daily and placed on IV Solu-Medrol 40 daily and taper to her to home prednisone 5 mg and monitor. 9. Mild elevation of troponin. Mostly demand ischemia from ongoing illness. will follow serial CE. 10. Hypertension: At home on Cardizem, Imdur, and losartan. We will monitor the blood pressure. Patient is hypotensive, secondary to sepsis, received IV fluids, albumin Very poor prognosis, plan for comfort care. 11. Hypothyroidism: Continue Synthroid if able to take PO. 12. Depression: Continue Zoloft. 13. Deep venous thrombosis prophylaxis: On Eliquis. Will hold now d/t anemia and FOBT + DISPOSITION: Closely monitor in the tele floor. Code status DNR/DNI as per my discussion with Zeyad and also the son. Plan for comfort care. Admission and Anticipated Discharge Date Admission Date: November 27, 2020 Subjective Patient seen in follow-up of metabolic encephalopathy, shortness of breath, hypoxia Made aware by nursing staff, this morning, that patient was requiring more oxygen. On my evaluation, patient is lethargic and not responding, however moves extremities. Stat ABG and chest x-ray was ordered. BiPAP was ordered. ABG showed pH of 7.29, and PCO2 79. 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 She has COPD and follows with pulmonary medicine, pulmonary medicine was contacted to evaluate the patient further as well. She has other commodities, such as CHF and valvular disease. Currently treated for pneumonia with broad-spectrum antibiotics. Per discussion with pulmonary medicine, it was recommended to consult palliative medicine. Palliative medicine contacted. I tried to reach patient's son, left several messages at number [phone]. Also contacted [id number], at [phone]. However I was only able to leave a message, there was no answer. Per discussion with admitting provider overnight, patient is DNR/DNI. I also found POLST in her chart, stating DNR/DNI. We will try to keep reaching the family to inform them about the critical state of the patient and to allow them to visit the patient in the hospital. Update: Patient's son and grandson visited at the bedside and were updated at the bedside. In agreement that patient is DNR/DNI and no aggressive measures should be taken. Also in agreement that we will try to keep patient comfortable. Plan for more family members to arrive and see the patient. We will then plan to de-escalate the care. Review of Systems Review of Systems: Unobtainable due to cognitive status Physical Exam Physical Exam: GENERAL: The patient is old and frail, not responsive, lethargic, on oxygen mask HEENT: NC/AT, Pupils equal, round, and reactive to light. Oral mucosa somewhat dry. NECK: No JVD, no neck masses seen. CARDIOVASCULAR: S1, S2 heard. Regular rate and rhythm, no murmur, no gallop. RESPIRATORY SYSTEM: Normal AP diameter. Tachypneic, + accessory muscle use. Bilateral mild rhonchi heard. No wheezing. ABDOMEN: Soft, bowel sounds present, nontender, nondistended. NEURO: Lethargic, not responding, but moves extremities. EXTREMITIES: No edema or erythema. Results & Data Results & Data ([facility]) Vital Signs (Past 12 Hours) Vital Signs Temp Pulse Pulse Resp BP BP Pulse Ox 11/27/20 16:00 36.8 C 100 H 36 H 79/51 L 96 11/27/20 15:06 100 H 33 H 94 11/27/20 15:02 91 H 33 H 93 11/27/20 14:03 72/42 L 11/27/20 13:48 96 H 33 H 75/48 L 96 11/27/20 12:46 88 36 H 82/55 L 11/27/20 11:45 87 36 H 93/57 L 91 11/27/20 11:00 86 33 H 96 11/27/20 10:56 86 33 H 96 11/27/20 08:30 98 11/27/20 08:20 85 36 H 98 11/27/20 08:00 36.6 C 40 H 102/65 99 11/27/20 07:15 87 38 H 90 11/27/20 07:12 92 H Laboratory Results 11/27/20 11/27/20 11/27/20 Range/Units 12:53 11:24 11:10 WBC (4.8-10.8) K/uL RBC (4.2-5.4) M/uL Hgb 9.2 L (12.0-16.0) g/dL Hct 30.2 L (37-47) % MCV (80-100) fL MCH (25-34) pg MCHC (32-36) g/dL RDW Std Deviation (36.4-46.3) fL RDW Coeff of Patricio (11.5-14.5) % Plt Count (130-400) K/uL MPV (7.4-10.4) fL Immature Gran % (Auto) % Neut % (Auto) % Lymph % (Auto) % [place] % (Auto) % Eos % (Auto) % Baso % (Auto) % Neut # (Auto) (1.4-6.5) K/uL Lymph # (Auto) (1.2-3.4) K/uL [place] # (Auto) (0.11-0.59) K/uL Eos # (Auto) (0-0.5) K/uL Baso # (Auto) (0-0.2) K/uL Immature Gran # (Auto) (0.00-0.02) K/uL Absolute Nucleated RBC (0-0) K/uL Nucleated RBC % (auto) % Polychromasia PT (9.0-12.0) Seconds INR (0.9-1.1) Sample Site POC pH (7.35-7.45) POC pCO2 (35-46) mmHg POC pO2 (80-95) mmHg POC HCO3 (19-24) yodit/L POC Total CO2 (24-31) mmol/L POC Base Excess (-9-1.8) yodit/L POC ABG O2 Sat (90-95) % Phan Test O2 Delivery Device Sodium (136-145) mmol/L Potassium (3.5-5.1) mmol/L Chloride (98-107) mmol/L Carbon Dioxide (21-32) mmol/L Anion Gap (3-11) BUN (7-18) mg/dl Creatinine (0.6-1.2) mg/dl Est Cr Clr Drug Dosing ml/min Est GFR ( Amer) Est GFR (Non-Af Amer) BUN/Creatinine Ratio (10-20) Glucose (70-99) mg/dl Lactate (0.4-2.0) mmol/L Calcium (8.5-10.1) mg/dl Magnesium (1.8-2.4) mg/dl Iron (35-150) mcg/dl TIBC (250-450) mcg/dl Ferritin (8-388) ng/ml Total Bilirubin (0.2-1) mg/dl AST (15-37) U/L ALT (12-78) U/L Alkaline Phosphatase (45-117) U/L Total Creatine Kinase (26-192) U/L Troponin I 0.068 H* (0-0.045) ng/ml Total Protein (6.4-8.2) gm/dl Albumin (3.4-5.0) gm/dl Globulin (2.5-4.0) gm/dl Albumin/Globulin Ratio (0.9-2) Lipase (73-393) U/L Vitamin B12 (193-986) pg/ml Folate (>5.38) ng/ml TSH (0.300-4.500) uIu/ml Urine Color Dark Yellow Urine Appearance Clear (Clear) Urine pH 5.0 (4.5-7.5) Ur Specific [place] 1.019 (1.000-1.030) Urine Protein Negative (Negative) Urine Glucose (UA) Negative (Negative) Urine Ketones Negative (Negative) Urine Blood Negative (Negative) Urine Nitrite Negative (Negative) Urine Bilirubin Negative (Negative) Urine Urobilinogen Negative (Negative) Ur Leukocyte Esterase Trace H (Negative) Urine WBC (Auto) 1-5 (0-5) /hpf Urine RBC (Auto) 0-4 (0-4) /hpf U Hyaline Cast (Auto) 1-5 (0-5) /lpf U Epithel Cells (Auto) 5-10 H (0-5) /lpf Urine Bacteria (Auto) Negative (Negative) Nasal Screen MRSA (PCR) (Negative) Stool Occult Bld Scrn (Negative) COVID-19 Eval Order SARS-CoV-2 (PCR) (Negative) Influenza Type A (PCR) (Neg) Influenza Type B (PCR) (Neg) RSV (RT-PCR) (Neg) Blood Type Antibody Screen 11/27/20 11/27/20 11/27/20 Range/Units 08:17 07:35 06:50 WBC (4.8-10.8) K/uL RBC (4.2-5.4) M/uL Hgb (12.0-16.0) g/dL Hct (37-47) % MCV (80-100) fL MCH (25-34) pg MCHC (32-36) g/dL RDW Std Deviation (36.4-46.3) fL RDW Coeff of Patricio (11.5-14.5) % Plt Count (130-400) K/uL MPV (7.4-10.4) fL Immature Gran % (Auto) % Neut % (Auto) % Lymph % (Auto) % [place] % (Auto) % Eos % (Auto) % Baso % (Auto) % Neut # (Auto) (1.4-6.5) K/uL Lymph # (Auto) (1.2-3.4) K/uL [place] # (Auto) (0.11-0.59) K/uL Eos # (Auto) (0-0.5) K/uL Baso # (Auto) (0-0.2) K/uL Immature Gran # (Auto) (0.00-0.02) K/uL Absolute Nucleated RBC (0-0) K/uL Nucleated RBC % (auto) % Polychromasia PT (9.0-12.0) Seconds INR (0.9-1.1) Sample Site L Radial POC pH 7.29 L (7.35-7.45) POC pCO2 79 H (35-46) mmHg POC pO2 107 H (80-95) mmHg POC HCO3 38 H (19-24) yodit/L POC Total CO2 > 40 H* (24-31) mmol/L POC Base Excess 11.0 H (-9-1.8) yodit/L POC ABG O2 Sat 97.0 H (90-95) % Phan Test Pass O2 Delivery Device Other Sodium (136-145) mmol/L Potassium (3.5-5.1) mmol/L Chloride (98-107) mmol/L Carbon Dioxide (21-32) mmol/L Anion Gap (3-11) BUN (7-18) mg/dl Creatinine (0.6-1.2) mg/dl Est Cr Clr Drug Dosing ml/min Est GFR ( Amer) Est GFR (Non-Af Amer) BUN/Creatinine Ratio (10-20) Glucose (70-99) mg/dl Lactate (0.4-2.0) mmol/L Calcium (8.5-10.1) mg/dl Magnesium (1.8-2.4) mg/dl Iron (35-150) mcg/dl TIBC (250-450) mcg/dl Ferritin (8-388) ng/ml Total Bilirubin (0.2-1) mg/dl AST (15-37) U/L ALT (12-78) U/L Alkaline Phosphatase (45-117) U/L Total Creatine Kinase (26-192) U/L Troponin I (0-0.045) ng/ml Total Protein (6.4-8.2) gm/dl Albumin (3.4-5.0) gm/dl Globulin (2.5-4.0) gm/dl Albumin/Globulin Ratio (0.9-2) Lipase (73-393) U/L Vitamin B12 1382 H (193-986) pg/ml Folate 9.80 (>5.38) ng/ml TSH (0.300-4.500) uIu/ml Urine Color Urine Appearance (Clear) Urine pH (4.5-7.5) Ur Specific [place] (1.000-1.030) Urine Protein (Negative) Urine Glucose (UA) (Negative) Urine Ketones (Negative) Urine Blood (Negative) Urine Nitrite (Negative) Urine Bilirubin (Negative) Urine Urobilinogen (Negative) Ur Leukocyte Esterase (Negative) Urine WBC (Auto) (0-5) /hpf Urine RBC (Auto) (0-4) /hpf U Hyaline Cast (Auto) (0-5) /lpf U Epithel Cells (Auto) (0-5) /lpf Urine Bacteria (Auto) (Negative) Nasal Screen MRSA (PCR) Negative (Negative) Stool Occult Bld Scrn (Negative) COVID-19 Eval Order SARS-CoV-2 (PCR) (Negative) Influenza Type A (PCR) (Neg) Influenza Type B (PCR) (Neg) RSV (RT-PCR) (Neg) Blood Type Antibody Screen 11/27/20 11/27/20 11/27/20 Range/Units 06:50 06:50 06:50 WBC 25.56 H (4.8-10.8) K/uL RBC 3.09 L (4.2-5.4) M/uL Hgb 8.7 L (12.0-16.0) g/dL Hct 27.5 L (37-47) % MCV 89.0 (80-100) fL MCH 28.2 (25-34) pg MCHC 31.6 L (32-36) g/dL RDW Std Deviation 55.1 H (36.4-46.3) fL RDW Coeff of Patricio 16.9 H (11.5-14.5) % Plt Count 264 (130-400) K/uL MPV 9.3 (7.4-10.4) fL Immature Gran % (Auto) 0.5 % Neut % (Auto) 96.8 % Lymph % (Auto) 1.6 % [place] % (Auto) 1.1 % Eos % (Auto) 0.0 % Baso % (Auto) 0.0 % Neut # (Auto) 24.72 H (1.4-6.5) K/uL Lymph # (Auto) 0.42 L (1.2-3.4) K/uL [place] # (Auto) 0.29 (0.11-0.59) K/uL Eos # (Auto) 0.00 (0-0.5) K/uL Baso # (Auto) 0.01 (0-0.2) K/uL Immature Gran # (Auto) 0.12 H (0.00-0.02) K/uL Absolute Nucleated RBC 0.07 H (0-0) K/uL Nucleated RBC % (auto) 0.3 % Polychromasia 1+ PT (9.0-12.0) Seconds INR (0.9-1.1) Sample Site POC pH (7.35-7.45) POC pCO2 (35-46) mmHg POC pO2 (80-95) mmHg POC HCO3 (19-24) yodit/L POC Total CO2 (24-31) mmol/L POC Base Excess (-9-1.8) yodit/L POC ABG O2 Sat (90-95) % Phan Test O2 Delivery Device Sodium 141 (136-145) mmol/L Potassium 4.3 (3.5-5.1) mmol/L Chloride 101 (98-107) mmol/L Carbon Dioxide 36 H (21-32) mmol/L Anion Gap 4.0 (3-11) BUN 63 H (7-18) mg/dl Creatinine 1.58 H D (0.6-1.2) mg/dl Est Cr Clr Drug Dosing 20.8 ml/min Est GFR ( Amer) 34.5 Est GFR (Non-Af Amer) 29.7 BUN/Creatinine Ratio 40.1 H (10-20) Glucose 182 H (70-99) mg/dl Lactate (0.4-2.0) mmol/L Calcium 9.0 D (8.5-10.1) mg/dl Magnesium 2.3 (1.8-2.4) mg/dl Iron 14 L (35-150) mcg/dl TIBC 279 (250-450) mcg/dl Ferritin 47.1 (8-388) ng/ml Total Bilirubin (0.2-1) mg/dl AST (15-37) U/L ALT (12-78) U/L Alkaline Phosphatase (45-117) U/L Total Creatine Kinase (26-192) U/L Troponin I 0.054 H* (0-0.045) ng/ml Total Protein (6.4-8.2) gm/dl Albumin (3.4-5.0) gm/dl Globulin (2.5-4.0) gm/dl Albumin/Globulin Ratio (0.9-2) Lipase (73-393) U/L Vitamin B12 (193-986) pg/ml Folate (>5.38) ng/ml TSH (0.300-4.500) uIu/ml Urine Color Urine Appearance (Clear) Urine pH (4.5-7.5) Ur Specific [place] (1.000-1.030) Urine Protein (Negative) Urine Glucose (UA) (Negative) Urine Ketones (Negative) Urine Blood (Negative) Urine Nitrite (Negative) Urine Bilirubin (Negative) Urine Urobilinogen (Negative) Ur Leukocyte Esterase (Negative) Urine WBC (Auto) (0-5) /hpf Urine RBC (Auto) (0-4) /hpf U Hyaline Cast (Auto) (0-5) /lpf U Epithel Cells (Auto) (0-5) /lpf Urine Bacteria (Auto) (Negative) Nasal Screen MRSA (PCR) (Negative) Stool Occult Bld Scrn (Negative) COVID-19 Eval Order SARS-CoV-2 (PCR) (Negative) Influenza Type A (PCR) (Neg) Influenza Type B (PCR) (Neg) RSV (RT-PCR) (Neg) Blood Type Antibody Screen 11/27/20 11/26/20 11/26/20 Range/Units 03:30 21:11 21:11 WBC (4.8-10.8) K/uL RBC (4.2-5.4) M/uL Hgb (12.0-16.0) g/dL Hct (37-47) % MCV (80-100) fL MCH (25-34) pg MCHC (32-36) g/dL RDW Std Deviation (36.4-46.3) fL RDW Coeff of Patricio (11.5-14.5) % Plt Count (130-400) K/uL MPV (7.4-10.4) fL Immature Gran % (Auto) % Neut % (Auto) % Lymph % (Auto) % [place] % (Auto) % Eos % (Auto) % Baso % (Auto) % Neut # (Auto) (1.4-6.5) K/uL Lymph # (Auto) (1.2-3.4) K/uL [place] # (Auto) (0.11-0.59) K/uL Eos # (Auto) (0-0.5) K/uL Baso # (Auto) (0-0.2) K/uL Immature Gran # (Auto) (0.00-0.02) K/uL Absolute Nucleated RBC (0-0) K/uL Nucleated RBC % (auto) % Polychromasia PT (9.0-12.0) Seconds INR (0.9-1.1) Sample Site POC pH (7.35-7.45) POC pCO2 (35-46) mmHg POC pO2 (80-95) mmHg POC HCO3 (19-24) yodit/L POC Total CO2 (24-31) mmol/L POC Base Excess (-9-1.8) yodit/L POC ABG O2 Sat (90-95) % Phan Test O2 Delivery Device Sodium (136-145) mmol/L Potassium (3.5-5.1) mmol/L Chloride (98-107) mmol/L Carbon Dioxide (21-32) mmol/L Anion Gap (3-11) BUN (7-18) mg/dl Creatinine (0.6-1.2) mg/dl Est Cr Clr Drug Dosing ml/min Est GFR ( Amer) Est GFR (Non-Af Amer) BUN/Creatinine Ratio (10-20) Glucose (70-99) mg/dl Lactate (0.4-2.0) mmol/L Calcium (8.5-10.1) mg/dl Magnesium (1.8-2.4) mg/dl Iron (35-150) mcg/dl TIBC (250-450) mcg/dl Ferritin (8-388) ng/ml Total Bilirubin (0.2-1) mg/dl AST (15-37) U/L ALT (12-78) U/L Alkaline Phosphatase (45-117) U/L Total Creatine Kinase (26-192) U/L Troponin I (0-0.045) ng/ml Total Protein (6.4-8.2) gm/dl Albumin (3.4-5.0) gm/dl Globulin (2.5-4.0) gm/dl Albumin/Globulin Ratio (0.9-2) Lipase (73-393) U/L Vitamin B12 (193-986) pg/ml Folate (>5.38) ng/ml TSH (0.300-4.500) uIu/ml Urine Color Urine Appearance (Clear) Urine pH (4.5-7.5) Ur Specific [place] (1.000-1.030) Urine Protein (Negative) Urine Glucose (UA) (Negative) Urine Ketones (Negative) Urine Blood (Negative) Urine Nitrite (Negative) Urine Bilirubin (Negative) Urine Urobilinogen (Negative) Ur Leukocyte Esterase (Negative) Urine WBC (Auto) (0-5) /hpf Urine RBC (Auto) (0-4) /hpf U Hyaline Cast (Auto) (0-5) /lpf U Epithel Cells (Auto) (0-5) /lpf Urine Bacteria (Auto) (Negative) Nasal Screen MRSA (PCR) (Negative) Stool Occult Bld Scrn Positive A (Negative) COVID-19 Eval Order CovFluRsv at [facility] SARS-CoV-2 (PCR) NEGATIVE (Negative) Influenza Type A (PCR) Negative (Neg) Influenza Type B (PCR) Negative (Neg) RSV (RT-PCR) Negative (Neg) Blood Type Antibody Screen 11/26/20 11/26/20 11/26/20 Range/Units 20:59 20:59 20:59 WBC (4.8-10.8) K/uL RBC (4.2-5.4) M/uL Hgb (12.0-16.0) g/dL Hct (37-47) % MCV (80-100) fL MCH (25-34) pg MCHC (32-36) g/dL RDW Std Deviation (36.4-46.3) fL RDW Coeff of Patricio (11.5-14.5) % Plt Count (130-400) K/uL MPV (7.4-10.4) fL Immature Gran % (Auto) % Neut % (Auto) % Lymph % (Auto) % [place] % (Auto) % Eos % (Auto) % Baso % (Auto) % Neut # (Auto) (1.4-6.5) K/uL Lymph # (Auto) (1.2-3.4) K/uL [place] # (Auto) (0.11-0.59) K/uL Eos # (Auto) (0-0.5) K/uL Baso # (Auto) (0-0.2) K/uL Immature Gran # (Auto) (0.00-0.02) K/uL Absolute Nucleated RBC (0-0) K/uL Nucleated RBC % (auto) % Polychromasia PT 11.7 (9.0-12.0) Seconds INR 1.2 H (0.9-1.1) Sample Site POC pH (7.35-7.45) POC pCO2 (35-46) mmHg POC pO2 (80-95) mmHg POC HCO3 (19-24) yodit/L POC Total CO2 (24-31) mmol/L POC Base Excess (-9-1.8) yodit/L POC ABG O2 Sat (90-95) % Phan Test O2 Delivery Device Sodium 139 (136-145) mmol/L Potassium 4.1 (3.5-5.1) mmol/L Chloride 95 L (98-107) mmol/L Carbon Dioxide 40 H (21-32) mmol/L Anion Gap 4.0 (3-11) BUN 62 H (7-18) mg/dl Creatinine 1.24 H (0.6-1.2) mg/dl Est Cr Clr Drug Dosing 27.1 ml/min Est GFR ( Amer) 46.2 Est GFR (Non-Af Amer) 39.9 BUN/Creatinine Ratio 49.9 H (10-20) Glucose 105 H (70-99) mg/dl Lactate 1.3 (0.4-2.0) mmol/L Calcium 10.9 H (8.5-10.1) mg/dl Magnesium 2.3 (1.8-2.4) mg/dl Iron (35-150) mcg/dl TIBC (250-450) mcg/dl Ferritin (8-388) ng/ml Total Bilirubin 0.8 (0.2-1) mg/dl AST 20 (15-37) U/L ALT 32 (12-78) U/L Alkaline Phosphatase 77 (45-117) U/L Total Creatine Kinase 49 (26-192) U/L Troponin I 0.049 H* (0-0.045) ng/ml Total Protein 6.5 (6.4-8.2) gm/dl Albumin 2.8 L (3.4-5.0) gm/dl Globulin 3.7 (2.5-4.0) gm/dl Albumin/Globulin Ratio 0.8 L (0.9-2) Lipase 33 L (73-393) U/L Vitamin B12 (193-986) pg/ml Folate (>5.38) ng/ml TSH 4.060 (0.300-4.500) uIu/ml Urine Color Urine Appearance (Clear) Urine pH (4.5-7.5) Ur Specific [place] (1.000-1.030) Urine Protein (Negative) Urine Glucose (UA) (Negative) Urine Ketones (Negative) Urine Blood (Negative) Urine Nitrite (Negative) Urine Bilirubin (Negative) Urine Urobilinogen (Negative) Ur Leukocyte Esterase (Negative) Urine WBC (Auto) (0-5) /hpf Urine RBC (Auto) (0-4) /hpf U Hyaline Cast (Auto) (0-5) /lpf U Epithel Cells (Auto) (0-5) /lpf Urine Bacteria (Auto) (Negative) Nasal Screen MRSA (PCR) (Negative) Stool Occult Bld Scrn (Negative) COVID-19 Eval Order SARS-CoV-2 (PCR) (Negative) Influenza Type A (PCR) (Neg) Influenza Type B (PCR) (Neg) RSV (RT-PCR) (Neg) Blood Type Antibody Screen 11/26/20 11/26/20 Range/Units 20:59 20:59 WBC 27.46 H (4.8-10.8) K/uL RBC 3.50 L (4.2-5.4) M/uL Hgb 10.0 L (12.0-16.0) g/dL Hct 30.6 L (37-47) % MCV 87.4 (80-100) fL MCH 28.6 (25-34) pg MCHC 32.7 (32-36) g/dL RDW Std Deviation 53.2 H (36.4-46.3) fL RDW Coeff of Patricio 16.6 H (11.5-14.5) % Plt Count 310 (130-400) K/uL MPV 9.5 (7.4-10.4) fL Immature Gran % (Auto) 0.4 % Neut % (Auto) 92.6 % Lymph % (Auto) 3.4 % [place] % (Auto) 3.6 % Eos % (Auto) 0.0 % Baso % (Auto) 0.0 % Neut # (Auto) 25.43 H (1.4-6.5) K/uL Lymph # (Auto) 0.92 L (1.2-3.4) K/uL [place] # (Auto) 0.98 H (0.11-0.59) K/uL Eos # (Auto) 0.00 (0-0.5) K/uL Baso # (Auto) 0.01 (0-0.2) K/uL Immature Gran # (Auto) 0.12 H (0.00-0.02) K/uL Absolute Nucleated RBC 0.07 H (0-0) K/uL Nucleated RBC % (auto) 0.3 % Polychromasia PT (9.0-12.0) Seconds INR (0.9-1.1) Sample Site POC pH (7.35-7.45) POC pCO2 (35-46) mmHg POC pO2 (80-95) mmHg POC HCO3 (19-24) yodit/L POC Total CO2 (24-31) mmol/L POC Base Excess (-9-1.8) yodit/L POC ABG O2 Sat (90-95) % Phan Test O2 Delivery Device Sodium (136-145) mmol/L Potassium (3.5-5.1) mmol/L Chloride (98-107) mmol/L Carbon Dioxide (21-32) mmol/L Anion Gap (3-11) BUN (7-18) mg/dl Creatinine (0.6-1.2) mg/dl Est Cr Clr Drug Dosing ml/min Est GFR ( Amer) Est GFR (Non-Af Amer) BUN/Creatinine Ratio (10-20) Glucose (70-99) mg/dl Lactate (0.4-2.0) mmol/L Calcium (8.5-10.1) mg/dl Magnesium (1.8-2.4) mg/dl Iron (35-150) mcg/dl TIBC (250-450) mcg/dl Ferritin (8-388) ng/ml Total Bilirubin (0.2-1) mg/dl AST (15-37) U/L ALT (12-78) U/L Alkaline Phosphatase (45-117) U/L Total Creatine Kinase (26-192) U/L Troponin I (0-0.045) ng/ml Total Protein (6.4-8.2) gm/dl Albumin (3.4-5.0) gm/dl Globulin (2.5-4.0) gm/dl Albumin/Globulin Ratio (0.9-2) Lipase (73-393) U/L Vitamin B12 (193-986) pg/ml Folate (>5.38) ng/ml TSH (0.300-4.500) uIu/ml Urine Color Urine Appearance (Clear) Urine pH (4.5-7.5) Ur Specific [place] (1.000-1.030) Urine Protein (Negative) Urine Glucose (UA) (Negative) Urine Ketones (Negative) Urine Blood (Negative) Urine Nitrite (Negative) Urine Bilirubin (Negative) Urine Urobilinogen (Negative) Ur Leukocyte Esterase (Negative) Urine WBC (Auto) (0-5) /hpf Urine RBC (Auto) (0-4) /hpf U Hyaline Cast (Auto) (0-5) /lpf U Epithel Cells (Auto) (0-5) /lpf Urine Bacteria (Auto) (Negative) Nasal Screen MRSA (PCR) (Negative) Stool Occult Bld Scrn (Negative) COVID-19 Eval Order SARS-CoV-2 (PCR) (Negative) Influenza Type A (PCR) (Neg) Influenza Type B (PCR) (Neg) RSV (RT-PCR) (Neg) Blood Type A Positive Antibody Screen NEGATIVE Medications Administered Current Inpatient Medications Acetaminophen (Acetaminophen 325 Mg Tab) 650 mg PO Q4H PRN PRN Reason: Pain or Fever Stop: 12/27/20 03:54 Acetaminophen (Acetaminophen 650 Mg Supp) 650 mg OR Q6H PRN PRN Reason: Fever 37.8C or greater Stop: 12/27/20 16:43 Albuterol (Albut/Ipratrop 3mg/0.5mg Neb 3 Ml Vial) 3 ml INH QIDR [facility] Stop: 12/27/20 06:59 Last Admin: 11/27/20 15:01 Dose: 3 ml Documented by: Albuterol (Albut/Ipratrop 3mg/0.5mg Neb 3 Ml Vial) 3 ml NEB Q2R PRN PRN Reason: dyspnea Stop: 12/27/20 09:40 Apixaban (Apixaban 2.5 Mg Tab) 2.5 mg PO BID [facility] Stop: 12/27/20 08:59 Last Admin: 11/27/20 08:11 Dose: Not Given Documented by: Azithromycin (Azithromycin 250 Mg Tab) 250 mg PO MoWeFr@0900 [facility] Stop: 12/27/20 08:59 Last Admin: 11/27/20 08:11 Dose: Not Given Documented by: Buspirone HCl (Buspirone 7.5 Mg Tab) 7.5 mg PO BID [facility] Stop: 12/27/20 08:59 Last Admin: 11/27/20 08:10 Dose: Not Given Documented by: Diltiazem HCl (Diltiazem Hcl 240 Mg Capcr) 240 mg PO DAILY [facility] Stop: 12/27/20 08:59 Last Admin: 11/27/20 08:10 Dose: Not Given Documented by: Docusate Sodium (Docusate Sodium 100 Mg Cap) 200 mg PO BID [facility] Stop: 12/27/20 08:59 Last Admin: 11/27/20 08:11 Dose: Not Given Documented by: Fluticasone/Vilanterol (Fluticasone/Vilanterol 100/25mcg 14 Puffs/Inhaler) 1 puffs INH DAILY [facility] Stop: 12/27/20 08:59 Last Admin: 11/27/20 08:10 Dose: Not Given Documented by: Furosemide (Furosemide 20 Mg Tab) 20 mg PO DAILY [facility] Stop: 12/27/20 08:59 Last Admin: 11/27/20 08:11 Dose: Not Given Documented by: Guaifenesin (Guaifenesin 600 Mg Tabcr) 600 mg PO Q12 [facility] Stop: 12/27/20 08:59 Last Admin: 11/27/20 08:11 Dose: Not Given Documented by: Guaifenesin/Dextromethorphan (Guaifenesin/Dextrom Syrup 100mg/10mg 5ml Udc) 5 ml PO Q6H PRN PRN Reason: Cough Stop: 12/27/20 04:23 Dextrose/Sodium Chloride (D5w And Nss) 1,000 mls @ 125 mls/hr IV .Q8H [facility] Stop: 11/28/20 08:00 Last Admin: 11/27/20 15:37 Dose: 125 mls/hr Documented by: Methylprednisolone 40 mg/ (Syringe) 0.64 mls @ 1.5 mls/min IV DAILY [facility] Stop: 12/27/20 08:59 Last Admin: 11/27/20 08:17 Dose: 1.5 mls/min Documented by: Piperacillin Sod/Tazobactam (Sod 3.375 gm/ Dextrose) 115 mls @ 28.75 mls/hr IV Q12H [facility]; Protocol Stop: 12/04/20 19:59 Lorazepam (Ativan) 0.5 mg in 1 mls @ 1 mls/min IV Q4H PRN PRN Reason: Anxiety/Agitation Stop: 12/27/20 16:43 Isosorbide Dinitrate (Isosorbide Dinitrate 20 Mg Tab) 20 mg PO BID@0700,1200 SC H Stop: 12/27/20 06:59 Last Admin: 11/27/20 11:00 Dose: Not Given Documented by: Levothyroxine Sodium (Levothyroxine Sodium 50 Mcg Tablet) 50 mcg PO DAILYBB [facility] Stop: 12/27/20 06:29 Last Admin: 11/27/20 06:21 Dose: Not Given Documented by: Lorazepam (Lorazepam 0.5 Mg Tab) 0.5 mg PO Q4H PRN PRN Reason: Anxiety/Agitation Stop: 12/27/20 16:43 Losartan Potassium (Losartan Potassium 50 Mg Tab) 50 mg PO DAILY [facility] Stop: 12/27/20 08:59 Last Admin: 11/27/20 08:11 Dose: Not Given Documented by: Miscellaneous Information (Piperacill/Tazobac Consult Active) 1 ea N/A UD PRN PRN Reason: Consult Stop: 12/26/20 21:35 Morphine Sulfate (Morphine Sulfate 2 Mg/Ml Carp) 1 mg IV Q1H PRN PRN Reason: Dyspnea Stop: 12/11/20 09:14 Last Admin: 11/27/20 16:49 Dose: 1 mg Documented by: Multivitamins (Multivitamin Tab) 1 tab PO DAILY [facility] Stop: 12/27/20 08:59 Last Admin: 11/27/20 08:11 Dose: Not Given Documented by: Nitroglycerin (Nitroglycerin Sl 0.4 Mg/Tab Tab) 0.4 mg SL UD PRN PRN Reason: Chest Pain Stop: 12/27/20 03:54 Ondansetron HCl (Ondansetron Inj 2 Mg/Ml 2 Ml Vial) 4 mg IV Q4H PRN PRN Reason: Nausea And Vomiting Stop: 12/27/20 16:43 Ondansetron HCl (Ondansetron 4 Mg Od Tab) 4 mg SL Q4H PRN PRN Reason: Nausea And Vomiting Stop: 12/27/20 16:43 Polyethylene Glycol (Polyethylene (Miralax) 17 Gm Pack) 17 gm PO DAILY PRN PRN Reason: Constipation Stop: 12/27/20 03:54 Polyethylene Glycol (Polyethylene (Miralax) 17 Gm Pack) 17 gm PO Q2D@0900 [facility] Stop: 12/27/20 08:59 Last Admin: 11/27/20 08:11 Dose: Not Given Documented by: Potassium Chloride (Potassium Chloride 10 Meq Tabcr) 10 meq PO DAILY [facility] Stop: 12/27/20 08:59 Last Admin: 11/27/20 08:11 Dose: Not Given Documented by: Prednisone (Prednisone 5 Mg Tab) 5 mg PO DAILY [facility] Stop: 12/27/20 08:59 Quetiapine Fumarate (Quetiapine Fumarate 25 Mg Tablet) 25 mg PO HS [facility] Stop: 12/27/20 20:59 Sertraline HCl (Sertraline Hcl 50 Mg Tablet) 125 mg PO DAILY [facility] Stop: 12/27/20 08:59 Last Admin: 11/27/20 08:11 Dose: Not Given Documented by: Umeclidinium [place] (Umeclidinium [place] 62.5mcg/Blister 7 Puffs/Inhaler) 1 puffs INH DAILY [facility] Stop: 12/27/20 08:59 Last Admin: 11/27/20 08:11 Dose: Not Given Documented by: Vitamin D (Cholecalciferol 1,000 Units 25 Mcg Tab) 2,000 units PO DAILY [facility] Stop: 12/27/20 08:59 Last Admin: 11/27/20 08:11 Dose: Not Given Documented by:
[2020-11-27] MEDS ORDERED: QUEtiapine FUMARATE 25 MG TABLET PO SCH (21:00)
[2020-11-27] MEDS: MoRPHine SULFATE 5 MG/0.25 ML UDP PO PRN (23:32)
[2020-11-28] MEDS: MoRPHine SULFATE 2 MG/ML CARP IV PRN (02:17)
[2020-11-28] MEDS: MoRPHine SULFATE 5 MG/0.25 ML UDP PO PRN (02:44)
--- NOTE | 2020-11-28 06:33 | Electrocardiogram Report ---
Test Reason : Blood Pressure : / mmHG Vent. Rate : 106 BPM Atrial Rate : 070 BPM P-R Int : 000 ms QRS Dur : 092 ms QT Int : 328 ms P-R-T Axes : 000 023 130 degrees QTc Int : 435 ms Atrial fibrillation with rapid ventricular response with premature ventricular or aberrantly conducte d complexes Incomplete right bundle branch block Anteroseptal infarct (cited on or before 13-MAR-2018) Nonspecific ST abnormality Abnormal ECG When compared with ECG of 12-APR-2019 06:41, No significant change Confirmed by Christopher Reece ([id number]) on 11/28/2020 6:33:11 AM Referred By: [facility] Confirmed By:Christopher Reece
--- NOTE | 2020-11-28 17:39 | Discharge Summary ---
Date of Service November 28, 2020 Admission HPI Per Admitting Provider This is an 85-year-old female with past medical history significant for severe COPD, on 2 liters oxygen and steroids; chronic CHF; diastolic valvular heart disease; atrial fibrillation, on anticoagulation; anxiety; prior tobacco abuse; hypertension; currently a [facility] prison facility patient. Presents with shortness of breath and weakness. As per usp, the patient has been declining since the last two weeks, has been feeling weak. Appetite has come down. Generally, she is on regular food. Ambulates without any support, but lately requiring some support for ambulation because has been getting weaker and she got short of breath today and oxygen saturation was only 88% on 3lts when it was decided to send her to the hospital. She is DNR/DNI. When she came in, she was slightly in rapid AFib, that got resolved. Her white count was 27,000, hemoglobin 10, creatinine 1.24. Troponin was 0.04. Stool occult blood was positive. SARS-CoV-2, influenza A and B, and RSV were negative. CT of the head, no acute findings. Chest x-ray, small patchy airspace opacity of the right lung base. EKG is showing rapid AFib at the rate of 106. The patient is speaking in very low voice, just could tell her name, could tell that she is in the hospital. She says breathing is better than what it was before. Denies any chest pain, denies any abdominal pain, denies any nausea. As per usp, there is no cough, no fever, no chills, no diarrhea. As per son she seems very weak because she is not eating anything for the last couple of days. Could not get any history from the patient as patient is somewhat confused, weak, and mumbling in a low voice. Admission Exam Per Admitting Provider GENERAL: The patient is old and frail, not in acute distress, somewhat confused. VITAL SIGNS: Temperature 36.9, pulse 93, respiratory rate 24, blood pressure 117/79, oxygen 98% on OxyMask 6 liters. HEENT: Pupils equal, round, and reactive to light. Oral mucosa somewhat dry. NECK: No JVD, no neck masses seen. CARDIOVASCULAR: S1, S2 heard. Regular rate and rhythm, no murmur, no gallop. RESPIRATORY SYSTEM: Normal AP diameter. No accessory muscle use. Bilateral mild rhonchi heard. No wheezing. ABDOMEN: Soft, bowel sounds present, nontender, nondistended. CENTRAL NERVOUS SYSTEM: Alert and awake, oriented to name and place. Obeys simple commands. Moves extremities. EXTREMITIES: No edema or erythema. Principal Diagnosis Sepsis like secondary to pneumonia, AUSTEN, in the setting of severe COPD with chronic respiratory failure and chronic diastolic CHF, valvular disease Discharge Exam Patient ceased to breathe at 4:35 AM, was pronounced by 2 RNs. Electric Sign Wirer/physician was notified. Discharge Data Allergies Allergy/AdvReac Type Severity Reaction Status Date / Time doxycycline Allergy Unknown Verified 11/26/20 22:45 iodine Allergy Unknown Uncoded 11/26/20 22:44 Consultations 11/26/20 22:23 ED Decision to Admit Stat 11/27/20 07:57 Consult Pulmonology Routine 11/27/20 08:00 Consult Gastroenterology Routine 11/27/20 08:05 Consult Palliative Care Routine Ordered Studies 11/26/20 20:39 CT head/brain wo con Urgent IMPRESSION: There is no hemorrhage, mass effect, or evidence of acute territorial ischemia by CT criteria. CXR IMPRESSION: 1. Cardiomegaly and advanced emphysema with evidence of congestive failure. 2. There is increasing airspace consolidation throughout the right upper lobe that is typical in appearance for pneumonia. Clinical correlation will be required and radiographic follow-up to resolution is recommended. 3. Small pleural effusions 11/27/20 04:09 CT chest diagnostic wo con Routine - was not obtained Hospital Course (1) Acute on chronic respiratory failure with hypoxia and hypercapnia: (2) Acute metabolic encephalopathy: Sepsis, with severe sepsis with acute respiratory failure, AUSTEN, POA This is an 85-year-old female who presented with altered mental status, weakness, shortness of breath, hypoxia and found to have pneumonia. 1. Confusion, shortness of breath, hypoxia, most likely secondary to pneumonia. Has Significant leukocytosis. COVID , RSV and influenza are negative. Started treatment with IV antibiotics of vancomycin and Zosyn. The patient is on azithromycin 3 times a week, which was planned to be continued. MRSA nasal swab negative, DC vancomycin in the setting of AUSTEN Patient is lethargic, cannot take p.o. medications Continued Zosyn Continued IV fluids Continued nebulizers Plan was to follow the cultures and CT chest CT chest was not obtained as pt's clinical status was critical 11/27 Patient lethargic in the morning of admission, not responding, stat ABG and chest x-ray ordered. Pulmonary medicine contacted, recommends palliative medicine. Palliative medicine consulted. pH 7.29, PCO2 79, patient started on BiPAP Patient is encephalopathic due to hypercapnia, in acute on chronic hypoxic, hypercarbic respiratory failure Prognosis very poor Able to contact the family members, patient is DNR/DNI, and planned for comfort care measures Family was able to visit with the patient Patient ceased to breathe at 4:35 AM, was pronounced by 2 RNs, and machine technician physician was notified. Family was notified. 2. Chronic diastolic congestive heart failure, valvular heart disease: The patient was getting fluids on admission, continued to be hypotensive. She has moderate to severe valvular aortic stenosis, severe tricuspid regurgitation. Plan was to monitor her fluid status, and continue her home medications of Lasix, losartan, nitrate, however pt has been lethargic, not able to take p.o. medications. Plan for comfort care measures. 3. History of atrial fibrillation: Plan was to continue her home diltiazem and Eliquis, and monitor her heart rates. Due to lethargy, patient was unable to take any p.o. medications. 4. Questionable pleural effusions on the chest x-ray. Plan was to get a CT of the chest, however patient's clinical status was critical and she was not stable to undergo the study. 5. AUSTEN Cr 1.58. on fluids. 6. Anemia. hb 10.Baseline hb around 12. hemeoccult positive. iron studies. vitamin b12 and folate levels. Consulted GI GI consulted, however at this point, patient is lethargic, with very poor prognosis. Plan for comfort care measures. 7. History of prolonged QTc: EKG. QTc is 435. We will monitor. 8. History of severe COPD with chronic hypoxic respiratory failure, on home oxygen 2 liters, currently [id number] respiratory failure secondary to pneumonia, and chronic obstructive pulmonary disease exacerbation. We will continue her home nebs and inhalers. We will hold her p.o. prednisone 5 mg daily and placed on IV Solu-Medrol 40 daily and taper to her to home prednisone 5 mg and monitor. Respiratory status worsened, and patient remained lethargic, plan for comfort care measures. 9. Mild elevation of troponin. Mostly demand ischemia from ongoing illness. serial CE. 10. Hypertension: At home on Cardizem, Imdur, and losartan. monitor the blood pressure. Patient hypotensive, secondary to sepsis, received IV fluids, albumin Very poor prognosis, plan for comfort care. 11. Hypothyroidism: Continue Synthroid if able to take PO. 12. Depression: Continue Zoloft if able to take p.o. 13. Deep venous thrombosis prophylaxis: On Eliquis. Held d/t anemia and FOBT + DISPOSITION: Closely monitored in the tele floor. Code status DNR/DNI as per discussion with Zeyad and also the son. Plan for comfort care. Patient ceased to breathe at 4:35 AM, on November 28. She was pronounced by 2 RNs, and machine technician physician and family were notified. Total Time Total Time Spent Total Time Spent (In Minutes): 0 Discharge Plan Discharge Items Patient Disposition:
== END 2020-11-28 05:41 | disposition expired | DRG 871 ==
LOC: ED 20:14 → 2N 11-27 02:30